=== PATIENT | female | born 1980 | race Caucasian/White ===

== ENCOUNTER 2024-02-23 11:43 | Outpatient (OUT) | payer OTHER, SELFPAY ==
--- NOTE | 2024-02-23 11:53 | US_ITS ---
[facility] [id number] Patient Name: JUSTYN NEWMAN MRN: [id number] date: 1980 Sex: F Assigned Patient Location: [facility] Current Patient Location: [facility] Accession/Order Number: [id number] Exam Date: 02/23/2024 11:58 Report Date: 02/23/2024 14:30 At the request of: AVI WEBER Procedure: US venous doppler LE LT EXAMINATION: US venous doppler LE LT HISTORY: Leg Pain M79.606 COMPARISON: No relevant comparison available. FINDINGS: REGION: Left lower extremity THROMBI: None. COMPRESSIBILITY: Normal compressibility. FLOW: Normal waveform and antegrade flow between 5 and 20 cm/s. OTHER: None. US/US venous doppler LE LT IMPRESSION: 1. No deep vein thrombus within the left lower extremity. Electronically authenticated by: REHANA WALLACE Date: 02/23/2024 14:30
== END 2024-02-23 11:44 | disposition home or self-care (01) ==
LOC: RAD 11:48
PROVIDERS: PCP Family Medicine; Visit Provider Family Medicine
DX: M79.606 Pain in leg, unspecified (principal)
CPT/HCPCS: 93971

== ENCOUNTER 2024-05-24 09:58 | Outpatient (OUT) | payer BC, SELFPAY ==
--- NOTE | 2024-05-24 10:03 | MM_ITS ---
Patient Name: JUSTYN NEWMAN MR#: [id number] : 1980 Exam Date: 05/24/2024 Ordering Doctor: DR Vinod Diaz . RADIOLOGY REPORT PROCEDURE: MM TOMOSYNTHESIS SCREENING BI COMPARISON: None. INDICATIONS: Screening Calculator Name NCI Breast Cancer Risk Assessment Tool 5 Year Breast Cancer Risk 0.50% Lifetime Breast Cancer Risk 7.90% Personal Breast Cancer No Personal Ovarian Cancer No Treatments None Family Cancers Aunt-maternal with ovarian cancer at age ~70. LOCATION: [facility] BREAST COMPOSITION: The breasts are almost entirely fatty. FINDINGS: DIAGNOSTIC CATEGORY 1--NEGATIVE. RIGHT BREAST: No significant suspicious finding. LEFT BREAST: No significant suspicious finding. RECOMMENDATIONS: ROUTINE MAMMOGRAM AND CLINICAL EVALUATION IN 12 MONTHS. PLEASE NOTE: A NORMAL MAMMOGRAM DOES NOT EXCLUDE THE POSSIBILITY OF BREAST CANCER. A CLINICALLY SUSPICIOUS PALPABLE LUMP SHOULD BE BIOPSIED. Dictated by: Kelvin Hernandez M.D. on 05/24/2024 at 16:02 Approved by: Kelvin Hernandez M.D. on 05/24/2024 at 16:04
== END 2024-05-24 09:59 | disposition home or self-care (01) ==
LOC: MAMMO 09:58
PROVIDERS: PCP Family Medicine; Visit Provider Family Medicine
DX: Z12.31 Encounter for screening mammogram for malignant neoplasm of breast (principal); Z80.41 Family history of malignant neoplasm of ovary
CPT/HCPCS: 77063; 77067

== ENCOUNTER 2025-05-26 11:59 | Outpatient (OUT) | payer SELFPAY ==
--- OUTSIDE RECORDS SUMMARY | 2025-05-26 12:15 | XMS_ITS | CCD ---
Author Organization [facility] Care Team Providers Care Steward/Stewardess Third Name Role Phone GUS, DR CÁRDENAS Admitting Unavailable HOY, DR CÁRDENAS Attending Unavailable HOY, DR CÁRDENAS Primary Care Unavailable HOY, DR CÁRDENAS Consulting Unavailable HOY, DR CÁRDENAS Admitting Unavailable HOY, DR CÁRDENAS Attending Unavailable HOY, DR CÁRDENAS Primary Care Unavailable HOY, DR CÁRDENAS Consulting Unavailable HOY, DR CÁRDENAS Admitting Unavailable HOY, DR CÁRDENAS Attending Unavailable HOY, DR CÁRDENAS Primary Care Unavailable HOY, DR CÁRDENAS Consulting Unavailable KARASIK, DR ENCARNACION Admitting Unavailable KARASIK, DR ENCARNACION Attending Unavailable HOY, DR CÁRDENAS Primary Care Unavailable KARASIK, DR ENCARNACION Consulting Unavailable ZIEBER, DR REHANA Gutierrez Consulting Unavailable KARASIK, DR ENCARNACION Admitting Unavailable KARASIK, DR ENCARNACION Attending Unavailable HOY, DR CÁRDENAS Primary Care Unavailable KARASIK, DR ENCARNACION Consulting Unavailable HOY, DR CÁRDENAS Admitting Unavailable HOY, DR CÁRDENAS Attending Unavailable HOY, DR CÁRDENAS Primary Care Unavailable HOY, DR CÁRDENAS Consulting Unavailable ZIEBER, DR REHANA Gutierrez Consulting Unavailable HOY, DR CÁRDENAS Admitting Unavailable HOY, DR CÁRDENAS Attending Unavailable HOY, DR CÁRDENAS Primary Care Unavailable HOY, DR CÁRDENAS Consulting Unavailable Sergio Samson Unavailable MD Avi Weber Primary Care Provider [phone] MD Julian Goodrich Attending Provider Avi Weber MD Primary Care Provider [place] DO Unavailable [phone] Julian Goodrich Attending Unavailable Julian Goodrich Admitting Unavailable Hoy, Avi M Primary Care Unavailable [place] Attending Unavailable JULIAN GOODRICH Referring Unavailable CHANEL FOSTER Attending Unavailable JULIAN GOODRICH Referring Unavailable Avi Weber MD Primary Care Provider Avi Weber MD Primary Care Provider [phone] Avi Weber MD Primary Care Provider [phone] Radha Bradshaw APRN Attending Provider Avi Weber MD Primary Care Provider [phone] Radha Bradshaw APRN Attending Provider MADI TRUONG Attending Unavailable HOY, AVI M Referring Unavailable HOY, AVI M Primary Care Unavailable MADI TRUONG Attending Unavailable HOY, AVI M Referring Unavailable HOY, AVI M Primary Care Unavailable MADI TRUONG Attending Unavailable HOY, AVI M Referring Unavailable HOY, AVI M Primary Care Unavailable MADI TRUONG Attending Unavailable HOY, AVI M Referring Unavailable HOY, VAI M Primary Care Unavailable ARDHA BRADSHAW Referring Unavailable HOY, AVI M Primary Care Unavailable HOY, AVI M Primary Care Unavailable MADI TRUONG Referring Unavailable HOY, AVI M Primary Care Unavailable HOY, AVI M Primary Care Unavailable SONAM CAMARILLO Attending Unavailable MADI TRUONG Referring Unavailable HOY, AVI M Primary Care Unavailable HOY, AVI M Referring Unavailable HOY, AVI M Primary Care Unavailable MADI TRUONG Referring Unavailable HOY, AVI M Primary Care Unavailable MADI TRUONG Referring Unavailable HOY, AVI M Primary Care Unavailable HOY, AVI M Referring Unavailable HOY, AVI M Primary Care Unavailable REMY MERCADO Attending Unavailable SONAM CAMARILLO Referring Unavailable HOY, AVI M Primary Care Unavailable Allergies Allergy ClassificationReported Allergen(s)Allergy TypeDate of OnsetReaction(s) Facility (1 source)[facility]enicillinDrug [facility]ergy[facility] (1 source)Pneumococcal vaccineDrug AllergyOhiohealth [facility] Rep[facility] (7 sources)Penicillin GDrug Zgkzxjp47-37-8460EqsjhatHolzer Health System (18 sources)Penicillins; Translations: [Penicillins]Allergy to substance 30-26-5968Wvuajjt Reaction, [facility] (1 source)PenicillinDrug Yialwvn24-49-3009YbrvqmszpProv[facility] Repository Medications Current Medications MedicationDrug Class(es)DatesSig (Normalized)Sig (Original)amitriptyline hydrochloride 75 mg oral tablet (14 sources)Tricyclic AntidepressantStart: 87-89-6575kqkxfeftnfzzv (ELAVIL) 75 mg tablet Indications: Fibromyalgia One capsule at 8 PM each night 90 tablet 1 10/22/2023 ActiveStart: 04-23-2023 End: 32-63-5465obopxvgjafvzb (ELAVIL) 50 mg tablet Indications: Fibromyalgia One capsule at 8 PM each night 90 tablet 1 04/23/2023 10/22/2023 Discontinued (Reorder)cholecalciferol 1.25 mg oral capsule (20 sources)Vitamin DStart: 05-04-2023 End: 72-72-6056pmva 1 capsule by mouth every monthcholecalciferol (VITAMIN D3) 50,000 units capsule Indications: Vitamin D deficiency TAKE 1 CAPSULE BY MOUTH ONCE MONTHLY 3 capsule 3 06/29/2023 ActiveStart: 03-22-2021 End: 22-14-5594Tsvkxczutvxbxlq (Vitamin D3) (Vitamin D3) 50 mcg (2,000 unit) Tablet Discontinued 50 MCG PO As Directed March 22, 2021 12:00am May 16, 2024 3:07pmdicyclomine hydrochloride 20 mg oral tablet (9 sources)AnticholinergicStart: 29-13-0993wotkeoxyytb (BENTYL) 20 mg tablet 05/01/2021 ActiveDULoxetine 60 mg delayed release oral capsule (14 sources)Serotonin and Norepinephrine Reuptake InhibitorStart: 29-84-1561nkku 1 capsule by mouth in the morning, then take 1 capsule by mouth at bedtime DULoxetine (CYMBALTA) 60 mg capsule Indications: Fibromyalgia Take 1 capsule (60 mg total) by mouthin the morning and 1 capsule (60 mg total) before bedtime. 180 capsule 1 10/22/2023 ActiveStart: 04-23-2023 End: 56-69-5219odtb 1 capsule by mouth once daily in the morning, then take 1 capsule by mouth once daily at bedtimeDULoxetine 40 mg capsule,delayed release(DR/EC) Indications: Fibromyalgia TAKE ONE CAPSULE BY MOUTHEVERY MORNING AND TAKE ONE CAPSULE BY MOUTH EVERY NIGHT AT BEDTIME 180 capsule 1 04/23/2023 10/22/2023 Discontinuedgabapentin 300 mg oral capsule (14 sources)Anti-epileptic AgentStart: 04-23-2023 End: 80-53-2399obpjxcavhx (NEURONTIN) 300 mg capsule Indications: Fibromyalgia One capsule at 8 PM 90 capsule 1 10/22/2023 ActiveSemaglutide/NAM/MeCbl 1.2 mg/0.33 mL (3 sources)Start: 97-56-9652Acdtoexzqee/NAM/MeCbl 1.2 mg/0.33 mL Active 0.33 ML SUBCUT every week 1.January 17, 2025 12:27pm01/17/2025 fax with 2 [facility] Pre-filled Syringes using Semaglutide Base 1.2 mg/Niacinamide 0.66 mg and Methylcobalamin 2.6 mcg Dispense 1.32 mL - (Four 0.33 mL pre-filled syringes) Complies with drug therapyStart: 11-11-2024 End: 53-08-1830Xtcdqepotom/NAM/MeCbl 1.2 mg/0.33 mL Discontinued 0.33 ML SUBCUT every week 1.November 11, 2024 12:00am January 17, 2025 12:36pm paper req faxed 07/14/2024 [facility] Pre-filled Syringes using Semaglutide Base 1.2 mg/Niacinamide 0.66 mg and Methylcobalamin 2.6 mcg Dispense 1.32 mL - (Four 0.33 mL pre-filled syringes)Start: 63-82-2499Refpwimxuob/NAM/MeCbl 1.2 mg/0.33 mL Active 0.33 ML SUBCUT every week 1.November 11, 2024 12:00am paper req faxed 07/14/2024 [facility] Pre-filled Syringes using Semaglutide Base 1.2 mg/Niacinamide 0.66 mg and Methylcobalamin 2.6 mcg Dispense 1.32 mL - (Four 0.33 mL pre-filled syringes)Complies with drug therapytiZANidine 4 mg oral tablet (19 sources)Central alpha-2 Adrenergic AgonistStart: 05-16-2024 End: 39-77-4987ione 6 mg by mouth once daily at bedtimeTizanidine 4 mg tablet Discontinued 6 MG PO Daily at bedtime May 16, 2024 1:00am June 30, 2024 2:45pmStart: 04-23-2023 End: 04-73-3294yfNFRnrkmm (ZANAFLEX) 4 mg tablet Indications: Fibromyalgia One and half tab at 8:00 p.m.each tablet 1 10/22/2023 Activevitamin b12 1 mg oral tablet (8 sources)Vitamin L20Fipgc: 46-26-9123lqrx 1 tablet by mouth in the morning cyanocobalamin 1000 MCG tablet Indications: Vitamin B 12 deficiency Take 1 tablet (1,000 mcg total)by mouth in the morning. 90 tablet 1 04/21/2022 Active Completed/Discontinued Medications MedicationDrug Class(es)DatesSig (Normalized)Sig (Original)celecoxib 200 mg oral capsule (2 sources)Nonsteroidal Anti-inflammatory DrugStart: 04-23-2023 End: 44-98-0442lnjldtdxw (CeleBREX) 200 mg capsule Indications: Fibromyalgia One caps daily with food as needed 90capsule 1 04/23/2023 10/22/2023 Discontinued ferrous sulfate 325 mg oral tablet (14 sources)Start: 03-22-2021 End: 31-48-7432ecxi 1 tablet by mouth three times dailyFerrous Sulfate (Iron) 325 mg (65 mg iron) Tablet Discontinued 325 MG PO Three times daily March 22, 2021 12:00am May 16, 2024 3:07pmtake 1 tablet by mouth once daily at breakfastferrous sulfate 325 (65 FE) mg tablet Take 1 tablet (325 mg total) by mouth daily with breakfast. Activefolic acid 1 mg / vitamin b12 0.5 mg oral tablet (6 sources)Vitamin Q82Pdmtz: 03-22-2021 End: 31-60-6620ogdu 1 tablet by mouth once dailyVitamin I59-Mbcnn Acid 0.5-1 mg Tablet Discontinued 1 TAB PO Daily March 22, 2021 12:00am May 16, 2024 3:07pmPrenatal No.144-Folic Acid () 400 mcg Tablet,Chewable (6 sources)Start: 03-22-2021 End: 18-96-1596Osfzrfug No.144-Folic Acid () 400 mcg Tablet,Chewable Discontinued 1 TAB PO As Directed March 22, 2021 12:00am May 16, 2024 3:07pmStart: 31-32-5938Sicotfks No.144-Folic Acid () 400 mcg Tablet,Chewable Active 1 TAB PO As Directed March 22, 2021 12:00amSemaglutide Base 0.6 mg/0.5 mL (4 sources)Start: 09-02-2024 End: 41-13-3332oxrqcw 1 mL by subcutaneous injection every weekSemaglutide Base 0.6 mg/0.5 mL Discontinued 0.5 ML SUBCUT every week 2 September 02, 2024 12:00am 2024 1:00pm 09/02/2024 fax [facility] Pre-filled Syringes using Semaglutide Base.Dispense 2 mL = (Four 0.5 mL pre-filled syringes)Start: 78-09-9581hlalgj 1 mL by subcutaneous injection every weekSemaglutide Base 0.6 mg/0.5 mL Active 0.5 ML SUBCUT every week 2 September 02, 2024 12:00am 09/02/2024 fax [facility] Pre-filled Syringes using Semaglutide Base. Dispense 2 mL = (Four 0.5 mL pre-filled syringes)Semaglutide/NAM/MeCbl 0.6 mg/0.5 mL (2 sources)Start: 11-11-2024 End: 00-07-9943Vvsbuiwmhlf/NAM/MeCbl 0.6 mg/0.5 mL Discontinued 0.5 ML SUBCUT every week 2 November 11, 2024 12:00am January 17, 2025 9:55am x 4 weeks then escalate to 1.2 mg weekly. 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]29-39-1652RxyxvngmEvpqz and electrolyte disorders (1 source)Other disorders of electrolyte and fluid balance, not elsewhere classified; Translations: [Other disorders of electrolyte and fluid balance, not elsewhere classified]Onset: 74-00-2024YyeahkyoKhpvxpfrgjxuc and screening for infectious disease (2 sources)Encounter for screening for human papillomavirus (HPV); Translations: [Raised antibody titer]Onset: 71-36-4538ToeqkfyfLezhmbjeqix deficiencies (20 sources)Vitamin D deficiency; Translations: [Vitamin D deficiency, unspecified]Onset: 795381-20-5056MyrrstrGvdlf connective tissue disease (9 sources)Hypermobility syndrome; Translations: [Hypermobility syndrome] 07-28-9879NbprsypoXxrek gastrointestinal disorders (1 source)Irritable bowel syndrome; Translations: [Mixed irritable bowel syndrome]ChronicOther gastrointestinal disorders (1 source)Mixed irritable bowel syndromeOnset: 05-01-2021 Resolved: 21-39-6395GikezusBtbqs hereditary and degenerative nervous system conditions (1 source)Myoclonus; Translations: [Myoclonus]Onset: 89-52-5131ZhjrzxqHzmmh nervous system disorders (5 sources)Carpal tunnel syndrome; Translations: [Carpal tunnel syndrome, unspecified upper limb]04-29-1028AxfmddxOdazina on above:per patient both hands Other nervous system disorders (1 source)Numbness and tingling sensation of skin; Translations: [Anesthesia of skin]53-31-9951IsyfwowtHxagb nervous system disorders (2 sources)Anesthesia of skin; Translations: [Anesthesia of skin]Onset: 11-33-1751CvxqcrprXsmxm nervous system disorders (1 source)Abnormal reflex; Translations: [Abnormal reflex]Onset: 04-26-2025 EpisodicOther non-traumatic joint disorders (1 source)Hip pain; Translations: [Pain in right hip]19-15-9109FftkmvpdCrxhy non-traumatic joint disorders (2 sources)Pain in right hip; Translations: [Pain in right hip]Onset: 03-09-2025 EpisodicOther non-traumatic joint disorders (2 sources)Pain in left hip; Translations: [Pain in left hip]Onset: 03-09-2025 EpisodicOther nutritional; endocrine; and metabolic disorders (9 sources)Body mass index 40+ - severely obese; Translations: [Body mass index (BMI) 40.0-44.9, adult]32-29-9032GwhttnjTuhmj nutritional; endocrine; and metabolic disorders (9 sources)Obesity; Translations: [Obesity, unspecified]82-02-5938JizyyttKkgbq nutritional; endocrine; and metabolic disorders (7 sources)Body mass index (BMI) 40.0-44.9, adult; Translations: [Body Mass Index 40.0-44.9, adult]Onset: 815929-18-9336GwruuftXuzon nutritional; endocrine; and metabolic disorders (6 sources)Obesity, unspecified; Translations: [Obesity, unspecified]06-30-2024 ChronicOther screening for suspected conditions (not mental disorders or infectious disease) (4 sources)Encounter for screening for malignant neoplasm of cervix; Translations: [ENC SCREENING MALIG NEOPLASM CERV]Onset: 94-44-6353LcdgzzkzUjwab upper respiratory infections (5 sources)Chronic sinusitis, unspecified; Translations: [CHRONIC SINUSITIS UNSPECIFIED]Onset: 37-11-0815ByfyfkiLdaopnmm enteritis and ulcerative colitis (1 source)Ulcerative colitis; Translations: [Ulcerative colitis, unspecified, without complications]ChronicSpondylosis; intervertebral disc disorders; other back problems (7 sources)Lumbar spondylosis; Translations: [Spondylosis without myelopathy or radiculopathy, lumbar region]Onset: 210075-55-1242SseqvtbQzksuykwktg; intervertebral disc disorders; other back problems (18 sources)Cervical radiculopathy; Translations: [Radiculopathy, cervical region]Onset: 323564-49-4648SmeoycovTqqckacmtowd (1 source)Facial NumbnessOnset: 66-15-0568Xlcrswctrewx (1 source)OPEN WOUND TOP OF RT FOOTOnset: 01-08-0607Vgohjnppzivv (1 source)New PatientOnset: 12-30-2495Bmwclihcmjlk (1 source)Low back pain, unspecified; Translations: [Low back pain, unspecified] Onset: 10-19-2024 Past or Other Problems Problem ClassificationProblemDateDocumented DateEpisodic/ChronicDeficiency and other anemia (4 sources)Iron deficiency anemia, unspecified; Translations: [IRON DEFICIENCY ANEMIA UNSPECIFIED]Onset: 69-63-4416YsuaocoyOwlbreq and fatigue (4 sources)Other fatigue; Translations: [OTHER FATIGUE]Onset: 10-75-6769Njlswymg Nutritional deficiencies (20 sources)Cobalamin deficiency; Translations: [Deficiency of other specified B group vitamins]Onset: 929464-75-0088RmdtydlqTsph wounds of extremities (1 source)Laceration without foreign body, right foot, initial encounter; Translations: [Laceration without foreign body, right foot, initial encounter] Onset: 92-11-3097TkuddenaBuahb connective tissue disease (18 sources)Fibromyalgia; Translations: [Fibromyalgia]Onset: 04-21-2022 20-63-6769PsulsslrHblnw connective tissue disease (7 sources)Fibromyalgia; Translations: [Myalgia and myositis, unspecified]Onset: 646978-88-1231CkkxhhieFgnuc connective tissue disease (7 sources)Hypermobility syndrome; Translations: [Hypermobility syndrome]Onset: 842199-17-8514KcismwgsCkrkx gastrointestinal disorders (1 source)Personal history of other diseases of the digestive systemOnset: 05-01-2021 Resolved: 19-48-0986HdjmixbbNfmtf injuries and conditions due to external causes (1 source)Laceration - injuryOnset: 88-03-0845VvtreytaFbtzagfx codes; unclassified (1 source)Other specified postprocedural states; Translations: [OTH SPECIFIED POSTPROCEDURAL STATES]Onset: 96-86-3879ZsxdgunyEgsahygm codes; unclassified (1 source)PainOnset: 04-13-2743Skmwwpgw Results Test NameValueInterpretationReference RangeFacilityAPTTon 41-78-0399xTRO Coag (Bld) [Time]34 tZkfccu65-06CrmAqnunjTexas Health Presbyterian Hospital PlanoComment on above:Performed By: #### PTT #### [facility] ([address] [address] VIRBEDSIDE GLUCOSEon 75-81-4884Bvjygev [Mass/Vol]64 mg/dLLow 65-99ProTexas Health Presbyterian Hospital PlanoComment on above:Performed By: #### BEDG #### [facility] ([address] [address] VIRCBC WITH AUTO DIFFERENTIALon 19-39-2650NHGQDCHLZ ABSOLUTE COUNT BY AUTOMATED COUNT0.1 X10^9/LNormal0.0-0.2POhioHealth Arthur [facility] Comment on above:Performed By: #### CBCA #### [facility] ([address] [address] VIRBASOPHILS RELATIVE PERCENT BY AUTOMATED COUNT1.1 %Normal [facility] HospitalComment on above:Performed By: #### CBCA #### [facility] ([address] [address] VIRCELLAVISION DIFFERENTIAL TYPEAUTOMATED DIFFERENTIALNormal [facility] HospitalComment on above:Performed By: #### CBCA #### [facility] ([address] [address] VIREosinophils (Bld) [#/Vol]0.1 10*3/uLNormal0.0-0.4ProTexas Health Presbyterian Hospital PlanoComment on above:Performed By: #### CBCA #### [facility] ([address] [address] VIREOSINOPHILS RELATIVE PERCENT BY AUTOMATED COUNT1.4 %Normal [facility] HospitalComment on above:Performed By: #### CBCA #### [facility] ([facility]) [address] [place] [address] [place] [address] VIRErythrocyte distribution width (RBC) [Ratio]13.4 %Normal 11.5-15[facility] HospitalComment on above:Performed By: #### CBCA #### [facility] ([address] [place] [address] VIRHematocrit (Bld) [Volume fraction]38.0 %Aczrrj87-96 [facility] HospitalComment on above:Performed By: #### CBCA #### [facility] ([address] [place] [address] VIRHemoglobin (Bld) [Mass/Vol]12.9 g/vFIepsyx16.7-15.5 [facility] HospitalComment on above:Performed By: #### CBCA #### [facility] ([address] [place] [address] VIRLymphocytes (Bld) [#/Vol]1.3 10*3/uLNormal1.0-3.5POhioHealth Arthur G.H. Bing, MD, Cancer CenterComment on above:Performed By: #### CBCA #### [facility] ([facility]) [address] [place] [address] [place] [address] VIRLYMPHOCYTES RELATIVE PERCENT BY AUTOMATED COUNT26.9 %Normal [facility] HospitalComment on above:Performed By: #### CBCA #### [facility] ([facility]) [address] [place] [address] [place] [address] VIRMCH (RBC) [Entitic mass]30.5 saPhrbdc06-28UxyIbxvryHarrison Community HospitalComment on above:Performed By: #### CBCA #### [facility] ([facility]) [address] [place] [address] [place] [address] VIRMCHC (RBC) [Mass/Vol]33.9 g/fKGpwkpu40-24NxwPzamjkTexas Health Presbyterian Hospital PlanoComment on above:Performed By: #### CBCA #### [facility] ([address] [place] [address] VIRMCV (RBC) [Entitic vol]90 yXWxqvzm46-859HnjGyzbwu [facility] HospitalComment on above:Performed By: #### CBCA #### [facility] ([address] [place] [address] VIRMonocytes (Bld) [#/Vol]0.4 10*3/uLNormal0.0-0.9ProTexas Health Presbyterian Hospital PlanoComment on above:Performed By: #### CBCA #### [facility] ([address] [place] [address] VIRMONOCYTES RELATIVE PERCENT BY AUTOMATED COUNT8.6 %Normal [facility] HospitalComhar[facility]aks hospital on above:Performed By: #### CBCA #### [facility] ([address] [place] [address] VIRNEUTROPHILS ABSOLUTE COUNT BY AUTOMATED COUNT3.0 X10^9/L Normal1.5-6.6[facility] HospitalComharbor oaks hospital on above:Performed By: #### CBCA #### [facility] ([address] [place] [address] VIRNEUTROPHILS RELATIVE PERCENT BY AUTOMATED COUNT62.0 %Normal [facility] HospitalComhar[facility] oaks hospital on above:Performed By: #### CBCA #### [facility] ([address] [place] [address] VIRPlatelet mean volume (Bld) [Entitic vol]8.2 fLNormal7-12 [facility] HospitalComhar[facility] oaks hospital on above:Performed By: #### CBCA #### [facility] ([address] [place] [address] VIRPlatelets (Bld) [#/Vol]320 10*3/hTSdvdiw307-784QhfQudqsy [facility] HospitalComment on above:Performed By: #### CBCA #### [facility] ([facility]) [address] [place] [address]. [place] [address] VIRRBC COUNT4.22 X10^12/LNormal3.8-5.2POhioHealth Arthur G.H. Bing, MD, Cancer CenterComment on above:Performed By: #### CBCA #### [facility] ([facility]) [address] [place] [address]. [place] [address] VIRWBC (Bld) [#/Vol]4.8 10*3/uLNormal4-11ProTexas Health Presbyterian Hospital PlanoComment on above:Performed By: #### CBCA #### [facility] ([facility]) [address] [place] [address]. [place] [address] VIRCOMPREHENSIVE METABOLIC PANELon 16-26-5601Smxejau [Mass/Vol]4.0 g/dLNormal3.2-5.3POhioHealth Arthur G.H. Bing, MD, Cancer CenterComment on above: Performed By: #### 04423-6, 9, 29304-7 #### [facility] ([id number]) [address], [address] [place], [place] [address]SAY [Catalytic activity/Vol]77 U/ETmyqas67-865SibSpyixvTexas Health Presbyterian Hospital PlanoComment on above:Performed By: #### 10385-9, 2132-02, 49408-6 #### [facility] ([id number]) [address], [address] [place], [place] [address]WMT [Catalytic activity/Vol]20 U/LNormal<=31POhioHealth Arthur G.H. Bing, MD, Cancer CenterComment on above:Performed By: #### 57350-9, 2132-02, 11126-7 #### [facility] ([id number]) [address], [address] [place], [place] [address]Mwfzp gap [Moles/Vol]9 mmol/LNormal5-15ProTexas Health Presbyterian Hospital PlanoComment on above:Performed By: #### 81410-8, 2132-02, 30611-3 #### [facility] ([id number]) [address], [address] [place], [place] [address]FDL [Catalytic activity/Vol]22 U/LNormal<=41ProTexas Health Presbyterian Hospital PlanoComment on above:Performed By: #### 89657-6, 2132-02, 15682-8 #### [facility] ([id number]) [address], [address] [place], [place] [address]Tagfuxwoa [Mass/Vol]0.4 mg/dLNormal0.3-1.2POhioHealth Arthur G.H. Bing, MD, Cancer CenterComment on above:Performed By: #### 00770-8, 2132-02, 48069-9 #### [facility] ([id number]) [address], [address] [place], [place] [address]Mtbgcrb [Mass/Vol]9.0 mg/dLNormal8.5-10.5POhioHealth Arthur G.H. Bing, MD, Cancer CenterComment on above:Performed By: #### 96584-4, 2132-02, 21809-3 #### [facility] ([id number]) [address], [address] [place], [place] [address]Roylepnc [Moles/Vol]104 mmol/TRbegnu60-570DnbUppsouTexas Health Presbyterian Hospital PlanoComment on above:Performed By: #### 65308-3, 2132-02, 93498-7 #### [facility] ([id number]) [address], [address] [place], [place] [address]EI6 [Moles/Vol]27 mmol/IOrmpqf92-13TpyYoftfvAdena Fayette Medical Center on above:Performed By: #### 34442-9, 2132-02, 61981-6 #### [facility] ([id number]) [address], [address] [place], [place] [address]Fisbvvnzgy [Mass/Vol]1.05 mg/dLHigh0.40-1.00H[facility] HospitalComment on above:Result Comment: METHOD TRACEABLE TO IDMS STANDARD Performed By: #### 50643-6, 2132-02, 25848-7 #### [facility] ([id number]) [address], [address] [place], [place] [address]FOM/1.73 sq M.predicted among non-blacks MDRD (S/P/Bld) [Vol rate/Area]68 mL/min/{1.73_m2}Normal>=60ProTexas Health Presbyterian Hospital PlanoComment on above:Result Comment: eGFR not reported due to non-numeric value for Creatinine. Reported eGFR is based on the CKD-EPI 2020 equation that does not use a race coefficient.Performed By: #### 17760-9, 2132-02, 82173-3 #### [facility] ([id number]) [address], [address] [place], [place] [address]Ranlxsb [Mass/Vol]82 mg/nLJjtgsv58-12DfmXhjkxwHarrison Community Hospital Comment on above:Performed By: #### 53010-2, 2132-02, 11576-9 #### [facility] ([id number]) [address], [address] [place] [address]Ppgahjwqa [Moles/Vol]4.2 mmol/LNormal3.5-5.0Harrison Community HospitalComment on above:Performed By: #### 30512-0, 2132-02, 91248-2 #### [facility] ([id number]) [address], [address] [place] [address]Wlcszmo [Mass/Vol]7.3 g/dLNormal6.0-8.0ProTexas Health Presbyterian Hospital PlanoComment on above:Performed By: #### 18623-1, 2132-02, 44003-9 #### [facility] ([id number]) [address], [address] [place] [address]Tcoppi [Moles/Vol]140 mmol/FVxmqwq942-657FhbZgvftq [facility]remont HospitalComment on above:Performed By: #### 58958-4, 9, 07153-5 #### [facility] ([id number]) [address], [address] [place], [place] [address]Mfjz nitrogen [Mass/Vol]12 mg/dLNormal5-23Harrison Community HospitalComment on above:Performed By: #### 89924-7, 9, 06307-4 #### [facility] ([id number]) [address], [address] [place], [place] [address]MO BRAIN WO CONTon 61-03-6746LT BRAIN WO CONTCT BRAIN WO CONT STUDY: CT HEAD WITHOUT CONTRAST CLINICAL HISTORY: Facial numbness acute neurologic symptoms COMPARISON: None. TECHNIQUE: CT head was performed without contrast utilizing 2.5 mm axial reconstruction with imagesreviewed in bone and brain windows. Automated exposure control was utilized. FINDINGS: There is no intracranial mass, mass effect or shift of midline structures. No extra-axial fluid collection. Schneider-white differentiation is preserved. Brain volume and ventricular configuration are appropriate for the patient's stated age. Please note, MRI is more sensitive for the evaluation of acute or occult process if indicated. IMPRESSION: 1. No evidence of an acute intracranial process. All CT scans at this facility use dose modulation, iterative reconstruction, and/or weight based dosing when appropriate to reduce radiation dose to as low as reasonably achievable. Finalized by Jay Jay Castrejon MD on 04/20/2025 3:05 PMNormalHarrison Community HospitalCT CTA CAROTIDon 35-70-3706UG CTA CAROTIDCT CTA CAROTID History: Facial numbness. Evaluate for stroke alert. Exam/Technique: Contiguous axial images are obtained of the CT carotid angiogram 100ml Omnipaque 350 intravenous contrast. Coronal and sagittal reconstructions were performed and reviewed. CT angiogram protocol with 3-D and volumetric scans acquired. Automatic dose exposure reduction technique utilized. Comparison: Findings: Limited exam due to patient body habitus. Breathing artifact also compromising detail. NON VASCULAR FINDINGS: No neck masses. No fluid collections. Lung apices are unremarkable. Azygos lobe fissure normal variation noted in the right upper lobe region. Beam hardening artifact from hardware in the oral cavity. Vascular sclerosis of the cervical spine keeping muscle spasm with degenerative disease in the mid cervical spine. VASCULAR FINDINGS: Both vertebral arteries arise from the subclavian arteries. The arteries demonstrate no stenosis inthe neck with the right artery appearing dominant and the left diminutive The visualized aortic arch is a three-vessel configuration. The common carotid arteries are patent. The carotid bulbs are patent and the bifurcation and internal carotid arteries are patent skull base bilaterally. IMPRESSION: No significant vascular stenosis in the neck identified. Study interpreted with NASCET criteria. Distal ICA -Area of Stenosis/Max ICA diameter. All CT scans at this facility use dose modulation, iterative reconstruction, and/or weight based dosing when appropriate to reduce radiation dose to as low as reasonably achievable. Finalized by El Massey MD on 04/20/2025 3:05 [facility] CenterCT CT[facility] HEADon 82-36-0125ZA CTA HEADCT CTA HEAD CT CTA HEAD CLINICAL HISTORY: Facial numbness. COMPARISON: 04/20/2020. TECHNIQUE: Axial CT images were obtained through the head following the uneventful administration of intravenous contrast. Sagittal and coronal reformatted images were performed. MIP and volume rendered images were also post processed at a separate workstation to further define anatomy and potential pathology. 100 mL of Ibobbquye506 intravenous contrast without complication. Arterial blood flow was measuredto assist the stroke clinical team in the diagnosis of large vessel occlusion in patients undergoing screening for acute ischemic stroke using Rapid AI software when clinically indicated. FINDINGS: The distal internal carotid arteries are unremarkable. Normal distal vertebral and basilar arteries. There is no significant stenosis in the anterior, middle or posterior cerebral arteries. No evidence of sizable aneurysm or malformation. No large vessel occlusion. There are small patent posterior communicating arteries. IMPRESSION: 1. No large vessel arterial occlusion, significant stenosis, sizable aneursym, or malformation. 2. CTA carotid findings dictated separately. All CT scans at this facility use dose modulation, iterative reconstruction, and/or weight based dosing when appropriate to reduce radiation dose to as low as reasonably achievable. Finalized by Heriberto Espino MD on 04/20/2025 3:03 [facility] MAGNESIUMon 56-45-5538Hsmqpumis [Mass/Vol]2.0 mg/dLNormal1.8-2.6ProTexas Health Presbyterian Hospital PlanoComment on above:Performed By: #### MG #### [facility] ([facility]) [address] [place] [address] [place] [address] VIRPHOSPHORUSon 21-21-9786Bwepuoacj [Mass/Vol]3.5 mg/dLNormal 2.4-4.9ProTexas Health Presbyterian Hospital PlanoComment on above:Performed By: #### PHOS #### [facility] ([facility]) [address] [place] [address]. [place] [address] VIRPROTIME AND INRon 19-48-7208YEX9.5Hezzuw4.9-1.2POhioHealth Arthur G.H. Bing, MD, Cancer CenterComment on above:Performed By: #### PINR #### [facility] ([address] [place] [address] VIRPT Coag (PPP) [Time]12.4 sNormal9.8-13.2POhioHealth Arthur G.H. Bing, MD, Cancer CenterComment on above:Performed By: #### PINR #### [facility] ([address] [place] [address] VIRTHYROID PROFILE INCLUDES TSH FT4on 64-81-1547Jvmi T4 [Mass/Vol]0.73 ng/dLNormal0.61-1.60ProTexas Health Presbyterian Hospital PlanoComment on above: Performed By: #### 20125-1, 2132-02, 12354-2 #### [facility] ([id number]) [address], [address] [place], [place] [address]VEX5.60 uIU/mLNormal0.49-4.67ProTexas Health Presbyterian Hospital PlanoComment on above:Performed By: #### 33265-5, 2132-02, 02163-8 #### [facility] ([id number]) [address] [place], [place] [address]ZYOR I, HIGH SENSITIVITY 1 HOURon 57-25-9478GPGCAKVH I, HIGH SENSITIVITY<^2Normal<16ProTexas Health Presbyterian Hospital PlanoComment on above:Performed By: #### 92241-7, 2132-02, 36484-3 #### [facility] ([id number]) [address], [address] [place] [address]WLSCZIFRCUzb 25-10-8405Ypuhetgrh Ql (U)NegativeNormalNegative [facility] HospitalComment on above:Performed By: #### 97289-3, 2132-02, 04633-2 #### [facility] ([id number]) [address], [address] [place] [address]XQPNM/HGBNegativeNormalNegVan Wert County HospitalComment on above:Performed By: #### 04829-0, 2132-02, 59850-3 #### [facility] ([id number]) [address], [address] [place], [place] [address]Shaxm (U)YellowNormalYellowHarrison Community HospitalComment on above:Performed By: #### 48159-2, 2132-02, 42886-1 #### [facility] ([id number]) [address], [address] [place], [place] [address]Nezneco Ql (U)NegativeNormalNegative, 250 mg/dLHarrison Community HospitalComment on above:Performed By: #### 54504-7, 2132-02, 52833-2 #### [facility] ([id number]) [address], [address] [place], [place] [address]Tyffofq Ql (U)NegativeNormalNegativeHarrison Community Hospital Comment on above:Performed By: #### 35180-4, 2132-02, 57547-4 #### [facility] ([id number]) [address], [address] [place], [place] [address]Qsmlpqsmc esterase Test strip Ql (U)NegativeNormalNegative Harrison Community HospitalComment on above:Performed By: #### 80501-2, 2132-02, 24699-8 #### [facility] ([id number]) [address], [address] [place] [address]Frfkymc Ql (U)NegativeNormalNegativeHarrison Community Hospital Comment on above:Performed By: #### 94412-3, 2132-02, 93817-3 #### [facility] ([id number]) [address], [address] [place] [address]XR,URINE6.4Iudeik7.0-8.5ProMedica [facility]ripp[facility] Memorial HospitalComment on above:Performed By: #### 35255-0, 2132-02, 81000-0 #### [facility] ([id number]) [address], [address] [place], [place] [address]Cddmvdk Ql (U)NegativeNormalNegVan Wert County Hospital Comment on above:Performed By: #### 59485-6, 2132-02, 38760-4 #### [facility] ([id number]) [address], [address] [place] [address]Zgcorvak gravity (U) [Rel density]1.118Jvjwva4.003-1.035 [facility] HospitalComment on above:Performed By: #### 90700-5, 2132-02, 74173-3 #### [facility] ([id number]) [address], [address] [place] [address]TPFARALITHrgrvHyynthBybakNcxHhlscd [facility]ont HospitalComment on above:Performed By: #### 38269-5, 2132-02, 94550-9 #### [facility] ([id number]) [address], [address] [place] [address]WVAPGQXEJJWO7.2 eu/dLNormal0.2 eu/dL, 1.0 eu/dLHarrison Community HospitalComment on above:Performed By: #### 49502-3, 9, 75559-3 #### [facility] ([id number]) [address], [address] [place], [place] [address]AUTRBXP B12on 88-34-8281Wmebkczqa (Vitamin B12) [Mass/Vol]500 pg/iNLsanlf043-919JkqBbtfsd [facility] HospitalComment on above:Performed By: #### 62730-8, 2132-02, 83072-6 #### [facility] ([id number]) [address], [address] [place], [place] [address]HB AMB LUMBAR MEDIAL BRANCH BLOCKon 67-48-4785ZE AMB LUMBAR MEDIAL BRANCH BLOCKFL AMB LUMBAR MEDIAL BRANCH BLOCK Lumbar spine 2 view intraoperative fluoroscopy for epidural steroid injection HISTORY: Lumbar spondylosis, intraoperative fluoroscopy for bilateral lumbar epidural steroid injection. IMPRESSION: AP and oblique fluoroscopic images of the lumbar spine submitted, 4 total images demonstrating overlying posterior needles. Reference Air Kerma 9.82 mGy. Please refer to operative report. Finalized by Brant Acuña MD on 04/17/2025 10:28 [facility] PPGXR HIPS BILAT W OR WO PELVIS 5+ VWSon 30-71-3952GV HIPS BILAT W OR WO PELVIS 5+ VWSXR HIPS BILAT W OR WO PELVIS 5+ VWS XR HIPS BILAT W OR WO PELVIS 5+ VWS CLINICAL HISTORY: Bilateral hip joint pain COMPARISON: None. FINDINGS: Frontal view of the pelvis and 2 views of each hip are obtained. Soft tissues: Unremarkable. Osseous structures: No acute fracture. No destructive osseous lesion. Joints: No dislocation or malalignment. Subchondral sclerosis in bilateral hips suggesting mild hip degenerative arthritis without significant joint space narrowing. IMPRESSION: * No acute fracture or malalignment. Mild bilateral hip degenerative arthritis. Finalized by Vane Malone MD on 03/13/2025 5:18 [facility] PPGXR SPINE CERVICAL 3 VWS OR LESSon 81-89-5271JE SPINE CERVICAL 3 VWS OR LESSXR SPINE CERVICAL 3 VWS OR LESS 3 views of the cervical spine dated 03/09/2025 at 11:23 AM INDICATION: Neck pain. FINDINGS: No comparisons available. Reversed cervical lordosis. Degenerative disc disease and smallosteophytes in the mid cervical spine. Mild narrowing of the C5-6 disc space. No acute fracture or subluxation seen. IMPRESSION: 1. Reversed cervical lordosis and degenerative disc disease in the mid cervical spine. 2. No acute fractures or subluxations seen. Finalized by Joel Gautam MD on 03/12/2025 4:46 [facility] PPGFL AMB SACROILIAC JOINT INJon 75-62-2231DP AMB SACROILIAC JOINT INJFL AMB SACROILIAC JOINT INJ HISTORY: Sacroiliac pain Fluoroscopy time: 15.2 seconds Reference air kerma: 10.0 mGy FINDINGS: Multiple fluoroscopic views of the pelvis were obtained. Images demonstrate needle localization of the inferior left sacroiliac joint. Confirmatory contrast injection was performed prior tosteroid administration. IMPRESSION: * Intraoperative fluoroscopy provided during left sacroiliac joint injection. No radiologist present during examination. Please refer to operative report for additional detail. Finalized by Bairon Morales MD on 12/19/2024 8:41 [facility] PPGMR LUMBAR SPINE WO CONTon 48-56-4667CJ LUMBAR SPINE WO CONTMR LUMBAR SPINE WO CONT EXAM: MRI LUMBAR SPINE WITHOUT CONTRAST CLINICAL HISTORY: Chronic low back pain, lumbar radiculopathy, foot drop. TECHNIQUE: Routine unenhanced MRI of the lumbar spine was obtained. COMPARISONS: None. FINDINGS: The lumbar spine maintains a normal lordotic curvature. There is no malalignment within the lumbar spine. There is no significant loss of the vertebral body or disc space heights. There are no bone marrow signal abnormalities. There are no signal abnormalities of the visualized distal spinal cord. The conus is normal in appearance and location, terminating at the L1-L2 level. Individual disc space levels: T12-L1: The disc is unremarkable. L1-L2: The disc is unremarkable. L2-L3: The disc is unremarkable. L3-L4: The disc is unremarkable. L4-L5: The disc is unremarkable. L5-S1: The disc is unremarkable. IMPRESSION: 1. Normal MRI of the lumbar spine without contrast. Finalized by Reza Rodriguez MD on 11/29/2024 6:08 [facility] XR SPINE LUMBAR 2 OR 3 VWSon 36-31-2918MJ SPINE LUMBAR 2 OR 3 VWSXR SPINE LUMBAR 2 OR 3 VWS XR SPINE LUMBAR 2 OR 3 VWS HISTORY: Low back pain, unspecified back pain laterality, unspecified chronicity, unspecified whether sciatica present. COMPARISON: none IMPRESSION: Preserved lumbar vertebral body heights. No substantial listhesis. Moderate disc height loss at L5-S1. Notable posterior facet arthropathy at L4-5., Suspect posterior facet tropism degenerative changes sacroiliac joints. Finalized by Mauricio Dickinson MD on 10/20/2024 10:24 [facility] PPGLipid 1996 panelon 43-39-9062Nfczvruskgl [Mass/Vol]208 mg/dLHigh 150-200H[facility] Community HospitalComment on above:Performed By: #### 01293-9, 2139, 21032-1 #### [facility] ([id number]) [address] [place] [address], [address] [place], [place] [address]Yhtrffgvhfx in HDL [Mass/Vol]59 mg/dLNormal>39H[facility] Community HospitalComment on above:Result Comment: HDL <40 mg/dL - High Risk HDL > or = 40mg/dL- Desirable HDL >60 mg/dL - Negative Risk Performed By: #### 55745-7, 21329, 83272-9 #### [facility] ([id number]) [address] [place] [address], [address] [place], [place] [address]Ogelhwncvjv in LDL [Mass/Vol]130 mg/dLHigh<130ProTexas Health Presbyterian Hospital PlanoComment on above:Result Comment: LDL <100 mg/dL - Desirable LDL >160 mg/dL - High Risk Performed By: #### 59184-1, 2132-02, 71502-3 #### [facility] ([id number]) [address], [address] [place], [place] [address]Acvczrwsepe in VLDL [Mass/Vol]19 mg/dLNormal0-30ProTexas Health Presbyterian Hospital PlanoComment on above:Performed By: #### 62588-0, 2132-02, 89493-1 #### [facility] ([id number]) [address], [address] [place], [place] [address]BOUUSTBBBWS:HDL3.7Nfftjb1.0-5.0H[facility] Community HospitalComment on above:Performed By: #### 83741-4, 2132-02, 21185-5 #### [facility] ([id number]) [address], [address] [place], [place] [address]Nhenxekxalpu [Mass/Vol]95 mg/eAOicncl56-064EjbOmdelk [facility] HospitalComment on above:Performed By: #### 61210-4, 2132-02, 16219-5 #### [facility] ([id number]) [address], [address] [place], [place] [address]TXQCTYZ B12on 37-79-6380Ytqfdvjli (Vitamin B12) [Mass/Vol]178 pg/cYKon716-520NknMzixfeOhioHealth Arthur G.H. Bing, MD, Cancer CenterComment on above:Performed By: #### 56044-2, 2132-02, 88900-7 #### [facility] ([id number]) [address], [address] [place], [place] [address]Afznjru D+Metabolites [Mass/Vol]on 35-66-5462PMUWIGM D 25 HYD TOT43.9 ng/aWIukkoy45-709EjlSdqzel [facility] HospitalComment on above:Result Comment: Vitamin D status 25 [place] Vitamin D Deficiency <20 ng/mL Insufficiency 20-29 ng/mL Sufficiency 30-100 ng/mL Toxicity >100 ng/mL NOTE: A pediatric reference range has not been established by the automotive shop foreman of this kit. The [place] [employer] recommends a Vitamin D level of = or >20ng/mL in infants and children.Performed By: #### 99570-5, 2132-9, 33161-5 #### [facility] ([id number]) [address] [place], [place] [address]ZLA 2 Extremitieson 17-29-0711RSR/NCS BLE Left S1/2 radic vs tibial neuropathyNODivine Savior HealthcareN - Nerveson 01-32-7015HQG/NCS BLE Left S1/2 radic vs tibial neuropathyAtrium Health Kings MountainEMG 2 Extremitieson 65-57-9937Uxbufxad radiculopathy at C8, bilaterally, mild Carpal tunnel syndrome bilaterally, very minimal bilaterallyNOAscension [facility] - Nerveson 46-01-6328Ydzrfkce radiculopathy at C8, bilaterally, mild Carpal tunnel syndrome bilaterally, very minimal bilaterallyAurora [facility]boy[facility] Antinuclear Antibodieson 88-62-6355Hegxvsgudlp Abs, IFAPositive Critically abnormal.[facility] Physician GroupComment on above:Result Comment: Negative <1:80 Borderline 1:80 Positive >1:80Performed By: #### CH50, TPO, ROULA, ANTIR, VOI78IC, C3, C4, THYGLOB AB, CHROMATIN #### [facility] ,Note 1CommentNormal.The [facility] Physician GroupComment on above:Result Comment: Pattern Potential Disease Association Homogeneous Systemic Lupus Erythematosus, Drug Induced Systemic Lupus Erythematosus, Chronic Autoimmune hepatitis, Juvenile Idiopathic Arthritis Speckled Sjogren Syndrome, Systemic Lupus Erythematosus, Subacute Cutaneous Lupus, Lupus, Congenital Heart Block, Mixed Connective Tissue Disease, Scleroderma-diffuse, Scleroderma-Autoimmune Myositis Overlap Syndrome, Systemic Lupus Qlchiybfzzgzt-Snohjiqthii-Prtqkmyghz Myositis Overlap Syndrome, Systemic Autoimmune Rheumatic Disease, Undifferentiated Connective Tissue Disease Nucleolar Systemic Sclerosis, Scleroderma-Autoimmune Myositis Overlap Syndrome, Sjogren Syndrome, Raynaud phenomenon, Pulmonary Arterial Hypertension, Systemic Autoimmune Rheumatic Disease, Cancer Centromere Scleroderma-CREST, Limited Cutaneous SSc, Raynaud's Phenomenon, Primary Biliary Cholangitis Nuclear Dot Primary Biliary Cholangitis Nuclear Primary Biliary Cholangitis, Autoimmune Membrane Hepatitis/Liver disease, Systemic Autoimmune Rheumatic Disease, Autoimmune Cytopenias, Linear Scleroderma, Antiphospholipid Syndrome Performed at: [address] [id number] Escalator Service Mechanic: Cachorro Humphrey PhD, Phone: [phone] By: #### CH50, TPO, ROULA, ANTIR, [id number], C3, C4, THYGLOB AB, CHROMATIN #### [facility] ,Speckled Pattern1:160High.The [facility] Physician GroupComment on above:Result Comment: ICAP nomenclature: AC-2,4,5,29Performed By: #### CH50, TPO, ROULA, ANTIR, [id number], C3, C4, THYGLOB AB, CHROMATIN #### [facility] ,Activated partial thromboplastin time (aPTT) in platelet poor plasma by coagulation aOrdered By: Julian Goodrich on 99-70-3092rDOP Coag (PPP) [Time]32.2 s25.1-36.5FSumma Health Barberton CampusComment on above:A hematocrit value greater than 55% may lead to inaccurate results in coagulation testing. Patients having hematocrit values >55% require a special collection tube for coagulation studies. Please contact the laboratory at [phone] for redraw instructions. Alanine aminotransferase [Enzymatic activity/volume] in Serum or PlasmaOrdered By: Julian Goodrich on 80-02-4539EWK [Catalytic activity/Vol]12 U/LNormal7-52 Providence HospitalComment on above:Performed By: #### CH50, TPO, ROULA, ANTIR, [id number], C3, C4, THYGLOB AB, CHROMATIN #### [facility] ,Albumin [Mass/volume] in Serum or Plasma by Bromocresol green (BCG) dye binding methoOrdered By: Julian Goodrich on 61-86-1543Ypnrtvu BCG dye [Mass/Vol]4.1 g/dL 3.5-5.7FSumma Health Barberton CampusAldolaseon 43-19-4652Yindgfqf3.9 U/LLow 3.3-10.3The [facility] Physician GroupComment on above:Result Comment: Performed at: [facility] [address] [id number] Escalator Service Mechanic: Cachorro Humphrey PhD, Phone: [phone] PERFORMED BY: [place] [address] PATHOLOGIST ELECTROLYSIST DIANA BOGGS M.D.Performed By: #### CH50, TPO, ROULA, ANTIR, [id number], C3, C4, THYGLOB AB, CHROMATIN #### [facility] ,Alkaline phosphatase [Enzymatic activity/volume] in Serum or PlasmaOrdered By: Julian Goodrich on 53-65-8530CCI [Catalytic activity/Vol]86 U/VYebdev60-354 [facility] HospitalComment on above:Performed By: #### CH50, TPO, ROULA, ANTIR, [id number], C3, C4, THYGLOB AB, CHROMATIN #### [facility] ,Anti-RNPon 31-04-5592Hiuy-WINDSHIELD TECHNICIAN<0.3Lvelqi9.0-0.9[facility] Comment on above:Performed By: #### CH50, TPO, ROULA, ANTIR, [id number], C3, C4, THYGLOB AB, CHROMATIN #### [facility] ,Antithyroglobulin Abon 96-93-8311Drkiyruosisqqjjxh Ab<1.0Jcmasj7.0-0.9The [facility] Physician GroupComment on above:Result Comment: Thyroglobulin Antibody measured by [employer] It should be noted that the presence of thyroglobulin antibodies may not be pathogenic nor diagnostic, especially at very low levels. The assay automotive shop foreman has found that four percent of individuals without evidence of thyroid disease or autoimmunity will have positive TgAb levels up to 4 IU/mL. Performed at: [address] [id number] Escalator Service Mechanic: Cachorro Humphrey PhD, Phone: [phone] By: #### CH50, TPO, ROULA, ANTIR, [id number], C3, C4, THYGLOB AB, CHROMATIN #### [facility] ,Aspartate aminotransferase [Enzymatic activity/volume] in Serum or Plasma Ordered By: Julian Goodrich on 79-26-5565FMH [Catalytic activity/Vol]16 U/LNormal 13-39Providence HospitalComment on above:Performed By: #### CH50, TPO, ROULA, ANTIR, [id number], C3, C4, THYGLOB AB, CHROMATIN #### [facility] ,Automated basophil %Ordered By: Julian Smithrow on 00-69-3503Jjonyflxq/100 WBC (Bld)0.6 %Normal.Providence HospitalComment on above:Performed By: #### CH50, TPO, ROULA, ANTIR, [id number], C3, C4, THYGLOB AB, CHROMATIN #### [facility] ,Automated basophil countOrdered By: Julian Smithrow on 53-70-1348Izfyqfmdf (Bld) [#/Vol]0.0 10*3/uLNormal0.0-0.2FSumma Health Barberton CampusComment on above:Performed By: #### CH50, TPO, ROULA, ANTIR, [id number], C3, C4, THYGLOB AB, CHROMATIN #### [facility] ,Automated blood monocyte countOrdered By: Julian Smithrow on 53-42-3393Ksdynrpcp (Bld) [#/Vol]0.4 10*3/uLNormal0.0-0.8Providence HospitalComment on above:Performed By: #### CH50, TPO, ROULA, ANTIR, [id number], C3, C4, THYGLOB AB, CHROMATIN #### [facility] ,Automated eosinophil %Ordered By: Julian Smithrow on 15-11-6971Yeufbyuxzkn/100 WBC (Bld)1.5 %Normal.[facility] HospitalComment on above:Performed By: #### CH50, TPO, ROULA, ANTIR, [id number], C3, C4, THYGLOB AB, CHROMATIN #### [facility] ,Automated eosinophil countOrdered By: Julian Jacky on 68-29-1148Ivqwnromtcf (Bld) [#/Vol]0.1 10*3/uLNormal0.0-0.45[facility] HospitalComment on above:Performed By: #### CH50, TPO, ROULA, ANTIR, [id number], C3, C4, THYGLOB AB, CHROMATIN #### [facility] ,Automated monocyte %Ordered By: Julian Goodrich on 87-91-2208Zxqehgnue/100 WBC (Bld)6.9 %Normal.[facility] HospitalComment on above:Performed By: #### CH50, TPO, ROULA, ANTIR, [id number], C3, C4, THYGLOB AB, CHROMATIN #### [facility] ,Automated neutrophil %Ordered By: Julian Goodrich on 58-20-0502Gmivmwjtxsw/100 WBC (Bld)67.3 %Normal.[facility]idence HospitalComment on above: Performed By: #### CH50, TPO, ROULA, ANTIR, [id number], C3, C4, THYGLOB AB, CHROMATIN #### [facility] ,Bacteria [Presence] in Urine by AutomatedOrdered By: Julian Goodrich on 04-68-5182Zegzvekz Auto Ql (U)None seen [HPF]None SeenProvidence HospitalBilirubin Test strip Ql (U)Ordered By: Julian Goodrich on 04-11-2024 Bilirubin Ql (U)NegativeNegativeProvidence HospitalBilirubin.total [Mass/volume] in Serum or PlasmaOrdered By: Julian Goodrich on 04-11-2024 Bilirubin [Mass/Vol]0.5 mg/dLNormal0.3-1.0[facility] Comment on above:Performed By: #### CH50, TPO, ROULA, ANTIR, [id number], C3, C4, THYGLOB AB, CHROMATIN #### [facility] ,C reactive protein [Mass/volume] in Serum or PlasmaOrdered By: Julian Goodrich on 16-40-5539YRG [Mass/Vol]1.1 mg/dLHigh0.0-0.5FSumma Health [facility] Campus C-Reactive Proteinon 32-46-5600U-Reactive Protein1.1 mg/dLHigh0.0-0.5The [facility] Physician GroupComment on above:Performed By: #### CH50, TPO, ROULA, ANTIR, [id number], C3, C4, THYGLOB AB, CHROMATIN #### [facility] ,Calcium [Mass/volume] in Serum or PlasmaOrdered By: Julian Goodrich on 50-76-0869Dvtbmcv [Mass/Vol]9.4 mg/dLNormal8.6-10.3FSumma Health Barberton CampusComment on above:Performed By: #### CH50, TPO, ROULA, ANTIR, [id number], C3, C4, THYGLOB AB, CHROMATIN #### [facility] ,Carbon dioxide, total [Moles/volume] in Serum or PlasmaOrdered By: Julian Goodrich on 58-08-3494RH2 [Moles/Vol]30.1 mmol/QKgnopo55.0-31.0Providence HospitalComment on above:Performed By: #### CH50, TPO, ROULA, ANTIR, [id number], C3, C4, THYGLOB AB, CHROMATIN #### [facility] ,Chloride [Moles/volume] in Serum or PlasmaOrdered By: Julian Goodrich on 77-08-1869Xnbqzaqv [Moles/Vol]103 mmol/DMxifas43-490HhdgplgtnProvidence HospitalComment on above:Performed By: #### CH50, TPO, ROULA, ANTIR, [id number], C3, C4, THYGLOB AB, CHROMATIN #### [facility] ,Chromatin Antibodyon 89-38-3763Gcmcusiql Antibody<0.6Jvezqi6.0-0.9The [facility] Physician [facility] HospitalComment on above:Result Comment: PERFORMED BY: [address] [place] [address] PATHOLOGIST ELECTROLYSIST DIANA BOGGS M.D.Performed By: #### CH50, TPO, ROULA, ANTIR, [id number], C3, C4, THYGLOB AB, CHROMATIN #### [facility] ,Coagulation Profileon 10-83-7063kHHR Coag (Bld) [Time]32.2 pKmyfwv17.1-36.5The [facility] Physician [facility] Memorial HospitalComment on above:Result Comment: A hematocrit value greater than 55% may lead to inaccurate results in coagulation testing. Patients having hematocrit values >55% require a special collection tube for coagulation studies. Please contact the laboratory at [phone] for redraw instructions. PERFORMED BY: [address] [place] [address] PATHOLOGIST ELECTROLYSIST DIANA BOGGS M.D.Performed By: #### CH50, TPO, ROULA, ANTIR, [id number], C3, C4, THYGLOB AB, CHROMATIN #### [facility] ,Color of Urine by AutoOrdered By: Julian Goodrich on 95-16-1954Icyeo (U)Yellow NormalYelKettering Health SpringfieldComment on above:Order Comment: Name Collection Type:: Clean-Voided MidstreamPerformed By: #### CH50, TPO, ROULA, ANTIR, [id number], C3, C4, THYGLOB AB, CHROMATIN #### [facility] ,Complement C3on 17-98-1415Tswduzvrha C3136 mg/gSIkiyij79-767Wul [facility] Physician [facility] HospitalComment on above:Result Comment: Performed at: [facility] [id number] Escalator Service Mechanic: Cachorro Humphrey PhD, Phone: [phone] By: #### CH50, TPO, ROULA, ANTIR, [id number], C3, C4, THYGLOB AB, CHROMATIN #### [facility] ,Complement C4on 42-66-8771Gxwqakmojw C429 mg/qNYoyuws63-25Fbt [facility] Physician [facility] HospitalComment on above:Performed By: #### CH50, TPO, ROULA, ANTIR, [id number], C3, C4, THYGLOB AB, CHROMATIN #### [facility] ,Complement Total (CH50)on 87-92-4575Itgedeoikm Total (CH50)>60Normal>41The [facility] Physician GroupComment on above:Result Comment: Age Male Female 1 - 30 days Not Estab. Not Estab. 31 days - 6 months >32 >20 7 months - 17 years >39 >39 >17 years >41 >41 NOTE: The adult ( >17 years ) reference interval range is used to flag abnormals on this report. If the patient is 17 years old or younger, use the table above to determine out of range values. Performed at: - [facility] [id number] Escalator Service Mechanic: Cachorro Humphrey PhD, Phone: [phone] PERFORMED BY: [address] [place] [address] PATHOLOGIST ELECTROLYSIST DIANA BOGGS M.D.Performed By: #### CH50, TPO, ROULA, ANTIR, [id number], C3, C4, THYGLOB AB, CHROMATIN #### [facility] ,Complete Blood Count Auto Diffon 53-40-8939Srwi Corpuscular HGB Conc34.0 g/dL Asgtpw58.0-35.0The [facility] Physician GroupComment on above:Performed By: #### CH50, TPO, ROULA, ANTIR, [id number], C3, C4, THYGLOB AB, CHROMATIN #### [facility] ,NRBC%0.1 /100{WBC}Normal0-0.5The [facility] Physician GroupComment on above: Performed By: #### CH50, TPO, ROULA, ANTIR, [id number], C3, C4, THYGLOB AB, CHROMATIN #### [facility] ,Comprehensive Metabolic Panelon 77-51-2549Asqmayq [Mass/Vol]4.1 g/dLNormal 3.5-5.7The [facility] Physician [facility] HospitalComment on above:Performed By: #### CH50, TPO, ROULA, ANTIR, [id number], C3, C4, THYGLOB AB, CHROMATIN #### [facility] ,GFR/1.73 sq M.predicted MDRD (S/P/Bld) [Vol rate/Area]mL/min/{1.73_m2}NormalThe [facility] Physician GroupComment on above:Performed By: #### CH50, TPO, ROULA, ANTIR, [id number], C3, C4, THYGLOB AB, CHROMATIN #### [facility] ,Creatine kinase [Enzymatic activity/volume] in Serum or PlasmaOrdered By: Julian Smithrow on 69-05-0377ZG [Catalytic activity/Vol]39 U/CJapxfa21-818 [facility] HospitalComment on above:Result Comment: PERFORMED BY: [address] [address] PATHOLOGIST ELECTROLYSIST DIANA BOGGS M.D.Performed By: #### CH50, TPO, ROULA, ANTIR, [id number], C3, C4, THYGLOB AB, CHROMATIN #### [facility] ,Creatinine [Mass/volume] in Serum or PlasmaOrdered By: Julian Goodrich on 12-24-9855Ylgiytohgt [Mass/Vol]0.77 mg/dLNormal0.60-1.20Providence HospitalComment on above:Performed By: #### CH50, TPO, ROULA, ANTIR, [id number], C3, C4, THYGLOB AB, CHROMATIN #### [facility] ,Dipstick and Microscopicon 32-39-5211Byargaoq,UrineNone SeenNormalNone SeenNortheast Florida State Hospital Physician GroupComment on above:Order Comment: Name Collection Type:: Clean-Voided MidstreamPerformed By: #### CH50, TPO, ROULA, ANTIR, [id number], C3, C4, THYGLOB AB, CHROMATIN #### [facility] ,Bilirubin,UrineNegativeNormalNegativeJefferson Comprehensive Health CenterComment on above:Order Comment: Name Collection Type:: Clean-Voided MidstreamPerformed By: #### CH50, TPO, ROULA, ANTIR, [id number], C3, C4, THYGLOB AB, CHROMATIN #### [facility] ,Glucose Ql (U)NormalNormalNormalThe [facility] Physician GroupComment on above: Order Comment: Name Collection Type:: Clean-Voided MidstreamPerformed By: #### CH50, TPO, ROULA, ANTIR, [id number], C3, C4, THYGLOB AB, CHROMATIN #### [facility] ,Hyaline Casts,UrineNoneNormal0-8The [facility] Physician GroupComment on above: Order Comment: Name Collection Type:: Clean-Voided MidstreamPerformed By: #### CH50, TPO, ROULA, ANTIR, [id number], C3, C4, THYGLOB AB, CHROMATIN #### [facility] ,Mucus,UrineRareNormalThe [facility] Physician GroupComment on above:Order Comment: Name Collection Type:: Clean-Voided MidstreamResult Comment: PERFORMED BY: [place] [address] PATHOLOGIST ELECTROLYSIST DIANA BOGGS M.D.Performed By: #### CH50, TPO, ROULA, ANTIR, [id number], C3, C4, THYGLOB AB, CHROMATIN #### [facility] ,Nitrite,UrineNegativeNormalNegativeNortheast Florida State Hospital Physician GroupComment on above:Order Comment: Name Collection Type:: Clean-Voided MidstreamPerformed By: #### CH50, TPO, ROULA, ANTIR, [id number], C3, C4, THYGLOB AB, CHROMATIN #### [facility] ,Occult Blood,UrineNegativeNormalNegativeNortheast Florida State Hospital Physician GroupComment on above:Order Comment: Name Collection Type:: Clean-Voided MidstreamPerformed By: #### CH50, TPO, ROULA, ANTIR, [id number], C3, C4, THYGLOB AB, CHROMATIN #### [facility] ,Protein,UrineNegativeNormalNegativeNortheast Florida State Hospital Physician GroupComment on above:Order Comment: Name Collection Type:: Clean-Voided MidstreamPerformed By: #### CH50, TPO, ROULA, ANTIR, [id number], C3, C4, THYGLOB AB, CHROMATIN #### [facility] ,RBC,UrineNone SeenNormal0-4The [facility] Physician GroupComment on above:Order Comment: Name Collection Type:: Clean-Voided MidstreamPerformed By: #### CH50, TPO, ROULA, ANTIR, [id number], C3, C4, THYGLOB AB, CHROMATIN #### [facility] ,Specificy [place],Urine1.777Vlrjjo2.001-1.030The [facility]ician Group Comment on above:Order Comment: Name Collection Type:: Clean-Voided Midstream Performed By: #### CH50, TPO, ROULA, ANTIR, [id number], C3, C4, THYGLOB AB, CHROMATIN #### [facility] ,Squamous Epithelial Cell,Tjbfk2-8Dreqca8-9Kjf [facility] Physician GroupComment on above:Order Comment: Name Collection Type:: Clean-Voided MidstreamPerformed By: #### CH50, TPO, ROULA, ANTIR, [id number], C3, C4, THYGLOB AB, CHROMATIN #### [facility] ,Urobilinogen,UrineNormalNormalNormalThe [facility] Physician GroupComment on above:Order Comment: Name Collection Type:: Clean-Voided MidstreamPerformed By: #### CH50, TPO, ROULA, ANTIR, [id number], C3, C4, THYGLOB AB, CHROMATIN #### [facility] ,WBC,Atzze5-2Orwvju5-9Jil [facility] Physician GroupComment on above:Order Comment: Name Collection Type:: Clean-Voided MidstreamPerformed By: #### CH50, TPO, ROULA, ANTIR, [id number], C3, C4, THYGLOB AB, CHROMATIN #### [facility] ,Epithelial cells.squamous [#/area] in Urine sediment by Automated countOrdered By: Julian Goodrich on 09-82-8009Qdmzpirimj cells.squamous Auto (Urine sed) [#/Area]1-2 [HPF]0-2FSumma Health Barberton CampusErythrocyte Sedimentation Rateon 97-84-1673EQA (Bld) [Velocity]36 mm/hHigh0-19The [facility] Physician GroupComment on above:Result Comment: PERFORMED BY: [place] [address] PATHOLOGIST ELECTROLYSIST DIANA BOGGS M.D.Performed By: #### CH50, TPO, ROULA, ANTIR, [id number], C3, C4, THYGLOB AB, CHROMATIN #### [facility] ,Erythrocyte distribution width [Ratio] by Automated countOrdered By: Julian Goodrich on 63-83-5239Gtjwcgmxvwf distribution width (RBC) [Ratio]13.6 %Normal 11.9-15.3FSumma Health Barberton CampusComment on above:Performed By: #### CH50, TPO, ROULA, ANTIR, [id number], C3, C4, THYGLOB AB, CHROMATIN #### [facility] ,Erythrocyte sedimentation rate by Photometric methodOrdered By: Julian Goodrich on 12-59-1200QLG Photometric method (Bld) [Velocity]36 mm/hrHigh0-19Providence HospitalErythrocytes [#/area] in Urine sediment by Automated countOrdered By: Julian Goodrich on 26-87-7200NPS Auto (Urine sed) [#/Area]None seen [HPF]0-4FSumma Health Barberton CampusErythrocytes [#/volume] in Blood by Automated countOrdered By: Julian Goodrich on 25-30-6007UQZ (Bld) [#/Vol]4.26 10*6/uLNormal3.60-5.00Prov[facility] HospitalComment on above: Performed By: #### CH50, TPO, ROULA, ANTIR, [id number], C3, C4, THYGLOB AB, CHROMATIN #### [facility] ,Glucose [Mass/volume] in Serum or PlasmaOrdered By: Julian Goodrich on 39-84-5044Ofvnkbs [Mass/Vol]84 mg/vXFfhovp52-335WqmptaqzzProvidence HospitalComment on above:ADA recommended reference rangeRandom Glucose Reference Range is dependent on time and content of last meal. Glucose of more than 200 mg/dL in a nonstressed, ambulatory subject supports the diagnosisof Diabetes Mellitus.Result Comment: Random Glucose Reference Range is dependent on time and content of last meal. Glucose of more than 200 mg/dL in a nonstressed, ambulatory subject supports the diagnosis of Diabetes Mellitus. ADA recommended reference rangePerformed By: #### CH50, TPO, ROULA, ANTIR, [id number], C3, C4, THYGLOB AB, CHROMATIN #### [facility] ,Glucose [Mass/volume] in Urine by Test stripOrdered By: Julian Goodrich on 18-40-6879Kmyslhj Test strip (U) [Mass/Vol]Normal mg/dLNormalProvidence HospitalHematocrit [Volume Fraction] of Blood by Automated countOrdered By: Julian Goodrich on 32-27-7131Entiastpom (Bld) [Volume fraction]39.4 %Normal 34.0-46.4FSumma Health Barberton CampusComment on above:Performed By: #### CH50, TPO, ROULA, ANTIR, [id number], C3, C4, THYGLOB AB, CHROMATIN #### [facility] ,Hemoglobin Test strip Ql (U)Ordered By: Julian Goodrich on 51-58-2955Vexowkytkv Ql (U)NegativeNegativeProvidence HospitalHemoglobin [Mass/volume] in BloodOrdered By: Julian Goodrich on 92-96-9814Wagsloqpzv (Bld) [Mass/Vol]13.4 g/qBVcziol69.8-15.4FSumma Health Barberton CampusComment on above:Performed By: #### CH50, TPO, ROULA, ANTIR, [id number], C3, C4, THYGLOB AB, CHROMATIN #### [facility] ,Hyaline casts [#/area] in Urine sediment by Automated countOrdered By: Julian Goodrich on 96-70-1517Faljtcv casts Auto (Urine sed) [#/Area]None [LPF]0-8 Providence HospitalINR in Platelet poor plasma by Coagulation assayOrdered By: Julian Goodrich on 30-76-0233JXS Coag (PPP) [Relative time]1.0 {INR}NormalProvidence HospitalComment on above:INR Therapeutic Range A) Pre- and Peroperative OAT started two weeks before surgery. NOT HIP SURGERY: 1.5 - 2.5 HIP SURGERY: 2 - 3B) Primary and secondary prevention of venous THROMBOSIS: 2 - 3C) Active venous thrombosis, pulmonary embolismand prevention of recurrent venous thrombosis: 2 - 3D) Prevention of arterial thromboembolismincluding patients with mechanical heart valves: 3 - 4.5Result Comment: INR Therapeutic Range A) Pre- and Peroperative OAT started two weeks before surgery. NOT HIP SURGERY: 1.5 - 2.5 HIP SURGERY: 2 - 3 B) Primary and secondary prevention of venous THROMBOSIS: 2 - 3 C) Active venous thrombosis, pulmonary embolism and prevention of recurrent venous thrombosis: 2 - 3 D) Prevention of arterial thromboembolism including patients with mechanical heart valves: 3 - 4.5Performed By: #### CH50, TPO, ROULA, ANTIR, [id number], C3, C4, THYGLOB AB, CHROMATIN #### [facility] ,Ketones [Presence] in Urine by Test stripOrdered By: Julian Goodrich on 38-62-2449Ehiddig Ql (U)NegativeGrand Lake Joint Township District Memorial Hospital Comment on above:Order Comment: Name Collection Type:: Clean-Voided Midstream Performed By: #### CH50, TPO, ROULA, ANTIR, [id number], C3, C4, THYGLOB AB, CHROMATIN #### [facility] ,Leukocyte esterase [Presence] in Urine by Test stripOrdered By: Julian Goodrich on 95-39-9599Wypsggpsg esterase Test strip Ql (U)[facility] Luther[facility] HospitalComment on above:Order Comment: Name Collection Type:: Clean-Voided MidstreamPerformed By: #### CH50, TPO, ROULA, ANTIR, [id number], C3, C4, THYGLOB AB, CHROMATIN #### [facility] ,Leukocytes [#/area] in Urine sediment by Automated countOrdered By: Julian Goodrich on 17-48-1674ZMG Auto (Urine sed) [#/Area]1-2 [HPF]0-4FSumma Health Barberton CampusLeukocytes [#/volume] corrected for nucleated erythrocytes in Blood by Automated counOrdered By: Julian Goodrich on 47-09-2443VQD corrected for nucl RBC Auto (Bld) [#/Vol]5.5 10*3/uL3.8-11.6FSumma Health Barberton Campus Leukocytes [#/volume] in Blood by Automated countOrdered By: Julian Goodrich on 31-03-4405WLO (Bld) [#/Vol]5.5 10*3/uLNormal3.8-11.6FSumma Health Barberton CampusComment on above:Performed By: #### CH50, TPO, ROULA, ANTIR, [id number], C3, C4, THYGLOB AB, CHROMATIN #### [facility] ,Lupus Anticoagulant Compon 57-63-2604Zdkxtf Prothrombin Time (dPt)34.3Normal 0.0-47.6The [facility] Physician GroupComment on above:Performed By: #### LUPANTCOAG #### [facility] ,dPT Confirm Ratio1.20Lwbiqr3.00-1.34The [facility] Physician GroupComment on above:Performed By: #### LUPANTCOAG #### [facility] ,DRVVT Lupus31.8Qnkudw0.0-47.0The [facility] Physician GroupComment on above: Performed By: #### LUPANTCOAG #### [facility] ,InterpretationComment:Normal.The [facility] Physician GroupComment on above: Result Comment: No lupus anticoagulant was detected. Performed at: - [facility] [id number] Escalator Service Mechanic: Connie Pierre MD, Phone: [phone] PERFORMED BY: [address] [place] [address] PATHOLOGIST ELECTROLYSIST IDANA BOGGS M.D.Performed By: #### LUPANTCOAG #### [facility] ,PTT-LA33.4Ucsnod5.0-43.5The [facility] Physician GroupComment on above:Performed By: #### LUPANTCOAG #### [facility] ,Thrombin Time17.4Vuqdxy5.0-23.0The [facility] Physician GroupComment on above: Performed By: #### LUPANTCOAG #### [facility] ,Lymphocytes [#/volume] in Blood by Automated countOrdered By: Julian Smithrow on 84-02-5932Ozqafdhauyk (Bld) [#/Vol]1.3 10*3/uLNormal1.00-4.8[facility] HospitalComment on above:Performed By: #### CH50, TPO, ROULA, ANTIR, IWL22MG, C3, C4, THYGLOB AB, CHROMATIN #### [facility] ,Lymphocytes/100 leukocytes in Blood by Automated countOrdered By: Julian Jacky on 22-73-5174Dgkmfexcwsr/100 WBC (Bld)23.7 %Normal.[facility] HospitalComment on above:Performed By: #### CH50, TPO, ROULA, ANTIR, XCE62CS, C3, C4, THYGLOB AB, CHROMATIN #### [facility] ,MCH [Entitic mass] by Automated countOrdered By: Julian Smithrow on 04-11-2024 MCH (RBC) [Entitic mass]31.4 vnNadjgg31.7-34.3FSumma Health Barberton Campus Comment on above:Performed By: #### CH50, TPO, ROULA, ANTIR, KCL88GE, C3, C4, THYGLOB AB, CHROMATIN #### [facility] ,MCHC Auto (RBC) [Mass/Vol]Ordered By: Juliannathan Goodrich on 81-99-1560MDUV (RBC) [Mass/Vol]34.0 g/dL32.0-35.0Prov[facility] HospitalMCV [Entitic volume] by Automated countOrdered By: Julian Jacky on 78-46-0048RXH (RBC) [Entitic vol]92.6 pEYxudcf42-819HdjnicahhProvidence HospitalComment on above:Performed By: #### CH50, TPO, ROULA, ANTIR, [id number], C3, C4, THYGLOB AB, CHROMATIN #### [facility] ,Mucus [Presence] in Urine by AutomatedOrdered By: Julian Goodrich on 04-11-2024 Mucus Auto Ql (U)Rare [LPF]Providence HospitalNeutrophils [#/volume] in Blood by Automated countOrdered By: Julian Goodrich on 04-11-2024 Neutrophils (Bld) [#/Vol]3.7 10*3/uLNormal1.8-7.7FSumma Health Barberton CampusComment on above:Performed By: #### CH50, TPO, ROULA, ANTIR, EKP44VU, C3, C4, THYGLOB AB, CHROMATIN #### [facility] ,Nitrite Test strip Ql (U)Ordered By: Julian Goodrich on 81-23-1119Alvlxca Ql (U) NegativeNegativeProvidence HospitalNo Panel InformationOrdered By: Julian Goodrich on 71-47-5616Dagccvtnd GFR (CKD-EPI)> 60.0 mL/MinProvidence HospitalPharmacy Creatinine Clearance (ChemN/AFSumma Health Barberton CampusNucleated erythrocytes [Presence] in Blood by Automated count Ordered By: Julian Goodrich on 10-14-0622Frcoilaxw RBC Auto Ql (Bld)0.1 /100{WBC} 0-0.5FSumma Health Barberton CampusPlatelet mean volume [Entitic volume] in Blood by Automated countOrdered By: Julian Goodrich on 04-69-9374Sncvtkhm mean volume (Bld) [Entitic vol]8.1 fLNormal6.3-10.7FSumma Health Barberton Campus Comment on above:Performed By: #### CH50, TPO, ROULA, ANTIR, DSA38HT, C3, C4, THYGLOB AB, CHROMATIN #### [facility] ,Platelets [#/volume] in Blood by Automated countOrdered By: Julian Goodrich on 56-03-6229Ptassrevd (Bld) [#/Vol]287 10*3/bEVujkqx985-280NpikszdaiProvidence HospitalComment on above:Performed By: #### CH50, TPO, ROULA, ANTIR, [id number], C3, C4, THYGLOB AB, CHROMATIN #### [facility] ,Potassium [Moles/volume] in Serum or PlasmaOrdered By: Julian Goodrich on 15-92-1435Pljnjjvyq [Moles/Vol]4.4 mmol/LNormal3.5-5.1FSumma Health Barberton CampusComment on above:Performed By: #### CH50, TPO, ROULA, ANTIR, [id number], C3, C4, THYGLOB AB, CHROMATIN #### [facility] ,Protein Test strip (U) [Mass/Vol]Ordered By: Julian Goodrich on 04-11-2024 Protein (U) [Mass/Vol]NegativeNegativeProvidence HospitalProtein [Mass/volume] in Serum or PlasmaOrdered By: Julian Goodrich on 97-34-4100Kbvoblv [Mass/Vol]7.1 g/dLNormal6.4-8.9Prov[facility] HospitalComment on above:Performed By: #### CH50, TPO, ROULA, ANTIR, SHT30CH, C3, C4, THYGLOB AB, CHROMATIN #### [facility] ,Prothrombin time (PT)Ordered By: Julian Goodrich on 21-33-9769KW Coag (PPP) [Time]11.6 sNormal9.0-12.9Prov[facility] HospitalComment on above:A hematocrit value greater than 55% may lead to inaccurate results in coagulation testing. Patientshaving hematocrit values >55% require a special collection tube for coagulation studies. Please contact the laboratory at [phone] for redraw instructions.Result Comment: A hematocrit value greater than 55% may lead to inaccurate results in coagulation testing. Patients having hematocrit values >55% require a special collection tube for coagulation studies. Please contact the laboratory at [phone] for redraw instructions.Performed By: #### CH50, TPO, ROULA, ANTIR, TAC37CT, C3, C4, THYGLOB AB, CHROMATIN #### [facility] ,RPR w/rfx to Quant TP Abson 39-61-9934XIR, Rfx Quant RPRNon-ReactiveNormalNon ReactiveThe [facility] Physician [facility] HospitalComment on above:Result Comment: Performed at: [address] [id number] Escalator Service Mechanic: Cachorro Humphrey PhD, Phone: [phone] PERFORMED BY: [place] [address] PATHOLOGIST ELECTROLYSIST DIANA BOGGS M.D.Performed By: #### CH50, TPO, ROULA, ANTIR, [id number], C3, C4, THYGLOB AB, CHROMATIN #### [facility] ,Scleroderma 70 Antibodieson 27-77-7452Dpkeukevikp 70 Antibodies<0.2Normal 0.0-0.9The [facility] Physician [facility] HospitalComment on above:Result Comment: Performed at: [address] [id number] Escalator Service Mechanic: Cachorro Humphrey PhD, Phone: [phone] By: #### CH50, TPO, ROULA, ANTIR, [id number], C3, C4, THYGLOB AB, CHROMATIN #### [facility] ,Serum globulin measurement by calculation (mass/volume)Ordered By: Julian Goodrich on 23-51-7614Yhlstwoz (S) [Mass/Vol]3.0 g/dLNoCleveland Clinic Marymount HospitalComment on above:Performed By: #### CH50, TPO, ROULA, ANTIR, FUR34HO, C3, C4, THYGLOB AB, CHROMATIN #### [facility] ,Serum or plasma albumin/globulin mass ratioOrdered By: Julian Goodrich on 56-93-7624Ctkicop/Globulin [Mass ratio]1.4 {ratio}[facility]itan HospitalComment on above:Performed By: #### CH50, TPO, ROULA, ANTIR, ZNV49PN, C3, C4, THYGLOB AB, CHROMATIN #### [facility] ,Serum or plasma anion gap determinationOrdered By: Julian Goodrich on 04-11-2024 Anion gap [Moles/Vol]9.3 mmol/LNormal6.0-15.0[facility] Comment on above:Performed By: #### CH50, TPO, ROULA, ANTIR, QEW69SL, C3, C4, THYGLOB AB, CHROMATIN #### [facility] ,Sodium [Moles/volume] in Serum or PlasmaOrdered By: Julian Smithrow on [id number] [Moles/Vol]138 mmol/JSpsvam408-806BsndaeivvProvidence HospitalComment on above:Performed By: #### CH50, TPO, ROULA, ANTIR, [id number], C3, C4, THYGLOB AB, CHROMATIN #### [facility] ,Specific gravity Test strip (U) [Rel density]Ordered By: Julian Smithrow on 97-29-8114Ozwjiljx gravity (U) [Rel density]1.0221.001-1.030[facility] HospitalThyroid Peroxidase Antibodieson 53-29-1509Faduhmp Peroxidase Upupgbaehe20Oyqklh0-18Wfl [facility] Physician GroupComment on above:Result Comment: Performed at: [address] [id number] [employer]ic: Cachorro Humphrey PhD, Phone: [phone] By: #### CH50, TPO, ROULA, ANTIR, [id number], C3, C4, THYGLOB AB, CHROMATIN #### [facility] ,Thyrotropin [Units/volume] in Serum or PlasmaOrdered By: Julian Jacky on 45-85-5797HKJ Qn3.08 m[IU]/LNormal0.45-5.33[facility] Comment on above:Result Comment: PERFORMED BY: [address] [address] [place] [address] PATHOLOGIST ELECTROLYSIST DIANA BOGGS M.D.Performed By: #### CH50, TPO, ROULA, ANTIR, [id number], C3, C4, THYGLOB AB, CHROMATIN #### [facility] ,Thyroxine (T4) free [Mass/volume] in Serum or PlasmaOrdered By: Julian Goodrich on 46-78-6920Wvom T4 [Mass/Vol]0.74 ng/dLNormal0.61-1.12[facility] HospitalComment on above:Performed By: #### CH50, TPO, ROULA, ANTIR, [id number], C3, C4, THYGLOB AB, CHROMATIN #### [facility] ,Urea nitrogen [Mass/volume] in Serum or PlasmaOrdered By: Julian Goodrich on 07-01-6624Ehcj nitrogen [Mass/Vol]13 mg/dLNormal7-25[facility] HospitalComment on above:Performed By: #### CH50, TPO, ROULA, ANTIR, [id number], C3, C4, THYGLOB AB, CHROMATIN #### [facility] ,Urine appearanceOrdered By: Julian Goodrich on 48-98-4169Yprhwlgnab (U)Clear NormalCleWVUMedicine Harrison Community HospitalComment on above:Order Comment: Name Collection Type:: Clean-Voided MidstreamPerformed By: #### CH50, TPO, ROULA, ANTIR, [id number], C3, C4, THYGLOB AB, CHROMATIN #### [facility] ,Urobilinogen Test strip (U) [Mass/Vol]Ordered By: Julian Goodrich on 04-11-2024 Urobilinogen (U) [Mass/Vol]Normal mg/dLNormFisher-Titus Medical CenterpH of Urine by Test stripOrdered By: Julian Goodrich on 70-79-3400vJ (U)7.0 [pH] Normal5.0-9.0[facility] HospitalComment on above:Order Comment: Name Collection Type:: Clean-Voided MidstreamPerformed By: #### CH50, TPO, ROULA, ANTIR, [id number], C3, C4, THYGLOB AB, CHROMATIN #### [facility] ,US PELVIS AND TRANSVAGon 75-07-7701OR PELVIS AND TRANSVAGEXAMINATION: US PELVIS AND TRANSVAG HISTORY: Pelvic and perineal pain for 2 months; vaginal bleeding for 2 weeks COMPARISON: Ultrasound pelvis 08/05/2019 TECHNIQUE: Transabdominal and transvaginal sonographic examination. FINDINGS: UTERUS: Hysterectomy. RIGHT OVARY: Normal size and appearance. Duplex Doppler demonstrates normal waveform and flow; resistive index 0.5. Ovary size: 2.8 x 1.6 x 1.5 cm LEFT OVARY: Contains a 3.5 x 2.9 x 2.5 cm round anechoic simple appearing cyst. Blood flow present within ovary on color Doppler. Ovary size: 4.0 x 2.9 x 3.4 cm CUL-DE-SAC: Unremarkable. No significant free fluid. BLADDER: Unremarkable. OTHER: None. IMPRESSION: 1. Prior hysterectomy. No appreciable findings to account for patient's vaginal bleeding. 2. Left ovary contains a 3.5 cm simple appearing cyst. Spirits be different than the cyst seen on the 08/05/2019 study which has likely resolved. Electronically authenticated by: REHANA WALLACE Date: 2021-05-16 16:11[facility] ACOG PANEL 2: 30 to 67on 05-15-2021..NormalOhiohealth Dublin Methodist HospitalComment on above:Result Comment: Performed at: WBPerformed By: #### MG, FT3, T4, CMP, TSH #### [facility] [address] [address] Morgan Chaparro Gdln ACOG Icgdntb67-63FwdocdWxoAdena Regional Medical CenterComment on above:Performed By: #### MG, FT3, T4, CMP, TSH #### [facility] [address] [address] Morgan KarenDIAGNOSIS:CommentOhio State Health SystemComment on above:Result Comment: NEGATIVE FOR INTRAEPITHELIAL LESION OR MALIGNANCY. Performed at: WBPerformed By: #### MG, FT3, T4, CMP, TSH #### [facility] [address] [address] Morgan KarenHPV AptimaQNSPAPNormalOhiohealth Dublin Methodist HospitalComment on above:Result Comment: Test not performed. Liquid based PAP vial contained insufficient specimen for molecular testing; likely a consequence of insufficient cellularity in original collection. This nucleic acid amplification test detects fourteen high-risk HPV types (16,18,31,33,35,39,45,51,52,56,58,59,66,68) without differentiation. Performed at: =GPerformed By: #### MG, FT3, T4, CMP, TSH #### [facility] [address] [place] [address] Morgan KarenMethodology:CommentDayton Osteopathic Hospital on above: Result Comment: This liquid based ThinPrep(R) pap test was screened with the use of an image guided system. Performed at: WBPerformed By: #### MG, FT3, T4, CMP, TSH #### [facility] [address] [place] [address] KarenNote:CommentDayton Osteopathic Hospital on above:Result Comment: The Pap smear is a screening test designed to aid in the detection of premalignant and malignant conditions of the uterine cervix. It is not a diagnostic procedure and should not be used as the sole means of detecting cervical cancer. Both false-positive and false-negative reports do occur. . Performed at: WBPerformed By: #### MG, FT3, T4, CMP, TSH #### [facility] [address] [place] [address] KarenPerformed by:CommentDayton Osteopathic Hospital on above: Result Comment: Trang Schmidt, Director Of Enterprise Applications Performed at: WBPerformed By: #### MG, FT3, T4, CMP, TSH #### [facility] [address] [place] [address] KarenSpecimen adequacy:CommentDayton Osteopathic Hospital on above:Result Comment: Satisfactory for evaluation. No endocervical component is identified. Performed at: WBPerformed By: #### MG, FT3, T4, CMP, TSH #### [facility] [address] [place] [address] Morgan KarenCoding Summary.on 28-88-1179Wusfjo Summary. CD:[id number] [file] [facility] (more content not included)...[facility] HospitalOperative Reporton 69-17-1114Kypumuvtw ReportDate of Surgery: 11/01/2020 SURGEON: Zamzam Francisco Jr., M.D. PRIMARY CARE PHYSICIAN: Avi Weber M.D. PREOPERATIVE DIAGNOSIS: Chronic right maxillary anterior ethmoid and frontal sinusitis POSTOPERATIVE DIAGNOSIS: Chronic right maxillary anterior ethmoid and frontal sinusitis OPERATION: Image guided microdebrider assisted right anterior ethmoidectomy, frontal sinus exploration and maxillary antrostomy ANESTHESIA: General endotracheal COMPLICATIONS: None FINDINGS: Copious right maxillary sinus purulent fluid which was cultured for both aerobic bacteria and fungus as well as severe maxillary ethmoid brandon bullosa and frontal sinus inflammation INDICATIONS: This 40 year old woman presented with complete opacification of the right frontal anterior ethmoid and maxillary sinuses unresponsive to aggressive medical management. PROCEDURE: The patient identified in the Holding Area and taken back to the Operating Room where she was placed in the supine position. After induction of general endotracheal anesthesia the table was turned, the head elevated 20 degrees and the face draped in a sterile fashion. An Afrin soaked pledget was placed in the right nose and after waiting adequate time for decongestion the nose was approached with the nasal endoscope and lidocaine 1% with 1:100,000 Epinephrine infiltrated into the brandon bullosa and lateral nasal wall. An Afrin soaked pledget was replaced and while awaiting hemostasis the image guidance system was registered and proper functioning of the straight suction, curved suction and microdebrider were verified. Then after waiting adequate time for hemostasis the right nose was reapproached with the nasal endoscope. The nose was copiously irrigated with Normal Saline and the brandon bullosa was incised with a curved scissor to the right and removed with an ethmoid forceps. Then the uncinate process was incised with a sickle knife and also removed with an ethmoid forceps. At this point there was brisk release of copious purulent fluid from the right maxillary sinus. This was cultured for both aerobic bacteria and fungus with separate Culturette tips. The sinus was then copiously irrigated with Normal Saline until there was no more purulent fluid or debris. A microdebrider under direct image guidance was used to exonerate the anterior ethmoid air cells into the frontoethmoidal recess and then using a 30 degree nasal endoscope and a curved suction the natural ostium of the maxillary sinus was identified, explored and opened using the suction. The posterior root of the middle turbinate was then prophylactically cauterized to minimize the risk of postoperative bleeding. The nose was again copiously irrigated and the patient was awakened and taken to the Recovery Room in good condition. Zamzam Francisco Jr., M.D. lkr Dictated: 11/08/2020 #[id number] Typed: 11/08/2020 #[id number] cc: Zamzam Francisco Jr., M.D.[facility] HospitalComment on above:Result Comment: Electronically Signed By: Zamzam Francisco MD\.br\Date and Time Signed: 11/08/20 13:06 EDTIntraOperative Documentson 11-07-2020 IntraOperative [id number]#1.00CD:127 [facility] HospitalPostoperative Documentson 11-07-2020 Postoperative [id number]#1.00CD:127 [facility] HospitalMain OR Intraoperative Recordon 77-74-5923Psdu OR Intraoperative RecordIntraOp Document Type FT Summary Primary Physician: Zamzam Francisco MD Finalized Date/Time: 11/05/20 13:25:24 Pt. Name: JUSTYN NEWMAN/Sex: 1980 Female Med Rec #: [id number] Physician: Zamzam Francisco MD Financial #: [id number] Pt. Type: A Room/Bed: [facility]06[facility]15 Admit/Disch: 11/01/20 09:32:55 - 11/01/20 14:30:00 Institution: Case Times FT Entry 1 Patient Times In Room 11/01/20 11:38:00 Out Room 11/01/20 12:48:00 Procedure Times Start 11/01/20 12:00:00 Stop 11/01/20 12:38:00 Anesthesia Times Start 11/01/20 11:38:00 Stop 11/01/20 12:48:00 Last Modified By: Facundo CISNEROS, Danielle Jensen 11/01/20 13:01:24 General Comments: 11/05/20 Chart open to review and send charges. Sue Dowell RN Case Attendance FT Entry 1 Entry 2 Entry 3 Case Attendee Yadiel PRICE, Chanel Francisco MD, Zamzam Duarte DATA BASE ADMINISTRATOR/Kassidy MONIQUE Role Performed Anesthesiologist Surgeon - Primary Scrub - Primary Evaluation Engineer Time In 11/01/20 11:38:00 11/01/20 11:38:00 11/01/20 11:38:00 Time Out 11/01/20 12:48:00 11/01/20 12:48:00 11/01/20 12:48:00 Procedure ANTROSTOMY TURBINECTOMY ANTROSTOMY TURBINECTOMY ANTROSTOMY TURBINECTOMY ETHMOIDECTOMY IM(Right) ETHMOIDECTOMY IM(Right) ETHMOIDECTOMY IM(Right) Comments DR. SCHWARTZ SUPERVISING out for break [id number] Last Modified By: Facundo CISNEROS, Danielle Loredo RN, Danielle Loredo RN, Danielle Jensen 11/01/20 13:01:26 11/01/20 13:01:26 11/01/20 13:01:26 Entry 4 Entry 5 Entry 6 Case Attendee Guy EPPERSON, Liliane Loredo RN, Hailee Mi Role Performed Scrub - Primary Sound Recording Technician - Primary Sound Recording Technician - Primary Time In 11/01/20 11:38:00 11/01/20 11:38:00 11/01/20 11:38:00 Time Out 11/01/20 12:48:00 11/01/20 12:48:00 11/01/20 12:48:00 Procedure ANTROSTOMY TURBINECTOMY ANTROSTOMY TURBINECTOMY ANTROSTOMY TURBINECTOMY ETHMOIDECTOMY IM(Right) ETHMOIDECTOMY IM(Right) ETHMOIDECTOMY IM(Right) Comments IN ORIENTATION IN ORIENTATION/ LUNCH OUT FOR LUNCH 8437-1454 AT [id number] Last Modified By: Facundo CISNEROS, Mikailey H LoredoDanielle coronel RN, RN, Mikailey H 11/01/20 13:01:26 11/01/20 13:01:26 11/01/20 13:01:26 Entry 7 Case Attendee Dank Mahmood CST Role Performed Scrub - Relief Time In 11/01/20 11:38:00 Time Out 11/01/20 12:48:00 Procedure ANTROSTOMY TURBINECTOMY ETHMOIDECTOMY IM(Right) Comments Last Modified By: Danielle Loredo RN 11/01/20 13:01:26 Perioperative Protocols FT Pre-Care Text: Implements protective measures prior to operative or invasive procedure, confirms identity before the operative or invasive procedure, verifies operative procedure, surgical site, and laterality Entry 1 Procedure(s) ANTROSTOMY TURBINECTOMY Patient Identity Birthday, ID Band ETHMOIDECTOMY IM(Right) Verified (select at Check, Patient least 2): Participation Consents / H and P Anesthesia Consent, Operative Site N/A Verified HandP, Surgery/Procedure Marking Verified Consent Surgical Site Yes Laterality Verified n/a Verified Procedure Verified Yes Correct Patient Yes Position Verified Availability Equipment, Medication Prep Dry n/a Verified (If Applicable) PreOp Antibiotic No Time Out Yadiel PRIEC, Chanel M, Given Participants Nolan MATHEW, Zamzam Jensen, Gerald EPPERSON/, Guy Yi CST, Facundo Zuniga RN, Mary Hudson Tamara A Time Out Complete 11/01/20 11:56:00 Outcomes Met? Yes Last Modified By: Danielle Loredo RN 11/01/20 12:02:18 Post-Care Text: The patient is free from signs and symptoms of injury caused by extraneous objects Allergy Information FT Pre-Care Text: Verifies allergies Entry 1 Allergies Reviewed? Yes Allergies Reviewed Self/Patient With Outcomes Met? Yes Last Modified By: Danielle Loredo RN 11/01/20 12:02:26 Post-Care Text: The patient received appropriate medication(s) safely administered during the perioperative period Surgical Procedures FT Entry 1 Procedure Description Procedure ANTROSTOMY TURBINECTOMY Modifiers Right ETHMOIDECTOMY IMAGE GUIDED Surgeon Description RIGHT IMAGE-GUIDED MIDDLE MEATUS ANTROSTOMY , ANTERIOR ETHMOIDECTOMY , FRONTAL SINUS EXPLORATION Primary Procedure Yes Primary Surgeon Zamzam Francisco MD Start 11/01/20 12:00:00 Stop 11/01/20 12:38:00 Anesthesia Type General Surgical Service ENT Wound Class 2 - Clean-Contaminated Last Modified By: Danielle Loredo RN 11/01/20 13:01:31 General Case Data FT Pre-Care Text: Classifies surgical wound, implements aseptic technique, initiates traffic control Entry 1 Case Information OR OR 2 FT Case Level Level 3 Wound Class 2 - Clean-Contaminated Specialty ENT ASA Class 2 Preop Diagnosis RIGHT PANSINUSITIS Postop Same As Preop Yes Postop Diagnosis RIGHT PANSINUSITIS Outcomes Met? Yes Last Modified By: Danielle Loredo RN 11/01/20 13:01:32 Post-Care Text: The patient is free from signs and symptoms of infection Skin Assessment (Pre Procedure) FT Pre-Care Text: Implement (more content not included)...[facility] Progress Note-Physicianon [id number] Note-PhysicianPatient: JUSTYN NEWMAN Age: 40 years Sex: Female : 1980 Associated Diagnoses: None Author: Evelio Schwartz Jr, DO Postoperative Information Post Operative Note: Post Anesthesia Care Unit. Anesthetic utilized: General. Health Status Allergies: Allergic Reactions (Selected) Severity Not Documented Penicillins- Rash. Problem list: All Problems Pansinusitis / SNOMED CT 331349450 / Confirmed Rheumatoid arteritis / SNOMED CT 7821180231 / Confirmed Low iron / SNOMED CT 116495725 / Confirmed Resolved: Colitis, ulcerative / SNOMED CT 774974470 Physical Examination Vital Signs 11/01/2020 14:07 EDT Heart Rate Monitored 64 bpm Respiratory Rate 18 br/min Systolic Blood Pressure 123 mmHg Diastolic Blood Pressure 87 mmHg Mean Arterial Pressure, Monitered 99 mmHg SpO2 95 % 11/01/2020 14:07 EDT Temperature Oral 36.6 DegC Blood Pressure Location Left arm BP/Pulse Patient Position Sitting 11/01/2020 13:33 EDT Heart Rate Monitored 68 bpm Respiratory Rate 18 br/min Systolic Blood Pressure 121 mmHg Diastolic Blood Pressure 84 mmHg Blood Pressure Location Left arm Mean Arterial Pressure, Monitered 96 mmHg SpO2 97 % BP/Pulse Patient Position Supine 11/01/2020 13:22 EDT Heart Rate Monitored 68 bpm Respiratory Rate 16 br/min Systolic Blood Pressure 121 mmHg Diastolic Blood Pressure 84 mmHg Blood Pressure Location Left arm SpO2 97 % 11/01/2020 13:15 EDT Temperature Temporal Artery 36.6 DegC Heart Rate Monitored 71 bpm Respiratory Rate Monitored 27 br/min Systolic Blood Pressure 120 mmHg Diastolic Blood Pressure 80 mmHg SpO2 97 % 11/01/2020 13:10 EDT Heart Rate Monitored 75 bpm Respiratory Rate Monitored 11 br/min Systolic Blood Pressure 122 mmHg Diastolic Blood Pressure 85 mmHg SpO2 98 % 11/01/2020 13:05 EDT Heart Rate Monitored 71 bpm Respiratory Rate Monitored 15 br/min Systolic Blood Pressure 124 mmHg Diastolic Blood Pressure 81 mmHg SpO2 97 % 11/01/2020 13:00 EDT Heart Rate Monitored 81 bpm Respiratory Rate Monitored 12 br/min Systolic Blood Pressure 118 mmHg Diastolic Blood Pressure 79 mmHg SpO2 100 % 11/01/2020 12:55 EDT Heart Rate Monitored 76 bpm Respiratory Rate Monitored 12 br/min Systolic Blood Pressure 120 mmHg Diastolic Blood Pressure 75 mmHg SpO2 100 % 11/01/2020 12:50 EDT Temperature Temporal Artery 36.5 DegC Heart Rate Monitored 86 bpm Respiratory Rate Monitored 12 br/min Systolic Blood Pressure 127 mmHg Diastolic Blood Pressure 81 mmHg SpO2 100 % 11/01/2020 12:45 EDT Heart Rate Monitored 100 bpm bpm Respiratory Rate 17 br/min br/min SpO2 100 % % 11/01/2020 12:41 EDT Systolic Blood Pressure 120 mmHg mmHg Diastolic Blood Pressure 83 mmHg mmHg 11/01/2020 12:40 EDT Heart Rate Monitored 77 bpm bpm Respiratory Rate 8 br/min br/min SpO2 99 % % 11/01/2020 12:37 EDT Systolic Blood Pressure 100 mmHg mmHg Diastolic Blood Pressure 65 mmHg mmHg 11/01/2020 12:35 EDT Heart Rate Monitored 68 bpm bpm Respiratory Rate 10 br/min br/min SpO2 99 % % 11/01/2020 12:33 EDT Systolic Blood Pressure 103 mmHg mmHg Diastolic Blood Pressure 65 mmHg mmHg 11/01/2020 12:30 EDT Heart Rate Monitored 67 bpm bpm Respiratory Rate 10 br/min br/min SpO2 99 % % 11/01/2020 12:29 EDT Systolic Blood Pressure 100 mmHg mmHg Diastolic Blood Pressure 68 mmHg mmHg 11/01/2020 12:25 EDT Heart Rate Monitored 67 bpm bpm Respiratory Rate 10 br/min br/min Systolic Blood Pressure 104 mmHg mmHg Diastolic Blood Pressure 65 mmHg mmHg SpO2 99 % % 11/01/2020 12:21 EDT Systolic Blood Pressure 102 mmHg mmHg Diastolic Blood Pressure 63 mmHg mmHg 11/01/2020 12:20 EDT Heart Rate Monitored 66 bpm bpm Respiratory Rate 10 br/min br/min SpO2 99 % % 11/01/2020 12:17 EDT Systolic Blood Pressure 99 mmHg mmHg Diastolic Blood Pressure 63 mmHg mmHg 11/01/2020 12:15 EDT Heart Rate Monitored 67 bpm bpm Respiratory Rate 10 br/min br/min SpO2 99 % % 11/01/2020 12:13 EDT Systolic Blood Pressure 102 mmHg mmHg Diastolic Blood Pressure 63 mmHg mmHg 11/01/2020 12:10 EDT Heart Rate Monitored 70 bpm bpm Respiratory Rate 10 br/min br/min SpO2 99 % % 11/01/2020 12:09 EDT Systolic Blood Pressure 94 mmHg mmHg Diastolic Blood Pressure 59 mmHg mmHg 11/01/2020 12:05 EDT Heart Rate Monitored 73 bpm bpm Respiratory Rate 10 br/min br/min Systolic Blood Pressure 101 mmHg mmHg Diastolic Blood Pressure 60 mmHg mmHg SpO2 99 % % 11/01/2020 12:01 EDT Systolic Blood Pressure 102 mmHg mmHg Diastolic Blood Pressure 57 mmHg mmHg 11/01/2020 12:00 EDT Heart Rate Monitored 70 bpm bpm Respiratory Rate 10 br/min br/min SpO2 99 % % 11/01/2020 11:57 EDT Systolic Blood Pressure 98 mmHg mmHg Diastolic Blood Pressure 63 mmHg mmHg 11/01/2020 11:55 EDT Heart Rate Monitored 71 bpm bpm Respiratory Rate 10 br/min br/min SpO2 99 % % 11/01/2020 11:53 EDT Systolic Blood Pressure 101 mmHg mmHg Diastolic Blood Pressure 60 mmHg mmHg 11/01/2020 11:50 EDT Heart Rate Monit (more content not included)...[facility] HospitalComment on above:Result Comment: Electronically Signed By: Evelio Schwartz Jr, DO\.br\Date and Time Signed: 11/05/20 14:44 EDTProgress Note-PhysicianPatient: JUSTYN NEWMAN Age: 40 years Sex: Female : 1980 Associated Diagnoses: None Author: Evelio Schwartz Jr, DO Preoperative Information Time patient last ate or drank:=== (npo 8 hours) Anesthesia history: Patient history: No prior anesthesia problems. Re-evaluation prior to induction: Completed, Initial evaluation reviewed. Review of Systems Respiratory: No shortness of breath. Cardiovascular: No chest pain. Hematology/Lymphatics: No bruising tendency, No bleeding tendency. Health Status Allergies: Allergic Reactions (All) Severity Not Documented Penicillins- Rash. Current medications: (Selected) Documented Medications Documented Elite oral capsule: 1 cap(s), Oral, Daily, Prophylaxis Tylenol 325 mg oral capsule: 325 mg = 1 cap(s), Oral, q4hr, PRN as needed for pain Vitamin D3 10,000 intl units oral capsule: 10,000 International_Unit = 1 cap(s), Oral, Daily, Prophylaxis ferrous sulfate 325 mg oral enteric coated tablet: 325 mg = 1 tab(s), Oral, TID, Other (see comment) Problem list: All Problems Pansinusitis / SNOMED CT 718110991 / Confirmed Rheumatoid arteritis / SNOMED CT 5949211257 / Confirmed Low iron / SNOMED CT 698475270 / Confirmed Resolved: Colitis, ulcerative / SNOMED CT 235957788 Histories Past Medical History: No active or resolved past medical history items have been selected or recorded. Family History: No family history items have been selected or recorded. Procedure history: H/O: hysterectomy (101888459) on 11/14/2019 at 39 Years. Gastric bypass operation (69028215) on 06/15/2008 at 28 Years. section x2 (19420205). History of tubal ligation (7192119833). Social History Social & Psychosocial Habits Alcohol 10/25/2020 Use: Current Type: Beer, Wine Frequency: 1-2 times per week Substance Abuse 10/25/2020 Risk Assessment: Denies Substance Abuse Tobacco 10/25/2020 Risk Assessment: Denies Tobacco Use 10/25/2020 Tobacco Use: Former smoker, quit more Comment: greater then 10 years ago - 10/25/2020 10:20 - Lisa Jo RN . Physical Examination VS/Measurements Respiratory: Lungs are clear to auscultation. Cardiovascular: Normal rate, Regular rhythm. Review / Management Results review Interpretation of Outside Results Chest x-ray results Radiology results ECG interpretation Condition Plan [place] [employer] Anesthesiologists (ASA) physical status classification: Class II. Anesthetic Preoperative Plan Anesthesia: General. . Anesthetic plan, risks, benefits, and alternatives discussed with the patient and/or family. Risks discussed: nausea, vomiting, headache, sore throat, dental injury, serious complications. Patient verbalized understanding. Communication: face to face with (patient 5 minutes, Pt educated on the importance of smoking cessation.).[facility] HospitalComment on above:Result Comment: Electronically Signed By: Efren Nichols DO, Evelio Nova.br\Date and Time Signed: 11/05/20 07:55 EDTConsent for Anesthesiaon 69-41-7106Ulokxrg for Anesthesia [id number]#1.00CD:[address] [place], [place] [address]Discharge Instructionson 20-68-9017Plikykend Instructions [id number]#1.00CD:[address] [place], [place] [address]IntraOperative Documentson 08-13-3084LypwwUdghndxhu Documents [id number]#1.00CD:[address] [place], [place] [address]IntraOperative Documents [id number]#1.00CD:[address] [place], [place] [address]Preoperative Documentson 87-90-9437Slhqvbkxnyjb Documents [id number]#1.00CD:[address] [place], [place] [address]Prescriptions/Work Noteson 85-12-1043Fdmalfobgjpiv/Work Notes [id number]#1.00CD:[address] [place], [place] [address]Consent for Treatmenton 68-51-9213Wwjxhzz for Treatment [id number]#1.00CD:[address] [place], [place] [address]H&P Updateon 11-01-2020H&P Update [id number]#1.00CD:[address] [place], [place] [address]Inpatient Patient Summaryon 90-87-0820Kwuxoatkk Patient Summary [facility] [address], [place] [address] [facility] Clinical Discharge Instructions PERSON INFORMATION Name: JUSTYN NEWMAN PHYSICIANS Admitting Physician: Zamzam Francisco MD Attending Physician: Zamzam Francisco MD PCP: Avi Weber MD Discharge Diagnosis: Chronic pansinusitis Comment: PATIENT EDUCATION INFORMATION Instructions: Post Op Patient Instructions - FT (Custom) (CUSTOM) Medication Leaflets: Follow up: With: Address: When: Zamzam Francisco [address] [place] [address] Business (1) In 8 days 11/09/2020 Comments: Call for any problems. Call for followup appointment MEDICATION LIST Medications to Continue with No Changes Other Medications acetaminophen (Tylenol 325 mg oral capsule) 1 Capsules By Mouth every 4 hours as needed as needed for pain. cholecalciferol (Vitamin D3 10,000 intl units oral capsule) 1 Capsules By Mouth every day. ferrous sulfate (ferrous sulfate 325 mg oral enteric coated tablet) 1 Tablets By Mouth 3 times a day., low iron multivitamin, ( Elite oral capsule) 1 Capsules By Mouth every day. Comment:[facility] HospitalMain OR PACU I Recordon 26-30-3547Ivrv OR PACU I RecordPACU Phase I Document Type FT Summary Primary Physician: Zamzam Francisco MD Finalized Date/Time: 11/01/20 14:27:54 Pt. Name: JUSTYN NEWMAN Radha MercedesB./Sex: 1980 Female Med Rec #: [id number] Physician: Zamzam Francisco MD Financial #: [id number] Pt. Type: A Room/Bed: Admit/Disch: 11/01/20 09:32:55 - Institution: Case Times PACU I FT Pre-Care Text: Identifies barriers to communication and implements measures to provide psychological support Develops individualized plan of care, and ensures continuity of care Maintains patient's dignity and privacy, and maintains patient confidentiality Identifies and reports philosophical, cultural, and spiritual beliefs and values Identifies individual values and wishes concerning care Implements aseptic technique, and administers prescribed antibiotic therapy and immunizing agents as ordered Evaluates postoperative tissue perfusion Implements thermoregulation measures, and monitors body temperature Evaluates postoperative respiratory status Evaluates postoperative cardiac status Evaluates postoperative neurological status Assesses pain control, collaborated in initiating patient-controlled analgesia and implements alternative methods of pain control Verifies allergies, administers prescribed medications and solutions, evaluates response to medications Entry 1 In PACU I 11/01/20 12:50:00 Discharge from PACU 11/01/20 13:20:00 I Outcomes Met? Yes Last Modified By: Lucina Saunders RN 11/01/20 14:27:39 Post-Care Text: The patient demonstrates knowledge of the expected response to the operative or invasive procedure The patient's care is consistent with the individualized perioperative plan of care The patient's rightto privacy is maintained The patient's value system, lifestyle, ethnicity, and culture are considered, respected, and incorporated into the perioperative plan of care The patient participates in decisions affecting his or her perioperative plan of care The patient is free from signs and symptoms of infection The patient has wound/tissue perfusion consistent with or improved from baseline levels established preoperatively The patient is at or returning to normothermia at the conclusion of the immediate postoperative period The patient's respiratory function is consistent with or improved from baseline levels established preoperativelyThe patient's cardiovascular status is consistent with or improved from baseline levels established preoperatively The patient's cardiovascular status is consistent with or improved from baseline levels established preoperatively The patient demonstrates and/or reports adequate pain control throughout the perioperative period The patient received appropriate medication(s), safely administered during the perioperativeperiod Acuity Level PACU I FT Entry 1 Start Time 11/01/20 12:50:00 Stop Time 11/01/20 13:20:00 Acuity Level Acuity Level I Last Modified By: Lucina Saunders RN 11/01/20 14:27:53 Finalized By: Lucina Saunders RN Document Signatures Signed By: Lucina Saunders RN 11/01/20 14:27[facility] PACU II Recordon [id number] OR PACU II RecordPACU Phase II Document Type FT Summary Primary Physician: Zamzam Francisco MD Finalized Date/Time: 11/01/20 14:31:14 Pt. Name: JUSTYN NEWMAN Radha Fonseca./Sex: 1980 Female Med Rec #: [id number] Physician: Zamzam Francisco MD Financial #: [id number] Pt. Type: A Room/Bed: [place] [address] Admit/Disch: 11/01/20 09:32:55 - Institution: Case Times PACU II FT Pre-Care Text: Identifies barriers to communication and implements measures to provide psychological support and determines knowledge level Develops individualized plan of care, and ensures continuity of care Maintains patient's dignity and privacy, and maintains patient confidentiality Identifies and reports philosophical, cultural, and spiritual beliefs and values Identifies individual values and wishes concerning care administers prescribed antibiotic therapy and immunizing agents as ordered, Evaluates postoperative tissue perfusion Implements thermoregulation measures, and monitors body temperature Evaluates postoperative respiratory statusEvaluates postoperative cardiac status Evaluates postoperative neurological status Assesses pain control, collaborated in initiating patient-controlled analgesia and implements alternative methods of pain control Verifies allergies, administers prescribed medications and solutions, evaluates response to medications Entry 1 In PACU II 11/01/20 13:20:00 Discharge from PACU 11/01/20 14:30:00 II Outcomes Met? Yes Last Modified By: Lynsey Schneider RN 11/01/20 14:31:12 Post-Care Text: The patient demonstrates knowledge of the expected response to the operative or invasive procedure The patient's care is consistent with the individualized perioperative plan of care The patient's rightto privacy is maintained The patient's value system, lifestyle, ethnicity, and culture are considered, respected, and incorporated into the perioperative plan of care The patient participates in decisions affecting his or her perioperative plan of care. The patient is free from signs and symptoms of infection The patient has wound/tissue perfusion consistent with or improved from baseline levels established preoperatively The patient is at or returning to normothermia at the conclusion of the immediate postoperative period The patient's respiratory function is consistent with or improved from baseline levels established preoperativelyThe patient's cardiovascular status is consistent with or improved from baseline levels established preoperatively The patient's neurological status is consistent with or improved from baseline levels established preoperatively The patient demonstrates and/or reports adequate pain control throughout the perioperative period The patient received appropriate medication(s), safely administered during the perioperativeperiod Finalized By: Lynsey Schneider RN Document Signatures Signed By: Lynsey Schneider RN 11/01/20 14:31NoR[facility]ide [facility] HospitalMain OR Preoperative Recordon [id number] OR Preoperative RecordPreOp Document Type FT Summary Primary Physician: Zamzam Francisco MD Finalized Date/Time: 11/01/20 12:34:57 Pt. Name: JUSTYN NEWMAN /Sex: 1980 Female Med Rec #: [id number] Physician: Zamzam Francisco MD Financial #: [id number] Pt. Type: A Room/Bed: [facility]06/15 Admit/Disch: 11/01/20 09:32:55 - Institution: Case Times PreOp FT Pre-Care Text: Verifies consent for planned procedure, identifies individual values and wishes concerning care, includes family members in perioperative teaching Entry 1 Patient Times. In Pre Surgery 11/01/20 09:40:00 Out Pre Surgery 11/01/20 11:36:00 Outcomes Met? Yes Last Modified By: Danielle Loredo RN 11/01/20 12:34:57 Post-Care Text: The patient participates in decisions affecting his or her perioperative plan of care Finalized By: Danielle Loredo RN Document Signatures Signed By: Danielle Loredo RN 11/01/20 12:34NoRiverside Methodist HospitalMonitor Recordon 47-11-4211Vqgmlrm Record [id number]#1.00CD:127[facility] HospitalOperative Reporton 41-41-8580Yasootuxl ReportPatient: JUSTYN NEWMAN Age: 40 years Sex: Female : 1980 Associated Diagnoses: None Author: Zamzam Francisco MD Postoperative Information Procedure: RT Image-guided MMA, ant ethmoidectomy and frontal sinus exploration Preoperative Diagnosis: Chronic pansinusitis (LUU07-VY J32.4, Working, Medical). Postoperative Diagnosis: Chronic pansinusitis (LOA32-PP J32.4, Discharge, Medical). Performed by: Zamzam Francisco MD. Findings: Copious RT maxillary sinus purulent fluid. Severe max/ethmoid, brandon and frontal inflammation. Specimens Removed: RT max sinus fungal and aerobic cx, RT sinus sock, rt sinus contents. Estimated Blood Loss: 20 ml. Medications Complications: None.[facility] HospitalComment on above:Result Comment: Electronically Signed By: Zamzam Francisco MD\.br\Date and Time Signed: 11/01/20 12:59 EDTOutpatient Surgery Discharge Instructionon 11-01-2020 Outpatient Surgery Discharge Instruction [place] [id number] Patient Discharge Instructions PERSON INFORMATION Name: JUSTYN NEWMAN Date of : 1980 Current Date: 11/01/2020 13:14:04 PHYSICIANS Admitting Physician: Zamzam Francisco MD Discharge Diagnosis: Chronic pansinusitis JUSTYN NEWMAN has been given the following list of follow-up instructions, prescriptions, and patient education materials: PATIENT FOLLOW-UP INFORMATION Diet: Regular Discharge Activity: Expect mild pain, Expect minimal amount of drainage and/or bleeding, Activity as tolerated Call Your Doctor For: Persistent or heavy bleeding Additional Instructions: Salt water sinus rinse to the right nose 3 times daily IF UNABLE TO CONTACT YOUR PHYSICIAN AND YOU FEEL IT IS AN EMERGENCY, GO TO THE NEAREST EMERGENCY ROOM OR CALL 911 PATY Nichols CANDIDA M, have received the attached patient education materials/instructions and have verbalized understanding: May we do a follow up call? Yes No I was present when discharge instructions were given Patient Signature Date Clinican/Nurse Signature Date Follow up: With: Address: When: Zamzam Francisco [address] [place] [address], [address] [place] [address] Business (1) In 8 days 11/09/2020 Comments: Call for any problems. Call for followup appointment Pharmacy Information: You may receive a survey from Deb Webb asking you to rate your care experience. Your feedback is important and will help us understand what we do well and how we can improve the quality of care we provide to you, your loved ones and our community. It?s an honor to serve you. Thank you for choosing [facility] HERE ARE THE MEDICATION CHANGES THAT OCCURRED DURING YOUR HOSPITAL STAY Medications to Continue with No Changes Other Medications acetaminophen (Tylenol 325 mg oral capsule) 1 Capsules By Mouth every 4 hours as needed as needed for pain. cholecalciferol (Vitamin D3 10,000 intl units oral capsule) 1 Capsules By Mouth every day. ferrous sulfate (ferrous sulfate 325 mg oral enteric coated tablet) 1 Tablets By Mouth 3 times a day., low iron multivitamin, ( Elite oral capsule) 1 Capsules By Mouth every day. PATIENT EDUCATION INFORMATION Instructions: [facility] HospitalPatient Education - Texton 46-17-3894Euhsidx Education - Text [facility] HospitalCoding Summary.on 28-62-9359Cetvhi Summary. CD:[id number] [file] YXBz (more content not included)...[facility] HospitalCT Maxillofacial w/o Contraston 80-43-5187CK Maxillofacial w/o ContrastExam Date/Time: 10/25/2020 10:26 EDT Reason for Exam: RIGHT PANSINUSITIS Report IMPRESSION: CHRONIC SINUS INFLAMMATION INVOLVING THE RIGHT MAXILLARY, RIGHT ANTERIOR ETHMOID, AND RIGHT FRONTAL SINUSES EXAM: CT Maxillofacial w/o Contrast CLINICAL HISTORY: Headache RIGHT PANSINUSITIS COMPARISON: NONE. TECHNIQUE: Unenhanced images were obtained through the paranasal sinuses in the axial plane with coronal and sagittal reformats. FINDINGS: Maxillary sinuses:Complete opacification of the right maxillary sinus with soft tissue density of blunting of the middle nasal turbinate. No no bone destruction. No expansion of the soft tissue density is more superiorly or medially. Soft tissue density changes are heterogeneous suggestive of secretions and debris from chronic inflammation. No calcifications. No abnormal bony spicules or hyperostotic bone involving the right maxillary antrum. Abnormal soft tissue density involving the adjacent right anterior ethmoid air cells and right frontal sinus. Ethmoid sinuses: Mucosal thickening in the anterior right ethmoid air cells. Sphenoid sinuses: The sphenoid sinuses are normally aerated. Sphenoethmoid recesses are patent. Frontal sinuses: Complete opacification of the right frontal sinus with obstruction of the right frontal recess. Left frontal sinus clear Nasal fossa: There is no septal deviation. The nasal turbinates are normal in appearance All CT scans at this facility use dose modulation, iterative reconstruction, and/or weight based dosing when appropriate to reduce radiation dose to as low as reasonably achievable. FINAL REPORT Dictated: 10/26/2020 4:29 pm Deandre Ferris MD Signed (Electronic Signature): 10/26/2020 4:29 pm Signed by: Deandre Ferris MD Transcribed by: LISA Technologist: RomaCleveland Clinic Union HospitalAuto Diffon 35-53-1158Awtncfdst/100 WBC (Bld)0.9 %Normal0.0-2.0[facility] Comment on above:Order Comment: Order Added by Discern Expert.Performed By: #### [id number], 79567953, 31493204, 8409301, 13454839 ####[place] [address] [place], [place] [address]Nzdouioke/Leukocytes Auto (Bld) [Pure # fraction]0.0 E9/LNormal0.0-0.2FMadison HealthComment on above: Order Comment: Order Added by Discern Expert.Performed By: #### 3031192, 74057575, 36567077, 7959677, 56585842 ####[facility] [address] [place], [place] [address]Wtakuewarzn/100 WBC (Bld)1.6 %Normal 0.0-8.0[facility] HospitalComment on above:Order Comment: Order Added by Discern Expert.Performed By: #### 3048884, 25916930, 26418754, 5428487, 57183790 ####[address] [address] Eosinophils/Leukocytes Auto (Bld) [Pure # fraction]0.1 E9/LNormal0.0-0.5FMadison HealthComment on above:Order Comment: Order Added by Discern Expert.Performed By: #### 0996611, 70902047, 58757046, 4690100, 55929279 ####[address] [address] Lymphocytes/100 WBC (Bld)29.2 %Cohbka93.0-50.0[facility] HospitalComment on above:Order Comment: Order Added by Discern Expert.Performed By: #### 6762945, 45022982, 07688891, 7972377, 73520256 ####[place] [address] [place], [place] [address]Gmugbbqzqzy/Leukocytes Auto (Bld) [Pure # fraction]1.3 E9/LNormal1.0-4.0[facility] HospitalComment on above:Order Comment: Order Added by Discern Expert.Performed By: #### 5848942, 83883100, 16689061, 9401189, 75061510 ####[address] [address]Zefrulkkp/100 WBC (Bld)12.3 %Normal 4.0-14.0[facility] HospitalComment on above:Order Comment: Order Added by Discern Expert.Performed By: #### 9807808, 84933068, 12934244, 0605456, 25000000 ####[address] [address]Asqzqfnym/Leukocytes Auto (Bld) [Pure # fraction]0.5 E9/LNormal0.2-1.0 [facility] HospitalComment on above:Order Comment: Order Added by Discern Expert.Performed By: #### 5032649, 88787255, 57725637, 4720993, 47839092 ####[address] [address] Neutrophils/100 WBC (Bld)56.0 %Dfngaz45.0-75.0[facility] HospitalComment on above:Order Comment: Order Added by Discern Expert.Performed By: #### 9607157, 11577313, 49462085, 6571837, 87684902 ####[address] [address]Irubqduvnom/Leukocytes Auto (Bld) [Pure # fraction]2.5 E9/LNormal2.0-7.5FMadison HealthComment on above:Order Comment: Order Added by Discern Expert.Performed By: #### 8865085, 12255519, 85339329, 4438584, 40286690 ####[address] [address]JWBus 53-31-1625Arnq nitrogen [Mass/Vol]13 mg/dLNormal5-21[facility] HospitalComment on above: Performed By: #### 36809153, 7086247, 8806257, 4661036 ####[address], [place] [address]RSX w/ Auto Diffon 10-25-2020 Erythrocyte distribution width (RBC) [Ratio]22.6 %High10.9-14.2FMadison HealthComment on above:Performed By: #### 1514197, 66856481, 16609003, 6075602, 88525297 ####[address] [address]Iqoqawimob (Bld) [Volume fraction]33.4 %Low34.0-46.0[facility] HospitalComment on above:Performed By: #### 9109235, 65794346, 58784981, 9783966, 86018578 ####[address] [address]Rubcuyalay (Bld) [Mass/Vol]10.6 g/dLLow12.0-16.0 [facility] HospitalComment on above:Performed By: #### 2132869, 84061010, 62974464, 8485274, 76296917 ####[address] [address]BLH (RBC) [Entitic mass]23.7 pgLow 27.0-34.0[facility] HospitalComment on above:Performed By: #### 2375840, 82696391, 93524031, 5992812, 57421744 ####[address] [address]PUGB (RBC) [Mass/Vol]31.8 g/dLNormal 31.4-36.0[facility] HospitalComment on above:Performed By: #### 2273134, 24316538, 42520184, 9188025, 89073441 ####[address] [address]VBS (RBC) [Entitic vol]74.7 fLLow 80.0-100.0[facility] HospitalComment on above:Performed By: #### 5417979, 88620611, 04576848, 3984283, 99716718 ####[place] [place], [place] [address]Qeuvlacd mean volume (Bld) [Entitic vol]8.2 fLNormal6.4-10.8[facility] HospitalComment on above:Performed By: #### 1762586, 85343686, 30460869, 6001355, 47315847 ####[address] [address]Jvdmffnui (Bld) [#/Vol]303.0 E9/VLgcfvo373.0-500.0[facility] HospitalComment on above:Performed By: #### 0707430, 23941587, 30780141, 2489486, 90144210 ####[address] [address]ZYJ (Bld) [#/Vol]4.5 E12/L Normal4.3-5.9[facility] HospitalComment on above:Performed By: #### 5300174, 65372219, 25811134, 5016904, 32878582 ####[address] [address]CPF corrected for nucl RBC Auto (Bld) [#/Vol]4.4 E9/LNormal4.0-11.0[facility] HospitalComment on above: Performed By: #### 7643614, 01775425, 03996834, 6389691, 17702978 ####[address] [address]PMSNC-53 ([facility]) on 17-51-9173QVMH-CoV-2 (COVID-19) RNA ONEIDA+probe Ql (Unsp spec)Not detected NormalNot DetectedCleveland Clinic Union HospitalComment on above:Result Comment: This test result should be correlated with clinical presentations and medical history by a healthcare provider to determine its clinical significance. This assay was performed by a reverse transcriptase real-time polymerase chain reaction (rt PCR) method on the [facility]. This test has been authorized only for the detection of nucleic acid from SARS-CoV-2, not for any other viruses or pathogens. This test has not been FDA cleared or approved. This test has been authorized by FDA under an Emergency Use Authorization (EUA). This test is only authorized for the duration of time the declaration on that circumstances exist justifying the authorization emergency use of in vitro diagnostic tests for detection and/or diagnosis of COVID-19 infection under section 564 (b) (1) of the Act, 21 U.S.C. 360 bbb-3 (b) (1), unless authorization is terminated or revoked sooner.Performed By: #### [id number] ####[address] [id number]-VdP-9 (COVID-19) RNA ONEIDA+probe Ql (Unsp spec)PassNormalPassCleveland Clinic Union HospitalComment on above:Performed By: #### [id number] ####[address]Specimen source Nom (Unsp spec)NasalNormOhio Valley HospitalComment on above:Performed By: #### [id number] ####[address] TS[address]Ustyplw for Treatmenton 08-86-0617Uwmnqnz for Treatment [id number]#1.00CD:127NormOhio Valley HospitalCreatinineon 95-72-1740Umnbrmtcbp [Mass/Vol]0.7 mg/dLNormal0.5-1.3FMadison HealthComment on above:Performed By: #### 30372122, 0818572, 5079326, 9710653 ####[address] [address]Hracpsv 75-98-2028Ygxmt gap [Moles/Vol]12 mmol/LNormal6-16 [facility] HospitalComment on above:Performed By: #### 74287894, 8899464, 2363531, 6311160 ####[address] [address]Zqmwetmo [Moles/Vol]104 mmol/RYlupra816-518SfnbhpCleveland Clinic Union HospitalComment on above:Performed By: #### 75607071, 6892166, 3381911, 1333007 ####[address] [address]JF4 [Moles/Vol]25 mmol/KLfohtk35-81EspclgCleveland Clinic Union HospitalComment on above:Performed By: #### 47836062, 1821566, 3905527, 2129710 ####[address] [address]Pqbunelui [Moles/Vol] 4.5 mmol/LNormal3.5-5.3FMadison HealthComment on above:Performed By: #### 27274439, 3714518, 4376972, 9095486 ####[address] [address]Robpzf [Moles/Vol]136 mmol/LNormal 135-145[facility] HospitalComment on above:Performed By: #### 32041174, 3671931, 8723634, 8498378 ####[address] [address]Nygrgsq 56-86-0978Mdziotkdrxhq Ql (Bld)PresentNoRiverside Methodist HospitalComment on above:Performed By: #### 9248012, 78234483, 85991882, 1991368, 53903959 ####[address] [address]Swrnjsmmqfx Auto Ql (Bld)[facility] CenterNoRiverside Methodist HospitalComment on above:Performed By: #### 3639015, 26206784, 72434675, 2720944, 11050260 ####[address] [address]Iqnhlpemzu Ql (Bld)PresentWayne Hospital Comment on above:Performed By: #### 8897759, 44734434, 92990356, 8369722, 21503795 ####[facility] [address] [place], [place] [address]Xfgrwdppit Babak (Bld) [Interp]See MorphologyWayne HospitalComment on above:Performed By: #### 1433754, 13871760, 49962139, 0744904, 94347873 ####[facility] [address] [place], [place] [address]OR & PTTon 27-24-4718vBEC Coag (PPP) [Time]33.9 second(s)Snksrp78.1-36.5 [facility] HospitalComment on above:Result Comment: Heparin therapeutic range (represented by Anti-Factor Xa activity of 0.2 - 0.4 U/mL) corresponds to PTT of 56.6 - 109.0 sec.Performed By: #### 8871345, 80954492, 28991732, 5158443, 83990073 ####[facility] [address] [place], [place] [address]IIX Coag (PPP) [Relative time]1.1 {INR} Invalid Interpretation [facility] Hospital - YoungstownComment on above:Result Comment: INR results are specifically intended to assess patients stabilized on long-term Anticoagulation therapy suggested INR?s ?Less Intensive Anticoagulation? 2.0 ? 3.0 Conventional Range 3.0 ? 4.5Performed By: #### 8622625, 91552185, 46157557, 8937996, 99458735 ####[facility] [address] [place], [place] [address]NI Coag (PPP) [Time]12.6 second(s)Ndnbth83.2-12.9[facility] HospitalComment on above:Performed By: #### 6096452, 26571318, 40590697, 4483784, 28230106 ####[facility] [address] [place], [place] [address]QZV Morphologyon 90-49-4431Nfprdfeguc Babak (Bld) [Interp]See MorphologyNormOhio Valley HospitalComment on above: Performed By: #### 0704758, 89374964, 77368736, 5435844, 67280569 ####[facility] [address] [place], [place] [address]oEJCwz 19-50-1228BLD/1.73 sq M.predicted among blacks MDRD (S/P/Bld) [Vol rate/Area] mL/min/{1.73_m2}Normal>=59[facility] HospitalComment on above:Order Comment: Order added by Discern Expert.Result Comment: eGFR is race adjusted. AA=.Performed By: #### 57907625, 5395893, 5453352, 4169404 ####[address] [place] [address] GFR/1.73 sq M.predicted among non-blacks MDRD (S/P/Bld) [Vol rate/Area] mL/min/{1.73_m2}Normal>=59[facility] HospitalComment on above:Order Comment: Order added by Discern Expert.Result Comment: Chronic kidney disease could be indicated at eGFR's of less than 60 mL/min/1.73m2. Kidney failure is indicated at less than 15 mL/min/1.73m2.Performed By: #### 25932766, 0780245, 2909386, 3854570 ####[address] [place], [place] [address]AOXDG-61 ([facility])on 20-84-4552Sachhkyf in HealthcareUnknown Wayne HospitalComment on above:Performed By: #### [id number] ####[address]First TestUnknowAvita Health System Galion HospitalComment on above:Performed By: #### [id number] ####[address] [address]Ryajxuinkgra?UnknownWayne HospitalComment on above: Performed By: #### [id number] ####[facility] [address] [facility], [place]PLZZfhvtvrZfvwqwHznyxyHarrison Community HospitalComment on above:Performed By: #### [id number] ####[facility] [address] [place], [place] [address]steve, [place]Cmjsducs?UnknownWayne HospitalComment on above:Performed By: #### [id number] ####[facility] Nrsdsvrfie[address] Benedict AveNst. vincent's medical centersteve, [place]Nqaquqh in a [facility] Care SettingHocking Valley Community HospitalComment on above:Performed By: #### [id number] ####Dino [address]steve, [place]Orieductilv as defined by [facility] Samaritan Medical CenterComment on above:Performed By: #### [id number] ####Dino [address], [place]Dryowoj for Procedure/Surgeryon 21-67-5616Cbcafqk for Procedure/Surgery [id number]#1.00CD:[address] [place], [place] [address]Physician Orderon 45-40-6772Uyxjmimld Order [id number]#1.00CD:[address] [place], [place] [address]Physician Orderon 10-09-3113Gvbykmiee Order [id number]#1.00CD:[address] [place], [place] [address]INSULINon 33-64-1087Kveymdv48.1 uIU/mLCritically high2.6-24.9[facility] HospitalComment on above:Performed By: #### CBC #### [facility] [address] [place], [place] [id number] Morgan KarenCBC AUTO DIFFon [id number] #0.0 103/ulNormal0.0-0.1The [facility] CampusComment on above:Performed By: #### CBC #### [facility] [address] [place] [address] Morgan KarenBasophils/100 WBC (Bld)1.0 %Normal0.2-2.0The [facility] Comment on above:Performed By: #### CBC #### [facility] [address] [place] [address] Morgan KarenEO #0.1 103/ulNormal0.0-0.7The [facility] CampusComment on above: Performed By: #### CBC #### [facility] [address] [place] [address] Morgan KarenEosinophils/100 WBC (Bld)2.1 %Normal0.9-7.0The [facility] Comment on above:Performed By: #### CBC #### [facility] [address] [place] [address] Morgan KarenErythrocyte distribution width (RBC) [Ratio]19.7 %Critically high 11.0-15.0[facility] HospitalComment on above:Performed By: #### CBC #### [facility] [address] [place] [address] Morgan KarenHematocrit (Bld) [Volume fraction]34.2 %Critically low36.0-48.0The [facility] CampusComment on above:Performed By: #### CBC #### [facility] [address] [place] [address] Morgan KarenHemoglobin (Bld) [Mass/Vol]10.1 g/dLCritically low12.0-16.0The [facility] CampusComment on above:Performed By: #### CBC #### [facility] [address] [place] [address] Morgan KarenIG #0.00 10e3/ulNormal0.00-0.03The [facility] CampusComment on above:Performed By: #### CBC #### [facility] [address] [address] Morgan MaenIG %0.0 %Normal0.0-0.5The [facility] CampusComment on above: Performed By: #### CBC #### [facility] [address] [place] [address] Morgan LuongLYMPH #1.4 103/ulNormal1.2-3.8The [facility] CampusComment on above: Performed By: #### CBC #### [facility] [address] [place] [address] Morgan MaenLymphocytes/100 WBC (Bld)33.6 %Rspeue65.5-60.0The [facility] Comment on above:Performed By: #### CBC #### [facility] [address] [place] [address] Morgan KarenMANUAL DIFF REQNONormalThe [facility] CampusComment on above: Performed By: #### CBC #### [facility] [address] [place] [address] Morgan KarenMCH (RBC) [Entitic mass]23.0 pgCritically low26.7-34.0The [facility] Hospitalment on above:Performed By: #### CBC #### [facility] [address] [place] [address] Morgan KarenMCHC (RBC) [Mass/Vol]29.5 g/dLCritically low29.9-35.2The [facility] Hospitalment on above:Performed By: #### CBC #### [facility] [address] [place] [address] Morgan KarenMCV (RBC) [Entitic vol]77.7 fLCritically low81.0-99.0The [facility] CampusComment on above:Performed By: #### CBC #### [facility] [address] [place] [address] Morgan MaenMONO #0.4 103/ulNormal0.3-0.8The [facility] CampusComment on above: Performed By: #### CBC #### [facility] [address] [place] [address] Morgan KarenMonocytes/100 WBC (Bld)9.8 %Normal1.7-12.0The [facility] Comment on above:Performed By: #### CBC #### [facility] [address] [place] [address] Morgan MaenNEUT #2.3 103/ulNormal1.4-6.5The [facility] CampusComment on above: Performed By: #### CBC #### [facility] [address] [place] [address] Morgan KarenNeutrophils/100 WBC (Bld)53.5 %Omlxyg17.0-75.0The [facility] Comment on above:Performed By: #### CBC #### [facility] [address] [place] [address] Morgan KarenPlatelet mean volume (Bld) [Entitic vol]10.3 fLNormal9.5-13.5The [facility] CampusComment on above:Performed By: #### CBC #### [facility] [address] [place] [address] Morgan RmagwMSF791 103/rjPkkokv011-568Hlk [facility] CampusComment on above: Performed By: #### CBC #### [facility] [address] [place] [address] Morgan KarenRBC4.40 106/ulNormal4.20-5.40The [facility] CampusComment on above: Performed By: #### CBC #### [facility] [address] [place] [address] Morgan KarenWBC4.2 103/ulNormal4.0-11.0The [facility] CampusComment on above: Performed By: #### CBC #### [facility] [address] [place] [address] Morgan MaenFERRITINon 27-03-6642Liogjsqk [Mass/Vol]9.0 ng/mLNormal6.2-137.0The [facility] CampusComment on above:Performed By: #### MG, FT3, T4, CMP, TSH #### [facility] [address] [place] [address] Morgan KarenFREE T3on 51-53-8600ORRI T32.86 pg/mlLNormal2.77-5.27The [facility] CampusComment on above:Performed By: #### MG, FT3, T4, CMP, TSH #### [facility] [address] [place] [address] Morgan KarenGLYCOHEMOGLOBIN A1Con [id number] RECOMMENDATIONADA THERAPEUTIC TARGET 6.0 - 7.0 ACTION SUGGESTED > 7.0NormalThSelect Medical Specialty Hospital - AkronComment on above:Performed By: #### CBC #### [facility] [address] [place] [address] Morgan KarenGlucose [Mass/Vol]88 mg/dLNormalThSelect Medical Specialty Hospital - AkronComment on above:Performed By: #### CBC #### [facility] [address] [place] [address] Morgan VwqzzXxB6q (Bld) [Mass fraction]4.7 %Normal<=6.0The [facility] Comment on above:Performed By: #### CBC #### [facility] [address] [place] [address] Morgan KarenIRONon 59-25-2494Yawy [Mass/Vol]34.0 ug/dLCritically low37.0-170.0 The [facility] CampusComment on above:Performed By: #### MG, FT3, T4, CMP, TSH #### [facility] [address] [place] [address] Morgan KarenMAGNESIUMon 28-26-7867Siguhfjrw [Mass/Vol]2.0 mg/dLNormal1.6-2.3The [facility] CampusComment on above:Performed By: #### MG, FT3, T4, CMP, TSH #### [facility] [address] [place] [address] Morgan KarenPROF 14(COMP METB)on 96-13-3711Zlvygnc [Mass/Vol]3.3 g/dLCritically low3.5-5.0The [facility] HospitalComment on above:Performed By: #### MG, FT3, T4, CMP, TSH #### [facility] [address] [place] [address] Morgan KarenAlbumin/Globulin [Mass ratio]0.8 {ratio}NormalOhiohealth Dublin Methodist Hospital Comment on above:Performed By: #### MG, FT3, T4, CMP, TSH #### [facility] [address] [place] [address] Morgan KarenALP [Catalytic activity/Vol]78 U/YBlzuyq02-702ElrOhiohealth Dublin Methodist Hospital Comment on above:Performed By: #### MG, FT3, T4, CMP, TSH #### [facility] [address] [place] [address] Morgan KarenALT [Catalytic activity/Vol]18 U/LNormal9-52[facility] Comment on above:Performed By: #### MG, FT3, T4, CMP, TSH #### [facility] [address] [place] [address] Morgan KarenAnion gap [Moles/Vol]12.3 mmol/LNormalOhiohealth Dublin Methodist HospitalComment on above:Performed By: #### MG, FT3, T4, CMP, TSH #### [facility] [address] [place] [address] Morgan KarenAST [Catalytic activity/Vol]16 U/VQlsfag62-12TqaOhiohealth Dublin Methodist Hospital Comment on above:Performed By: #### MG, FT3, T4, CMP, TSH #### [facility] [address] [place] [address] Morgan KarenBilirubin [Mass/Vol]0.4 mg/dLNormal0.2-1.3TTogus [facility] Medical Center Comment on above:Performed By: #### MG, FT3, T4, CMP, TSH #### [facility] [address] [place] [address] Morgan KarenCalcium [Mass/Vol]8.7 mg/dLNormal8.4-10.2[facility] Comment on above:Performed By: #### MG, FT3, T4, CMP, TSH #### [facility] [address] [place] [address] Morgan KarenChloride [Moles/Vol]104 mmol/SNubyrk97-867Dfa [facility] Comment on above:Performed By: #### MG, FT3, T4, CMP, TSH #### [facility] [address] [place] [address] Morgan KarenCO2 [Moles/Vol]28.8 mmol/SNyjlln22.0-30.0The [facility] Comment on above:Performed By: #### MG, FT3, T4, CMP, TSH #### [facility] [address] [place] [address] Morgan KarenCreatinine [Mass/Vol]0.95 mg/dLNormal0.52-1.04[facility] Comment on above:Performed By: #### MG, FT3, T4, CMP, TSH #### [facility] [address] [place] [address] Morgan KarenEGFR-AF IRAQI>60Normal>=60The [facility] CampusComment on above: Performed By: #### MG, FT3, T4, CMP, TSH #### [facility] [address] [place] [address] Morgan KarenEGFR-NON AF IRAQI>60Normal>=60The [facility] CampusComment on above:Performed By: #### MG, FT3, T4, CMP, TSH #### [facility] [address] [place] [address] Morgan KarenGlobulin (S) [Mass/Vol]4.1 g/dLNormalThe [facility] CampusComment on above:Performed By: #### MG, FT3, T4, CMP, TSH #### [facility] [address] [place] [address] Morgan KarenGlucose [Mass/Vol]94 mg/kCUcqege98-192UonOhiohealth Dublin Methodist HospitalComment on above:Performed By: #### MG, FT3, T4, CMP, TSH #### [facility] [address] [place] [address] Morgan KarenPotassium [Moles/Vol]4.1 mmol/LNormal3.4-5.0The [facility] Comment on above:Performed By: #### MG, FT3, T4, CMP, TSH #### [facility] [address] [place] [address] Morgan KarenProtein [Mass/Vol]7.4 g/dLNormal6.1-8.2The [facility] CampusComment on above:Performed By: #### MG, FT3, T4, CMP, TSH #### [facility] [address] [place] [address] Morgan KarenSodium [Moles/Vol]141 mmol/TJbvahj538-402Fus [facility] Comment on above:Performed By: #### MG, FT3, T4, CMP, TSH #### [facility] [address] [place] [address] Morgan KarenUrea nitrogen [Mass/Vol]15.0 mg/dLNormal7.0-17.0The [facility] CampusComment on above:Performed By: #### MG, FT3, T4, CMP, TSH #### [facility] [address] [place] [address] Morgan KarenUrea nitrogen/Creatinine [Mass ratio]15.8 mg/mgNormalThe [facility] CampusComment on above:Performed By: #### MG, FT3, T4, CMP, TSH #### [facility] [address] [place] [address] Morgan YexfeS9ie 14-00-7121O8 [Mass/Vol]7.30 ug/dLNormal5.53-11.00The [facility] CampusComment on above:Performed By: #### MG, FT3, T4, CMP, TSH #### [facility] [address] [place] [address] Morgan KarenTSHon 20-66-1661RMM3.503 uIU/mLNormal0.470-4.680The [facility] CampusComment on above:Performed By: #### MG, FT3, T4, CMP, TSH #### [facility] [address] [place] [address] Morgan Del Rosario RANGESEE Kettering Health HamiltonComment on above:Result Comment: <0.34 UIU/ml HYPERTHYROID 0.34-5.60 UIU/ml EUTHYROID >5.60 UIU/ml HYPOTHYROIDPerformed By: #### MG, FT3, T4, CMP, TSH #### [facility] [address] [place] [address] Morgan KarenVIT B12 AND FOLATEon 57-30-0617Neumesqaj (Vitamin B12) [Mass/Vol] 263.0 pg/kXRuirhz330.0-931.0The [facility] CampusComment on above:Performed By: #### MG, FT3, T4, CMP, TSH #### [facility] [address] [place] [address] Morgan MaRxmwoJSLHNR04.40 ng/mLNormal>=2.76The [facility] CampusComharbor oaks hospital on above: Performed By: #### MG, FT3, T4, CMP, TSH #### [facility] [address] [place] [address] Morgan MaenVITAMIN D 25 OHon 75-69-5055DOM D 25-OH11.9 ng/mLNormalThe [facility] on above:Performed By: #### MG, FT3, T4, CMP, TSH #### [facility] [address] [place] [address] Morgan MaenVIT D RANGESSEE BELOWOhio State Health SystemComment on above: Result Comment: <20 ng/mL Vit D deficient 20 - <30 ng/mL Vit D insufficient 30 - 100 ng/mL Vit D sufficient >100 ng/mL Potential ToxicityPerformed By: #### MG, FT3, T4, CMP, TSH #### [facility] [address] [place] [address] Morgan KarenCT SINUSES WO CONon [id number] SINUSES WO CONEXAMINATION: CT SINUSES WO CON HISTORY: Sinusitis , frontal and maxillary pressure, headache, drainage COMPARISON: No relevant comparison available. TECHNIQUE: Axial and Coronal CT images were created without IV contrast. Dose reduction techniques were achieved by using automated exposure control and/or adjustment of mA and/or kV according to patient size and/or use of iterative reconstruction technique. FINDINGS: MAXILLARY SINUSES: Complete opacification of the right maxillary sinus without evidence of bone erosion or expansion. Complete obstruction of the ostiomeatal complex. Complete obstruction of the ostiomeatal complex. ETHMOID SINUSES: Complete opacification of the majority the right mastoid air cells. SPHENOID SINUSES: No significant mucosal thickening or fluid. Sphenoethmoidal recesses are patent. No bony dehiscence. FRONTAL SINUSES: Complete opacification of the right frontal sinus. NASAL FOSSA: No deviation nasal septum. Brandon bullosa the middle turbinates bilaterally. OTHER: Negative. Limited views of the skull base and orbits are unremarkable. IMPRESSION: 1. Complete consolidation of the right frontal, maxillary, and ethmoid sinuses consistent with chronic sinusitis. The left paranasal sinuses and passageways are clear. Electronically authenticated by: REHANA WALLACE Date: 2020-09-14 09:[address] [place], [place] [address]IMMUNOGLOBULINS IGA/IGM/IGG/IGE QUANTITAon 09-08-2020 Immunoglobulin A, Qn, Wddpc699 mg/dLCritically pdxu63-111JuaOhiohealth Dublin Methodist Hospital Comment on above:Result Comment: Performed at: CBPerformed By: #### CBC #### [facility] [address] [address] Morgan KarenImmunoglobulin E, Total9 IU/mLNormal6-495[facility] Comment on above:Result Comment: Performed at: BNPerformed By: #### CBC #### [facility] [address] [address] Morgan KarenImmunoglobulin G, Qn, Vskoz8893 mg/cDSxxrxj200-2245FynOhiohealth Dublin Methodist HospitalComment on above:Result Comment: Performed at: CBPerformed By: #### CBC #### [facility] [address] [address] Morgan KarenImmunoglobulin M, Qn, Spksm425 mg/aVGfhapy76-888HjfOhiohealth Dublin Methodist HospitalComment on above:Result Comment: Performed at: CBPerformed By: #### CBC #### [facility] [address] [place] [address] Morgan KarenINSULINon 86-95-1510Wqunwhn7.8 uIU/mLNormal2.6-24.9The [facility] CampusComment on above:Performed By: #### CBC #### [facility] [address] [place] [address] Morgan MaenCBC AUTO DIFFon [id number] #0.0 103/ulNormal0.0-0.1The [facility] CampusComment on above:Performed By: #### MG, FT3, T4, CMP, TSH #### [facility] [address] [place] [address] Morgan KarenBasophils/100 WBC (Bld)0.5 %Normal0.2-2.0The [facility] Comment on above:Performed By: #### MG, FT3, T4, CMP, TSH #### [facility] [address] [place] [address] Morgan KarenEO #0.2 103/ulNormal0.0-0.7The [facility] CampusComment on above: Performed By: #### MG, FT3, T4, CMP, TSH #### [facility] [address] [place] [address] Morgan KarenEosinophils/100 WBC (Bld)3.4 %Normal0.9-7.0The [facility] Comment on above:Performed By: #### MG, FT3, T4, CMP, TSH #### [facility] [address] [place] [address] Morgan KarenErythrocyte distribution width (RBC) [Ratio]17.1 %Critically high 11.0-15.0The [facility] CampusComment on above:Performed By: #### MG, FT3, T4, CMP, TSH #### [facility] [address] [place] [address] Morgan KarenHematocrit (Bld) [Volume fraction]32.7 %Critically low36.0-48.0The [facility] CampusComment on above:Performed By: #### MG, FT3, T4, CMP, TSH #### [facility] [address] [place] [address] Morgan KarenHemoglobin (Bld) [Mass/Vol]9.6 g/dLCritically low12.0-16.0The [facility] CampusComment on above:Performed By: #### MG, FT3, T4, CMP, TSH #### [facility] [address] [place] [address] Morgan KarenIG #0.01 10e3/ulNormal0.00-0.03The [facility] CampusComment on above:Performed By: #### MG, FT3, T4, CMP, TSH #### [facility] [address] [place] [address] Morgan KarenIG %0.2 %Normal0.0-0.5The [facility] CampusComment on above: Performed By: #### MG, FT3, T4, CMP, TSH #### [facility] [address] [place] [address] Morgan KarenLYMPH #1.6 103/ulNormal1.2-3.8The [facility] CampusComment on above: Performed By: #### MG, FT3, T4, CMP, TSH #### [facility] [address] [place] [address] Mogran MaenLymphocytes/100 WBC (Bld)26.6 %Taqwdt65.5-60.0The [facility] Comment on above:Performed By: #### MG, FT3, T4, CMP, TSH #### [facility] [address] [place] [address] Morgan KarenMANUAL DIFF REQNONormalThe [facility] CampusComment on above: Performed By: #### MG, FT3, T4, CMP, TSH #### [facility] [address] [place] [address] Morgan KarenMCH (RBC) [Entitic mass]21.8 pgCritically low26.7-34.0The [facility] CampusComment on above:Performed By: #### MG, FT3, T4, CMP, TSH #### [facility] [address] [place] [address] Morgan LuongHC (RBC) [Mass/Vol]29.4 g/dLCritically low29.9-35.2The [facility] CampusComment on above:Performed By: #### MG, FT3, T4, CMP, TSH #### [facility] [address] [place] [address] Morgan LuongMCV (RBC) [Entitic vol]74.3 fLCritically low81.0-99.0The [facility] CampusComment on above:Performed By: #### MG, FT3, T4, CMP, TSH #### [facility] [address] [place] [address] Morgan LuongMONO #0.6 103/ulNormal0.3-0.8The [facility] CampusComment on above: Performed By: #### MG, FT3, T4, CMP, TSH #### [facility] [address] [place] [address] Morgan KarenMonocytes/100 WBC (Bld)10.3 %Normal1.7-12.0The [facility] Comment on above:Performed By: #### MG, FT3, T4, CMP, TSH #### [facility] [address] [place] [address] Morgan MaenNEUT #3.6 103/ulNormal1.4-6.5The [facility] CampusComment on above: Performed By: #### MG, FT3, T4, CMP, TSH #### [facility] [address] [place] [address] Morgan KarenNeutrophils/100 WBC (Bld)59.0 %Uhnkxe44.0-75.0The [facility] Comment on above:Performed By: #### MG, FT3, T4, CMP, TSH #### [facility] [address] [place] [address] Morgan KarenPlatelet mean volume (Bld) [Entitic vol]9.1 fLCritically low9.5-13.5 The [facility] CampusComment on above:Performed By: #### MG, FT3, T4, CMP, TSH #### [facility] [address] [place] [address] Morgan IdsmlXGH604 103/mzZhewhd060-623Kdv [facility] on above: Performed By: #### MG, FT3, T4, CMP, TSH #### [facility] [address] [place] [address] Morgan KarenRBC4.40 106/ulNormal4.20-5.40The [facility] CampusComharbor oaks hospital on above: Performed By: #### MG, FT3, T4, CMP, TSH #### [facility] [address] [place] [address] Morgan KarenWBC6.1 103/ulNormal4.0-11.0The [facility] CampusComharbor oaks hospital on above: Performed By: #### MG, FT3, T4, CMP, TSH #### [facility] [address] [place] [address] Morgan KarenFERRITINon 17-25-2249Bysavnup [Mass/Vol]6.0 ng/mLCritically low 6.2-137.0The [facility] on above:Performed By: #### FERR, IRON, VITAD, VITB12 #### [facility] [address] [place] [address] Morgan KarenFREE T3on 85-96-0379IPDA T33.19 pg/mlLNormal2.77-5.27The [facility] on above:Performed By: #### MG, FT3, T4, CMP, TSH #### [facility] [address] [place] [address] Morgan KarenGLYCOHEMOGLOBIN A1Con [id number] RECOMMENDATIONADA THERAPEUTIC TARGET 6.0 - 7.0 ACTION SUGGESTED > 7.0NormSelect Medical Specialty Hospital - CincinnatiComment on above:Performed By: #### CBC #### [facility] [address] [place] [address] Morgan KarenGlucose [Mass/Vol]111 mg/dLNormSelect Medical Specialty Hospital - CincinnatiComment on above:Performed By: #### CBC #### [facility] [address] [place] [address] Morgan EgqliGhQ1z (Bld) [Mass fraction]5.5 %Normal<=6.0The [facility] Comment on above:Performed By: #### CBC #### [facility] [address] [place] [address] Morgan KarenIRONon 22-66-4651Xkmk [Mass/Vol]23.0 ug/dLCritically low37.0-170.0 The [facility] CampusComment on above:Performed By: #### CBC #### [facility] [address] [place] [address] Morgan KarenMAGNESIUMon 52-48-5167Mnyhhxrer [Mass/Vol]2.1 mg/dLNormal1.6-2.3The [facility] CampusComment on above:Performed By: #### MG, FT3, T4, CMP, TSH #### [facility] [address] [place] [address] Morgan KarenPROF 14(COMP METB)on 10-28-7920Rymtocm [Mass/Vol]3.4 g/dLCritically low3.5-5.0[facility] HospitalComment on above:Performed By: #### CBC #### [facility] [address] [place] [address] Morgan KarenAlbumin/Globulin [Mass ratio]0.8 {ratio}NormalOhiohealth Dublin Methodist Hospital Comment on above:Performed By: #### CBC #### [facility] [address] [place] [address] Morgan KarenALP [Catalytic activity/Vol]73 U/HXuhqhe42-790EpiOhiohealth Dublin Methodist Hospital Comment on above:Performed By: #### CBC #### [facility] [address] [place] [address] Morgan KarenALT [Catalytic activity/Vol]22 U/LNormal9-52[facility] Comment on above:Performed By: #### CBC #### [facility] [address] [place] [address] Morgan KarenAnion gap [Moles/Vol]11.3 mmol/LNormalThe [facility] CampusComment on above:Performed By: #### CBC #### [facility] [address] [address] Morgan KarenAST [Catalytic activity/Vol]13 U/LCritically ocd04-11Hhs [facility] CampusComment on above:Performed By: #### CBC #### [facility] [address] [address] Morgan KarenBilirubin [Mass/Vol]0.4 mg/dLNormal0.2-1.3TTogus VA Medical Center Comment on above:Performed By: #### CBC #### [facility] [address] [address] Morgan KarenCalcium [Mass/Vol]8.9 mg/dLNormal8.4-10.2[facility] Comment on above:Performed By: #### CBC #### [facility] [address] [address] Morgan KarenChloride [Moles/Vol]105 mmol/RBsxpun92-557Tis [facility] Comment on above:Performed By: #### CBC #### [facility] [address] [address] Morgan KarenCO2 [Moles/Vol]29.5 mmol/MZviwwb36.0-30.0[facility] Comment on above:Performed By: #### CBC #### [facility] [address] [address] Morgan KarenCreatinine [Mass/Vol]0.78 mg/dLNormal0.52-1.04[facility] Comment on above:Performed By: #### CBC #### [facility] [address] [address] Morgan KarenEGFR-AF IRAQI>60Normal>=60The [facility] CampusComment on above: Performed By: #### CBC #### [facility] [address] [address] Morgan KarenEGFR-NON AF IRAQI>60Normal>=60The [facility] CampusComment on above:Performed By: #### CBC #### [facility] [address] [address] Morgan KarenGlobulin (S) [Mass/Vol]4.1 g/dLNormSelect Medical Specialty Hospital - CincinnatiComment on above:Performed By: #### CBC #### [facility] [address] [address] Morgan KarenGlucose [Mass/Vol]91 mg/dZLssfsx04-256Xyy [facility] CampusComment on above:Performed By: #### CBC #### [facility] [address] [address] Morgan KarenPotassium [Moles/Vol]4.8 mmol/LNormal3.4-5.0The [facility] Comment on above:Performed By: #### CBC #### [facility] [address] [place] [address] Morgan KarenProtein [Mass/Vol]7.5 g/dLNormal6.1-8.2The [facility] CampusComment on above:Performed By: #### CBC #### [facility] [address] [place] [address] Morgan KarenSodium [Moles/Vol]141 mmol/EApgzxr474-983Xrn [facility] Comment on above:Performed By: #### CBC #### [facility] [address] [place] [address] Morgan KarenUrea nitrogen [Mass/Vol]11.0 mg/dLNormal7.0-17.0The [facility] CampusComment on above:Performed By: #### CBC #### [facility] [address] [place] [address] Morgan KarenUrea nitrogen/Creatinine [Mass ratio]14.1 mg/mgNormSelect Medical Specialty Hospital - CincinnatiComharbor oaks hospital on above:Performed By: #### CBC #### [facility] [address] [place] [address] Morgan OnijnQ8sg 98-53-1104R7 [Mass/Vol]8.40 ug/dLNormal5.53-11.00The [facility] CampusComment on above:Performed By: #### CBC #### [facility] [address] [place] [address] Morgan RobbHon 01-53-0466GTW7.005 uIU/mLNormal0.470-4.680The [facility] on above:Performed By: #### MG, FT3, T4, CMP, TSH #### [facility] [address] [place] [address] Morgan MaenTSH RANGESEE [facility]Comhar[facility] on above:Result Comment: <0.34 UIU/ml HYPERTHYROID 0.34-5.60 UIU/ml EUTHYROID >5.60 UIU/ml HYPOTHYROIDPerformed By: #### MG, FT3, T4, CMP, TSH #### [facility] [address] [place] [address] Morgan LuongVITAMIN B12on 58-54-8397Ggluuqvxs (Vitamin B12) [Mass/Vol]234.0 pg/mLCritically phy751.0-931.0The [facility] on above:Performed By: #### FERR, IRON, VITAD, VITB12 #### [facility] [address] [place] [address] Morgan MaenVITAMIN D 25 OHon 33-59-5362WML D 25-OH5.2 ng/mLNormalPremier Health [facility]rium [facility] on above:Performed By: #### CBC #### [facility] [address] [place] [address] Morgan MaenVIT D RANGESSEE [facility] on above: Result Comment: <20 ng/mL Vit D deficient 20 - <30 ng/mL Vit D insufficient 30 - 100 ng/mL Vit D sufficient >100 ng/mL Potential ToxicityPerformed By: #### CBC #### [facility] [address] [place] [address] Morgan MaenEBV EARLY ANTIGEN (IgG)on 93-39-2740QJG Early Antigen Ab, IgG56.8 U/mLCritically high0.0-8.9[facility] on above:Result Comment: Hepatitis A, Hepatitis C and HIV antibodies may cross-react with this assay. Negative < 9.0 Equivocal 9.0 - 10.9 Positive >10.9Performed By: #### EBVEARL #### [facility] [address] [place] [address] Morgan MaenEPSTEIN-TRINIDAD VIRUS (EBV) AB PROFILEon 91-36-5395KDP Ab VCA, OuB660.0 U/mLCritically high0.0-17.9The [facility] on above:Result Comment: Negative <18.0 Equivocal 18.0 - 21.9 Positive >21.9Performed By: #### CBC #### [facility] [address] [place] [address] Morgan KarenEBV Ab VCA, IgM<36.1Bafigx3.0-35.9The [facility] on above:Result Comment: Negative <36.0 Equivocal 36.0 - 43.9 Positive >43.9Performed By: #### CBC #### [facility] [address] [place] [address] Morgan MaenEBV Nuclear Antigen Ab, IgG97.1 U/mLCritically high0.0-17.9The [facility] on above:Result Comment: Negative <18.0 Equivocal 18.0 - 21.9 Positive >21.9Performed By: #### CBC #### [facility] [address] [place] [address] Morgan KarenInterpretation:CommentNormalThe [facility] on above: Result Comment: EBV Interpretation Chart Cordero: Antibody Present + Antibody Absent - Interpretation VCA-IgM VCA-IgG EBNA-IgG . No previous infection/ - - - Susceptible Primary infection (new + + - or recent) Past Infection +or- + + See comment below* + - - *Results indicate infection with EBV at some time however cannot predict the timing of the infection since antibodies to EBNA usually develop after primary infection or, alternatively, approximately 5-10% of patients with EBV never develop antibodies to EBNA.Performed By: #### CBC #### [facility] [address] [place] [address] Morgan KarenCBC AUTO DIFFon 03-05-3477DSLP #0.0 103/ulNormal0.0-0.1The [facility] CampusComment on above:Performed By: #### CBC #### [facility] [address] [place] [address] Morgan KarenBasophils/100 WBC (Bld)0.4 %Normal0.2-2.0The [facility] Comment on above:Performed By: #### CBC #### [facility] [address] [place] [address] Morgan KarenEO #0.1 103/ulNormal0.0-0.7The [facility] CampusComment on above: Performed By: #### CBC #### [facility] [address] [place] [address] Morgan KarenEosinophils/100 WBC (Bld)0.9 %Normal0.9-7.0The [facility] Comment on above:Performed By: #### CBC #### [facility] [address] [place] [address] Morgan KarenErythrocyte distribution width (RBC) [Ratio]17.3 %Critically high 11.0-15.0[facility] Methodist HospitalComment on above:Performed By: #### CBC #### [facility] [address] [place] [address] Morgan KarenHematocrit (Bld) [Volume fraction]31.2 %Critically low36.0-48.0The [facility] CampusComment on above:Performed By: #### CBC #### [facility] [address] [place] [address] Morgan KarenHemoglobin (Bld) [Mass/Vol]8.9 g/dLCritically low12.0-16.0[facility] Methodist HospitalComment on above:Performed By: #### CBC #### [facility] [address] [place] [address] Morgan KarenIG #0.02 10e3/ulNormal0.00-0.03The [facility] CampusComment on above:Performed By: #### CBC #### [facility] [address] [place] [address] Morgan KarenIG %0.2 %Normal0.0-0.5The [facility] CampusComment on above: Performed By: #### CBC #### [facility] [address] [place] [address] Morgan LuongLYMPH #3.9 103/ulCritically high1.2-3.8The [facility] CampusComment on above:Performed By: #### CBC #### [facility] [address] [place] [address] Morgan LuongLymphocytes/100 WBC (Bld)42.5 %Eknouk12.5-60.0The [facility] Comment on above:Performed By: #### CBC #### [facility] [address] [place] [address] Morgan LuongMANUAL DIFF REQNONormalThe [facility] CampusComment on above: Performed By: #### CBC #### [facility] [address] [place] [address] Morgan MaenMCH (RBC) [Entitic mass]21.3 pgCritically low26.7-34.0The [facility] CampusComment on above:Performed By: #### CBC #### [facility] [address] [place] [address] Morgan MaenMCHC (RBC) [Mass/Vol]28.5 g/dLCritically low29.9-35.2The [facility] CampusComment on above:Performed By: #### CBC #### [facility] [address] [place] [address] Morgan LuongMCV (RBC) [Entitic vol]74.8 fLCritically low81.0-99.0The [facility] CampusComment on above:Performed By: #### CBC #### [facility] [address] [place] [address] Morgan LuongMONO #0.8 103/ulNormal0.3-0.8The [facility] CampusComment on above: Performed By: #### CBC #### [facility] [address] [place] [address] Morgan KarenMonocytes/100 WBC (Bld)8.4 %Normal1.7-12.0The [facility] Comment on above:Performed By: #### CBC #### [facility] [address] [place] [address] Morgan TrippUT #4.4 103/ulNormal1.4-6.5The [facility] CampusComment on above: Performed By: #### CBC #### [facility] [address] [place] [address] Morgan Tripputrophils/100 WBC (Bld)47.6 %Wqveha87.0-75.0The [facility] Comment on above:Performed By: #### CBC #### [facility] [address] [place] [address] Morgan LuongPlatelet mean volume (Bld) [Entitic vol]10.2 fLNormal9.5-13.5The [facility] CampusComment on above:Performed By: #### CBC #### [facility] [address] [place] [address] Morgan MaKvsvpVLO940 103/ulCritically uuio112-188Vwr [facility] CampusComment on above:Performed By: #### CBC #### [facility] [address] [place] [address] Morgan MaenRBC4.17 106/ulCritically low4.20-5.40The [facility] CampusComment on above:Performed By: #### CBC #### [facility] [address] [place] [address] Morgan MaenWBC9.2 103/ulNormal4.0-11.0The [facility] CampusComment on above: Performed By: #### CBC #### [facility] [address] [place] [address] Morgan Luong Vital Signs Date TimeVital SignValuePerforming HirrjewhcYfxovqmb53-17-7446 09:39-0500 Diastolic blood kjgajkvq16 mm[Hg]Madi Truong DO Work Phone: [facility] Suhtiy50-08-1511 09:39-0500Heart rate 83 /minKevin Dankert DO Work Phone: [facility]11-03-2025 09:39-0500 Respiratory rate18 /minMadi Charleskert DO Work Phone: [facility]11-03-2025 09:39-0500Systolic blood dpujuiin243 mm[Hg]Madi Truong DO Work Phone: [facility]10-06-2025 10:22-0400Body ujfvmp911.61 cmAvi Weber MD Work Phone: [phone])[address]10-06-2025 10:22-0400 Body mass index (BMI) [Ratio]38.2 kg/k3DipxnadAvi Weber MD Work Phone: 1(399)[address] [place], [place] 7123310-06-2025 10:22-0400 Body pdvytm718.4 kgAvi Weber MD Work Phone: 1(800)[address] [place], [place] 7123310-06-2025 10:22-0400 Diastolic blood ewtirhsw64 mm[Hg]Avi Weber MD Work Phone: 1(108)[address] [place], [place] 7123310-06-2025 10:22-0400 Heart rate80 /Niurka Weber MD Work Phone: 1(432)[address] [place], [place] 7123310-06-2025 10:22-0400 Respiratory rate18 /Niurka Weber MD Work Phone: 1(225)[address] [place], [place] 7123310-06-2025 10:22-0400 SaO2% (BldA) [Mass fraction]98 %Avi Weber MD Work Phone: 1(104)[address] [place], [place] 7123310-06-2025 10:22-0400 Systolic blood xfqwtqze775 mm[Hg]Avi Weber MD Work Phone: 1(769)[address] [place], [place] 7123309-25-2025 10:44-0400 Body rdberh300.2 cmJonivin Dankert DO Work Phone: [facility]09-25-2025 10:44-0400Body mass index (BMI) [Ratio]40.09 kg/s6Ueiix Dankert DO Work Phone: [facility]09-25-2025 10:44-0400Body lkpvey591.12 kgKevin Dankert DO Work Phone: [facility]08-05-2025 09:47-0400Body aqmwci282.9 cmAvi Weber MD Work Phone: 1(915)126-[address] [place], [place] 1520708-05-2025 09:47-0400 Body mass index (BMI) [Ratio]38.9 kg/y9WqrebwbAvi Weber MD Work Phone: [phone])[address]08-05-2025 09:47-0400 Body okrfgq549.35 kgAvi Weber MD Work Phone: 1(488)[address] [place], [place] 7123308-05-2025 09:47-0400 Diastolic blood pxbcgkyp14 mm[Hg]Avi Weber MD Work Phone: 1(787)516-[address] [place], [place] 1520708-05-2025 09:47-0400 Heart rate75 /Niurka Weber MD Work Phone: 1(552)[address]08-05-2025 09:47-0400 Respiratory rate18 /Niurka Weber MD Work Phone: 1(593)[address] [place], [place] 7123308-05-2025 09:47-0400 SaO2% (BldA) [Mass fraction]99 %Avi Weber MD Work Phone: 1(462)327-[address] [place], [place] 1520708-05-2025 09:47-0400 Systolic blood sjequtmd622 mm[Hg]Avi Weber MD Work Phone: 1(915)[address]06-30-2025 10:37-0400 Diastolic blood mqtfadsq00 mm[Hg]Madi Charleskert DO Work Phone: [facility]06-30-2025 10:37-0400Heart rate 82 /minMadi Dankert DO Work Phone: [facility]06-30-2025 10:37-0400 Respiratory rate16 /Leonid Thomast DO Work Phone: [facility]06-30-2025 10:37-0400Systolic blood nsfpvtdi003 mm[Hg]Madi Truong DO Work Phone: [facility]05-30-2025 10:43-0400Body .9 [facility]20[facility] 10:43-0400Body mass index (BMI) [Ratio]39.6 kg/w9NlkedjfqzProvidence Hospital05-30-2025 10:43-0400Body .4 kgProv[facility]05-30-2025 10:43-0400Diastolic blood ijpxaxhx03 mm[Hg][facility] 11-11-2024 10:43-0400Heart rate88 /[facility] 11-11-2024 10:43-0400Respiratory rate18 /[facility] 11-11-2024 10:43-0480NtC7% (BldA) [Mass fraction]97 %[facility]05-30-2025 10:43-0400Systolic blood rlmzfzig903 mm[Hg][facility]05-07-2025 07:59-0400Body ohajsg814.2 cmMadi Charleskert DO Work Phone: [facility]05-07-2025 07:59-0400Body mass index (BMI) [Ratio]40.09 kg/l7Dsfcv Dankert DO Work Phone: [facility]05-07-2025 07:59-0400Body aaatob972.12 kgMadi Dankert DO Work Phone: [facility]04-15-2025 14:11-0400Body vqcvag353.91 cmProv[facility]04-15-2025 14:11-0400Body mass index (BMI) [Ratio]40.4 kg/i0FrlyxrkjoProvidence Hospital04-15-2025 14:11-0400Body hvimjz619.52 [facility]03-21-2025 10:03-0400Body .91 cmProv[facility]03-21-2025 10:03-0400Body mass index (BMI) [Ratio]40.8 kg/p8ZxuacxaooProvidence Hospital03-21-2025 10:03-0400Body esphdk497.6 [facility] 09-02-2024 10:03-0400Diastolic blood wjoifcfo87 mm[Hg][facility]03-21-2025 10:03-0400Heart rate78 /[facility] 09-02-2024 10:03-0400Respiratory rate18 /[facility] 09-02-2024 10:03-5453ZoL3% (BldA) [Mass fraction]96 %[facility]03-21-2025 10:03-0400Systolic blood tpzobdbe318 mm[Hg][facility]01-16-2025 13:41-0500Body kfjbwi214.91 cmProv[facility]01-16-2025 13:41-0500Body mass index (BMI) [Ratio]41.5 kg/m2 [facility]01-16-2025 13:41-0500Body lbrihu003.41 kg [facility]01-16-2025 13:41-0500Diastolic blood trryfdld78 mm[Hg][facility]01-16-2025 13:41-0500Heart ztqg786 /min [facility]01-16-2025 13:41-0500Respiratory rate18 /min [facility]01-16-2025 13:41-6371WeL1% (BldA) [Mass fraction]100 %[facility]01-16-2025 13:41-0500Systolic blood dlygglxr537 mm[Hg][facility]05-09-2024 10:57-0400 Body mass index (BMI) [Ratio]40.09 kg/y7TfsjccVitaliy Goldberg MD Work Phone: [facility]2Checkout Jfcsnq06-51-7307 10:57-0400Body .12 Jacoby Goldberg MD Work Phone: [facility] Apprenda Xcibto81-33-8022 10:57-0400Diastolic blood lmicxvrn887 mm[Hg]Vitaliy Goldberg MD Work Phone: [facility]05-09-2024 10:57-0400Heart rate 101 /minVitaliy Goldberg MD Work Phone: [facility]05-09-2024 10:57-0400 Respiratory rate15 /minVitaliy Goldberg MD Work Phone: [facility]05-09-2024 10:57-0400Systolic blood mm[Hg]Vitaliy Goldberg MD Work Phone: [facility]11-17-2021 14:30-0500Body nhiepa343.96 kgCamchristo Samson Other [employer] Other Encounters Encounter DateEncounter TypeCare ProviderFacilityStart: 04-26-2025 End: 44-15-7799fzwkopmbxpRFDCZDMJefferson [facility] Start: 04-20-2025 End: 81-33-4110Strmcayjc encounterMadi Truong DO Work Phone: [facility] RehabilitationStart: 04-20-2025 End: 31-61-3774Xhiiiwbkl department patient visitDORAPHAEL Torres [facility] HospitalStart: 04-17-2025 End: 05-45-8538Bcnhdfe encounter procedureMadi Truong DO Work Phone: [facility] Physical Medicine and RehabilitationComment on above:Lumbar spondylosis (Primary Dx)Start: 04-17-2025 End: 96-26-4456mswxkdmpkjJIEAUHalina Robles [facility] HospitalStart: 03-20-2025 End: 30-54-6642eqfamqyttpXpwuxrq M Hoy MD Work Phone: [facility] Work Phone: Start: 03-20-2025 End: 20-61-0215Ligvwfs encounter procedureRadha Bradshaw [facility] Work Phone: Start: 03-09-2025 End: 58-68-1530Ysuedm outpatient visit 25 minutesMadi Truong DO Work Phone: [facility] Medicine and RehabilitationComment on above:Bilateral hip pain (Primary Dx); Lumbar spondylosis; Neck painStart: 03-09-2025 End: 24-21-0501xqyoidujgrOGHLK R DANKERTPMarcoica [facility] HospitalStart: 01-17-2025 End: 06-36-1363xvjcrsdammEqrreny M Hoy MD Work Phone: [facility] Work Phone: Start: 01-17-2025 End: 36-92-1610Nwtoqgg encounter procedureRadha Bradshaw [facility] Work Phone: Start: 12-12-2024 End: 69-09-8099Gannzqi encounter Danny Truong DO Work Phone: [facility] Medicine and RehabilitationComment on above:Sacroiliac pain (Primary Dx)Start: 12-12-2024 End: 08-78-3373cqvqoqrntjUTEZC R DANKERTProMedica [facility] HospitalStart: 11-24-2024 End: 18-91-2243qndlfcpuaeQPPKD R DANKERTProMedica Houston HospitalStart: 11-11-2024 End: 31-89-8974qrbggfufwmZnpprfudbSt. Anthony's Hospital Work Phone: Start: 11-11-2024 End: 37-10-6795Pvywaek encounter procedurePatriciajamestownlouie [facility] Work Phone: Start: 10-19-2024 End: 54-61-2125Kwqpah consultation new/estab patient 60 minMadi Truong DO Work Phone: [facility] Medicine and RehabilitationComment on above:Sacroiliac pain (Primary Dx); Lumbar radiculopathyStart: 10-19-2024 End: 49-47-1463gucwodxuttMNFAO R ДМИТРИЙTProMedKettering Health Dayton HospitalStart: 10-18-2024 End: 74-28-6355Feddat OnlyDebra A Businger CMAProMedica Physicians Physical Medicine and RehabilitationComment on above:Low back pain, unspecified back pain laterality, unspecified chronicity, unspecified whether sciatica present (Primary Dx)Start: 09-27-2024 End: 76-63-6679fawevfquspVkrxganflChillicothe VA Medical Center Work Phone: Start: 09-27-2024 End: 31-45-4826Gzrlfrw encounter procedureC[facility] Work Phone: Start: 09-02-2024 End: 52-00-9217yqelrmezyiGzcjxaxctChillicothe VA Medical Center Work Phone: Start: 09-02-2024 End: 92-89-8227Sjzjiuv encounter procedureC[facility] Work Phone: Start: 06-30-2024 End: 80-51-4941Oiuiwoe encounter procedureCape [facility] Work Phone: Start: 06-22-2024 End: 93-24-9557Cqtzluz encounter procedureC[facility] Work Phone: Start: 06-19-2024 End: 46-40-8436Wydjwrzyx department patient visitDOUGLAS M HOYPLongs Peak Hospital HospitalStart: 05-18-2024 End: 25-02-5923faynlueljkXLIHLSC SCALLYPLongs Peak Hospital HospitalStart: 05-09-2024 End: 49-48-0827Dsvrwi flowsheetNicole Kristin DO Work Phone: [facility] NEUROStart: 05-09-2024 End: 01-84-4188Vujsli flowsheetNicole Kristin DO Work Phone: [facility] NEUROStart: 05-09-2024 End: 92-83-5775Fbnzbgh encounter procedureNicole Kristin DO Work Phone: [facility] NE NEUROComment on above:Sacral radiculopathy (Primary Dx); Numbness and tinglingStart: 05-09-2024 End: 72-48-6683ggiecljjrlZDSDFR DANNERNot AvailableStart: 04-14-2024 End: 71-04-2702Ezdurw flowsheetChristopher Payton DO Work Phone: [facility] NEUROLOGYStart: 04-14-2024 End: 37-07-6965Hdmrvt flowsheetChristopher Payton DO Work Phone: [facility] NEUROLOGYStart: 04-14-2024 End: 80-46-3891Nqpfgqb encounter procedureChristopher Payton DO Work Phone: [facility] ST NEUROLOGYComment on above:Cervical radiculopathy (Primary Dx)Start: 04-14-2024 End: 40-43-6492gokxexpzkkKSQSJPATLZZ HASSETTNot AvailableStart: 04-11-2024 End: 95-63-8718Xkndpij encounter procedureMD Avi Weber Work Phone: [facility] [address] Work Phone: Start: 04-11-2024 End: 87-58-4434gydmskjvncIO Avi Weber Work Phone: [facility] Work Phone: Start: 10-22-2023 End: 02-80-5448Hirmwb outpatient visit 25 minutesVitaliy Goldberg MD Work Phone: [facility] RheumatologyComment on above: FibromyalgiaStart: 67-82-8216BgjvmfEfvbcn Mustafa MD Work Phone: [facility] RheumatologyComment on above: Vitamin D deficiencyStart: 05-16-2021 End: 63-21-4383vvzkdvmtcvMZ SHASHANK JAUREGUIKFacility:C5Pggpa: 05-07-2021 End: 06-39-8182dhswfiobiyFZ SHASHANK SETHFacility:R1Imyhb: 05-01-2021 End: 83-41-5461pkmijjlbjtZrchiek Ditty Other [employer] Other Start: 38-30-8065Neoiyom encounter procedureCamchristo FernandezsophyyFPG GastroenterologyStart: 10-19-2020 End: 91-15-8285uodnpehnzvNZ AVI HOYFacility:I5Juspx: 10-10-2020 End: 38-19-2041ijrgkoxbvlWK AVI HOYFacility:A1Ofhgz: 09-14-2020 End: 94-82-7934qucpsrwkboXM AVI HOYFacility:U2Ywomr: 09-07-2020 End: 98-14-2944prgyfcjitaBU AVI HOYFacility:Y0Qzgbb: 09-05-2020 End: 56-35-7516mkcomfbdsgJF AVI HOYFacility:H1 Procedures DateProcedureProcedure DetailPerforming ClinicianStart: 45-11-6115Lyfpat-up visitFollow-upMADI THOMASTStart: 05-09-2024 End: 48-33-2296Iqjhea emg ea extremty w/paraspinl area completeNicole Kristin DO Work Phone: Start: 04-14-2024 End: 99-20-5559Akpvms emg ea extremty w/paraspinl area completeChristopher Payton DO Work Phone: Start: 68-02-3848Lgkibhttaqy observation [Identifier] in Cervix by Cyto Terry Goldberg MD Work Phone: Plan of Treatment DateCare ActivityDetailAuthorStart: 15-88-3060HZyB,Tdap and Td Vaccines (2 - Td or Tdap)DTaP,Tdap and Td Vaccines (2 - Td or Tdap)[facility] Apprenda SystemStart: 82-80-3765Hdqcw BMI ScreeningAdult BMI ScreeningProMedica Health SystemStart: 11-96-2485Tobblsn ScreeningTobacco ScreeningWexner Medical Center SystemStart: 10-65-8784Gsras BMI ScreeningAdult BMI ScreeningWexner Medical Center SystemStart: 74-67-6283Moleb BMI ScreeningAdult BMI ScreeningProMercer County Community Hospitaltart: 10-04-2025 End: 58-11-9865Tpactxf encounter /22/2026 9:15 AM EDT Office Visit [facility] [address] [place] [address] Madi Truong DO [address] [place] [address] [facility] RehabilitationStart: 57-64-3144Yaeepfv ScreeningTobacco ScreeningWexner Medical Center SystemStart: 05-15-2025 End: 24-58-6196Azqyikp encounter procedureProMedica Physicians Physical Medicine and RehabilitationStart: 05-01-2025 End: 84-13-6692Axfgwhc encounter procedureProMedica Physicians Physical Medicine and RehabilitationStart: 03-09-2025 End: 44-74-7139DD Guidance for injection of Lumbar spineFluoroscopy AMB lumbar medial branch block Imaging Routine Lumbar spondylosis Expected: 03/09/2025, Expires: 03/09/2026[facility] Work Phone: Comment on above:Expected: 03/09/2025, Expires: 03/09/2026Start: 03-09-2025 End: 03-60-2319RM Less than 1 hourFluoroscopy AMB lumbar RFA Imaging Routine Lumbar spondylosis Expected: 03/09/2025, Expires: 03/09/2026ProGalion HospitalComment on above:Expected: 03/09/2025, Expires: 03/09/2026Start: 03-09-2025 End: 04-45-1688FU Cervical spine ViewsProGalion HospitalComment on above: Expected: 03/09/2025, Expires: 03/09/2026Start: 03-09-2025 End: 60-48-0955Xovrtbt encounter tbkegcbfv87/25/2025 10:45 AM EDT Office Visit [facility] [address] [facility] [address] [place] [address] Madi Truong, DO [address] [facility] [address] [place] [address] [facility] Medicine and RehabilitationStart: 72-89-9245Qzssgvnyi vaccinationInfluenza VaccineSelect Specialty Hospital - Winston-Salemtart: 19-47-5619Hudnl BMI ScreeningAdult BMI ScreeningSelect Specialty Hospital - Winston-Salemtart: 10-19-2024 End: 16-39-7635HZ Lumbar spine WO contrastMR lumbar spine without contrast Imaging Routine Lumbar radiculopathy Sacroiliac pain Expected: 10/19/2024, Expires: 10/19/2025N[facility] Children's HospitalComment on above:Expected: 10/19/2024, Expires: 10/19/2025Start: 10-19-2024 End: 73-60-0885EB Guidance for injection of Sacroiliac JointFluoroscopy AMB sacroiliac joint inj Imaging Routine Sacroiliac pain Expected: 10/19/2024, Expires:10/19/2025ProSt[facility] Work Phone: Comment on above:Expected: 10/19/2024, Expires: 10/19/2025Start: 10-19-2024 End: 24-35-7855Qaksaxq encounter tieqrnnjk52/07/2025 8:00 AM EDT Office Visit [facility] [address] [facility] [address] [place] [address] Madi Truong DO [address] [facility] [place] [address] [facility] RehabilitationStart: 10-18-2024 End: 44-99-3105CM Lumbar spine 2 or 3 ViewsX-ray spine lumbar 2 or 3 views Imaging Routine Low back pain, unspecified back pain laterality, unspecified chronicity, unspecified whether sciatica present Expected: 10/18/2024, Expires: 10/18/2025[facility] Work Phone: Comment on above:Expected: 10/18/2024, Expires: 10/18/2025Start: 05-09-2024 End: 78-52-6631Ztztmhn encounter vpfncuodd03/25/2024 11:00 AM EST Procedure Visit [facility] [address] [place] [address] Chanel Foster DO [address] [place] [address] ArrivedNONC CLAIRE NEUROComment on above:ArrivedStart: 04-28-2024 End: 32-36-3772Aiwtgsv encounter kwjtldocm80/14/2024 11:30 AM EST Office Visit [facility] [address] [facility] [address] [place] [id number] Vitaliy Goldberg MD [address] [facility] [address] [place] [address] [facility] RheumatologyStart: 19-97-3257Igbgm BMI ScreeningAdult BMI ScreeningProMiddletown Hospitalca Health SystemStart: 39-53-1283Xxpepux ScreeningTobacco ScreeningProMiddletown Hospitalca [facility] SystemStart: 04-14-2024 End: 25-25-2852Jqlmiat encounter qriiiopyh95/31/2024 12:00 PM EDT Procedure Visit [facility] [address] [facility] [address] [place] [address] [place], [address] [place] [address] ArrivedSAROJNC NEUROLOGYComment on above: ArrivedStart: 10-00-8070Hheuyorn to Scl-70 [facility]tart: 12-18-8604Qbxeulmxd complement CH50 [facility] Southtart: 04-71-4832MTN antibody measurementHolzer Hospitaltart: 45-51-2528NtnynvdgbHolzer Hospitaltart: 74-39-4800Ctpgukasq vaccinationInfluenza VaccineWexner Medical Center SystemStart: 10-22-2023 End: 82-30-4288Jmckjbb encounter xooplybub68/09/2024 10:45 AM EDT Office Visit [facility] [address] [place] [address] Vitaliy Goldberg MD [address] [address] [facility] RheumatologyStart: 79-96-5054Gfleebqeq vaccinationInfluenza VaccineWexner Medical Center SystemStart: 77-59-5091Ztmrkepdx for malignant neoplasm of cervixPap SmearProAdena Regional Medical Center SystemStart: 10-36-9782ICfJ,Tdap and Td Vaccines (1 - Tdap)DTaP,Tdap and Td Vaccines (1 - Tdap)[facility] Apprenda SystemStart: 69-74-6179Sunpn BMI Follow Up PlanAdult BMI Follow Up PlanWexner Medical Center SystemStart: 14-61-3920Ydtblikogm ScreeningDepression ScreeningNationwide Children's HospitalAldolase measurement Providence HospitalChromatin Ab [Units/volume] in Serum or Plasma Providence HospitalComplement C3 [Mass/volume] in Serum or Plasma [facility] HospitalComplement C4 [Mass/volume] in Serum or Plasma Providence HospitalComprehensive metabolic 2000 panel - Serum or PlasmaProvidence HospitalHomogenous nuclear Ab pattern [Titer] in SerumProvidence HospitalLupus anticoagulant [Interpretation] in Platelet poor plasmaProvidence HospitalNuclear Ab [Titer] in Serum Providence HospitalReagin Ab [Presence] in Serum by RPProtestant Deaconess HospitalThrombin timeProvidence Hospital Thyroglobulin Ab [Units/volume] in Serum or PlasmaProvidence HospitalThyroperoxidase Ab [Units/volume] in Serum or PlasmaFirHCA Florida Central Tampa Emergency Immunizations Immunization DateImmunizationNotesCare WxkxzaglXmfinsfa60-20-6551korkiut toxoid, reduced diphtheria toxoid, and acellular pertussis vaccine, adsorbedElen Bush CMAWexner Medical Center System Payers DatePayer CategoryPayerPolicy [id number] Care HMO (unspecified)[employer] H[employer] 1..[id number]flt 1..840.420959.1.13.424.2.7.3.387[id number] 2..1.240949.3.579.[id number] 2..1.227242.3.579.2.96794-08-5586Iobeybh2417122 2..1.398761.3.579.[id number] ..1.367952.3.579.[id number] 2..1.999361.3.57[id number] 2..1.244237.3.579.2.84894-52-5403Jvabxss2110801 2..1.709754.3.57[id number] 2..1.443265.3.579.2.[id number] 2..1.316912.3.57[id number] 2..1.630630.3.57[id number] 2..1.728821.3.57[id number] 2..1.374775.3.579.2.153413-47-6309Dgegmmh859077773 2..1.372080.3.579.[id number] 2..1.992752.3.57[id number] 2..1.502180.3.57[id number] 2..1.406835.3.579.2.649821-80-9869Yaywqhx74926029 2..1.118808.3.579.2.[id number] 2..1.525659.3.579.[id number] 2..1.203905.3.579.2.[id number] 2.0.1.000395.3.579.2.367694-66-1422Wvsyano792442127 2..1.843437.3.579.2.798461-13-2832Lqepoba793807858 2.0.1.518501.3.579.[id number] 2..840.1.004752.3.579.2.919909-09-4458Pwlf-[id number] MedicaidParamount [id number] 2.840.1.224271.3.579.2.531 Social History DateTypeDetailFacilityStart: 07-26-2020 End: 04-53-7109Obq Assigned At [facility] [employer] Other Start: 00-69-8148Uns Assigned At [facility] Memorial HospitalTobacco smoking status NHISTobacco smoking consumption unknownUTAH VALLEY HOSPITAL HealthcareStart: 19-51-8842Zgi assigned at birthNot on fileUTAH VALLEY HOSPITAL HealthcareStart: 08-09-2019 End: 61-25-2768Cnhsxkw smoking status NHISEx-smokerUniversity Hospitals Beachwood Medical Center Health System History of tobacco useCurrent smokerUniversity Hospitals Beachwood Medical Center Health SystemHistory of tobacco useCigarette SmokerWexner Medical Center SystemStart: 13-16-0283Wlfajkf use and exposureSmokeless tobacco non-userUniversity Hospitals Beachwood Medical Center Health SystemStart: 04-23-2023 End: 72-67-2051Zdhoony intakeCurrent drinker of alcohol (finding)[facility] Health SystemStart: 07-26-2020 End: 86-16-3822Csbkqey of Social functionUniversity Hospitals Beachwood Medical Center Health SystemHousing InstabilityUnknownProMedjohn a. [facility]rew memorial hospital Health SystemStart: 97-59-9518Ajckyfn Comment sociallyProSt. Vincent'S Chilton Health SystemStart: 79-63-9671Hmekgd identityIdentifies as female gender (finding)[facility] SystemStart: 98-50-9257Ovznez orientationHeterosexual (finding)[facility] SystemStart: 01-18-2015 End: 33-49-8944XcyYbelil (finding)[facility] Clinical Notes 10-16-2020 to 04-20-2025 Note Date & UoejWsvgMgugttjg54-78-8531 Miscellaneous Notes* Telephone Encounter - Maile Rios - 04/20/2025 11:34 AM EST Justyn Newman had first bilateral lumbar L3, L4, L5, and S1 medial branch block Hour 1:20 relief in pain symptoms Hour 2:20 relief in pain symptoms Hour 3:50% relief in pain symptoms Hour 4:80% relief in pain symptoms Hour 5:80% relief in pain symptoms Hour 6:80% relief in pain symptoms Hour 7:70% relief in pain symptoms Hour 8:40 relief in pain symptoms Did pain return back to normal after anesthesia wore off yes RFA is Scheduled. (CC Adali with results) documented in this encounterSt. Vincent HospitalAlvos Therapeutic [facility] MacombVqzsrq91-25-3290 Telephone encounter Note* Telephone Encounter - Maile Rios - 04/20/2025 11:34 AM EST Justyn Newman had first bilateral lumbar L3, L4, L5, and S1 medial branch block Hour 1:20 relief in pain symptoms Hour 2:20 relief in pain symptoms Hour 3:50% relief in pain symptoms Hour 4:80% relief in pain symptoms Hour 5:80% relief in pain symptoms Hour 6:80% relief in pain symptoms Hour 7:70% relief in pain symptoms Hour 8:40 relief in pain symptoms Did pain return back to normal after anesthesia wore off yes RFA is Scheduled. (CC Adali with results) [facility] HospitalCynven[facility]11-03-2025 History of Present illness Narrative* Madi Truong, - 04/17/2025 9:30 AM EST Reason for Visit/Chief Complaint: Low back pain PROCEDURE NOTE: Justyn Newman is a 45 y.o. female here today for a diagnostic medial branch block Justyn Newman is here today to rule out facet mediated pain in the lumbar spine. she has evidence of lumbar facet degeneration on imaging. All of the potential risks of the planned procedure was discussed with Justyn today. These include, but are not limited to, bleeding (including epidural hematoma, in the case of epidural injections); infection; spinal headache due to dural puncture; and allergic reaction. In the case of steroid use an increase in blood sugar or hyperglycemia may occur (especially in diabetic patients). Fluid retention, elevated blood pressure, facial flushing are also potential side effects with steroid use. Justyn reported understanding of these potential side effects and did consent to the procedure as planned. Justyn did sign the informed consent in my presence and is willing to proceed with the above-mentioned procedure today. The following portions of the Her history were reviewed and updated as appropriate: allergies, current medications, past family history, past medical history, past social history, past surgical history and problem list. Allergies Allergen Reactions Penicillins Current Outpatient Medications Medication Sig Dispense Refill amitriptyline (ELAVIL) 75 mg tablet One capsule at 8 PM each night 90 tablet 1 cholecalciferol (VITAMIN D3) 50,000 units capsule TAKE 1 CAPSULE BY MOUTH ONCE MONTHLY 3 capsule 3 cyanocobalamin 1000 MCG tablet Take 1 tablet (1,000 mcg total) by mouth in the morning. 90 tablet 1 dicyclomine (BENTYL) 20 mg tablet DULoxetine (CYMBALTA) 60 mg capsule Take 1 capsule (60 mg total) by mouth in the morning and 1 capsule (60 mg total) before bedtime. 180 capsule 1 ferrous sulfate 325 (65 FE) mg tablet Take 1 tablet (325 mg total) by mouth daily with breakfast. gabapentin (NEURONTIN) 300 mg capsule One capsule at 8 PM 90 capsule 1 tiZANidine (ZANAFLEX) 4 mg tablet One and half tab at 8:00 p.m.each night 135 tablet 1 No current facility-administered medications for this visit. PROCEDURE: MEDIAL BRANCH BLOCK #1 Pre-procdure Dx: 1. Lumbar spondylosis Post-procedure Dx: 1. Lumbar spondylosis Date of Procedure: April 17, 2025 Time of Procedure: 9:21 AM PROCEDURE: 1) Bilateral L3, L4, and L5 DR block; blocking Bilateral L4-L5 and L5-S1 facet joints 2) Fluoroscopic needle guidance REASON FOR PROCEDURE: Chronic Back pain PHYSICIAN: Madi Truong, DO MEDICATIONS INJECTED: 1ml of Marcaine 0.5% (PF) was injected at each site mentioned above SEDATION: None LOCAL ANESTHETIC INJECTED: 5 mL of 1% lidocaine per site TECHNIQUE: Time-out was taken to identify the correct patient, procedure and side prior to starting the procedure. Lying in a prone position, the patient was prepped and draped in the usual sterile fashion using ChloraPrep and a fenestrated drape. Each site was identified under fluoroscopy. Local anesthetic was given by raising a wheal and going down to the hub of a 25-gauge 1.5-inch needle. The 25- gauge 3.5-inch Quincke needle was advanced to the anatomic location of each medial branch at the junction ofthe superior articular process and transverse process utilizing intermittent fluoroscopy. Medication was then injected slowly. The procedure was completed without complications and was tolerated well. The patient was monitored after the procedure. The patient (or responsible republican) was given post-procedure and discharge instructions to follow at home. The patient was discharged in stable condition. A follow-up appointment was made. The patient has been instructed to call us in in the morning to inform us what percentage of pain relief was obtained after the facet nerve blocks from today. The patient was also instructed to do the activities that would normally worsen the pain. ESTIMATED BLOOD LOSS: None COMPLICATIONS: None She was instructed to continue with physical therapy as tolerated after 48hours ASSESSMENT: Diagnoses and all orders for this visit: Lumbar spondylosis PLAN: No orders of the defined types were placed in this encounter. No orders of the defined types were placed in this encounter. Justyn Newman underwent diagnostic medial branch blocks of the above- mentioned levels today. Fluoroscopy was used for image guidance and needle placement. Images were saved. There were no complications during the procedure. The patient tolerated it well. she was given written and verbal post injection instructions. there are no restrictions following today's diagnostic injection. she wasinstructed to go home and attempts to reproduce the pain with the activities of daily living that typically cause her pain. she will call in the morning with results of her diagnostic procedure. If she has significant reduction in her symptoms we will consider pursuing radiofrequency ablation of the above-mentioned levels for long-term treatment of her pain. No follow-ups on file. There are no Patient Instructions on file for this visit. DISCUSSION: All questions were answered during the encounter and the patient was in agreement with plan of care. The patient was instructed to call if worsening or not improving. The patient was counseled regarding impressions, instructions for management and importance of compliance with treatment. documented in this encounterNationwide Children's Hospital11-03-2025 Instructions* Discharge Instructions* Mayuri Ventura RN - 04/17/2025 9:23 AM EST .MEDIAL BRANCH BLOCK INJECTION DISCHARGE INSTRUCTIONS: You have received a Medial Branch Block Injection. The medication used provides temporary pain relief and has been given to you for diagnostic purposes. POST INJECTION INSTRUCTIONS A responsible adult must be present to drive you home after the procedure. It is unsafe for you to drive or operate heavy machinery after the procedure. Do not take a bath,swim,or submerge underwater for 48 hours, you may take a shower. If there is a bandage, you may remove the bandage before you go to bed the day of your procedure. Resume your NORMAL ACTIVITY. Remember, this is a test injection done for diagnostic purposes, themedication is meant to provide temporary relief that may last up to 8 hours. You will document the amount of relief you had each hour on the chart below. WHEN TO CONTACT THE DOCTOR'S OFFICE Any sign of infection, which may include: fever, chills, redness, swelling, or drainage at the injection site. Significant increase in pain / more pain than you had prior to the procedure. Excessive bruising or swelling at the injection site. Experience a persistent headache that cannot be relieved by usual pain medications and rest. If you have questions or concerns please contact our office at [phone] WHEN TO SEEK IMMEDIATE MEDICAL ATTENTION Excessive bleeding at the injection site, bleeding that won't stop. Any signs of an allergic reaction, which may include: itching, hives, severe vomiting, swelling of face, lips or tongue,difficulty breathing. Have persistent numbness, tingling, or difficulty moving your arms or legs. Any new loss of bowel or bladder control. IN ORDER TO DOCUMENT YOUR RESULTS, PLEASE [employer] [place] THE AMOUNT OF PAIN RELIEF YOU HAD EACH HOUR FOLLOWING THE INJECTION. For example: If you feel 80% better after your injection, your chart would look like this. Example Hour: 0% 20% 40% 50% 60% 70% 80% 100% Hour 1: 0% 20% 40% 50% 60% 70% 80% 90% 100% Hour 2: 0% 20% 40% 50% 60% 70% 80% 90% 100% Hour 3: 0% 20% 40% 50% 60% 70% 80% 90% 100% Hour 4: 0% 20% 40% 50% 60% 70% 80% 90% 100% Hour 5: 0% 20% 40% 50% 60% 70% 80% 90% 100% Hour 6: 0% 20% 40% 50% 60% 70% 80% 90% 100% Hour 7: 0% 20% 40% 50% 60% 70% 80% 90% 100% Hour 8: 0% 20% 40% 50% 60% 70% 80% 90% 100% Did your pain return to normal after the anesthesia wore off: Yes / No DAY AFTER INJECTION: Please call our office to relay your results. The number to call is [phone] between the hours of 8a.m. and 4p.m. documented in this encounterNationwide Children's Hospital09-25-2025 History of Present illness Narrative* Madi Truong DO - 03/09/2025 10:45 AM EDT Images from the original note were not included. [facility] [place] [address] [facility] [place] [address] Patient: Justyn NewmanO.B: 1980 PCP: AVI WEBER MD Physician: Madi Truong D.O. CHIEF COMPLAINT Chief Complaint Patient presents with Follow-up Patient is here for F/U SIJ 12/12. Patient states some improvement in pain. Pain has returned and isincreased on the right side. Patient states that she has pain radiating down the right leg Pain Previous Evaluation and Treatment Diagnostics: MRI Medications tried: NSAIDS and Muscle Relaxants Home Exercise Program: Guided by physician Physical Therapy: 1 year Manager Of Digital: no Pain Management: Injections Prior Surgery: None Pain Score: 7/10 ASSESSMENT AND PLAN Kristie was seen today for follow-up and pain. Diagnoses and all orders for this visit: Bilateral hip pain - X-ray hips bilateral with or without pelvis 2 views; Future Lumbar spondylosis - Fluoroscopy AMB lumbar medial branch block; Future - Fluoroscopy AMB lumbar medial branch block; Future - Fluoroscopy AMB lumbar RFA; Future Neck pain - X-ray spine cervical 3 views or less; Future Kristie reports only 2-3 weeks after SI joint injection. Will plan on bilateral L3, L4 , L5 MBB targeting the bilateral L4-5 and L5-S1 facet joints Discuss possible RFA in the future X-rays of the cervical spine ordered X-ray of the hips ordered Information given on low-dose naltrexone for her fibromyalgia and widespread musculoskeletal pain. The OARRS/MAPPS database was reviewed today and found to be appropriate. No indication of medication diversion, or non compliance. All questions were answered during the encounter and the patient was in agreement with plan of care. The patient was instructed to call if worsening or not improving. The patient was counseled regarding impressions, instructions for management and importance of compliance with treatment. SUBJECTIVE Justyn Newman is a 45 y.o. female who is an established patient and here today to discuss Her pain. She underwent diagnostic / therapeutic sacroiliac joint injection with only about 2-3 weeks of relief. She states the relief she had was minimal at best. She still reports pain across her lum bosacral spine. She also reports right hip pain in the inguinal region as well as cervical spine pain and shoulder pain. She also has been following with Rheumatology who is treating for fibromyalgia with amitriptyline, Cymbalta, Neurontin, Zanaflex. Despite these medications she continues to experience these symptoms. ALLERGIES Allergies Allergen Reactions Penicillins MEDICATIONS Current Outpatient Medications Medication Sig Dispense Refill amitriptyline (ELAVIL) 75 mg tablet One capsule at 8 PM each night 90 tablet 1 cholecalciferol (VITAMIN D3) 50,000 units capsule TAKE 1 CAPSULE BY MOUTH ONCE MONTHLY 3 capsule 3 cyanocobalamin 1000 MCG tablet Take 1 tablet (1,000 mcg total) by mouth in the morning. 90 tablet 1 dicyclomine (BENTYL) 20 mg tablet DULoxetine (CYMBALTA) 60 mg capsule Take 1 capsule (60 mg total) by mouth in the morning and 1 capsule (60 mg total) before bedtime. 180 capsule 1 ferrous sulfate 325 (65 FE) mg tablet Take 1 tablet (325 mg total) by mouth daily with breakfast. gabapentin (NEURONTIN) 300 mg capsule One capsule at 8 PM 90 capsule 1 tiZANidine (ZANAFLEX) 4 mg tablet One and half tab at 8:00 p.m.each night 135 tablet 1 No current facility-administered medications for this visit. CURRENT PAIN MEDS; Pain Medications amitriptyline (ELAVIL) 75 mg tablet One capsule at 8 PM each night gabapentin (NEURONTIN) 300 mg capsule One capsule at 8 PM tiZANidine (ZANAFLEX) 4 mg tablet One and half tab at 8:00 p.m.each night REVIEW OF SYSTEMS Pertinent positives: Back pain, shoulder pain, neck pain, hip pain MSK review of systems as stated above. All other 10 systems were reviewed and were negative other than what was stated in the history of present illness. PHYSICAL EXAM There were no vitals filed for this visit. Musculoskeletal: Normal alignment lumbar spine No scoliosis noted Normal muscle bulk and tone Normal gait and station Her head carriage Constitutional: Normal appearance; No acute distress Respiratory: Normal respiratory effort No respiratory distress Neurologic: Alert and oriented Normal gait Psychiatric: Normal mood and affect. Normal insight and judgment DIAGNOSTICS I have personally reviewed patient's imaging. PROCEDURE Counseling given: Not Answered Disclaimer: This note was completed using a voice teacher's assistant system. Every effort was made to ensure accuracy. However, inadvertent computerized teacher's assistant errors may be present. Please contactauthor for any clarification. documented in this encounterNationwide Children's Hospital08-05-2025 Evaluation note* Diagnosis Onset Date Resolution Status Admit Date B12 nutritional deficiency acuteAugus2024 9:42amBody mass index (BMI) of 40.1 to 44.9 in adultacute January 17, 2025 9:42amFibromyalgiaacuteAugust 2024 9:42amHypermobility syndromeacuteAugust 2024 9:42amObesityacuteAugust 2024 9:42am Postsurgical dumping syndromeacuteAugust 2024 9:42amVitamin D deficiency, unspecifiedacuteAugust 2024 9:32vbY30 nutritional deficiencyacuteOctober 2024 10:08amBody mass index (BMI) of 40.1 to 44.9 in adultacuteOctober 2024 10:08amFibromyalgiaacuteOctober 2024 10:08amHypermobility syndrome acuteOctober 2024 10:08amObesityacuteOctober 2024 10:08amPostsurgical dumping syndromeacuteOctober 2024 10:08amVitamin D deficiency, unspecified acuteOctober 2024 10:08am [facility] Work Phone: [phone]) 659-120906-30-2025 Instructions* Discharge Instructions* Martina Hammond RN - 12/12/2024 10:22 AM EDT PATIENT INSTRUCTIONS FOLLOWING SI JOINT INJECTION You have received a steroid injection. Steroid medication has been injected to your joint to reducethe pain and inflammation that you are experiencing. Contents of the injection: The injection consisted of two medications; A steroid medication, commonly known as a corticosteroid. Steroids are anti-inflammatory medications that can take up to 10-14 days to start reaching it's full benefit, most patients start to feel a benefit after 2 - 4 days. Lidocaine is a numbing agent that will last 2-3 hours. Once lidocaine wears off, you may experiencean increase in your pain. Steroid injections alone will not control your pain. The injections are meant to be used along withother treatments. Post injection instructions: It is unsafe for you to drive or operate heavy machinery after the procedure. A responsible adult must be present to drive you home after the procedure. It is recommended that you refrain from any high-level activities for approximately 24-48 hours. If a Band-Aid has been placed, you may remove the bandage before you go to bed the day of your procedure. Do not swim, bathe, or soak in water for 48 hours, showering is allowed. You may ice the injection site to prevent soreness, we encourage icing the affected area for 20 minutes at a time, several times throughout the day. POSSIBLE SIDE EFFECTS Skin discoloration: Individuals may experience some skin discoloration locally at the site of injection. Steroid flare-up : There is the possibility of an increase in discomfort within 48 hours following the injection. This is called steroid flare. To help avoid this, adhere to the activity restrictionmentioned above. Use ice as recommended above. Use mild pain reliever per directions and as appropriate. Steroid Flush: Flushing of the face or chest. Flushing will typically subside within 48 to 72 hours. You may take diphenhydramine (Benadryl), loratadine (Claritin), or fexofenadine (Heena) as needed to relieve facial flushing, unless allergic to or told not to take. Follow directions on the package labeling. Infection: There is less than a 1% chance of infection. If you notice any signs of infection (redness, warmth, drainage, chills, fever greater than 100.4 ) please call Physical Medicine and Rehabilitation office immediately at [phone]. Diabetic Patients: In the case of steroid use, an increase in blood sugar or hyperglycemia may occur. Please monitor your blood sugar closely for the next few days. If your blood sugar becomes significantly elevated please contact the physician that helps you manage your diabetes or seek immediate medical attention. WHEN TO CONTACT THE DOCTOR'S OFFICE Any signs of infection: fever greater than 100.4 accompanied by chills, redness, warmth or drainageat the injection site. Pain that significantly increases in area of treatment. Please contact our office if you have any questions regarding your treatment. Our office phone number is [phone]. documented in this encounterSt. [facility]2Checkout [phone] History of Present illness Narrative* Madi Truong DO - 12/12/2024 10:15 AM EDT Reason for Visit/Chief Complaint: Left low back pain PROCEDURE NOTE: Justyn Newman is a 44 y.o. female here today for a fluoroscopic guided sacroiliac joint All of the potential risks of the planned procedure was discussed with Justyn today. These include, but are not limited to, bleeding; infection; and allergic reaction. In the case of steroid use an increase in blood sugar or hyperglycemia may occur (especially in diabetic patients). Fluid retention, elevated blood pressure, facial flushing are also potential side effects with steroid use. Justyn reported understanding of these potential side effects and did consent to the procedure as planned. Justyn did sign the informed consent in my presence and is willing to proceed with the above-mentioned procedure today. The following portions of the Her history were reviewed and updated as appropriate: allergies, current medications, past family history, past medical history, past social history, past surgical history and problem list. Allergies Allergen Reactions Penicillins Current Outpatient Medications Medication Sig Dispense Refill amitriptyline (ELAVIL) 75 mg tablet One capsule at 8 PM each night 90 tablet 1 cholecalciferol (VITAMIN D3) 50,000 units capsule TAKE 1 CAPSULE BY MOUTH ONCE MONTHLY 3 capsule 3 cyanocobalamin 1000 MCG tablet Take 1 tablet (1,000 mcg total) by mouth in the morning. 90 tablet 1 dicyclomine (BENTYL) 20 mg tablet DULoxetine (CYMBALTA) 60 mg capsule Take 1 capsule (60 mg total) by mouth in the morning and 1 capsule (60 mg total) before bedtime. 180 capsule 1 ferrous sulfate 325 (65 FE) mg tablet Take 1 tablet (325 mg total) by mouth daily with breakfast. gabapentin (NEURONTIN) 300 mg capsule One capsule at 8 PM 90 capsule 1 tiZANidine (ZANAFLEX) 4 mg tablet One and half tab at 8:00 p.m.each night 135 tablet 1 No current facility-administered medications for this visit. PROCEDURE: FLUOROSCOPIC GUIDED SACROILIAC JOINT STEROID INJECTION Pre-procdure Dx: 1. Sacroiliac pain Post-procedure Dx: 1. Sacroiliac pain Date of Procedure: December 12, 2024 Time of Procedure: 10:31 AM PROCEDURE: 1) Left sacroiliac joint injection 2) Fluoroscopic needle guidance REASON FOR PROCEDURE: Back pain PHYSICIAN: Madi Truong, DO MEDICATIONS INJECTED: 2 mL of Kenalog 40mg/mL total 2 ml of lidocaine preservative free 0.6 ml Omnipaque SEDATION: None LOCAL ANESTHETIC INJECTED: 2.5 mL of 1% lidocaine per site TECHNIQUE: Time-out was taken to identify the correct patient, procedure and side prior to starting the procedure. Lying in a prone position, the patient was prepped and draped in the usual sterile fashion using Betadine x 3 and a fenestrated drape. The area to be injected was determined under fluoroscopic guidance. Local anesthetic was given by raising a skin wheal and going down to the hub of a 25- gauge 1.5-inch needle. The 3.5-inch 25-gauge Quincke needle was advanced into the above mentioned sacroiliac joint(s). The needle was advanced to the final position via a lateral fluoroscopic intermittent image. Omnipaque was injected to confirm no vascular runoff and to confirm intra-articular placement. After a negative aspiration, the medication was then injected. The procedure was completed without complications and was tolerated well. Justyn was monitored after the procedure. The patient (or responsible republican) was given post-procedure and discharge instructions to follow at home. Justyn was discharged in stable condition. ESTIMATED BLOOD LOSS: None COMPLICATIONS: None She was instructed to await the effects of the steroid over the next several days, patient was given post injection instructions, to continue with physical therapy as tolerated after 48hours A follow-up appointment was made. Justyn Newman underwent a fluoroscopic guided sacroiliac joint injection was performed today. Images were saved. she was given verbal and written post-injection instructions. Justyn was instructed to take it easy for the next 48-72 hours avoid any post-injection flare-ups. she was also instructed to ice the injection site over the next 2-3 days for injection site pain. she will follow up as scheduled for re-evaluation. No follow-ups on file. There are no Patient Instructions on file for this visit. DISCUSSION: All questions were answered during the encounter and the patient was in agreement with plan of care. The patient was instructed to call if worsening or not improving. The patient was counseled regarding impressions, instructions for management and importance of compliance with treatment. documented in this encounterNation[facility] Evaluation note* Diagnosis Onset Date Resolution Status Admit Date B12 nutritional deficiency acuteMay 2024 10:25amBody mass index (BMI) of 40.1 to 44.9 in adultacute May 2024 10:25amFibromyalgiaacuteMay 2024 10:25amHypermobility syndromeacuteMay 2024 10:25amObesityacuteMay 2024 10:25am Postsurgical dumping syndromeacuteMa2024 10:25amVitamin D deficiency, unspecifiedacutey 2024 10:72djV70 nutritional deficiencyacuteAugust 2024 9:42amBody mass index (BMI) of 40.1 to 44.9 in adultacuteAugust 2024 9:42amFibromyalgiaacuteAugust 2024 9:42amHypermobility syndromeacuteAugust 2024 9:42amObesityacuteAugust 2024 9:42amPostsurgical dumping syndrome acuteAu2024 9:42amVitamin D deficiency, unspecifiedacuteAugust 2024 9:42am [facility] Work Phone: 1(863) 948-726605-07-2025 History of Present illness Narrative* Madi Truong DO - 10/19/2024 8:00 AM EDT Images from the original note were not included. [facility] Physical Medicine and Rehabilitation [id number] [facility], [address] [place] [address] Patient: Justyn Newman D.O.B: 1980 PCP: AVI WEBER MD Physician: Madi Truong D.O.. CHIEF COMPLAINT Chief Complaint Patient presents with Back Pain Patient states that she is here for left side low back pain. Patient states that this is a chronic issue. Patient states that she only has had a temporary time of radiating pain to the knee. Patient states that she has some numbness in the toes on the left side. Pain Previous Evaluation and Treatment Diagnostics: X-ray Medications tried: NSAIDS and Muscle Relaxants Home Exercise Program: Guided by physician Physical Therapy: none Manager Of Digital: no Pain Management: Medications Prior Surgery: None Pain Score: 7/10 ASSESSMENT & PLAN Kristie was seen today for back pain and pain. Diagnoses and all orders for this visit: Sacroiliac pain - Fluoroscopy AMB sacroiliac joint inj; Future - MR lumbar spine without contrast; Future Lumbar radiculopathy - [facility] and Rehabilitation and Pain Management - Esther / Dionne Waldron, DIANA - MR lumbar spine without contrast; Future Kristie presents with 25-26 year history of left-sided lower back pain. Symptoms certainly seem to bemechanical in nature and differential diagnosis includes SI joint pain/dysfunction versus facetogenic pain. Kristie has had pain in their sacroiliac region for over 3 months and + Wang Finger Test. There were/are at least 3 provocative tests on her physical exam that reproduced her pain as documented. There are no obvious imaging findings in the lumbar spine to explain the patient's pain. she has also completed conservative treatment without resolution of her pain. ( >= 3 weeks of medications unlesscontraindicated, >= 4 weeks of activity modification/HEP and or PT aimed at restoring alignment and core stability.) A diagnostic left side sacroiliac injection is recommended. If no improvement may consider diagnostic medial branch blocks or intra- articular facet injections to rule in or rule out facetogenic pain Kristie has failed conservative treatments including activity modification, physical therapy in the past, NSAIDs and medically guided home exercises which she consistently poor performs daily. Kristie has findings on imaging which correlate with her above mentioned symptoms. I would like to order an MRI of the Lumbosacral spine to help identify the source of her pain. She was given the order for the MRI and will call to schedule this on her. she reported that she understood this No follow-ups on file. All questions were answered during the encounter and the patient was in agreement with plan of care. The patient was instructed to call if worsening or not improving. The patient was counseled regarding impressions, instructions for management and importance of compliance with treatment. SUBJECTIVE Justyn Kev Newman is a 44 y.o. female who was referred to as a new patient. She is here today to discuss her left-sided lower back pain. She states that this is been present for 25 or 26 years since she was with her 1st born. Her pain has never really gone away but does seem to get better when she loses weight. She localizes it to below the L5 region on the left side. This pain doesnot really radiate. Pain is made worse with any kind of activity especially with positional changesand is better with rest but never truly goes away. She has done physical therapy in the past which did not really provide her any meaningful relief and she does perform daily stretches which seem to give her some minimal disc relief Of note she had 1 episode where she experience numbness and tingling down her left leg for about a week. She underwent EMG testing which did indicate a mild S1/S2 radiculopathy but the symptoms did resolve She has been diagnosed with hypermobility and fibromyalgia recently. She uses multiple medications including amitriptyline, Neurontin, Zanaflex, Cymbalta but continues to experience the symptoms. MEDICAL/SURGICAL/FAMILY/SOCIAL HISTORY Past Medical History: Diagnosis Date Acute ulcerative colitis ([facility]) Anemia Rheumatoid arthritis ([facility]) Past Surgical History: Procedure Laterality Date BARIATRIC SURGERY SECTION x2 TUBAL LIGATION Family History Problem Relation Age of Onset Fibromyalgia Sister Social History Occupational History Not on file Tobacco Use Smoking status: Former Types: Cigarettes Smokeless tobacco: Never Substance and Sexual Activity Alcohol use: Yes Comment: socially Drug use: Not Currently Sexual activity: Yes Partners: Male control/protection: Surgical Comment: tubal ligation ALLERGIES Allergies Allergen Reactions Penicillins MEDICATIONS Current Outpatient Medications Medication Sig Dispense Refill amitriptyline (ELAVIL) 75 mg tablet One capsule at 8 PM each night 90 tablet 1 cholecalciferol (VITAMIN D3) 50,000 units capsule TAKE 1 CAPSULE BY MOUTH ONCE MONTHLY 3 capsule 3 cyanocobalamin 1000 MCG tablet Take 1 tablet (1,000 mcg total) by mouth in the morning. 90 tablet 1 dicyclomine (BENTYL) 20 mg tablet DULoxetine (CYMBALTA) 60 mg capsule Take 1 capsule (60 mg total) by mouth in the morning and 1 capsule (60 mg total) before bedtime. 180 capsule 1 ferrous sulfate 325 (65 FE) mg tablet Take 1 tablet (325 mg total) by mouth daily with breakfast. gabapentin (NEURONTIN) 300 mg capsule One capsule at 8 PM 90 capsule 1 tiZANidine (ZANAFLEX) 4 mg tablet One and half tab at 8:00 p.m.each night 135 tablet 1 No current facility-administered medications for this visit. Current Controlled Meds Pain Medications amitriptyline (ELAVIL) 75 mg tablet One capsule at 8 PM each night gabapentin (NEURONTIN) 300 mg capsule One capsule at 8 PM tiZANidine (ZANAFLEX) 4 mg tablet One and half tab at 8:00 p.m.each night REVIEW OF SYSTEMS Pertinent positives: Lumbosacral pain MSK review of systems as stated above. All other 10 systems were reviewed and were negative other than what was stated in the history of present illness. PHYSICAL EXAM There were no vitals filed for this visit. Musculoskeletal: Lumbar exam: Normal alignment No scoliosis noted Tenderness to palpation of the SI joint Positive Wang finger sign Pain with Stork test Pain with FADIR JAIMEE: POSITIVE Thigh Thrust: POSITIVE SI Compression: POSITIVE Constitutional: Normal appearance; No acute distress Respiratory: Normal respiratory effort No respiratory distress Neurologic: Alert and oriented normal gait Psychiatric: Normal mood and affect. Normal insight and judgment DIAGNOSTICS I have personally reviewed patient's imaging. X-rays today show no scoliosis. Mild degenerative changes in the lower facet joints. Disc space narrowing at L5-S1 PROCEDURE Counseling given: Not Answered Thank you very much for allowing me to participate in the care of your patient, Jsutyn Newman Thank you for the referral . If you have any questions, please do not hesitate to contact me Disclaimer: This note was completed using a voice teacher's assistant system. Every effort was made to ensure accuracy. However, inadvertent computerized teacher's assistant errors may be present. Please contactauthor for any clarification documented in this encounterNationwide [facility]03-21-2025 Evaluation note* Diagnosis Onset Date Resolution Status Admit Date B12 nutritional deficiency acuteSeptember 02, 2024 9:41amBody mass index (BMI) of 40.1 to 44.9 in adultacute September 02, 2024 9:41amFibromyalgiaacuteAugch 2024 9:41amHypermobility syndromeacuteMarch 2024 9:41amObesityacuteMarch 2024 9:41am Postsurgical dumping syndromeacuteMarch 2024 9:41amVitamin D deficiency, unspecifiedacuteMarch 2024 9:93jwC00 nutritional deficiencyacuteMay 2024 10:25amBody mass index (BMI) of 40.1 to 44.9 in adultacuteMay 2024 10:25amFibromyalgiaacuteMay 2024 10:25amHypermobility syndromeacuteMay 2024 10:25amObesityacuteMay 2024 10:25amPostsurgical dumping syndromeacuteMay 2024 10:25amVitamin D deficiency, unspecifiedacuteMay 2024 10:25am [facility] Work Phone: 1(630) 212-239401-16-2025 Evaluation note* Diagnosis Onset Date Resolution Status Admit Date B12 nutritional deficiency acuteJanuary 2024 1:38pmBody mass index (BMI) of 40.1 to 44.9 in adult acuteJanuary 2024 1:38pmFibromyalgiaacuteJanuary 2024 1:38pm Hypermobility syndromeacuteJanuary 2024 1:38pmObesityacuteJanuary 2024 1:38pmPostsurgical dumping syndromeacuteJanuary 2024 1:38pmVitamin D deficiency, unspecifiedacuteJanuary 2024 1:62pcG53 nutritional deficiency acuteMarch 2024 9:41amBody mass index (BMI) of 40.1 to 44.9 in adultacute March 2024 9:41amFibromyalgiaacuteMarch 2024 9:41amHypermobility syndromeacuteMarch 2024 9:41amObesityacuteMarch 2024 9:41am Postsurgical dumping syndromeacuteMarch 2024 9:41amVitamin D deficiency, unspecifiedacuteMarch 2024 9:41am [facility] Work Phone: 1(475) 191-409411-25-2024 History of Present illness Narrative* Mckenzie Card MA - 05/09/2024 11:00 AM EST Images from the original note were not included. Reason for Appointment: EMG Patient: Justyn Newman : 1980 EMG Computer: Mamina Shkola 3 Referring Physician: Dr. Goodrich EMG: BLE women's studies professor: Mckenzie Card [facility] Office Location: [place] Reason for EMG: c/o pain, numbness, tingling in the legs and feet. L<R. Going on sevreal years. Drop foot on the left, started 6 months to a year ago. She reports back pain. No Hx of DM, not taking blood thinners. Comments: Procedure explained to the patient who expressed understanding. documented in this [facility]10-31-2024 History of Present illness Narrative* GENEVA Singh - 04/14/2024 12:00 PM EDT Images from the original note were not included. Reason for Appointment: EMG Patient: Justyn Newman : 1980 EMG Computer: Mamina Shkola 5 Referring Physician: Dr. Julian Goodrich EMG: BUE women's studies professor: Aiden Schaeffer RT(R) Office Location: [place] Reason for EMG: c/o numbness/tingling & weakness in bilateral hands R>L, neck pain into bilateral shoulders. No hx of DM. Not on blood thinners. Comments: Procedure was explained to the patient who expressed understanding. Patient appeared to have tolerated the test well despite some discomfort due to the nature of the test. documented in this [facility]05-09-2024 History of Present illness Narrative* Vitaliy Goldberg MD - 10/22/2023 10:45 AM EDT Images from the original note were not included. [address] [facility] [id number] Date of Service: 10/22/2023 Subjective: Justyn Newman is a 43 y.o. female who presents today for evaluation Joints pain Patient isseen at the request of AVI WEBER MD. This is follow-up visit with this patient who is 43-year-old female patient presenting today as established patient for was seen 1st on 06/27/2021.Last time seen was 04/23/2023 History dates back to 1999 with history of pain, swelling, stiffness of the, hands, wrists, elbows,shoulders, knees, ankles. Patient has been taking used to take Celebrex which helped,stopped 11 year go after she had surgery. Patient has history of low back pain, neck pain, myalgia. Patient denied history of Raynaud's, she has oral ulcers,no alopecia, no no skin rash, butterfly rash,no history of uveitis or red eyes,no history of cytopenia, she had history of right lower limb DVT after fracture, history of serositis. Lab test June 27, 2021 ROULA 1:80 borderline, rheumatoid factor CCP negative, TSH normal, vitamin B12 174 ,vitamin-D10.0 , ESR and CRP normal, CBC normal, CK normal, CMP normal Current medications including gabapentin, Zanaflex, amitriptyline. Today patient said that she has been having increased pain and fatigue. The following portions of the patient's history were reviewed and updated as appropriate: allergies, current medications, past family history, past medical history, past social history, past surgicalhistory and problem list. Review of Systems: Review of Systems Constitutional: Positive for fatigue. Gastrointestinal: Negative for diarrhea. Musculoskeletal: Positive for arthralgias. Psychiatric/Behavioral: Negative for sleep disturbance. Current Outpatient Medications Medication Sig Dispense Refill cholecalciferol (VITAMIN D3) 50,000 units capsule TAKE 1 CAPSULE BY MOUTH ONCE MONTHLY 3 capsule 3 ferrous sulfate 325 (65 FE) mg tablet Take 1 tablet (325 mg total) by mouth daily with breakfast. amitriptyline (ELAVIL) 75 mg tablet One capsule at 8 PM each night 90 tablet 1 cyanocobalamin 1000 MCG tablet Take 1 tablet (1,000 mcg total) by mouth in the morning. (Patient not taking: Reported on 10/22/2023) 90 tablet 1 dicyclomine (BENTYL) 20 mg tablet (Patient not taking: Reported on 10/22/2023) DULoxetine (CYMBALTA) 60 mg capsule Take 1 capsule (60 mg total) by mouth in the morning and 1 capsule (60 mg total) before bedtime. 180 capsule 1 gabapentin (NEURONTIN) 300 mg capsule One capsule at 8 PM 90 capsule 1 tiZANidine (ZANAFLEX) 4 mg tablet One and half tab at 8:00 p.m.each night 135 tablet 1 No current facility-administered medications for this visit. Physical Exam: Physical Exam Vitals and nursing note reviewed. Constitutional: Appearance: She is well-developed. HENT: Head: Normocephalic and atraumatic. Right Ear: External ear normal. Left Ear: External ear normal. Nose: Nose normal. Eyes: Conjunctiva/sclera: Conjunctivae normal. Neck: Thyroid: No thyromegaly. Vascular: No JVD. Pulmonary: Effort: Pulmonary effort is normal. Musculoskeletal: General: No tenderness or deformity. Normal range of motion. Comments: Tender trigger point, no synovitis Skin: General: Skin is warm and dry. Coloration: Skin is not pale. Findings: No erythema or rash. Neurological: Mental Status: She is alert and oriented to person, place, and time. Coordination: Coordination normal. Psychiatric: Behavior: Behavior normal. Thought Content: Thought content normal. SAUER-28 (If Applicable) There is currently no information documented on the homunculus. Go to the Rheumatology activity andcomplete the homunculus joint exam. SAUER-28 (CRP): -- SAUER-28 (ESR): -- Tender (SAUER-28): -- Swollen (SAUER-28): -- BP (!) 122/108 Pulse 101 Resp 15 Wt 116.1 kg (256 lb) BMI 40.09 kg/m : reviewed Labs and Imaging: reviewed and discussed with the patient during the visit.I Lab Results Component Value Date WBC 5.2 06/27/2021 HGB 13.3 06/27/2021 HCT 39.7 06/27/2021 MCV 91 06/27/2021 CRP 0.4 06/27/2021 GFR >60 06/27/2021 GFR >60 06/27/2021 AST 18 06/27/2021 Imaging: Assessment and Plan: Justyn Newman is a 43 y.o. female patient with: 1. Fibromyalgia - tiZANidine (ZANAFLEX) 4 mg tablet; One and half tab at 8:00 p.m.each night Dispense: 135 tablet; Refill: 1 - gabapentin (NEURONTIN) 300 mg capsule; One capsule at 8 PM Dispense: 90 capsule; Refill: 1 - DULoxetine (CYMBALTA) 60 mg capsule; Take 1 capsule (60 mg total) by mouth in the morning and 1 capsule (60 mg total) before bedtime. Dispense: 180 capsule; Refill: 1 - amitriptyline (ELAVIL) 75 mg tablet; One capsule at 8 PM each night Dispense: 90 tablet; Refill: 1 - Ambulatory Referral to Rehabilitation Physical Therapy; Future At this point patient has been having increased symptoms with pain and fatigue. Will increase dose of Cymbalta 60 mg twice daily and amitriptyline sent 5 mg and keep other medications same dose. Referral to physical therapy. Return to clinic 6 months This note was created with the assistance of a speech recognition program. While intending to generate a timely document that accurately reflects the content of the visit, no guarantee can be provided that every grammatical or spelling mistake has been or will be identified or corrected. Thank you for your understanding. [facility] Rheumat[facility] Dr. Vitaliy Goldberg MD [address] [place] [address] [address] [place] [address] Office: [phone] documented in this encounterNation[facility]11-17-2021 Evaluation note* Encounter Date Diagnosis Assessment Notes Treatment Notes Treatment Clinical Notes Apr, History of ulcerative colitis (I CD-10 - Z87.19) PATIENT ADVISED THIS IS ALL HEALTHY FROM THE REPORT. Apr,bdominal discomfort (ICD-10 - R10.9) ENCOURAGED TO FOLLOW THE FODMAP DIET WILL START ABOVE MEDICATION. Apr,Irritable bowel syndrome with both constipation and diarrhea (ICD-10 - K58.2) PATIENT ADVISED THIS IS THE TRICKEST TO TREAT. PATIENT IS ENCOURAGED TO FOLLOW THE FODMAP DIET. [employer] Other 06-17-2021 NoteMicrobiology PROCEDURE: Fungus Culture [R1] SOURCE: Body Fl BODY SITE: Nose COLLECTED DATE/TIME: 11/01/2020 10:23 EDT RECEIVED DATE/TIME: 11/01/2020 13:59 EDT START DATE/TIME: 11/01/2020 13:59 EDT FREE TEXT SOURCE: Nolan MATHEW, Zamzam Francisco MD, Zamzam Jensen FINAL REPORTS Final Report [] Verified Date/Time: 11/29/2020 15:26 EDT Penicillium species Presumptive isolated. STAINS AMRIK Preparation Report [] Verified Date/Time: 11/01/2020 14:06 EDT No fungal elements seen. Performing Locations R1: This test was performed at: [facility], [address] [place] [address], [address] [place] [address], OgvvwwCleveland Clinic Union HospitalComment on above:Performed By: #### [id number] ####[facility] [address] [place], [place] [phone] NoteMicrobiology PROCEDURE: Fluid Culture [R1] SOURCE: Body Fl BODY SITE: Nose COLLECTED DATE/TIME: 11/01/2020 10:23 EDT RECEIVED DATE/TIME: 11/01/2020 14:00 EDT START DATE/TIME: 11/01/2020 14:00 EDT FREE TEXT SOURCE: Right maxillary sinus Nolan MATHEW, Zamzam Francisco MD, Zamzam Jensen FINAL REPORTS Final Report [] Verified Date/Time: 11/05/2020 15:24 EDT 1+ Streptococcus anginosus group Presumptive Scant growth of Staphylococcus epidermidis 1+ Bacteroides species Presumptive 1+ Fusobacterium species Presumptive STAINS Gram Stain Report [] Verified Date/Time: 11/02/2020 12:04 EDT 1+ White Blood Cells 1+ Gram Positive Cocci 1+ Gram Positive Rods SUSCEPTIBILITY RESULTS LEGEND: S=Susceptible, N/R=Not Reported, Blank=Data not available, or drug not advisable or tested, I=Intermediate, ESBL=Extended spectrum beta-lactamase, R=Resistant, TFG=Thymidine-dependent strain, JUAN ANTONIO=Beta-lactamase positive, NESTOR=mcg/m;(mg/L), S*=Predicted susceptible interp, R*=Predicted resistant interp [facility] Staepi Antibiotic NESTOR Dilutn NESTOR Interp NESTOR Dilutn NESTOR Interp Amoxicillin/ <=0.5/.25 <=4/2 R Clavulanate Ampicillin 0.12 S >8 R Ampicillin/ <=8/4 R Sulbactam Azithromycin <=0.25 S >4 R Cefazolin <=8 R Cefepime 0.5 S Cefotaxime <=0.25 S Ceftriaxone <=0.25 S Cefuroxime <=0.25 Ciprofloxacin >2 R Clindamycin 0.12 S >2 R Daptomycin <=1 S Erythromycin <=0.06 S >4 R Gentamicin <=4 S Levofloxacin 0.5 S >4 R Linezolid <=2 S Nitrofurantoin <=32 Oxacillin >2 R Penicillin 0.06 S >8 R Rifampin <=1 S Tetracycline 1 S <=4 S Trimethoprim/ <=.25/4.7 <=0.5/9.5 S Sulfa Microbiology SUSCEPTIBILITY RESULTS LEGEND: S=Susceptible, N/R=Not Reported, Blank=Data not available, or drug not advisable or tested, I=Intermediate, ESBL=Extended spectrum beta-lactamase, R=Resistant, TFG=Thymidine-dependent strain, JUAN ANTONIO=Beta-lactamase positive, NESTOR=mcg/m;(mg/L), S*=Predicted susceptible interp, R*=Predicted resistant interp Strangg Staepi Antibiotic NESTOR Dilutn NESTOR Interp NESTOR Dilutn NESTOR Interp Vancomycin 1 S 1 S Performing Locations R1: This test was performed at: [facility], [address] [place] [address], [id number] [phone] , RqdkwbCleveland Clinic Union HospitalComment on above:Performed By: #### [id number] ####[facility] [address] [place], [place] [phone] [id number]:127[facility] HospitalEvaluation noteNo assessment information availableSt. Charles Hospital Work Phone: Evaluation note* Diagnosis Cervical radiculopathy- Primary Brachial neuritis or radiculitis nos documented in this encounter [facility] HealthcareEvaluation note* Diagnosis Sacral radiculopathy- Primary Numbness and tingling Disturbance of skin sensation documented in this encounter [facility] HealthcareEvaluation note* Diagnosis Vitamin D deficiency [facility] Diagnosis Fibromyalgia Unspecified myalgia and myositis [facility]* Diagnosis Low back pain, unspecified back pain laterality, unspecified chronicity, unspecified whether sciatica present- Primary [facility]* Diagnosis Sacroiliac pain- Primary Disorders of sacrum Lumbar radiculopathy Thoracic or lumbosacral neuritis or radiculitis, unspecified [facility]* Diagnosis Sacroiliac pain- Primary Disorders of sacrum [facility]* Diagnosis Bilateral hip pain- Primary Pain in joint, pelvic region and thigh Lumbar spondylosis Lumbosacral spondylosis without myelopathy Neck pain Cervicalgia [facility]* Diagnosis Lumbar spondylosis- Primary Lumbosacral spondylosis without myelopathy documented [facility] SystemHistory general Narrative - Reported* Type Description Date Surgical History c- section Surgical Historytotal [id number] Historytubal ligation [facility] Goalbook Other InstructionsNot on filedocumented in this encounter [facility] SystemInstructionsNot on filedocumented in this encounter [facility] SystemInstructionsNot on filedocumented in this encounter [facility] SystemInstructionsNot on filedocumented in this encounter [facility] SystemInstructionsNot on filedocumented in this encounter [facility] SystemReason for referral (narrative)No reason for referral information availableMarietta Osteopathic Clinic Work Phone: Reason for visit Narrative* Other Medical (Routine) - ClosedSpecialtyDiagnoses / ProceduresReferred By ContactReferred To Contact Neurology Diagnoses BUE EMG CTS ref by Dr Goodrich Procedures EMG Julian Goodrich MD [address] [facility] Professional building [address] [place] [phone] Phone: tel: fax: [place] DO [address] [place] [address] Phone: tel: fax: Referral IDStatusReasonStart DateExpiration DateVisits RequestedVisits [id number] Perform Procedure / [facility] HealthcareReason for visit Narrative* Other Medical (Routine) - Closed SpecialtyDiagnoses / ProceduresReferred By ContactReferred To ContactNeurology Diagnoses Paresthesia of skin Procedures NC NEEDLE EMG EA EXTREMTY W/PARASPINL AREA COMPLETE NC NERVE CONDUCTION STUDIES 9-10 STUDIES Julian Goodrich MD [address] Professional [address] [place] [address] Phone: tel: fax: Rehana Riley MD [address] [place] [address] Phone: tel: fax: Referral IDStatusReasonStart DateExpiration DateVisits RequestedVisits [id number] Perform Procedure / [facility] Summary Purpose Family History No Family History Records Found Relationship Condition Age at Onset Recorded Date/T rito mother Osteoarthritis Unknown Fibrocystic breast disease (FCBD)Unknown Relationship Condition Age at Onset Recorded Date/T rito mother Osteoarthritis Unknown Fibrocystic breast disease (FCBD)UnknownsisterFibromyalgiaUnknown Advance Directives No Advanced Directives Records Found Advance Directive Response Recorded Date/ Time Advance Directives No February 10:06am Reason for Referral SpecialtyDiagnoses / ProceduresReferred By ContactReferred To Contact Rehabilitation Diagnoses Fibromyalgia Vitaliy Goldberg MD [address] [address] [facility] [address] [place] [address] Referral IDStatusReasonStart DateExpiration DateVisits RequestedVisits [id number] Review Specialty Services Required / Chief Complaint and Reason for Visit Chief Complaint Admit Date Initial June 22, 2024 9: 33am WMN f/u June 30, 2024 1 :38pm WMN f/u September 02, 2024 9:4 1am Reason for Visit Admit Date B12 nutritional deficiency June 30, 2024 1:38pm Body mass index (BMI) of 40.1 to 44.9 in adult June 30, 2024 1:38pm Fibromyalgia June 30, 2024 1 :38pm Hypermobility syndrome June 30 1:38pm Obesity June 30, 2024 1 :38pm Postsurgical dumping syndrome June 302024 1:38pm Vitamin D deficiency, unspecified Junuar y 2024 1:38pm B12 nutritional deficiency September 02 025 9:41am Body mass index (BMI) of 40.1 to 44.9 in adult September 02, 2024 9:41am Fibromyalgia September 02, 2024 9:4 1am Hypermobility syndrome September 02, 2024 9:41am Obesity September 02, 2024 9:4 1am Postsurgical dumping syndrome August 9:41am Vitamin D deficiency, unspecified September 02, 2024 9:41am Chief Complaint Admit Date WMN f/u June 30, 2024 1 :38pm WMN f/u September 02, 2024 9:4 1am one on one f/u September 27, 2024 1:0 8pm Chief Complaint Admit Date WMN f/u September 02, 2024 9:4 1am one on one f/u September 27, 2024 1:0 8pm 10 week-WMN f/u November 11, 2024 10:25 am Reason for Visit Admit Date B12 nutritional deficiency September 02, 2 025 9:41am Body mass index (BMI) of 40.1 to 44.9 in adult September 02, 2024 9:41am Fibromyalgia September 02, 2024 9:4 1am Hypermobility syndrome September 02, 2024 9:41am Obesity September 02, 2024 9:4 1am Postsurgical dumping syndrome August 9:41am Vitamin D deficiency, unspecified September 02, 2024 9:41am B12 nutritional deficiency November 11 10:25am Body mass index (BMI) of 40.1 to 44.9 in adult November 11, 2024 10:25am Fibromyalgia November 11, 2024 10:25 am Hypermobility syndrome November 11, 2024 10 :25am Obesity November 11, 2024 10:25 am Postsurgical dumping syndrome November 11, 2024 10:25am Vitamin D deficiency, unspecified November 112024 10:25am Chief Complaint Admit Date 10 week-WMN f/u November 11, 2024 10:25 am WMN f/u January 17, 2025 9:4 2am Reason for Visit Admit Date B12 nutritional deficiency November 11 10:25am Body mass index (BMI) of 40.1 to 44.9 in adult November 11, 2024 10:25am Fibromyalgia November 11, 2024 10:25 am Hypermobility syndrome November 11, 2024 10 :25am Obesity November 11, 2024 10:25 am Postsurgical dumping syndrome November 11, 2024 10:25am Vitamin D deficiency, unspecified November 112024 10:25am B12 nutritional deficiency January 17 9:42am Body mass index (BMI) of 40.1 to 44.9 in adult January 17, 2025 9:42am Fibromyalgia January 17, 2025 9:4 2am Hypermobility syndrome January 17, 2025 9:42am Obesity January 17, 2025 9:4 2am Postsurgical dumping syndrome January 9:42am Vitamin D deficiency, unspecified January 17, 2025 9:42am Chief Complaint Admit Date WMN f/u January 17, 2025 9:4 2am WMN f/u March 20, 2025 10 :08am Reason for Visit Admit Date B12 nutritional deficiency January 17 9:42am Body mass index (BMI) of 40.1 to 44.9 in adult January 17, 2025 9:42am Fibromyalgia January 17, 2025 9:4 2am Hypermobility syndrome January 17, 2025 9:42am Obesity January 17, 2025 9:4 2am Postsurgical dumping syndrome January 9:42am Vitamin D deficiency, unspecified January 17, 2025 9:42am B12 nutritional deficiency March 20, 2025 10:08am Body mass index (BMI) of 40.1 to 44.9 in adult March 20, 2025 10:08am Fibromyalgia March 20, 2025 10 :08am Hypermobility syndrome March 20, 2025 10:08am Obesity March 20, 2025 10 :08am Postsurgical dumping syndrome March 10:08am Vitamin D deficiency, unspecified Octobe r 2024 10:08am Additional Source Comments INFORMATION SOURCE (unrecogn ized section and content) DATE CREATED AUTHOR 11/30/2020 [facility] DATE CREATED AUTHOR AUTHOR'S ORGANIZ ATION 05/25/2021 [facility] DATE CREATED AUTHOR AUTHOR'S ORGANIZ ATION 04/21/2024 [facility] DATE CREATED AUTHOR AUTHOR'S ORGANIZ ATION 05/11/2024 [facility] DATE CREATED AUTHOR AUTHOR'S ORGANIZ ATION 04/17/2025 [facility] DATE CREATED AUTHOR AUTHOR'S ORGANIZ ATION 04/22/2025 [facility] DATE CREATED AUTHOR AUTHOR'S ORGANIZ ATION 04/27/2025 [facility] REASON FOR VISIT (unrecogniz ed section and content) ReasonCommentsMed RefillReasonCommentsBack PainPatient states that she is here for left side low back pain. Patient states that this is a chronic issue. Patient states that she only has had a temporary time of radiating pain to the knee. Patient states that she has some numbness in the toes on the left side. PainPrevious Evaluation and TreatmentDiagnostics: X-rayMedications tried: NSAIDS and Muscle RelaxantsHome Exercise Program: Guided by physicianPhysical Therapy: noneChiropractic Care: noPain Management: MedicationsPrior Surgery: NonePain Score: 7/10SpecialtyDiagnoses / ProceduresReferred By ContactReferred To Contact Physical Medicine & Rehabilitation / Physical Medicine and Rehabilitation Diagnoses Lumbar radiculopathy [facility] [address] [facility] [address] [place] [address] Phone: tel: fax: [facility] [address] [facility] [address] [place] [address] Phone: tel: fax: Referral IDStatusReasonStart DateExpiration DateVisits RequestedVisits [id number] Review Specialty Services Required [id number] is here for F/U SIJ 12/12. Patient states some improvement in pain. Pain has returned and isincreased on the right side. Patient states that she has pain radiating down the right leg PainPrevious Evaluation and TreatmentDiagnostics: MRIMedications tried: NSAIDS and Muscle RelaxantsHomeExercise Program: Guided by physicianPhysical Therapy: 1 yearChiropractic Care: noPain Management: InjectionsPrior Surgery: NonePain Score: 7/10 Care Teams (unrecognized sec tion and content) Team Status: Active Member Role Status Dates Avi Weber MD Primary Care Provider Active Team Status: Inactive Member Role Status Dates Avi Weber MD Primary Care Provider Active Start: April 11, 2024 End: April 11, 2024Mattronald Goodrich MDAttending ProviderActiveStart: April 11, 2024 End: April 11, 2024Team MemberRelationshipSpecialtyStart DateEnd Date Avi Weber MD [facility] [place] [address] PCP - GeneralFamily Intmvayp19/31/24 North Cain DO [address] [place] [phone] Referring DdmvzhlzwNrzxbqouh55/31/24Team MemberRelationshipSpecialtyStart Date End Date Avi Weber MD [facility] [place] [address] PCP - GeneralFamily Nawbnpib15/31/24 [place] Cain DO [address] [place] [address] Referring KlodvmaafLjeafjdyw84/31/24Team MemberRelationshipSpecialtyStart Date End Date Avi Weber MD [address] [place] [address] PCP - GeneralFamily Ivasoicn06/31/24 North Cain DO [address] [place] [address] Referring NrnihquvsMbotjbkge18/31/24Team MemberRelationshipSpecialtyStart Date End Date Avi Weber MD [address] [place] [address] PCP - Generalmi Mxdznnda37/21/19Team MemberRelationshipSpecialtyStart Date End Date Avi Weber MD [address] [place] [address] PCP - Generalmily Ufnyreoy98/21/19 Team Status: Inactive Member Role Status Dates Avi Weber MD Primary Care Provider Active Start: June 22, 2024 End: June [address] LDAttending ProviderActiveStart: June 22, 2024 End: June 22, 2024 Team Status: Inactive Member Role Status Dates Avi Weber MD Primary Care Provider Active Start: June 30, 2024 End: June 30, 2024Axel Finney ProviderActiveStart: June 30, 2024 End: June 30, 2024 Team Status: Inactive Member Role Status Dates Avi Weber MD Primary Care Provider Active Start: September 02, 2024 End: September 02, 2024Deborah C Scally , APRNAttending ProviderActiveStart: September 02, 2024 End: September 02, 2024 Team Status: Inactive Member Role Status Dates Avi Weber MD Primary Care Provider Active Start: September 27, 2024 End: September [address] LDAttending ProviderActiveStart: September 27, 2024 End: September 27, 2024Team MemberRelationshipSpecialtyStart DateEnd Date Aiv Weber MD [facility]04/04/19Team MemberRelationshipSpecialtyStart Date End Date Avi Weber MD [facility]04/04/19 Team Status: Inactive Member Role Status Dates Avi Weber MD Primary Care Provider Active Start: November 11, 2024 End: November 11, 2024Deronnell Bradshaw , APRNAttending ProviderActiveStart: November 11, 2024 End: November 11, 2024Team MemberRelationshipSpecialtyStart DateEnd Date Avi Weber MD [facility]04/04/19 Team Status: Inactive Member Role Status Dates Avi Weber MD Primary Care Provider Active Start: January 17, 2025 End: January 17, 2025Deronnell Bradshaw , APRNAttending ProviderActiveStart: January 17, 2025 End: January 17, 2025Team MemberRelationshipSpecialtyStart DateEnd Date Avi Weber MD [facility]04/04/19 Team Status: Inactive Member Role Status Dates Avi Weber MD Primary Care Provider Active Start: March 20, 2025 End: March 20, 2025Deronnell C Maranda , APRNAttending ProviderActiveStart: March 20, 2025 End: March 20, 2025Team MemberRelationshipSpecialtyStart DateEnd Date Avi Weber MD PCP - [facility]04/04/19Team MemberRelationshipSpecialtyStart Date End Date Avi Weber MD PCP - [facility]04/04/19 Goals (unrecognized section and content) Goals may be documented in a n alternate section FOR RECORDS PERTAINING TO PATIENTS WHO ARE OR HAVE BEEN ENROLLED IN A CHEMICAL DEPENDENCY/SUBSTANCEABUSE PROGRAM, SOME INFORMATION MAY BE OMITTED. This clinical summary was aggregated from multiple sources. Caution should be exercised in using it in the provision of clinical care. This summary normalizes information from multiple sources, and as a consequence, information in this document may materially change the coding, format and clinical context of patient data. In addition, data may be omitted in some cases. CLINICAL DECISIONS SHOULD BE BASED ON THE PRIMARY CLINICAL RECORDS. [facility], [facility]. provides no warranty or guarantee of the accuracy or completeness of information in this document.
--- NOTE | 2025-05-26 12:50 | MM_ITS ---
Patient Name: JUSTYN NEWMAN MR#: [id number] : 1980 Exam Date: 05/26/2025 Ordering Doctor: DR AVI WEBER . RADIOLOGY REPORT PROCEDURE: MM TOMOSYNTHESIS SCREENING BI COMPARISON: MM TOMOSYNTHESIS SCREENING BI, 05/24/2024. INDICATIONS: Screening Calculator Name NCI Breast Cancer Risk Assessment Tool 5 Year Breast Cancer Risk 0.60% Lifetime Breast Cancer Risk 7.80% Personal Breast Cancer No Personal Ovarian Cancer No Treatments None Family Cancers Grandmother-maternal with breast cancer at age 30; Aunt-maternal with lung cancer at age 45; Aunt-maternal with ovarian cancer at age ~70. LOCATION: [facility] BREAST COMPOSITION: The breasts are almost entirely fatty. FINDINGS: RIGHT BREAST: No significant suspicious finding. LEFT BREAST: No significant suspicious finding. There is a similar focal asymmetry. DIAGNOSTIC CATEGORY 2--BENIGN FINDING. NO CHANGE FROM COMPARISON. RECOMMENDATIONS: ROUTINE MAMMOGRAM AND CLINICAL EVALUATION IN 12 MONTHS. Dictated by: Boris Clay MD on 05/26/2025 at 15:22 Approved by: Boris Clay MD on 05/26/2025 at 15:27
== END 2025-05-26 12:00 | disposition home or self-care (01) ==
PROVIDERS: PCP Family Medicine; Visit Provider Family Medicine
DX: Z12.31 Encounter for screening mammogram for malignant neoplasm of breast (principal); Z80.3 Family history of malignant neoplasm of breast; Z80.1 Family history of malignant neoplasm of trachea, bronchus and lung; Z80.41 Family history of malignant neoplasm of ovary
CPT/HCPCS: 77063; 77067

== ENCOUNTER 2025-05-26 12:12 | Outpatient (OUT) | payer SELFPAY ==
--- OUTSIDE RECORDS SUMMARY | 2025-05-26 12:16 | XMS_ITS | CCD ---
Author Organization [facility] Care Team Providers Care Records Specialist Name Role Phone GUS, DR CÁRDENAS Admitting [...] Unavailable MD Avi Weber Primary Care Provider MD Julian Goodrich Attending Provider Avi Weber MD Primary Care Provider [place] DO Unavailable [phone] Julian Goodrich Attending Unavailable Julian Goodrich Admitting [...] Unavailable HOY, AVI M Primary Care Unavailable RADHA BRADSHAW Referring Unavailable HOY, AVI M Primary [...] Allergen(s)Allergy TypeDate of OnsetReaction(s) Facility (1 source)[facility] (1 source)Pneumococcal vaccineDrug AllergyW[facility]umedicine [facility] (7 sources)Penicillin GDrug Yxmiwdq84-51-8047DopvbhuBar[facility] (18 sources)Penicillins; Translations: [Penicillins]Allergy to substance 54-40-1800Tpyuycu Reaction, [facility] (1 source)PenicillinDrug Lbxsbel11-96-9647PxxgdfnciWestern [facility] Medications Current Medications MedicationDrug Class(es)DatesSig (Normalized)Sig (Original)amitriptyline hydrochloride 75 mg oral tablet (14 sources)Tricyclic AntidepressantStart: 13-43-6045faicbqvpebfxd (ELAVIL) 75 mg tablet Indications: Fibromyalgia One capsule at 8 PM each night 90 tablet 1 10/22/2023 ActiveStart: 04-23-2023 End: 73-15-1678vtrliosdxraep (ELAVIL) 50 mg tablet Indications: Fibromyalgia One capsule at 8 PM each night 90 tablet 1 04/23/2023 10/22/2023 Discontinued (Reorder)cholecalciferol 1.25 mg oral capsule (20 sources)Vitamin DStart: 05-04-2023 End: 74-80-8038blaw 1 capsule by mouth every monthcholecalciferol (VITAMIN D3) 50,000 units capsule Indications: Vitamin D deficiency TAKE 1 CAPSULE BY MOUTH ONCE MONTHLY 3 capsule 3 06/29/2023 ActiveStart: 03-22-2021 End: 53-22-5973Okzarhnbpnrgyvm (Vitamin D3) (Vitamin D3) 50 mcg (2,000 unit) Tablet Discontinued 50 MCG PO As Directed March 22, 2021 12:00am May 16, 2024 3:07pmdicyclomine hydrochloride 20 mg oral tablet (9 sources)AnticholinergicStart: 57-66-8238bgzbbnlrwbm (BENTYL) 20 mg tablet 05/01/2021 ActiveDULoxetine 60 mg delayed release oral capsule (14 sources)Serotonin and Norepinephrine Reuptake InhibitorStart: 16-61-1433icmm 1 capsule by mouth in the morning, then take 1 capsule by mouth at bedtime DULoxetine (CYMBALTA) 60 mg capsule Indications: Fibromyalgia Take 1 capsule (60 mg total) by mouthin the morning and 1 capsule (60 mg total) before bedtime. 180 capsule 1 10/22/2023 ActiveStart: 04-23-2023 End: 41-41-6900jywd 1 capsule by mouth once daily in the morning, then take 1 capsule by mouth once daily at bedtimeDULoxetine 40 mg capsule,delayed release(DR/EC) Indications: Fibromyalgia TAKE ONE CAPSULE BY MOUTHEVERY MORNING AND TAKE ONE CAPSULE BY MOUTH EVERY NIGHT AT BEDTIME 180 capsule 1 04/23/2023 10/22/2023 Discontinuedgabapentin 300 mg oral capsule (14 sources)Anti-epileptic AgentStart: 04-23-2023 End: 83-79-6417baypnqdvpb (NEURONTIN) 300 mg capsule Indications: Fibromyalgia One capsule at 8 PM 90 capsule 1 10/22/2023 ActiveSemaglutide/NAM/MeCbl 1.2 mg/0.33 mL (3 sources)Start: 04-64-1780Gqzzsdamung/NAM/MeCbl 1.2 mg/0.33 mL Active 0.33 ML SUBCUT every week 1.January 17, 2025 12:27pm01/17/2025 fax with 2 [facility] Pre-filled Syringes using Semaglutide Base 1.2 mg/Niacinamide 0.66 mg and Methylcobalamin 2.6 mcg Dispense 1.32 mL - (Four 0.33 mL pre-filled syringes) Complies with drug therapyStart: 11-11-2024 End: 83-76-2821Rvxvyyumetw/NAM/MeCbl 1.2 mg/0.33 mL Discontinued 0.33 ML SUBCUT every week 1.November 11, 2024 12:00am January 17, 2025 12:36pm paper req faxed 07/14/2024 [facility] Pre-filled Syringes using Semaglutide Base 1.2 mg/Niacinamide 0.66 mg and Methylcobalamin 2.6 mcg Dispense 1.32 mL - (Four 0.33 mL pre-filled syringes)Start: 95-78-3042Lihbyzajnen/NAM/MeCbl 1.2 mg/0.33 mL Active 0.33 ML SUBCUT every week 1.November 11, 2024 12:00am paper req faxed 07/14/2024 [facility] Pre-filled Syringes using Semaglutide Base 1.2 mg/Niacinamide 0.66 mg and Methylcobalamin 2.6 mcg Dispense 1.32 mL - (Four 0.33 mL pre-filled syringes)Complies with drug therapytiZANidine 4 mg oral tablet (19 sources)Central alpha-2 Adrenergic AgonistStart: 05-16-2024 End: 52-63-7868ihca 6 mg by mouth once daily at bedtimeTizanidine 4 mg tablet Discontinued 6 MG PO Daily at bedtime May 16, 2024 1:00am June 30, 2024 2:45pmStart: 04-23-2023 End: 33-25-9275jaCLMvsyaq (ZANAFLEX) 4 mg tablet Indications: Fibromyalgia One and half tab at 8:00 p.m.each tablet 1 10/22/2023 Activevitamin b12 1 mg oral tablet (8 sources)Vitamin C91Ptltj: 77-08-0133gqsv 1 tablet by mouth in the morning cyanocobalamin 1000 MCG tablet Indications: Vitamin B 12 deficiency Take 1 tablet (1,000 mcg total)by mouth in the morning. 90 tablet 1 04/21/2022 Active Completed/Discontinued Medications MedicationDrug Class(es)DatesSig (Normalized)Sig (Original)celecoxib 200 mg oral capsule (2 sources)Nonsteroidal Anti-inflammatory DrugStart: 04-23-2023 End: 54-59-4988sdejipygn (CeleBREX) 200 mg capsule Indications: Fibromyalgia One caps daily with food as needed 90capsule 1 04/23/2023 10/22/2023 Discontinued ferrous sulfate 325 mg oral tablet (14 sources)Start: 03-22-2021 End: 55-79-1167fkbt 1 tablet by mouth three times dailyFerrous [...] b12 0.5 mg oral tablet (6 sources)Vitamin E68Jjbrq: 03-22-2021 End: 78-95-3983ksua 1 tablet by mouth once dailyVitamin N45-Gbcqm Acid 0.5-1 mg Tablet Discontinued 1 TAB PO Daily March 22, 2021 12:00am May 16, 2024 3:07pmPrenatal No.144-Folic Acid () 400 mcg Tablet,Chewable (6 sources)Start: 03-22-2021 End: 95-52-5914Pnfqsdls No.144-Folic Acid () 400 mcg Tablet,Chewable Discontinued 1 TAB PO As Directed March 22, 2021 12:00am May 16, 2024 3:07pmStart: 79-94-6301Ywjdglpm No.144-Folic Acid () 400 mcg Tablet,Chewable Active 1 TAB PO As Directed March 22, 2021 12:00amSemaglutide Base 0.6 mg/0.5 mL (4 sources)Start: 09-02-2024 End: 11-93-2069wcqpkq 1 mL by subcutaneous injection every weekSemaglutide Base 0.6 mg/0.5 mL Discontinued 0.5 ML SUBCUT every week 2 September 02, 2024 12:00am 2024 1:00pm 09/02/2024 fax [facility] Pre-filled Syringes using Semaglutide Base.Dispense 2 mL = (Four 0.5 mL pre-filled syringes)Start: 32-25-8607kvktzi 1 mL by subcutaneous injection every weekSemaglutide Base 0.6 mg/0.5 mL Active 0.5 ML SUBCUT every week 2 September 02, 2024 12:00am 09/02/2024 fax [facility] Pre-filled Syringes using Semaglutide Base. 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]59-75-3531GckplcqdElcrm and electrolyte disorders (1 source)Other disorders of electrolyte and fluid balance, not elsewhere classified; Translations: [Other disorders of electrolyte and fluid balance, not elsewhere classified]Onset: 96-85-4873VtbbfmrlTfavcveyiplhf and screening for infectious disease (2 sources)Encounter for screening for human papillomavirus (HPV); Translations: [Raised antibody titer]Onset: 86-13-2112AjozcgsuDrtneycmfzk deficiencies (20 sources)Vitamin D deficiency; Translations: [Vitamin D deficiency, unspecified]Onset: 211597-99-4591GbvelevCwjse connective tissue disease (9 sources)Hypermobility syndrome; Translations: [Hypermobility syndrome] 78-68-2073OsrgvmgmKketb gastrointestinal disorders (1 source)Irritable bowel syndrome; Translations: [Mixed irritable bowel syndrome]ChronicOther gastrointestinal disorders (1 source)Mixed irritable bowel syndromeOnset: 05-01-2021 Resolved: 60-28-8001FznggvtGoqmx hereditary and degenerative nervous system conditions (1 source)Myoclonus; Translations: [Myoclonus]Onset: 39-30-9013XwgydqfQdwgm nervous system disorders (5 sources)Carpal tunnel syndrome; Translations: [Carpal tunnel syndrome, unspecified upper limb]17-74-0889KwriqahYvrrltu on above:per patient both hands Other nervous system disorders (1 source)Numbness and tingling sensation of skin; Translations: [Anesthesia of skin]91-75-9945BbxlwxlhAxygo nervous system disorders (2 sources)Anesthesia of skin; Translations: [Anesthesia of skin]Onset: 43-64-5789NaymnuabNescd nervous system disorders (1 source)Abnormal reflex; Translations: [Abnormal reflex]Onset: 04-26-2025 EpisodicOther non-traumatic joint disorders (1 source)Hip pain; Translations: [Pain in right hip]84-80-2526CarasifoLanyh non-traumatic joint disorders (2 sources)Pain in right hip; Translations: [Pain in right hip]Onset: 03-09-2025 EpisodicOther non-traumatic joint disorders (2 sources)Pain in left hip; Translations: [Pain in left hip]Onset: 03-09-2025 EpisodicOther nutritional; endocrine; and metabolic disorders (9 sources)Body mass index 40+ - severely obese; Translations: [Body mass index (BMI) 40.0-44.9, adult]58-78-3524RkxoxguDfevy nutritional; endocrine; and metabolic disorders (9 sources)Obesity; Translations: [Obesity, unspecified]07-53-7667RcfhuzbHaaps nutritional; endocrine; and metabolic disorders (7 sources)Body mass index (BMI) 40.0-44.9, adult; Translations: [Body Mass Index 40.0-44.9, adult]Onset: 888231-32-7749NowlqonIvpou nutritional; endocrine; and metabolic disorders (6 sources)Obesity, unspecified; Translations: [Obesity, unspecified]06-30-2024 ChronicOther screening for suspected conditions (not mental disorders or infectious disease) (4 sources)Encounter for screening for malignant neoplasm of cervix; Translations: [ENC SCREENING MALIG NEOPLASM CERV]Onset: 46-94-3644EcrgccbtJpsbf upper respiratory infections (5 sources)Chronic sinusitis, unspecified; Translations: [CHRONIC SINUSITIS UNSPECIFIED]Onset: 29-63-0393QxmsdvyAqcvwhhd enteritis and ulcerative colitis (1 source)Ulcerative colitis; Translations: [Ulcerative colitis, unspecified, without complications]ChronicSpondylosis; intervertebral disc disorders; other back problems (7 sources)Lumbar spondylosis; Translations: [Spondylosis without myelopathy or radiculopathy, lumbar region]Onset: 425502-75-6446XwibgibUtuasmquoij; intervertebral disc disorders; other back problems (18 sources)Cervical radiculopathy; Translations: [Radiculopathy, cervical region]Onset: 000692-41-2661IglxotdvHnknxjvebgtt (1 source)Facial NumbnessOnset: 33-62-1779Dctlczldbijc (1 source)OPEN WOUND TOP OF RT FOOTOnset: 06-44-4177Qxnrvvlkazfl (1 source)New PatientOnset: 72-36-1161Qfltcmvlusho (1 source)Low back pain, unspecified; Translations: [Low back pain, unspecified] Onset: 10-19-2024 Past or Other Problems Problem ClassificationProblemDateDocumented DateEpisodic/ChronicDeficiency and other anemia (4 sources)Iron deficiency anemia, unspecified; Translations: [IRON DEFICIENCY ANEMIA UNSPECIFIED]Onset: 74-63-8244JlutzgmlKfnethu and fatigue (4 sources)Other fatigue; Translations: [OTHER FATIGUE]Onset: 72-02-4542Bgdlwjoy Nutritional deficiencies (20 sources)Cobalamin deficiency; Translations: [Deficiency of other specified B group vitamins]Onset: 256412-26-0712TcwvokblIcwy wounds of extremities (1 source)Laceration without foreign body, right foot, initial encounter; Translations: [Laceration without foreign body, right foot, initial encounter] Onset: 07-69-5143HqkrtnyjPnhgz connective tissue disease (18 sources)Fibromyalgia; Translations: [Fibromyalgia]Onset: 04-21-2022 59-18-8766FqemsbpzYrgvl connective tissue disease (7 sources)Fibromyalgia; Translations: [Myalgia and myositis, unspecified]Onset: 565964-80-8698XuupnkkvSsaxe connective tissue disease (7 sources)Hypermobility syndrome; Translations: [Hypermobility syndrome]Onset: 535140-21-5629XduoxwoyLurtp gastrointestinal disorders (1 source)Personal history of other diseases of the digestive systemOnset: 05-01-2021 Resolved: 22-89-2576GwyaxoljRodjq injuries and conditions due to external causes (1 source)Laceration - injuryOnset: 23-19-7990MnmhfejfOhcvqkfh codes; unclassified (1 source)Other specified postprocedural states; Translations: [OTH SPECIFIED POSTPROCEDURAL STATES]Onset: 54-56-9481JlltcjidVsfcbgsf codes; unclassified (1 source)PainOnset: 62-77-9285Sforyytw Results Test NameValueInterpretationReference RangeFacilityAPTTon 20-19-2605rQBU Coag (Bld) [Time]34 zCgnagd04-02DfgSdyffhMemorial Hermann Memorial City Medical CenterComment on above:Performed By: #### PTT #### [facility] ([address] [address] VIRBEDSIDE GLUCOSEon 94-76-1218Rwbnfch [Mass/Vol]64 mg/dLLow 65-99ProMemorial Hermann Memorial City Medical CenterComment on above:Performed By: #### BEDG #### [facility] ([address] [address] VIRCBC WITH AUTO DIFFERENTIALon 75-10-4643MJXHLUTZD ABSOLUTE COUNT BY AUTOMATED COUNT0.1 X10^9/LNormal0.0-0.2POhioHealth O'[facility]leness [facility] Comment on above:Performed By: #### CBCA #### [facility] ([address] [address] VIRBASOPHILS RELATIVE PERCENT BY AUTOMATED COUNT1.1 %Normal [facility] HospitalComment on above:Performed By: #### CBCA #### [facility] ([address] [address] VIRCELLAVISION DIFFERENTIAL TYPEAUTOMATED DIFFERENTIALNormal [facility] HospitalComment on above:Performed By: #### CBCA #### [facility] ([address] [address] VIREosinophils (Bld) [#/Vol]0.1 10*3/uLNormal0.0-0.4ProMemorial Hermann Memorial City Medical CenterComment on above:Performed By: #### CBCA #### [facility] ([address] [address] VIREOSINOPHILS RELATIVE PERCENT BY AUTOMATED COUNT1.4 %Normal [facility] HospitalComment on above:Performed By: #### CBCA #### [facility] ([facility]) [address] [place] [address] [place] [address] VIRErythrocyte distribution width (RBC) [Ratio]13.4 %Normal 11.5-15[facility] HospitalComment on above:Performed By: #### CBCA #### [facility] ([address] [place] [address] VIRHematocrit (Bld) [Volume fraction]38.0 %Jmdppt72-68 [facility] HospitalComment on above:Performed By: #### CBCA #### [facility] ([address] [place] [address] VIRHemoglobin (Bld) [Mass/Vol]12.9 g/yAHnvyzb69.7-15.5 [facility] HospitalComment on above:Performed By: #### CBCA #### [facility] ([address] [place] [address] VIRLymphocytes (Bld) [#/Vol]1.3 10*3/uLNormal1.0-3.5POhioHealth O'Bleness HospitalComment on above:Performed By: #### CBCA #### [facility] ([facility]) [address] [place] [address] [place] [address] VIRLYMPHOCYTES RELATIVE PERCENT BY AUTOMATED COUNT26.9 %Normal [facility] HospitalComment on above:Performed By: #### CBCA #### [facility] ([facility]) [address] [place] [address] [place] [address] VIRMCH (RBC) [Entitic mass]30.5 zeChfohe48-60QhqBquyxwCleveland Clinic Euclid HospitalComment on above:Performed By: #### CBCA #### [facility] ([facility]) [address] [place] [address] [place] [address] VIRMCHC (RBC) [Mass/Vol]33.9 g/vFKtvcne82-65MgoOqjsslMemorial Hermann Memorial City Medical CenterComment on above:Performed By: #### CBCA #### [facility] ([address] [place] [address] VIRMCV (RBC) [Entitic vol]90 oVOfueyk71-973WqsYygviw [facility] HospitalComment on above:Performed By: #### CBCA #### [facility] ([address] [place] [address] VIRMonocytes (Bld) [#/Vol]0.4 10*3/uLNormal0.0-0.9ProMemorial Hermann Memorial City Medical CenterComment on above:Performed By: #### CBCA #### [facility] ([address] [place] [address] VIRMONOCYTES RELATIVE PERCENT BY AUTOMATED COUNT8.6 %Normal [facility] HospitalCommclaren caro region on above:Performed By: #### CBCA #### [facility] ([address] [place] [address] VIRNEUTROPHILS ABSOLUTE COUNT BY AUTOMATED COUNT3.0 X10^9/L Normal1.5-6.6C[facility] HospitalCommclaren caro region on above:Performed By: #### CBCA #### [facility] ([address] [place] [address] VIRNEUTROPHILS RELATIVE PERCENT BY AUTOMATED COUNT62.0 %Normal [facility] HospitalCommclaren caro region on above:Performed By: #### CBCA #### [facility] ([address] [place] [address] VIRPlatelet mean volume (Bld) [Entitic vol]8.2 fLNormal7-12 [facility] HospitalCommclaren caro region on above:Performed By: #### CBCA #### [facility] ([address] [place] [address] VIRPlatelets (Bld) [#/Vol]320 10*3/gTWkiuia155-331ChhWnpslt [facility] HospitalComment on above:Performed By: #### CBCA #### [facility] ([facility]) [address] [place] [address]. [place] [address] VIRRBC COUNT4.22 X10^12/LNormal3.8-5.2POhioHealth O'Bleness HospitalComment on above:Performed By: #### CBCA #### [facility] ([facility]) [address] [place] [address]. [place] [address] VIRWBC (Bld) [#/Vol]4.8 10*3/uLNormal4-11ProMemorial Hermann [facility] City Medical CenterComment on above:Performed By: #### CBCA #### [facility] ([facility]) [address] [place] [address]. [place] [address] VIRCOMPREHENSIVE METABOLIC PANELon 42-52-0037Vottgnj [Mass/Vol]4.0 g/dLNormal3.2-5.3POhioHealth O'Bleness HospitalComment on above: Performed By: #### 07320-8, 9, 46646-5 #### [facility] ([id number]) [address], [address] [place], [place] [address]IJI [Catalytic activity/Vol]77 U/ALbphhp33-671VviMwxcnzMemorial Hermann Memorial City Medical CenterComment on above:Performed By: #### 16683-2, 2132-02, 77196-7 #### [facility] ([id number]) [address], [address] [place], [place] [address]IGO [Catalytic activity/Vol]20 U/LNormal<=31POhioHealth O'Bleness HospitalComment on above:Performed By: #### 45100-6, 2132-02, 69911-2 #### [facility] ([id number]) [address], [address] [place], [place] [address]Bgzma gap [Moles/Vol]9 mmol/LNormal5-15ProMemorial Hermann [facility] City Medical CenterComment on above:Performed By: #### 80639-6, 2132-02, 84395-8 #### [facility] ([id number]) [address], [address] [place], [place] [address]WPC [Catalytic activity/Vol]22 U/LNormal<=41ProMemorial Hermann Memorial City Medical CenterComment on above:Performed By: #### 26743-8, 2132-02, 47245-1 #### [facility] ([id number]) [address], [address] [place], [place] [address]Nbgkqsrli [Mass/Vol]0.4 mg/dLNormal0.3-1.2POhioHealth O'Bleness HospitalComment on above:Performed By: #### 01980-9, 2132-02, 98136-1 #### [facility] ([id number]) [address], [address] [place], [place] [address]Gvejwuh [Mass/Vol]9.0 mg/dLNormal8.5-10.5POhioHealth O'Bleness HospitalComment on above:Performed By: #### 38336-8, 2132-02, 21017-8 #### [facility] ([id number]) [address], [address] [place], [place] [address]Qfooygir [Moles/Vol]104 mmol/KZnwehs89-818LsoLvalkxMemorial Hermann Memorial City Medical CenterComment on above:Performed By: #### 34382-6, 2132-02, 21409-0 #### [facility] ([id number]) [address], [address] [place], [place] [address]JC3 [Moles/Vol]27 mmol/BZeaqdx00-08PgjWgnasmMary Rutan Hospital on above:Performed By: #### 93077-6, 2132-02, 58229-0 #### [facility] ([id number]) [address], [address] [place], [place] [address]Uowawfqubo [Mass/Vol]1.05 mg/dLHigh0.40-1.00[facility] HospitalComment on above:Result Comment: METHOD TRACEABLE TO IDMS STANDARD Performed By: #### 55641-1, 2132-02, 55164-9 #### [facility] ([id number]) [address], [address] [place], [place] [address]IEN/1.73 sq M.predicted among non-blacks MDRD (S/P/Bld) [Vol rate/Area]68 mL/min/{1.73_m2}Normal>=60ProMemorial Hermann Memorial City Medical CenterComment on above:Result Comment: eGFR not reported due to non-numeric value for Creatinine. Reported eGFR is based on the CKD-EPI 2020 equation that does not use a race coefficient.Performed By: #### 90143-8, 2132-02, 98111-5 #### [facility] ([id number]) [address], [address] [place], [place] [address]Cuphxle [Mass/Vol]82 mg/pNFqkpzu57-39YtjQozmalCleveland Clinic Euclid Hospital Comment on above:Performed By: #### 00029-2, 2132-02, 69525-6 #### [facility] ([id number]) [address], [address] [place] [address]Natvhbhhu [Moles/Vol]4.2 mmol/LNormal3.5-5.0[facility] HospitalComment on above:Performed By: #### 96925-1, 2132-02, 28729-1 #### [facility] ([id number]) [address], [address] [place] [address]Hgxijfi [Mass/Vol]7.3 g/dLNormal6.0-8.0ProMemorial Hermann Memorial City Medical CenterComment on above:Performed By: #### 44832-4, 2132-02, 90848-8 #### [facility] ([id number]) [address], [address] [place] [address]Avzsrm [Moles/Vol]140 mmol/ISbgist796-779OojAonbpc [facility] HospitalComment on above:Performed By: #### 23162-2, 9, 39599-8 #### [facility] ([id number]) [address], [address] [place], [place] [address]Vtna nitrogen [Mass/Vol]12 mg/dLNormal5-23[facility] HospitalComment on above:Performed By: #### 97099-2, 9, 52631-4 #### [facility] ([id number]) [address], [address] [place], [place] [address]TT BRAIN WO CONTon 71-78-5614ML BRAIN WO CONTCT BRAIN WO CONT STUDY: [...] Jay Jay Castrejon MD on 04/20/2025 3:05 PMNormalCleveland Clinic Euclid HospitalCT CTA CAROTIDon 49-62-9732PC CTA CAROTIDCT CTA CAROTID History: Facial numbness. [...] by El Massey MD on 04/20/2025 3:05 [facility]07LD CTA HEADCT CTA HEAD CT CTA HEAD CLINICAL HISTORY: Facial numbness. COMPARISON: 04/20/2020. TECHNIQUE: Axial CT images were obtained through the head following the uneventful administration of intravenous contrast. Sagittal and coronal reformatted images were performed. MIP and volume rendered images were also post processed at a separate workstation to further define anatomy and potential pathology. 100 mL of Lvvswcvwq760 intravenous contrast without complication. Arterial blood flow [...] by Heriberto Espino MD on 04/20/2025 3:03 [facility] MAGNESIUMon 28-70-6907Ofxkhvuac [Mass/Vol]2.0 mg/dLNormal1.8-2.6ProMemorial Hermann [facility] City Medical CenterComment on above:Performed By: #### MG #### [facility] ([facility]) [address] [place] [address] [place] [address] VIRPHOSPHORUSon 73-17-2663Unmpyytwm [Mass/Vol]3.5 mg/dLNormal 2.4-4.9ProMemorial Hermann Memorial City Medical CenterComment on above:Performed By: #### PHOS #### [facility] ([facility]) [address] [place] [address]. [place] [address] VIRPROTIME AND INRon 68-79-8941BDE2.2Zmkcoe7.9-1.2POhioHealth O'Bleness HospitalComment on above:Performed By: #### PINR #### [facility] ([address] [place] [address] VIRPT Coag (PPP) [Time]12.4 sNormal9.8-13.2POhioHealth O'Bleness HospitalComment on above:Performed By: #### PINR #### [facility] ([address] [place] [address] VIRTHYROID PROFILE INCLUDES TSH FT4on [id number] T4 [Mass/Vol]0.73 ng/dLNormal0.61-1.60ProMemorial Hermann Memorial City Medical CenterComment on above: Performed By: #### 62711-6, 2132-02, 44786-6 #### [facility] ([id number]) [address], [address] [place], [place] [address]YTW6.60 uIU/mLNormal0.49-4.67ProMemorial Hermann Memorial City Medical CenterComment on above:Performed By: #### 47022-7, 2132-02, 51903-2 #### [facility] ([id number]) [address] [place], [place] [address]CENH I, HIGH SENSITIVITY 1 HOURon [id number] I, HIGH SENSITIVITY<^2Normal<16ProMemorial [facility] City Medical CenterComment on above:Performed By: #### 85064-9, 2132-02, 78836-1 #### [facility] ([id number]) [address], [address] [place] [address]IKMFKAUUCYuz 93-36-5183Bnrnlaqxp Ql (U)NegativeNormalNegative [facility] HospitalComment on above:Performed By: #### 48312-5, 2132-02, 38786-0 #### [facility] ([id number]) [address], [address] [place] [address]GQBPC/HGBNegativeNormalNegTriHealth Bethesda Butler HospitalComment on above:Performed By: #### 01841-9, 2132-02, 30382-7 #### [facility] ([id number]) [address], [address] [place], [place] [address]Kzayz (U)YellowNormalYellowCleveland Clinic Euclid HospitalComment on above:Performed By: #### 91688-2, 2132-02, 01295-5 #### [facility] ([id number]) [address], [address] [place], [place] [address]Wswwcuo Ql (U)NegativeNormalNegative, 250 mg/dLCleveland Clinic Euclid HospitalComment on above:Performed By: #### 62185-9, 2132-02, 50286-0 #### [facility] ([id number]) [address], [address] [place], [place] [address]Fsttsuv Ql (U)NegativeNormalNegativeCleveland Clinic Euclid Hospital Comment on above:Performed By: #### 35144-2, 2132-02, 19408-4 #### [facility] ([id number]) [address], [address] [place], [place] [address]Ifqdudtnl esterase Test strip Ql (U)NegativeNormalNegative [facility] HospitalComment on above:Performed By: #### 62698-7, 2132-02, 23072-5 #### [facility] ([id number]) [address], [address] [place] [address]Watiwej Ql (U)NegativeNormalNegativeC[facility] Clinic Euclid Hospital Comment on above:Performed By: #### 41027-5, 2132-02, 41366-4 #### [facility] ([id number]) [address], [address] [place] [address]UQ,URINE6.4Yagvzm7.0-8.5[facility] Desert HospitalComment on above:Performed By: #### 72054-3, 2132-02, 64496-0 #### [facility] ([id number]) [address], [address] [place], [place] [address]Zqsnwhe Ql (U)NegativeNormalNegTriHealth Bethesda Butler Hospital Comment on above:Performed By: #### 26137-9, 2132-02, 22612-1 #### [facility] ([id number]) [address], [address] [place] [address]Jkogifgo gravity (U) [Rel density]1.348Qtnqqo3.003-1.035 [facility] HospitalComment on above:Performed By: #### 78527-4, 2132-02, 96233-0 #### [facility] ([id number]) [address], [address] [place] [address]NFTDBFIFBGhhpsQvkkmuCtwioTuxTbulxi [facility]remont HospitalComment on above:Performed By: #### 90085-1, 2132-02, 81063-7 #### [facility] ([id number]) [address], [address] [place] [address]YIIWDGZTJNGL2.2 eu/dLNormal0.2 eu/dL, 1.0 eu/dLCleveland Clinic Euclid HospitalComment on above:Performed By: #### 18172-9, 9, 06841-3 #### [facility] ([id number]) [address], [address] [place], [place] [address]OBFNWLN B12on 18-35-8192Vdnbqczpk (Vitamin B12) [Mass/Vol]500 pg/uZIxioru761-651LgtVbrtrb [facility] High Desert HospitalComment on above:Performed By: #### 70200-2, 2132-02, 76805-8 #### [facility] ([id number]) [address], [address] [place], [place] [address]QH AMB LUMBAR MEDIAL BRANCH BLOCKon 39-03-7227QG AMB LUMBAR MEDIAL BRANCH BLOCKFL AMB LUMBAR [...] by Brant Acuña MD on 04/17/2025 10:28 [facility] PPGXR HIPS BILAT W OR WO PELVIS 5+ VWSon 76-36-7853DE HIPS BILAT W OR WO PELVIS 5+ [...] by Vane Malone MD on 03/13/2025 5:18 [facility] PPGXR SPINE CERVICAL 3 VWS OR LESSon 04-73-1519HI SPINE CERVICAL 3 VWS OR LESSXR SPINE [...] by Joel Gautam MD on 03/12/2025 4:46 [facility] Ambulatory PPGFL AMB SACROILIAC JOINT INJon 36-93-6620HE AMB SACROILIAC JOINT INJFL AMB SACROILIAC JOINT [...] by Bairon Morales MD on 12/19/2024 8:41 [facility]ulatory PPGMR LUMBAR SPINE WO CONTon 22-52-3898YK LUMBAR SPINE WO CONTMR LUMBAR SPINE WO [...] by Reza Rodriguez MD on 11/29/2024 6:08 [facility] XR SPINE LUMBAR 2 OR 3 VWSon 32-90-1008UA SPINE LUMBAR 2 OR 3 VWSXR SPINE [...] by Mauricio Dickinson MD on 10/20/2024 10:24 [facility] Ambulatory PPGLipid 1996 panelon 91-41-5541Dsintcvinud [Mass/Vol]208 mg/dLHigh 150-200C[facility]ucl[facility] HospitalComment on above:Performed By: #### 75511-8, 2139, 77382-4 #### [facility] ([id number]) [address] [place] [address], [address] [place], [place] [address]Biiocqgaony in HDL [Mass/Vol]59 mg/dLNormal>39C[facility] HospitalComment on above:Result Comment: HDL <40 mg/dL - High Risk HDL > or = 40mg/dL- Desirable HDL >60 mg/dL - Negative Risk Performed By: #### 04767-1, 21329, 76030-7 #### [facility] ([id number]) [address] [place] [address], [address] [place], [place] [address]Megherogcmq in LDL [Mass/Vol]130 mg/dLHigh<130ProMemorial Herm[facility] City Medical CenterComment on above:Result Comment: LDL <100 mg/dL - Desirable LDL >160 mg/dL - High Risk Performed By: #### 58741-4, 2132-02, 33291-8 #### [facility] ([id number]) [address], [address] [place], [place] [address]Scmsimbzfne in VLDL [Mass/Vol]19 mg/dLNormal0-30ProMemorial Herm[facility] City Medical CenterComment on above:Performed By: #### 69629-3, 2132-02, 44486-0 #### [facility] ([id number]) [address], [address] [place], [place] [address]UNGRFGRXLPX:HDL3.4Uoicnw4.0-5.0[facility] HospitalComment on above:Performed By: #### 69578-8, 2132-02, 40009-6 #### [facility] ([id number]) [address], [address] [place], [place] [address]Jlowkmmerbmm [Mass/Vol]95 mg/uFNwuago77-278TlqQjnzvo [facility]remont HospitalComment on above:Performed By: #### 81498-6, 2132-02, 98447-7 #### [facility] ([id number]) [address], [address] [place], [place] [address]OHCPVOY B12on 80-32-7866Okczpdchx (Vitamin B12) [Mass/Vol]178 pg/kOWpk426-228CgoIhgzqoOhioHealth O'Bleness HospitalComment on above:Performed By: #### 89304-7, 2132-02, 44147-7 #### [facility] ([id number]) [address], [address] [place], [place] [address]Obzkhtv D+Metabolites [Mass/Vol]on 94-39-5859EKVSNYI D 25 HYD TOT43.9 ng/jCLvyccs42-979RxwTeeetp [facility]ont HospitalComment on above:Result Comment: Vitamin D status 25 [place] Vitamin D Deficiency <20 ng/mL Insufficiency 20-29 ng/mL Sufficiency 30-100 ng/mL Toxicity >100 ng/mL NOTE: A pediatric reference range has not been established by the geodetic engineer of this kit. The [place] [employer] recommends a Vitamin D level of = or >20ng/mL in infants and children.Performed By: #### 86335-8, 2132-9, 97873-7 #### [facility] ([id number]) [address] [place], [place] [address]ERL 2 Extremitieson 18-76-8204VFT/NCS BLE Left S1/2 radic vs tibial neuropathyNORichland CenterN - Nerveson 42-18-8208YIR/NCS BLE Left S1/2 radic vs tibial neuropathyNovant Health Rehabilitation HospitalEMG 2 Extremitieson 60-41-2349Vctfizje radiculopathy at C8, bilaterally, mild Carpal tunnel syndrome bilaterally, very minimal bilaterallyNOSSM Health St. [facility] - Nerveson 06-40-4795Vlikrygn radiculopathy at C8, bilaterally, mild Carpal tunnel syndrome bilaterally, very minimal bilaterallyAgnesian HealthCare Antinuclear Antibodieson 68-18-6518Noajblwuedk Abs, IFAPositive Critically abnormal.The [facility] Physician GroupComment on above:Result Comment: Negative <1:80 Borderline 1:80 Positive >1:80Performed By: #### CH50, TPO, ROULA, ANTIR, [id number], C3, C4, THYGLOB AB, CHROMATIN #### [facility] ,Note 1CommentNormal.The [facility] Physician GroupComment on above:Result Comment: Pattern Potential Disease Association Homogeneous Systemic Lupus Erythematosus, Drug Induced Systemic Lupus Erythematosus, Chronic Autoimmune hepatitis, Juvenile Idiopathic Arthritis Speckled Sjogren Syndrome, Systemic Lupus Erythematosus, Subacute Cutaneous Lupus, Lupus, Congenital Heart Block, Mixed Connective Tissue Disease, Scleroderma-diffuse, Scleroderma-Autoimmune Myositis Overlap Syndrome, Systemic Lupus Xqeihzylminlv-Bcmtugdifjn-Zeswcqylht Myositis Overlap Syndrome, Systemic Autoimmune Rheumatic Disease, [...] Cytopenias, Linear Scleroderma, Antiphospholipid Syndrome Performed at: [address] [id number] Paper Grader: Cachorro Humphrey PhD, Phone: [phone] By: #### CH50, TPO, ROULA, ANTIR, [id number], C3, C4, THYGLOB AB, CHROMATIN #### [facility] ,Speckled Pattern1:160High.The [facility] Physician GroupComment on above:Result Comment: ICAP nomenclature: AC-2,4,5,29Performed By: #### CH50, TPO, ROULA, ANTIR, [id number], C3, C4, THYGLOB AB, CHROMATIN #### [facility] ,Activated partial thromboplastin time (aPTT) in platelet poor plasma by coagulation aOrdered By: Julian Godorich on 15-86-4469pMFO Coag (PPP) [Time]32.2 s25.1-36.5FSCCI Hospital LimaComment on above:A hematocrit value greater than 55% may lead to inaccurate results in coagulation testing. Patients having hematocrit values >55% require a special collection tube for coagulation studies. Please contact the laboratory at [phone] for redraw instructions. Alanine aminotransferase [Enzymatic activity/volume] in Serum or PlasmaOrdered By: Julian Goodrich on 71-10-0496UQF [Catalytic activity/Vol]12 U/LNormal7-52 [facility] HospitalComment on above:Performed By: #### CH50, TPO, ROULA, ANTIR, [id number], C3, C4, THYGLOB AB, CHROMATIN #### [facility] ,Albumin [Mass/volume] in Serum or Plasma by Bromocresol green (BCG) dye binding methoOrdered By: Julian Goodrich on 94-84-0162Ixtirtj BCG dye [Mass/Vol]4.1 g/dL 3.5-5.7FSCCI Hospital LimaAldolaseon 57-53-9572Lvjujawq5.9 U/LLow 3.3-10.3The [facility] Physician GroupComment on above:Result Comment: Performed at: [facility] [id number] Paper Grader: Cachorro Humphrey PhD, Phone: [phone] PERFORMED BY: [facility] [place] [address] PATHOLOGIST PLSQL DEVELOPER DIANA BOGGS M.D.Performed By: #### CH50, TPO, ROULA, ANTIR, [id number], C3, C4, THYGLOB AB, CHROMATIN #### [facility] ,Alkaline phosphatase [Enzymatic activity/volume] in Serum or PlasmaOrdered By: Julian Goodrich on 15-84-5004VQK [Catalytic activity/Vol]86 U/PThejvi07-640 [facility] HospitalComment on above:Performed By: #### CH50, TPO, ROULA, ANTIR, [id number], C3, C4, THYGLOB AB, CHROMATIN #### [facility] ,Anti-RNPon 02-40-3129Qbtg-COMFORT STATION SUPERVISOR<0.4Yzakqm7.0-0.9The [facility] Comment on above:Performed By: #### CH50, TPO, ROULA, ANTIR, XGC28ST, C3, C4, THYGLOB AB, CHROMATIN #### [facility] ,Antithyroglobulin Abon 79-05-0658Gzygavvrezuvctjww Ab<1.5Cahddm4.0-0.9The [facility] Physician GroupComment on above:Result Comment: Thyroglobulin Antibody measured by [employer] Methodology It should be noted that the presence of thyroglobulin antibodies may not be pathogenic nor diagnostic, especially at very low levels. The assay geodetic engineer has found that four percent of individuals without evidence of thyroid disease or autoimmunity will have positive TgAb levels up to 4 IU/mL. Performed at: [address] [id number] Paper Grader: Cachorro Humphrey PhD, Phone: [phone] By: #### CH50, TPO, ROULA, ANTIR, [id number], C3, C4, THYGLOB AB, CHROMATIN #### [facility] ,Aspartate aminotransferase [Enzymatic activity/volume] in Serum or Plasma Ordered By: Julian Goodrich on 06-68-2960YSZ [Catalytic activity/Vol]16 U/LNormal 13-39[facility] HospitalComment on above:Performed By: #### CH50, TPO, ROULA, ANTIR, [id number], C3, C4, THYGLOB AB, CHROMATIN #### [facility] ,Automated basophil %Ordered By: Julian Smithrow on 28-24-8118Qdizjwybp/100 WBC (Bld)0.6 %Normal.[facility] HospitalComment on above:Performed By: #### CH50, TPO, ROULA, ANTIR, [id number], C3, C4, THYGLOB AB, CHROMATIN #### [facility] ,Automated basophil countOrdered By: Julian Smithrow on 35-56-2449Gfqzlvgvu (Bld) [#/Vol]0.0 10*3/uLNormal0.0-0.2FSCCI Hospital LimaComment on above:Performed By: #### CH50, TPO, ROULA, ANTIR, [id number], C3, C4, THYGLOB AB, CHROMATIN #### [facility] ,Automated blood monocyte countOrdered By: Julian Smithrow on 89-55-9123Ltkicqyoa (Bld) [#/Vol]0.4 10*3/uLNormal0.0-0.8[facility] HospitalComment on above:Performed By: #### CH50, TPO, ROULA, ANTIR, [id number], C3, C4, THYGLOB AB, CHROMATIN #### [facility] ,Automated eosinophil %Ordered By: Julian Smithrow on 67-78-0965Mofclmgflza/100 WBC (Bld)1.5 %Normal.[facility] HospitalComment on above:Performed By: #### CH50, TPO, ROULA, ANTIR, [id number], C3, C4, THYGLOB AB, CHROMATIN #### [facility] ,Automated eosinophil countOrdered By: Julian Jacky on 26-83-9410Oayjzuxhboy (Bld) [#/Vol]0.1 10*3/uLNormal0.0-0.45[facility] HospitalComment on above:Performed By: #### CH50, TPO, ROULA, ANTIR, [id number], C3, C4, THYGLOB AB, CHROMATIN #### [facility] ,Automated monocyte %Ordered By: Julian Goodrich on 55-92-7759Eomtpcuoy/100 WBC (Bld)6.9 %Normal.[facility] HospitalComment on above:Performed By: #### CH50, TPO, ROULA, ANTIR, [id number], C3, C4, THYGLOB AB, CHROMATIN #### [facility] ,Automated neutrophil %Ordered By: Julian Goodrich on 16-77-2693Ibzqcsgkalu/100 WBC (Bld)67.3 %Normal.[facility] HospitalComment on above: Performed By: #### CH50, TPO, ROULA, ANTIR, [id number], C3, C4, THYGLOB AB, CHROMATIN #### [facility] ,Bacteria [Presence] in Urine by AutomatedOrdered By: Julian Goodrich on 98-37-7687Nrldcfpw Auto Ql (U)None seen [HPF]None SeenWestern Reserve HospitalBilirubin Test strip Ql (U)Ordered By: Julian Goodrich on 04-11-2024 Bilirubin Ql (U)NegativeNegativeWestern Reserve HospitalBilirubin.total [Mass/volume] in Serum or PlasmaOrdered By: Julian Goodrich on 04-11-2024 Bilirubin [Mass/Vol]0.5 mg/dLNormal0.3-1.0[facility] Comment on above:Performed By: #### CH50, TPO, ROULA, ANTIR, [id number], C3, C4, THYGLOB AB, CHROMATIN #### [facility] ,C reactive protein [Mass/volume] in Serum or PlasmaOrdered By: Julian Goodrich on 72-82-4772INE [Mass/Vol]1.1 mg/dLHigh0.0-0.5FSCCI Hospital [facility] C-Reactive Proteinon 73-96-9116T-Reactive Protein1.1 mg/dLHigh0.0-0.5The [facility] Physician GroupComment on above:Performed By: #### CH50, TPO, ROULA, ANTIR, XAO20SO, C3, C4, THYGLOB AB, CHROMATIN #### [facility] ,Calcium [Mass/volume] in Serum or PlasmaOrdered By: Julian Goodrich on 35-19-5812Shoaxju [Mass/Vol]9.4 mg/dLNormal8.6-10.3FSCCI Hospital LimaComment on above:Performed By: #### CH50, TPO, ROULA, ANTIR, [id number], C3, C4, THYGLOB AB, CHROMATIN #### [facility] ,Carbon dioxide, total [Moles/volume] in Serum or PlasmaOrdered By: Julian Goodrich on 10-73-7082XU0 [Moles/Vol]30.1 mmol/NLpanwb37.0-31.0[facility] HospitalComment on above:Performed By: #### CH50, TPO, ROULA, ANTIR, SVQ69MU, C3, C4, THYGLOB AB, CHROMATIN #### [facility] ,Chloride [Moles/volume] in Serum or PlasmaOrdered By: Julian Goodrich on 35-74-7211Blnrunpf [Moles/Vol]103 mmol/MVqtwrq97-113PibzlrluzWestern Reserve HospitalComment on above:Performed By: #### CH50, TPO, ROULA, ANTIR, [id number], C3, C4, THYGLOB AB, CHROMATIN #### [facility] ,Chromatin Antibodyon 91-33-5868Yevgxoobm Antibody<0.0Ucohev0.0-0.9The [facility] Physician [facility] State HospitalComment on above:Result Comment: PERFORMED BY: [facility] [address] [place] [address] PATHOLOGIST PLSQL DEVELOPER DIANA BOGGS M.D.Performed By: #### CH50, TPO, ROULA, ANTIR, [id number], C3, C4, THYGLOB AB, CHROMATIN #### [facility] ,Coagulation Profileon 65-91-0290aYAC Coag (Bld) [Time]32.2 nRllskt08.1-36.5The [facility] Physician [facility] HospitalComment on above:Result Comment: A hematocrit value greater than 55% may lead to inaccurate results in coagulation testing. Patients having hematocrit values >55% require a special collection tube for coagulation studies. Please contact the laboratory at [phone] for redraw instructions. PERFORMED BY: [facility] [address] [place] [address] PATHOLOGIST PLSQL DEVELOPER DIANA BOGGS M.D.Performed By: #### CH50, TPO, ROULA, ANTIR, [id number], C3, C4, THYGLOB AB, CHROMATIN #### [facility] ,Color of Urine by AutoOrdered By: Julian Goodrich on 80-40-8955Zyjpi (U)Yellow NormalYelSt. Elizabeth HospitalComment on above:Order Comment: Name Collection Type:: Clean-Voided MidstreamPerformed By: #### CH50, TPO, ROULA, ANTIR, [id number], C3, C4, THYGLOB AB, CHROMATIN #### [facility] ,Complement C3on 43-37-0452Bhdqmeokcd C3136 mg/eTBaqvvi50-168Nkw [facility] Physician [facility] HospitalComment on above:Result Comment: Performed at: [facility] [id number] Paper Grader: Cachorro Humphrey PhD, Phone: [phone] By: #### CH50, TPO, ROULA, ANTIR, [id number], C3, C4, THYGLOB AB, CHROMATIN #### [facility] ,Complement C4on 93-63-7717Cyjrqnnjxc C429 mg/bPDrthhi42-13Gbu [facility] Physician [facility] HospitalComment on above:Performed By: #### CH50, TPO, ROULA, ANTIR, [id number], C3, C4, THYGLOB AB, CHROMATIN #### [facility] ,Complement Total (CH50)on 84-12-4005Wxwblcazqs Total (CH50)>60Normal>41The [facility] Physician GroupComment on above:Result Comment: Age Male [...] out of range values. Performed at: - [facility] [id number] Paper Grader: Cachorro Humphrey PhD, Phone: [phone] PERFORMED BY: [facility] [address] [place] [address] PATHOLOGIST PLSQL DEVELOPER DIANA BOGGS M.D.Performed By: #### CH50, TPO, ROULA, ANTIR, [id number], C3, C4, THYGLOB AB, CHROMATIN #### [facility] ,Complete Blood Count Auto Diffon 62-45-0267Xuih Corpuscular HGB Conc34.0 g/dL Zobvkj30.0-35.0The [facility] Physician GroupComment on above:Performed By: #### CH50, TPO, ROULA, ANTIR, [id number], C3, C4, THYGLOB AB, CHROMATIN #### [facility] ,NRBC%0.1 /100{WBC}Normal0-0.5The [facility] Physician GroupComment on above: Performed By: #### CH50, TPO, ROULA, ANTIR, [id number], C3, C4, THYGLOB AB, CHROMATIN #### [facility] ,Comprehensive Metabolic Panelon 74-88-9644Vuccfci [Mass/Vol]4.1 g/dLNormal 3.5-5.7The [facility] Physician [facility] HospitalComment on above:Performed By: #### CH50, TPO, ROULA, ANTIR, [id number], C3, C4, THYGLOB AB, CHROMATIN #### [facility] ,GFR/1.73 sq M.predicted MDRD (S/P/Bld) [Vol rate/Area]mL/min/{1.73_m2}NormalThe [facility] Hospital Physician GroupComment on above:Performed By: #### CH50, TPO, ROULA, ANTIR, [id number], C3, C4, THYGLOB AB, CHROMATIN #### [facility] ,Creatine kinase [Enzymatic activity/volume] in Serum or PlasmaOrdered By: Julian Smithrow on 28-73-5798VU [Catalytic activity/Vol]39 U/NDipuoi89-361 [facility] HospitalComment on above:Result Comment: PERFORMED BY: [facility] [address] [address] PATHOLOGIST PLSQL DEVELOPER DIANA BOGGS M.D.Performed By: #### CH50, TPO, ROULA, ANTIR, [id number], C3, C4, THYGLOB AB, CHROMATIN #### [facility] ,Creatinine [Mass/volume] in Serum or PlasmaOrdered By: Julian Goodrich on 67-17-9499Gwjnlskdqh [Mass/Vol]0.77 mg/dLNormal0.60-1.20[facility] HospitalComment on above:Performed By: #### CH50, TPO, ROULA, ANTIR, [id number], C3, C4, THYGLOB AB, CHROMATIN #### [facility] ,Dipstick and Microscopicon 16-03-1171Xbgcwrue,UrineNone SeenNormalNone SeenUf Health The Villages® Hospital Physician GroupComment on above:Order Comment: Name Collection Type:: Clean-Voided MidstreamPerformed By: #### CH50, TPO, ROULA, ANTIR, [id number], C3, C4, THYGLOB AB, CHROMATIN #### [facility] ,Bilirubin,UrineNegativeNormalNegativeSimpson General HospitalComment on above:Order Comment: Name Collection Type:: Clean-Voided MidstreamPerformed By: #### CH50, TPO, ROULA, ANTIR, [id number], C3, C4, THYGLOB AB, CHROMATIN #### [facility] ,Glucose Ql (U)NormalNormalNormalThe [facility] Hospital Physician GroupComment on above: Order Comment: Name Collection Type:: Clean-Voided MidstreamPerformed By: #### CH50, TPO, ROULA, ANTIR, [id number], C3, C4, THYGLOB AB, CHROMATIN #### [facility] ,Hyaline Casts,UrineNoneNormal0-8The [facility] Physician GroupComment on above: Order Comment: Name Collection Type:: Clean-Voided MidstreamPerformed By: #### CH50, TPO, ROULA, ANTIR, [id number], C3, C4, THYGLOB AB, CHROMATIN #### [facility] ,Mucus,UrineRareNormalThe [facility] Hospital Physician GroupComment on above:Order Comment: Name Collection Type:: Clean-Voided MidstreamResult Comment: PERFORMED BY: [facility] [place] [address] PATHOLOGIST PLSQL DEVELOPER DIANA BOGGS M.D.Performed By: #### CH50, TPO, ROULA, ANTIR, [id number], C3, C4, THYGLOB AB, CHROMATIN #### [facility] ,Nitrite,UrineNegativeNormalNegativeUf Health The Villages® Hospital Physician GroupComment on above:Order Comment: Name Collection Type:: Clean-Voided MidstreamPerformed By: #### CH50, TPO, ROULA, ANTIR, [id number], C3, C4, THYGLOB AB, CHROMATIN #### [facility] ,Occult Blood,UrineNegativeNormalNegativeUf Health The Villages® Hospital Physician GroupComment on above:Order Comment: Name Collection Type:: Clean-Voided MidstreamPerformed By: #### CH50, TPO, ROULA, ANTIR, [id number], C3, C4, THYGLOB AB, CHROMATIN #### [facility] ,Protein,UrineNegativeNormalNegativeUf Health The Villages® Hospital Physician GroupComment on above:Order Comment: Name Collection Type:: Clean-Voided MidstreamPerformed By: #### CH50, TPO, ROULA, ANTIR, [id number], C3, C4, THYGLOB AB, CHROMATIN #### [facility] ,RBC,UrineNone SeenNormal0-4The [facility] Physician GroupComment on above:Order Comment: Name Collection Type:: Clean-Voided MidstreamPerformed By: #### CH50, TPO, ROULA, ANTIR, [id number], C3, C4, THYGLOB AB, CHROMATIN #### [facility] ,Specificy Eagle,Urine1.395Xzdggy2.001-1.030The [facility] Group Comment on above:Order Comment: Name Collection Type:: Clean-Voided Midstream Performed By: #### CH50, TPO, ROULA, ANTIR, [id number], C3, C4, THYGLOB AB, CHROMATIN #### [facility] ,Squamous Epithelial Cell,Rowgn9-2Trwgtx2-3Aqa [facility] Physician GroupComment on above:Order Comment: Name Collection Type:: Clean-Voided MidstreamPerformed By: #### CH50, TPO, ROULA, ANTIR, SBS70FX, C3, C4, THYGLOB AB, CHROMATIN #### [facility] ,Urobilinogen,UrineNormalNormalNormalThe [facility] Physician GroupComment on above:Order Comment: Name Collection Type:: Clean-Voided MidstreamPerformed By: #### CH50, TPO, ROULA, ANTIR, [id number], C3, C4, THYGLOB AB, CHROMATIN #### [facility] ,WBC,Mipry0-4Zwoeyl1-7Aev [facility] Physician GroupComment on above:Order Comment: Name Collection Type:: Clean-Voided MidstreamPerformed By: #### CH50, TPO, ROULA, ANTIR, YOD79GT, C3, C4, THYGLOB AB, CHROMATIN #### [facility] ,Epithelial cells.squamous [#/area] in Urine sediment by Automated countOrdered By: Julian Goodrich on 58-54-2548Fppxbdluur cells.squamous Auto (Urine sed) [#/Area]1-2 [HPF]0-2FSCCI Hospital LimaErythrocyte Sedimentation Rateon 65-06-1584TPW (Bld) [Velocity]36 mm/hHigh0-19[facility] Physician GroupComment on above:Result Comment: PERFORMED BY: [facility] [place] [address] PATHOLOGIST PLSQL DEVELOPER DIANA BOGGS M.D.Performed By: #### CH50, TPO, ROULA, ANTIR, [id number], C3, C4, THYGLOB AB, CHROMATIN #### [facility] ,Erythrocyte distribution width [Ratio] by Automated countOrdered By: Julian Goodrich on 55-29-5465Utmkrilntpr distribution width (RBC) [Ratio]13.6 %Normal 11.9-15.3FSCCI Hospital LimaComment on above:Performed By: #### CH50, TPO, ROULA, ANTIR, [id number], C3, C4, THYGLOB AB, CHROMATIN #### [facility] ,Erythrocyte sedimentation rate by Photometric methodOrdered By: Julian Goodrich on 91-76-5039EXV Photometric method (Bld) [Velocity]36 mm/hrHigh0-19[facility] HospitalErythrocytes [#/area] in Urine sediment by Automated countOrdered By: Julian Goodrich on 86-80-7176PAW Auto (Urine sed) [#/Area]None seen [HPF]0-4FSCCI Hospital LimaErythrocytes [#/volume] in Blood by Automated countOrdered By: Julian Goodrich on 45-03-4874XBH (Bld) [#/Vol]4.26 10*6/uLNormal3.60-5.00[facility] HospitalComment on above: Performed By: #### CH50, TPO, ROULA, ANTIR, [id number], C3, C4, THYGLOB AB, CHROMATIN #### [facility] ,Glucose [Mass/volume] in Serum or PlasmaOrdered By: Julian Goodrich on 40-86-6689Pscjkgv [Mass/Vol]84 mg/cJNtkdyb73-776FpgrsjlyxWestern Reserve HospitalComment on above:ADA recommended reference rangeRandom Glucose [...] rangePerformed By: #### CH50, TPO, ROULA, ANTIR, [id number], C3, C4, THYGLOB AB, CHROMATIN #### [facility] ,Glucose [Mass/volume] in Urine by Test stripOrdered By: Julian Goodrich on 42-39-1532Ezxdjev Test strip (U) [Mass/Vol]Normal mg/dLNormalWestern Reserve HospitalHematocrit [Volume Fraction] of Blood by Automated countOrdered By: Julian Goodrich on 56-81-7510Tbzvkqkzfx (Bld) [Volume fraction]39.4 %Normal 34.0-46.4FSCCI Hospital LimaComment on above:Performed By: #### CH50, TPO, ROULA, ANTIR, [id number], C3, C4, THYGLOB AB, CHROMATIN #### [facility] ,Hemoglobin Test strip Ql (U)Ordered By: Julian Goodrich on 12-98-2475Nfpebwmlpu Ql (U)NegativeNegativeWestern Reserve HospitalHemoglobin [Mass/volume] in BloodOrdered By: Julian Goodrich on 79-10-2951Wlaepnzatk (Bld) [Mass/Vol]13.4 g/mNHcrlyn11.8-15.4FSCCI Hospital LimaComment on above:Performed By: #### CH50, TPO, ROULA, ANTIR, [id number], C3, C4, THYGLOB AB, CHROMATIN #### [facility] ,Hyaline casts [#/area] in Urine sediment by Automated countOrdered By: Julian Goodrich on 79-23-0020Wxjqlwh casts Auto (Urine sed) [#/Area]None [LPF]0-8 Western Reserve HospitalINR in Platelet poor plasma by Coagulation assayOrdered By: Julian Goodrich on 78-80-1345HUV Coag (PPP) [Relative time]1.0 {INR}NormalWestern Reserve HospitalComment on above:INR Therapeutic Range A) Pre- [...] 4.5Performed By: #### CH50, TPO, ROULA, ANTIR, [id number], C3, C4, THYGLOB AB, CHROMATIN #### [facility] ,Ketones [Presence] in Urine by Test stripOrdered By: Julian Goodrich on 85-37-8081Gutimrn Ql (U)NegativeCleveland Clinic Hillcrest Hospital Comment on above:Order Comment: Name Collection Type:: Clean-Voided Midstream Performed By: #### CH50, TPO, ROULA, ANTIR, [id number], C3, C4, THYGLOB AB, CHROMATIN #### [facility] ,Leukocyte esterase [Presence] in Urine by Test stripOrdered By: Julian Goodrich on 38-81-5442Jdqlqvhla esterase Test strip Ql (U)[facility] Hospital - AndersonComment on above:Order Comment: Name Collection Type:: Clean-Voided MidstreamPerformed By: #### CH50, TPO, ROULA, ANTIR, [id number], C3, C4, THYGLOB AB, CHROMATIN #### [facility] ,Leukocytes [#/area] in Urine sediment by Automated countOrdered By: Julian Goodrich on 60-84-3271STT Auto (Urine sed) [#/Area]1-2 [HPF]0-4FSCCI Hospital LimaLeukocytes [#/volume] corrected for nucleated erythrocytes in Blood by Automated counOrdered By: Julian Goodrich on 99-17-3220GRV corrected for nucl RBC Auto (Bld) [#/Vol]5.5 10*3/uL3.8-11.6FSCCI Hospital [place]ima Leukocytes [#/volume] in Blood by Automated countOrdered By: Julian Goodrich on 11-19-4512VMB (Bld) [#/Vol]5.5 10*3/uLNormal3.8-11.6FSCCI Hospital LimaComment on above:Performed By: #### CH50, TPO, ROULA, ANTIR, [id number], C3, C4, THYGLOB AB, CHROMATIN #### [facility] ,Lupus Anticoagulant Compon 13-80-8287Ddjeyl Prothrombin Time (dPt)34.3Normal 0.0-47.6The [facility] Physician GroupComment on above:Performed By: #### LUPANTCOAG #### [facility] ,dPT Confirm Ratio1.79Ckumjt5.00-1.34The [facility] Physician GroupComment on above:Performed By: #### LUPANTCOAG #### [facility] ,DRVVT Lupus31.5Xkbcvv6.0-47.0The [facility] Physician GroupComment on above: Performed By: #### LUPANTCOAG #### [facility] ,InterpretationComment:Normal.The [facility] Physician GroupComment on above: Result Comment: No lupus anticoagulant was detected. Performed at: - [facility] [id number] Paper Grader: Connie Pierre MD, Phone: [phone] PERFORMED BY: [facility] [address] [place] [address] PATHOLOGIST PLSQL DEVELOPER DIANA BOGGS M.D.Performed By: #### LUPANTCOAG #### [facility] ,PTT-LA33.6Qyouvx0.0-43.5The [facility] Physician GroupComment on above:Performed By: #### LUPANTCOAG #### [facility] ,Thrombin Time17.4Wxzkxv7.0-23.0The [facility] Physician GroupComment on above: Performed By: #### LUPANTCOAG #### [facility] ,Lymphocytes [#/volume] in Blood by Automated countOrdered By: Julian Smithrow on 21-10-1182Nabccuzecsx (Bld) [#/Vol]1.3 10*3/uLNormal1.00-4.8Western Reserve HospitalComment on above:Performed By: #### CH50, TPO, ROULA, ANTIR, [id number], C3, C4, THYGLOB AB, CHROMATIN #### [facility] ,Lymphocytes/100 leukocytes in Blood by Automated countOrdered By: Julian Jacky on 50-04-7307Oqztsqnfdmk/100 WBC (Bld)23.7 %Normal.Western Reserve HospitalComment on above:Performed By: #### CH50, TPO, ROULA, ANTIR, [id number], C3, C4, THYGLOB AB, CHROMATIN #### [facility] ,MCH [Entitic mass] by Automated countOrdered By: Julian Smithrow on 04-11-2024 MCH (RBC) [Entitic mass]31.4 wtXjikti43.7-34.3FSCCI Hospital [place] Comment on above:Performed By: #### CH50, TPO, ROULA, ANTIR, OHO92PW, C3, C4, THYGLOB AB, CHROMATIN #### [facility] ,MCHC Auto (RBC) [Mass/Vol]Ordered By: Juliannathan Goodrich on 16-70-4648SCPT (RBC) [Mass/Vol]34.0 g/dL32.0-35.0Western Reserve HospitalMCV [Entitic volume] by Automated countOrdered By: Julian Jacky on 50-56-0109NJG (RBC) [Entitic vol]92.6 yHDbejzj61-440QuyjnbylgWestern Reserve HospitalComment on above:Performed By: #### CH50, TPO, ROULA, ANTIR, GUK91DL, C3, C4, THYGLOB AB, CHROMATIN #### [facility] ,Mucus [Presence] in Urine by AutomatedOrdered By: Julian Goodrich on 04-11-2024 Mucus Auto Ql (U)Rare [LPF]Western Reserve HospitalNeutrophils [#/volume] in Blood by Automated countOrdered By: Julian Goodrich on 04-11-2024 Neutrophils (Bld) [#/Vol]3.7 10*3/uLNormal1.8-7.7FSCCI Hospital LimaComment on above:Performed By: #### CH50, TPO, ROULA, ANTIR, XAE55LS, C3, C4, THYGLOB AB, CHROMATIN #### [facility] ,Nitrite Test strip Ql (U)Ordered By: Julian Goodrich on 54-18-6034Uhsswyv Ql (U) NegativeNegativeWestern Reserve HospitalNo Panel InformationOrdered By: Julian Goodrich on 77-15-7328Yywhpssxu GFR (CKD-EPI)> 60.0 mL/MinWestern Reserve HospitalPharmacy Creatinine Clearance (ChemN/AFSCCI Hospital LimaNucleated erythrocytes [Presence] in Blood by Automated count Ordered By: Julian Goodrich on 93-43-5067Aaqkiloqa RBC Auto Ql (Bld)0.1 /100{WBC} 0-0.5FSCCI Hospital LimaPlatelet mean volume [Entitic volume] in Blood by Automated countOrdered By: Julian Goodrich on 31-08-6965Gwpfwaub mean volume (Bld) [Entitic vol]8.1 fLNormal6.3-10.7FSCCI Hospital [place] Comment on above:Performed By: #### CH50, TPO, ROULA, ANTIR, KGM50XB, C3, C4, THYGLOB AB, CHROMATIN #### [facility] ,Platelets [#/volume] in Blood by Automated countOrdered By: Julian Goodrich on 00-15-1023Stmynckge (Bld) [#/Vol]287 10*3/nYUsbchb037-465PbkjjrbcsWestern Reserve HospitalComment on above:Performed By: #### CH50, TPO, ROULA, ANTIR, XDK35NT, C3, C4, THYGLOB AB, CHROMATIN #### [facility] ,Potassium [Moles/volume] in Serum or PlasmaOrdered By: Julian Goodrich on 04-40-4233Fmgchwvad [Moles/Vol]4.4 mmol/LNormal3.5-5.1FSCCI Hospital LimaComment on above:Performed By: #### CH50, TPO, ROULA, ANTIR, [id number], C3, C4, THYGLOB AB, CHROMATIN #### [facility] ,Protein Test strip (U) [Mass/Vol]Ordered By: Julian Goodrich on 04-11-2024 Protein (U) [Mass/Vol]NegativeNegativeWestern Reserve HospitalProtein [Mass/volume] in Serum or PlasmaOrdered By: Julian Goodrich on 49-75-5430Empgkoy [Mass/Vol]7.1 g/dLNormal6.4-8.9Western [facility] HospitalComment on above:Performed By: #### CH50, TPO, ROULA, ANTIR, UNA92OW, C3, C4, THYGLOB AB, CHROMATIN #### [facility] ,Prothrombin time (PT)Ordered By: Julian Goodrich on 15-68-2763VY Coag (PPP) [Time]11.6 sNormal9.0-12.9Western [facility] HospitalComment on above:A hematocrit value greater than 55% may lead to inaccurate results in coagulation testing. Patientshaving hematocrit values >55% require a special collection tube for coagulation studies. Please contact the laboratory at [phone] for redraw instructions.Result Comment: A hematocrit value greater than 55% may lead to inaccurate results in coagulation testing. Patients having hematocrit values >55% require a special collection tube for coagulation studies. Please contact the laboratory at [phone] for redraw instructions.Performed By: #### CH50, TPO, ROULA, ANTIR, [id number], C3, C4, THYGLOB AB, CHROMATIN #### [facility] ,RPR w/rfx to Quant TP Abson 15-32-9708QDK, Rfx Quant RPRNon-ReactiveNormalNon ReactiveThe [facility] Physician [facility] State HospitalComment on above:Result Comment: Performed at: [address] [id number] Paper Grader: Cachorro Humphrey PhD, Phone: [phone] PERFORMED BY: [facility] [place] [place] [address] PATHOLOGIST PLSQL DEVELOPER DIANA BOGGS M.D.Performed By: #### CH50, TPO, ROULA, ANTIR, [id number], C3, C4, THYGLOB AB, CHROMATIN #### [facility] ,Scleroderma 70 Antibodieson 60-36-0047Twscowhysxc 70 Antibodies<0.2Normal 0.0-0.9[facility] Physician [facility] HospitalComment on above:Result Comment: Performed at: [address] [id number] Paper Grader: Cachorro Humphrey PhD, Phone: [phone] By: #### CH50, TPO, ROULA, ANTIR, ODY91QW, C3, C4, THYGLOB AB, CHROMATIN #### [facility] ,Serum globulin measurement by calculation (mass/volume)Ordered By: Julian Goodrich on 51-73-5404Jxarhcbo (S) [Mass/Vol]3.0 g/dLNoMercy Health St. Rita's Medical CenterComment on above:Performed By: #### CH50, TPO, ROULA, ANTIR, YLG47NG, C3, C4, THYGLOB AB, CHROMATIN #### [facility] ,Serum or plasma albumin/globulin mass ratioOrdered By: Julian Goodrich on 91-77-2771Gszqnjc/Globulin [Mass ratio]1.4 {ratio}[facility]ron CampusComment on above:Performed By: #### CH50, TPO, RUOLA, ANTIR, [id number], C3, C4, THYGLOB AB, CHROMATIN #### [facility] ,Serum or plasma anion gap determinationOrdered By: Julian Goodrich on 04-11-2024 Anion gap [Moles/Vol]9.3 mmol/LNormal6.0-15.0[facility] Comment on above:Performed By: #### CH50, TPO, ROULA, ANTIR, SBP77SS, C3, C4, THYGLOB AB, CHROMATIN #### [facility] ,Sodium [Moles/volume] in Serum or PlasmaOrdered By: Julian Smithrow on 77-26-7182Inndkr [Moles/Vol]138 mmol/DUbfvcn898-799SucahlpvxWestern Reserve HospitalComment on above:Performed By: #### CH50, TPO, ROULA, ANTIR, YBQ16RV, C3, C4, THYGLOB AB, CHROMATIN #### [facility] ,Specific gravity Test strip (U) [Rel density]Ordered By: Julian Smithrow on 41-24-8612Mjfytbmv gravity (U) [Rel density]1.0221.001-1.030Western [facility] HospitalThyroid Peroxidase Antibodieson 41-17-6541Sfvmjuw Peroxidase Irbffyivja44Lzyqvo7-91Jjt [facility] Physician GroupComment on above:Result Comment: Performed at: [address] [id number] Paper Grader: Cachorro Humphrey PhD, Phone: [phone] By: #### CH50, TPO, ROULA, ANTIR, DDI55CN, C3, C4, THYGLOB AB, CHROMATIN #### [facility] ,Thyrotropin [Units/volume] in Serum or PlasmaOrdered By: Julian Jacky on 51-70-2178GEL Qn3.08 m[IU]/LNormal0.45-5.33[facility] Comment on above:Result Comment: PERFORMED BY: [address] [address] [place] [address] PATHOLOGIST PLSQL DEVELOPER DIANA BOGGS M.D.Performed By: #### CH50, TPO, ROULA, ANTIR, KKW21GE, C3, C4, THYGLOB AB, CHROMATIN #### [facility] ,Thyroxine (T4) free [Mass/volume] in Serum or PlasmaOrdered By: Julian Goodrich on 29-59-4320Mvnj T4 [Mass/Vol]0.74 ng/dLNormal0.61-1.12[facility] HospitalComment on above:Performed By: #### CH50, TPO, ROULA, ANTIR, YYQ30WD, C3, C4, THYGLOB AB, CHROMATIN #### [facility] ,Urea nitrogen [Mass/volume] in Serum or PlasmaOrdered By: Julian Goodrich on 27-49-9682Ntqt nitrogen [Mass/Vol]13 mg/dLNormal7-25[facility] HospitalComment on above:Performed By: #### CH50, TPO, ROULA, ANTIR, ISN51VB, C3, C4, THYGLOB AB, CHROMATIN #### [facility] ,Urine appearanceOrdered By: Julian Goodrich on 61-30-8015Fubskketyb (U)Clear NormalCleSCCI Hospital LimaComment on above:Order Comment: Name Collection Type:: Clean-Voided MidstreamPerformed By: #### CH50, TPO, ROULA, ANTIR, IOG50XG, C3, C4, THYGLOB AB, CHROMATIN #### [facility] ,Urobilinogen Test strip (U) [Mass/Vol]Ordered By: Julian Goodrich on 04-11-2024 Urobilinogen (U) [Mass/Vol]Normal mg/dLNormCleveland Clinic Medina HospitalpH of Urine by Test stripOrdered By: Julian Goodrich on 67-11-2333eJ (U)7.0 [pH] Normal5.0-9.0[facility] HospitalComment on above:Order Comment: Name Collection Type:: Clean-Voided MidstreamPerformed By: #### CH50, TPO, ROULA, ANTIR, [id number], C3, C4, THYGLOB AB, CHROMATIN #### [facility] ,US PELVIS AND TRANSVAGon 81-85-3627CF PELVIS AND TRANSVAGEXAMINATION: US PELVIS AND TRANSVAG [...] Electronically authenticated by: REHANA WALLACE Date: 2021-05-16 16:11[facility] ACOG PANEL 2: 30 to 65on 05-15-2021..NormalWvumedicine Barnesville HospitalComment on above:Result Comment: Performed at: WBPerformed By: #### MG, FT3, T4, CMP, TSH #### [facility] [address] [address] Morgan Chaparro Gdln ACOG Hqxdpsd14-63HmdmryKbiMercy Health Perrysburg HospitalComment on above:Performed By: #### MG, FT3, T4, CMP, TSH #### [facility] [address] [address] Morgan KarenDIAGNOSIS:CommentMary Rutan HospitalComment on above:Result Comment: NEGATIVE FOR INTRAEPITHELIAL LESION OR MALIGNANCY. Performed at: WBPerformed By: #### MG, FT3, T4, CMP, TSH #### [facility] [address] [address] Morgan KarenHPV AptimaQNSPAPNormalWvumedicine Barnesville HospitalComment on above:Result Comment: Test not performed. Liquid based PAP vial contained insufficient specimen for molecular testing; likely a consequence of insufficient cellularity in original collection. This nucleic acid amplification test detects fourteen high-risk HPV types (16,18,31,33,35,39,45,51,52,56,58,59,66,68) without differentiation. Performed at: =GPerformed By: #### MG, FT3, T4, CMP, TSH #### [facility] [address] [place] [address] Morgan KarenMethodology:CommentWooster Community Hospital on above: Result Comment: This liquid based ThinPrep(R) pap test was screened with the use of an image guided system. Performed at: WBPerformed By: #### MG, FT3, T4, CMP, TSH #### [facility] [address] [place] [address] KarenNote:CommentWooster Community Hospital on above:Result Comment: The Pap smear [...] #### MG, FT3, T4, CMP, TSH #### [facility] [address] [place] [address] KarenPerformed by:CommentWooster Community Hospital on above: Result Comment: Trang Schmidt, Information Technology Program Manager Performed at: WBPerformed By: #### MG, FT3, T4, CMP, TSH #### [facility] [address] [place] [address] KarenSpecimen adequacy:CommentWooster Community Hospital on above:Result Comment: Satisfactory for evaluation. No endocervical component is identified. Performed at: WBPerformed By: #### MG, FT3, T4, CMP, TSH #### [facility] [address] [place] [address] Morgan KarenCoding Summary.on 89-00-6773Aopjgq Summary. CD:[id number]:[id number]+PGhlYWQ+CC5YEDMsT40ktGBhjS2LU4rJDG9YLQAWWNVVRJ8PWX2zq WQ5HIwmG9KqvxHm [file] [facility] (more content not included)...[facility] CenterOperative Reporton 73-07-1713Aillewccz ReportDate of Surgery: 11/01/2020 SURGEON: Zamzam Francisco [...] Zamzam Francisco Jr., M.D. lkr Dictated: 11/08/2020 #[id number] Typed: 11/08/2020 #[id number] cc: Zamzam Francisco Jr., M.D.[facility]opedic CenterComment on above:Result Comment: Electronically Signed By: Zamzam Francisco MD\.br\Date and Time Signed: 11/08/20 13:06 EDTIntraOperative Documentson 11-07-2020 IntraOperative [id number]#1.00CD:127 [facility] CenterPostoperative Documentson 11-07-2020 Postoperative [id number]#1.00CD:127 [facility] CenterMain OR Intraoperative Recordon 29-32-3937Tjdw OR Intraoperative RecordIntraOp Document Type FT Summary Primary Physician: Zamzam Francisco MD Finalized Date/Time: 11/05/20 13:25:24 Pt. Name: JUSTYN NEWMAN/Sex: 1980 Female Med Rec #: [id number] Physician: Zamzam Francisco MD Financial #: [id number] Pt. Type: A Room/Bed: [facility]06/15 Admit/Disch: 11/01/20 09:32:55 - 11/01/20 14:30:00 Institution: [...] Yadiel PRICE, Chanel Francisco MD, Zamzam Duarte MACHINE HOOP MAKER/Kassidy MONIQUE Role Performed Anesthesiologist Surgeon - Primary Scrub - Primary Order Entry Clerk Time In 11/01/20 11:38:00 11/01/20 11:38:00 11/01/20 11:38:00 Time Out 11/01/20 12:48:00 11/01/20 12:48:00 11/01/20 12:48:00 Procedure ANTROSTOMY TURBINECTOMY ANTROSTOMY TURBINECTOMY ANTROSTOMY TURBINECTOMY ETHMOIDECTOMY IM(Right) ETHMOIDECTOMY IM(Right) ETHMOIDECTOMY IM(Right) Comments DR. SCHWARTZ SUPERVISING out for break 9870-8881 Last Modified By: Facundo CISNEROS, Danielle Loredo RN, Danielle Loredo RN, Danielle Jensen 11/01/20 13:01:26 11/01/20 13:01:26 11/01/20 13:01:26 Entry 4 Entry 5 Entry 6 Case Attendee Guy EPPERSON, Liliane Loredo RN, Hailee Mi Role Performed Scrub - Primary Bacteriologist Fishery - Primary Bacteriologist Fishery - Primary Time In 11/01/20 11:38:00 11/01/20 11:38:00 11/01/20 11:38:00 Time Out 11/01/20 12:48:00 11/01/20 12:48:00 11/01/20 12:48:00 Procedure ANTROSTOMY TURBINECTOMY ANTROSTOMY TURBINECTOMY ANTROSTOMY TURBINECTOMY ETHMOIDECTOMY IM(Right) ETHMOIDECTOMY IM(Right) ETHMOIDECTOMY IM(Right) Comments IN ORIENTATION IN ORIENTATION/ LUNCH OUT FOR LUNCH 2718-6895 AT 3468-2414 Last Modified By: Facundo CISNEROS, Mikailey H [...] Applicable) PreOp Antibiotic No Time Out Yadiel PRICE, Chanel M, Given Participants Nolan MATHEW, Zamzam [...] FT Pre-Care Text: Implement (more content not included)...[facility] Progress Note-Physicianon 11-98-2475Ebxlufbf Note-PhysicianPatient: JUSTYN NEWMAN Age: 40 years Sex: Female : 1980 Associated Diagnoses: None Author: Evelio Schwartz Jr, DO Postoperative Information Post Operative Note: Post Anesthesia Care Unit. Anesthetic utilized: General. Health Status Allergies: Allergic Reactions (Selected) Severity Not Documented Penicillins- Rash. 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 Low iron / SNOMED CT 865214977 / Confirmed Resolved: Colitis, ulcerative / SNOMED CT 936808293 Physical Examination Vital Signs 11/01/2020 14:07 EDT [...] EDT Heart Rate Monit (more content not included)...[facility] CenterComment on above:Result Comment: Electronically Signed By: Evelio [...] list: All Problems Pansinusitis / SNOMED CT 164656979 / Confirmed Rheumatoid arteritis / SNOMED CT 3326830808 / Confirmed Low iron / SNOMED CT 195703731 / Confirmed Resolved: Colitis, ulcerative / SNOMED CT 891190255 Histories Past Medical History: No active or resolved past medical history items have been selected or recorded. Family History: No family history items have been selected or recorded. Procedure history: H/O: hysterectomy (780809950) on 11/14/2019 at 39 Years. Gastric bypass operation (03417027) on 06/15/2008 at 28 Years. section x2 (55673769). History of tubal ligation (3665576354). Social History Social & Psychosocial Habits Alcohol [...] results Radiology results ECG interpretation Condition Plan [place] [employer] Anesthesi[employer] (ASA) physical status classification: Class II. Anesthetic Preoperative Plan Anesthesia: General. . Anesthetic plan, risks, benefits, and alternatives discussed with the patient and/or family. Risks discussed: nausea, vomiting, headache, sore throat, dental injury, serious complications. Patient verbalized understanding. Communication: face to face with (patient 5 minutes, Pt educated on the importance of smoking cessation.).[facility] CenterComment on above:Result Comment: Electronically Signed By: Efren Nichols DO, Evelio Nova.br\Date and Time Signed: 11/05/20 07:55 EDTConsent for Anesthesiaon 92-84-0064Cgpqbuw for Anesthesia [id number]#1.00CD:[address] [place], [place] [address]Discharge Instructionson 47-91-6080Johwqcmrg Instructions [id number]#1.00CD:[address] [place], [place] [address]IntraOperative Documentson 93-44-0187TvwynMnjvstrzb Documents [id number]#1.00CD:[address] [place], [place] [address]IntraOperative Documents [id number]#1.00CD:[address] [place], [place] [address]Preoperative Documentson 74-66-8858Zvlgvxuwiodh Documents [id number]#1.00CD:[address] [place], [place] [address]Prescriptions/Work Noteson 37-30-4113Vlitcolljoeql/Work Notes [id number]#1.00CD:[address] [place], [place] [address]Consent for Treatmenton 92-90-9688Fjmrvrv for Treatment [id number]#1.00CD:[address] [place], [place] [address]H&P Updateon 11-01-2020H&P Update [id number]#1.00CD:[address] [place], [place] [address]Inpatient Patient Summaryon 83-15-9309Oyciqjwoi Patient Summary [facility] [address], [place] [address] [facility] Clinical Discharge Instructions PERSON INFORMATION Name: JUSTYN NEWMAN PHYSICIANS Admitting Physician: Zamzam Francisco MD Attending Physician: Zamzam Francisco MD PCP: Avi Weber MD Discharge Diagnosis: Chronic pansinusitis Comment: PATIENT EDUCATION INFORMATION Instructions: Post Op Patient Instructions - FT (Custom) (CUSTOM) Medication Leaflets: Follow up: With: Address: When: Zamzam Francisco [address] [facility] [address], [address] [place] [address] Business (1) In 8 days [...] capsule) 1 Capsules By Mouth every day. Comment:[facility] CenterMain OR PACU I Recordon 97-42-1733Jeyb OR PACU I RecordPACU Phase I Document Type FT Summary Primary Physician: Zamzam Francisco MD Finalized Date/Time: 11/01/20 14:27:54 Pt. Name: JUSTYN NEWMAN Radha MercedesB./Sex: 1980 Female Med Rec #: [id number] Physician: Zamzam Francisco MD Financial #: [id number] Pt. Type: A Room/Bed: Admit/Disch: 11/01/20 09:32:55 [...] Lucina Saunders RN 11/01/20 14:27:53 Finalized By: Luicna Saunders RN Document Signatures Signed By: Lucina Saunders RN 11/01/20 14:27[facility] CenterMain OR PACU II Recordon 10-73-5518Quhq OR PACU II RecordPACU Phase II Document Type FT Summary Primary Physician: Zamzam Francisco MD Finalized Date/Time: 11/01/20 14:31:14 Pt. Name: JUSTYN NEWMAN Radha Fonseca./Sex: 1980 Female Med Rec #: [id number] Physician: Zamzam Francisco MD Financial #: [id number] Pt. Type: A Room/Bed: [address] [place] [address] Admit/Disch: 11/01/20 09:32:55 - Institution: Case Times [...] Signatures Signed By: Lynsey Schneider RN 11/01/20 14:31NoOhioHealth O'Bleness HospitalMain OR Preoperative Recordon 35-85-9744Tsfh OR Preoperative RecordPreOp Document Type FT Summary Primary Physician: Zamzam Francisco MD Finalized Date/Time: 11/01/20 12:34:57 Pt. Name: JUSTYN NEWMAN /Sex: 1980 Female Med Rec #: [id number] Physician: Zamzam Francisco MD Financial #: [id number] Pt. Type: A Room/Bed: [facility]06/15 Admit/Disch: 11/01/20 09:32:55 - Institution: Case Times [...] Signatures Signed By: Danielle Loredo RN 11/01/20 12:34NoOhioHealth O'Bleness HospitalMonitor Recordon 29-66-8816Ltoqmqh Record [id number]#1.00CD:127[facility] Orthopedic CenterOperative Reporton 69-42-9665Dctcapjnb ReportPatient: JUSTYN NEWMAN Age: 40 years Sex: Female : 1980 Associated Diagnoses: None Author: Zamzam Francisco MD Postoperative Information Procedure: RT Image-guided MMA, ant ethmoidectomy and frontal sinus exploration Preoperative Diagnosis: Chronic pansinusitis (DBM08-AQ J32.4, Working, Medical). Postoperative Diagnosis: Chronic pansinusitis (NWE27-SZ J32.4, Discharge, Medical). Performed by: Zamzam Francisco MD. Findings: Copious RT maxillary sinus purulent fluid. Severe max/ethmoid, brandon and frontal inflammation. Specimens Removed: RT max sinus fungal and aerobic cx, RT sinus sock, rt sinus contents. Estimated Blood Loss: 20 ml. Medications Complications: None.[facility]opedic CenterComment on above:Result Comment: Electronically Signed By: Zamzam Francisco MD\.br\Date and Time Signed: 11/01/20 12:59 EDTOutpatient Surgery Discharge Instructionon 11-01-2020 Outpatient Surgery Discharge Instruction Matthew [place] [id number] Patient Discharge Instructions PERSON INFORMATION Name: JUSTYN [...] Follow up: With: Address: When: Zamzam Francisco [address] [place] [address], [address] [place] [address] Business (1) In 8 days 11/09/2020 Comments: [...] to serve you. Thank you for choosing [facility] HERE ARE THE MEDICATION CHANGES THAT OCCURRED [...] Mouth every day. PATIENT EDUCATION INFORMATION Instructions: [facility] CenterPatient Education - Texton 01-02-0568Vezvrhx Education - Text [facility] CenterCoding Summary.on 33-19-6773Sehbga Summary. CD:[id number]:[id number] [file] YXBz (more content not included)...[facility]opedic CenterCT Maxillofacial w/o Contraston 53-22-0812MG Maxillofacial w/o ContrastExam Date/Time: 10/25/2020 10:26 EDT [...] Deandre Ferris MD Transcribed by: LISA Technologist: RomaUniversity Hospitals Conneaut Medical CenterAuto Diffon 36-11-9164Zlrhrjhhc/100 WBC (Bld)0.9 %Normal0.0-2.0[facility] Comment on above:Order Comment: Order Added by Discern Expert.Performed By: #### [id number], 03600950, 03574713, 3369426, [id number] ####[address] [place], [place] [address]Batvuixgt/Leukocytes Auto (Bld) [Pure # fraction]0.0 E9/LNormal0.0-0.2FFirelands Regional Medical CenterComment on above: Order Comment: Order Added by Discern Expert.Performed By: #### 3113388, 04275264, 38718735, 6466700, [id number] ####[facility] [address] [place], [place] [address]Ytnmzkymtbr/100 WBC (Bld)1.6 %Normal 0.0-8.0[facility] Conneaut Medical CenterComment on above:Order Comment: Order Added by Discern Expert.Performed By: #### [id number], 10624081, 21745126, 0005497, 96611636 ####[address] [address] Eosinophils/Leukocytes Auto (Bld) [Pure # fraction]0.1 E9/LNormal0.0-0.5FFirelands Regional Medical CenterComment on above:Order Comment: Order Added by Discern Expert.Performed By: #### 3725235, 77230639, 23060681, 0339388, 21086888 ####[address] [address] Lymphocytes/100 WBC (Bld)29.2 %Dkwtpb84.0-50.0[facility] Conneaut Medical CenterComment on above:Order Comment: Order Added by Discern Expert.Performed By: #### 8185496, 45576087, 42830313, 2702959, 55530067 ####[address] [place], [place] [address]Ngfddymjhnn/Leukocytes Auto (Bld) [Pure # fraction]1.3 E9/LNormal1.0-4.0[facility] Conneaut Medical CenterComment on above:Order Comment: Order Added by Discern Expert.Performed By: #### 0986961, 19521064, 13109664, 7026212, 69127149 ####[address] [address]Xsgkoeshg/100 WBC (Bld)12.3 %Normal 4.0-14.0[facility] Conneaut Medical CenterComment on above:Order Comment: Order Added by Discern Expert.Performed By: #### 0127384, 62250673, 94409142, 1029500, 59735616 ####[address] [address]Irkahbgzz/Leukocytes Auto (Bld) [Pure # fraction]0.5 E9/LNormal0.2-1.0 [facility] Medical CenterComment on above:Order Comment: Order Added by Discern Expert.Performed By: #### 5831504, 07904802, 06395927, 8288708, 97324995 ####[address] [address] Neutrophils/100 WBC (Bld)56.0 %Dcgunu32.0-75.0[facility] Medical CenterComment on above:Order Comment: Order Added by Discern Expert.Performed By: #### 6645624, 94968421, 63711562, 1708135, 37613432 ####[address] [address]Ooeqbcbgstx/Leukocytes Auto (Bld) [Pure # fraction]2.5 E9/LNormal2.0-7.5FFirelands Regional Medical CenterComment on above:Order Comment: Order Added by Discern Expert.Performed By: #### 5603284, 09288095, 92445467, 5086145, 81691255 ####[address] [address]BAFkg 40-72-9475Iysb nitrogen [Mass/Vol]13 mg/dLNormal5-21[facility] Medical CenterComment on above: Performed By: #### 38900076, 9572405, 6541994, 1676195 ####[address], [place] [address]ZTI w/ Auto Diffon 10-25-2020 Erythrocyte distribution width (RBC) [Ratio]22.6 %High10.9-14.2FFirelands Regional Medical CenterComment on above:Performed By: #### 8136013, 95579212, 13543652, 1229151, 59088746 ####[address] [address]Cybinjllxd (Bld) [Volume fraction]33.4 %Low34.0-46.0[facility] Conneaut Medical CenterComment on above:Performed By: #### 8695404, 56459802, 31069086, 9733389, 35821340 ####[address] [address]Yomdhovksu (Bld) [Mass/Vol]10.6 g/dLLow12.0-16.0 [facility] Medical CenterComment on above:Performed By: #### 9105615, 17953682, 68179934, 2663938, 40803725 ####[address] [address]DFF (RBC) [Entitic mass]23.7 pgLow 27.0-34.0[facility] Conne[facility] Medical CenterComment on above:Performed By: #### 5478440, 66649940, 87600751, 6336463, 58932705 ####[address] [address]NLAV (RBC) [Mass/Vol]31.8 g/dLNormal 31.4-36.0[facility] Medical CenterComment on above:Performed By: #### 7419721, 89027926, 89497964, 9333340, 76251774 ####[address] [address]SSI (RBC) [Entitic vol]74.7 fLLow 80.0-100.0[facility] Medical CenterComment on above:Performed By: #### 4446220, 28092947, 79313686, 2339417, 06510182 ####[address] [place], [place] [address]Gfkupkwc mean volume (Bld) [Entitic vol]8.2 fLNormal6.4-10.8[facility] Medical CenterComment on above:Performed By: #### 0898247, 79519122, 34788983, 3186870, 91000400 ####[address] [address]Jdvxjuaxv (Bld) [#/Vol]303.0 E9/IHpczcl690.0-500.0[facility] Medical CenterComment on above:Performed By: #### 0711283, 34662240, 52497100, 1591833, 62505139 ####[address] [address]TAB (Bld) [#/Vol]4.5 E12/L Normal4.3-5.9[facility] Medical CenterComment on above:Performed By: #### 2009723, 12184768, 53050365, 3017397, 05047415 ####[address] [address]MXJ corrected for nucl RBC Auto (Bld) [#/Vol]4.4 E9/LNormal4.0-11.0[facility] Conne[facility] Medical CenterComment on above: Performed By: #### 8234825, 80628520, 60668791, 9226951, 88480401 ####[address] [address]HGDHM-89 ([facility]) on 59-59-1023QNVT-CoV-2 (COVID-19) RNA ONEIDA+probe Ql (Unsp spec)Not detected NormalNot DetectedUniversity Hospitals Conneaut Medical CenterComment on above:Result Comment: This test result should be correlated with clinical presentations and medical history by a healthcare provider to determine its clinical significance. This assay was performed by a reverse transcriptase real-time polymerase chain reaction (rt PCR) method on the [employer] system. This test has been authorized only [...] is terminated or revoked sooner.Performed By: #### [id number] ####[address] [id number]-DiX-1 (COVID-19) RNA ONEIDA+probe Ql (Unsp spec)PassNormalPassUniversity Hospitals Conneaut Medical CenterComment on above:Performed By: #### [id number] ####[address]Specimen source Nom (Unsp spec)NasalNormOhio Valley Surgical HospitalComment on above:Performed By: #### [id number] ####[address] [place]Qknlusr for Treatmenton 80-88-6733Ywdbehu for Treatment [id number]#1.00CD:127NormOhio Valley Surgical HospitalCreatinineon 68-06-4070Ptwsqsiwag [Mass/Vol]0.7 mg/dLNormal0.5-1.3FFirelands Regional Medical CenterComment on above:Performed By: #### 99841271, 5420641, 8254254, 0389264 ####[address] [address]Dwddtmw 17-55-0943Yistb gap [Moles/Vol]12 mmol/LNormal6-16 [facility] Medical CenterComment on above:Performed By: #### 11180238, 1645958, 6751184, 3260805 ####[address] [address]Gwmppwiv [Moles/Vol]104 mmol/CJtglyn995-729DbamnhUniversity Hospitals Conneaut Medical CenterComment on above:Performed By: #### 15616520, 0802196, 4604707, 0278485 ####[address] [address]DQ4 [Moles/Vol]25 mmol/NTogtuh76-04LpeknuUniversity Hospitals Conneaut Medical CenterComment on above:Performed By: #### 95529347, 2912567, 8227276, 4900268 ####[address] [address]Ncvuwtncc [Moles/Vol] 4.5 mmol/LNormal3.5-5.3FFirelands Regional Medical CenterComment on above:Performed By: #### 54427565, 6272576, 2536231, 9234389 ####[address] [address]Kvykcl [Moles/Vol]136 mmol/LNormal 135-145[facility] Conneaut Medical CenterComment on above:Performed By: #### 90057377, 4617087, 1770764, 1264784 ####[address] [address]Mljetss 13-60-4099Byidilbbbcbk Ql (Bld)PresentNoOhioHealth O'Bleness HospitalComment on above:Performed By: #### 0189796, 26053910, 24906691, 2990827, 93611094 ####[address] [address]Wrfevctfqme Auto Ql (Bld)[facility] HospitalNoOhioHealth O'Bleness HospitalComment on above:Performed By: #### 1166467, 23328522, 35636903, 0794884, 94811615 ####[address] [address]Lzrrueiqhs Ql (Bld)PresentCrystal Clinic Orthopedic Center Comment on above:Performed By: #### 8622390, 15669234, 43312247, 0174275, 32065303 ####[facility] [address] [place], [place] [address]Qnagtpewbp Babak (Bld) [Interp]See MorphologyCrystal Clinic Orthopedic CenterComment on above:Performed By: #### 0981793, 83604365, 96920097, 7019301, 68100613 ####[facility] [address] [place], [place] [address]ZD & PTTon 27-27-0301sDBP Coag (PPP) [Time]33.9 second(s)Sflscv95.1-36.5 [facility] CenterComment on above:Result Comment: Heparin therapeutic range (represented by Anti-Factor Xa activity of 0.2 - 0.4 U/mL) corresponds to PTT of 56.6 - 109.0 sec.Performed By: #### 6677544, 23827211, 58505519, 0853616, 77865016 ####[facility] [address] [place], [place] [address]JHT Coag (PPP) [Relative time]1.1 {INR} Invalid Interpretation [facility] HospitalComment on above:Result Comment: INR results are specifically intended to assess patients stabilized on long-term Anticoagulation therapy suggested INR?s ?Less Intensive Anticoagulation? 2.0 ? 3.0 Conventional Range 3.0 ? 4.5Performed By: #### 9815874, 09743200, 19628203, 5175188, 11808771 ####[facility] [address] [place], [place] [address]WD Coag (PPP) [Time]12.6 second(s)Rmwzlz58.2-12.9[facility] Medical CenterComment on above:Performed By: #### 2093354, 02285208, 95538095, 6696323, 32492545 ####[facility] [address] [place], [place] [address]AQQ Morphologyon 46-53-1412Wgbpngyrdc Babak (Bld) [Interp]See MorphologyNormOhio Valley Surgical HospitalComment on above: Performed By: #### 1963203, 30913680, 33301996, 8374628, 75411651 ####[facility] [address] [place], [place] [address]tBJQsy 72-09-1842ZFI/1.73 sq M.predicted among blacks MDRD (S/P/Bld) [Vol rate/Area] mL/min/{1.73_m2}Normal>=59[facility] Medical CenterComment on above:Order Comment: Order added by Discern Expert.Result Comment: eGFR is race adjusted. AA=.Performed By: #### 98750430, 4931970, 3599109, 7951304 ####[address] [place] [address] GFR/1.73 sq M.predicted among non-blacks MDRD (S/P/Bld) [Vol rate/Area] mL/min/{1.73_m2}Normal>=59[facility] Medical CenterComment on above:Order Comment: Order added by Discern Expert.Result Comment: Chronic kidney disease could be indicated at eGFR's of less than 60 mL/min/1.73m2. Kidney failure is indicated at less than 15 mL/min/1.73m2.Performed By: #### 47418679, 1849899, 5861424, 0530978 ####[address] [place], [place] [address]BKWYA-43 ([facility])on 54-61-0885Avvgrfsf in HealthcareUnknown [facility] CenterComment on above:Performed By: #### [id number] ####[address]First TestUnknowSelect Medical Cleveland Clinic Rehabilitation Hospital, AvonComment on above:Performed By: #### [id number] ####[address] [address]Ewugttarqnxk?UnknownCrystal Clinic Orthopedic CenterComment on above: Performed By: #### [id number] ####[facility] [address] [facility], [place]SVTPywaodmNvveewRptsiyBrown Memorial HospitalComment on above:Performed By: #### [id number] ####[facility] [address] [place], [place] [address]steve, JF[address]Runpkvkb?UnknownCrystal Clinic Orthopedic CenterComment on above:Performed By: #### [id number] ####[facility] Nrweggrczr506 Benedict AveNwaterbury hospitalsteve, [place]Dmboppc in a [facility] Care SettingWyandot Memorial HospitalComment on above:Performed By: #### [id number] ####Dino [address]steve, [place]Yovvnvuvtjn as defined by [facility] Crille HospitalComment on above:Performed By: #### [id number] ####Dino [address], [place]Timehdx for Procedure/Surgeryon 66-01-0641Elfaguj for Procedure/Surgery [id number]#1.00CD:[address] [place], [place] [address]Physician Orderon 78-78-1873Aqepkkbxg Order [id number]#1.00CD:[address] [place], [place] [address]Physician Orderon 75-27-8178Nrliizwrm Order [id number]#1.00CD:[address] [place], [place] [address]INSULINon 86-73-5723Yjdbjvl71.1 uIU/mLCritically high2.6-24.9[facility] Barnesville HospitalComment on above:Performed By: #### CBC #### [facility] [address] [place], [place] [address] Morgan KarenCBC AUTO DIFFon 78-35-7822RQOO #0.0 103/ulNormal0.0-0.1The White HospitalComment on above:Performed By: #### CBC #### [facility] [address] [place] [address] Morgan KarenBasophils/100 WBC (Bld)1.0 %Normal0.2-2.0[facility] Comment on above:Performed By: #### CBC #### [facility] [address] [place] [address] Morgan KarenEO #0.1 103/ulNormal0.0-0.7The White HospitalComment on above: Performed By: #### CBC #### [facility] [address] [place] [address] Morgan KarenEosinophils/100 WBC (Bld)2.1 %Normal0.9-7.0[facility] Comment on above:Performed By: #### CBC #### [facility] [address] [place] [address] Morgan KarenErythrocyte distribution width (RBC) [Ratio]19.7 %Critically high 11.0-15.0[facility] Barnesville HospitalComment on above:Performed By: #### CBC #### [facility] [address] [place] [address] Morgan KarenHematocrit (Bld) [Volume fraction]34.2 %Critically low36.0-48.0The White HospitalComment on above:Performed By: #### CBC #### [facility] [address] [place] [address] Morgan KarenHemoglobin (Bld) [Mass/Vol]10.1 g/dLCritically low12.0-16.0The White HospitalComment on above:Performed By: #### CBC #### [facility] [address] [place] [address] Morgan KarenIG #0.00 10e3/ulNormal0.00-0.03The White HospitalComment on above:Performed By: #### CBC #### [facility] [address] [address] Morgan MaenIG %0.0 %Normal0.0-0.5The [facility] HospitalComment on above: Performed By: #### CBC #### [facility] [address] [place] [address] Morgan LuongLYMPH #1.4 103/ulNormal1.2-3.8The [facility] HospitalComment on above: Performed By: #### CBC #### [facility] [address] [place] [address] Morgan MaenLymphocytes/100 WBC (Bld)33.6 %Itmvbj80.5-60.0[facility] Comment on above:Performed By: #### CBC #### [facility] [address] [place] [address] [place] KarenMANUAL DIFF REQNONormalThe White HospitalComment on above: Performed By: #### CBC #### [facility] [address] [place] [address] Morgan KarenMCH (RBC) [Entitic mass]23.0 pgCritically low26.7-34.0The Parkview Healthment on above:Performed By: #### CBC #### [facility] [address] [place] [address] Morgan KarenMCHC (RBC) [Mass/Vol]29.5 g/dLCritically low29.9-35.2The Parkview Healthment on above:Performed By: #### CBC #### [facility] [address] [place] [address] Morgan KarenMCV (RBC) [Entitic vol]77.7 fLCritically low81.0-99.0The [facility] HospitalComment on above:Performed By: #### CBC #### [facility] [address] [place] [address] Morgan MaenMONO #0.4 103/ulNormal0.3-0.8The [facility] HospitalComment on above: Performed By: #### CBC #### [facility] [address] [place] [address] Morgan KarenMonocytes/100 WBC (Bld)9.8 %Normal1.7-12.0[facility] Comment on above:Performed By: #### CBC #### [facility] [address] [place] [address] Morgan MaenNEUT #2.3 103/ulNormal1.4-6.5The [facility] HospitalComment on above: Performed By: #### CBC #### [facility] [address] [place] [address] Morgan KarenNeutrophils/100 WBC (Bld)53.5 %Jatjvm85.0-75.0[facility] Comment on above:Performed By: #### CBC #### [facility] [address] [place] [address] Morgan KarenPlatelet mean volume (Bld) [Entitic vol]10.3 fLNormal9.5-13.5The [facility] HospitalComment on above:Performed By: #### CBC #### [facility] [address] [place] [address] Morgan DsqbjZIB879 103/kfNirrrn172-721Njy White HospitalComment on above: Performed By: #### CBC #### [facility] [address] [place] [address] Morgan KarenRBC4.40 106/ulNormal4.20-5.40The [facility] HospitalComment on above: Performed By: #### CBC #### [facility] [address] [place] [address] Morgan KarenWBC4.2 103/ulNormal4.0-11.0The [facility] HospitalComment on above: Performed By: #### CBC #### [facility] [address] [place] [address] Morgan MaenFERRITINon 83-21-5519Wxbjpiph [Mass/Vol]9.0 ng/mLNormal6.2-137.0The [facility] HospitalComment on above:Performed By: #### MG, FT3, T4, CMP, TSH #### [facility] [address] [place] [address] Morgan KarenFREE T3on 21-54-3939EOVH T32.86 pg/mlLNormal2.77-5.27The [facility] HospitalComment on above:Performed By: #### MG, FT3, T4, CMP, TSH #### [facility] [address] [place] [address] Morgan KarenGLYCOHEMOGLOBIN A1Con 24-09-0668PEQ RECOMMENDATIONADA THERAPEUTIC TARGET 6.0 - 7.0 ACTION SUGGESTED > 7.0NormalThGrant HospitalComment on above:Performed By: #### CBC #### [facility] [address] [place] [address] Morgan KarenGlucose [Mass/Vol]88 mg/dLNormalThGrant HospitalComment on above:Performed By: #### CBC #### [facility] [address] [place] [address] Morgan RkpmkPjX0r (Bld) [Mass fraction]4.7 %Normal<=6.0[facility] Comment on above:Performed By: #### CBC #### [facility] [address] [place] [address] [place] KarenIRONon 49-93-5411Uqfe [Mass/Vol]34.0 ug/dLCritically low37.0-170.0 The [facility] HospitalComment on above:Performed By: #### MG, FT3, T4, CMP, TSH #### [facility] [address] [place] [address] [place] KarenMAGNESIUMon 67-99-0387Fukadvccg [Mass/Vol]2.0 mg/dLNormal1.6-2.3The [facility] HospitalComment on above:Performed By: #### MG, FT3, T4, CMP, TSH #### [facility] [address] [place] [address] [place] KarenPROF 14(COMP METB)on 94-08-0488Wbohxow [Mass/Vol]3.3 g/dLCritically low3.5-5.0The [facility] HospitalComment on above:Performed By: #### MG, FT3, T4, CMP, TSH #### [facility] [address] [place] [address] Morgan KarenAlbumin/Globulin [Mass ratio]0.8 {ratio}NormalWvumedicine Barnesville Hospital Comment on above:Performed By: #### MG, FT3, T4, CMP, TSH #### [facility] [address] [place] [address] Morgan KarenALP [Catalytic activity/Vol]78 U/ZSdsajh96-782CyhWvumedicine Barnesville Hospital Comment on above:Performed By: #### MG, FT3, T4, CMP, TSH #### [facility] [address] [place] [address] Morgan KarenALT [Catalytic activity/Vol]18 U/LNormal9-52[facility] Comment on above:Performed By: #### MG, FT3, T4, CMP, TSH #### [facility] [address] [place] [address] Morgan KarenAnion gap [Moles/Vol]12.3 mmol/LNormalWvumedicine Barnesville HospitalComment on above:Performed By: #### MG, FT3, T4, CMP, TSH #### [facility] [address] [place] [address] Morgan KarenAST [Catalytic activity/Vol]16 U/NCsvtvu13-30SbjWvumedicine Barnesville Hospital Comment on above:Performed By: #### MG, FT3, T4, CMP, TSH #### [facility] [address] [place] [address] Morgan KarenBilirubin [Mass/Vol]0.4 mg/dLNormal0.2-1.3TKindred Healthcare Comment on above:Performed By: #### MG, FT3, T4, CMP, TSH #### [facility] [address] [place] [address] Morgan KarenCalcium [Mass/Vol]8.7 mg/dLNormal8.4-10.2[facility] Comment on above:Performed By: #### MG, FT3, T4, CMP, TSH #### [facility] [address] [place] [address] Morgan KarenChloride [Moles/Vol]104 mmol/YNwcknj48-197Abg [facility] Comment on above:Performed By: #### MG, FT3, T4, CMP, TSH #### [facility] [address] [place] [address] Morgan KarenCO2 [Moles/Vol]28.8 mmol/UQzmmqc02.0-30.0[facility] Comment on above:Performed By: #### MG, FT3, T4, CMP, TSH #### [facility] [address] [place] [address] Morgan KarenCreatinine [Mass/Vol]0.95 mg/dLNormal0.52-1.04[facility] Comment on above:Performed By: #### MG, FT3, T4, CMP, TSH #### [facility] [address] [place] [address] Morgan KarenEGFR-AF PITCAIRN ISLANDER>60Normal>=60The [facility] HospitalComment on above: Performed By: #### MG, FT3, T4, CMP, TSH #### [facility] [address] [place] [address] Morgan KarenEGFR-NON AF [place] ISLANDER>60Normal>=60The [facility] HospitalComment on above:Performed By: #### MG, FT3, T4, CMP, TSH #### [facility] [address] [place] [address] Morgan KarenGlobulin (S) [Mass/Vol]4.1 g/dLNormalThe White HospitalComment on above:Performed By: #### MG, FT3, T4, CMP, TSH #### [facility] [address] [place] [address] Morgan KarenGlucose [Mass/Vol]94 mg/yKGrrbbn78-888PpqWvumedicine Barnesville HospitalComment on above:Performed By: #### MG, FT3, T4, CMP, TSH #### [facility] [address] [place] [address] Morgan KarenPotassium [Moles/Vol]4.1 mmol/LNormal3.4-5.0[facility] Comment on above:Performed By: #### MG, FT3, T4, CMP, TSH #### [facility] [address] [place] [address] Morgan KarenProtein [Mass/Vol]7.4 g/dLNormal6.1-8.2The [facility] HospitalComment on above:Performed By: #### MG, FT3, T4, CMP, TSH #### [facility] [address] [place] [address] Morgan KarenSodium [Moles/Vol]141 mmol/BTytlqx411-320Ahb [facility] Comment on above:Performed By: #### MG, FT3, T4, CMP, TSH #### [facility] [address] [place] [address] Morgan KarenUrea nitrogen [Mass/Vol]15.0 mg/dLNormal7.0-17.0The [facility] HospitalComment on above:Performed By: #### MG, FT3, T4, CMP, TSH #### [facility] [address] [place] [address] Morgan KarenUrea nitrogen/Creatinine [Mass ratio]15.8 mg/mgNormalThe White HospitalComment on above:Performed By: #### MG, FT3, T4, CMP, TSH #### [facility] [address] [place] [address] Morgan CglqkF2zi 90-91-1413R1 [Mass/Vol]7.30 ug/dLNormal5.53-11.00The [facility] HospitalComment on above:Performed By: #### MG, FT3, T4, CMP, TSH #### [facility] [address] [place] [address] Morgan KarenTSHon 51-18-7683YIX8.503 uIU/mLNormal0.470-4.680The [facility] HospitalComment on above:Performed By: #### MG, FT3, T4, CMP, TSH #### [facility] [address] [place] [address] Morgan Del Rosario RANGESEE [facility] HospitalComment on above:Result Comment: <0.34 UIU/ml HYPERTHYROID 0.34-5.60 UIU/ml EUTHYROID >5.60 UIU/ml HYPOTHYROIDPerformed By: #### MG, FT3, T4, CMP, TSH #### [facility] [address] [place] [address] Morgan KarenVIT B12 AND FOLATEon 35-98-7245Qtwrweztr (Vitamin B12) [Mass/Vol] 263.0 pg/yOUouzer428.0-931.0The [facility] HospitalComment on above:Performed By: #### MG, FT3, T4, CMP, TSH #### [facility] [address] [place] [address] Morgan MaUhukrUIKJTM63.40 ng/mLNormal>=2.76The White HospitalCommclaren caro region on above: Performed By: #### MG, FT3, T4, CMP, TSH #### [facility] [address] [place] [address] Morgan MaenVITAMIN D 25 OHon 65-76-2434PYC D 25-OH11.9 ng/mLNormalThe [facility] on above:Performed By: #### MG, FT3, T4, CMP, TSH #### [facility] [address] [place] [address] Morgan MaenVIT D RANGESSEE BELOWMary Rutan HospitalComment on above: Result Comment: <20 ng/mL Vit D deficient 20 - <30 ng/mL Vit D insufficient 30 - 100 ng/mL Vit D sufficient >100 ng/mL Potential ToxicityPerformed By: #### MG, FT3, T4, CMP, TSH #### [facility] [address] [place] [address] Morgan KarenCT SINUSES WO CONon [id number] SINUSES WO CONEXAMINATION: CT SINUSES WO CON [...] Electronically authenticated by: REHANA WALLACE Date: 2020-09-14 09:[address] [place], [place] [address]IMMUNOGLOBULINS IGA/IGM/IGG/IGE QUANTITAon 09-08-2020 Immunoglobulin A, Qn, Xgegj838 mg/dLCritically fzrd17-549BqaWvumedicine [facility] Comment on above:Result Comment: Performed at: CBPerformed By: #### CBC #### [facility] [address] [address] Morgan KarenImmunoglobulin E, Total9 IU/mLNormal6-495[facility] Comment on above:Result Comment: Performed at: BNPerformed By: #### CBC #### [facility] [address] [address] Morgan KarenImmunoglobulin G, Qn, Eqgdn0740 mg/fEObwraj163-3668MqaWvumedicine Barnesville HospitalComment on above:Result Comment: Performed at: CBPerformed By: #### CBC #### [facility] [address] [address] Morgan KarenImmunoglobulin M, Qn, Mdunb882 mg/nUDdquki79-896YtlWvumedicine Barnesville HospitalComment on above:Result Comment: Performed at: CBPerformed By: #### CBC #### [facility] [address] [place] [address] Morgan KarenINSULINon 34-17-5516Uawugme7.8 uIU/mLNormal2.6-24.9The White HospitalComment on above:Performed By: #### CBC #### [facility] [address] [place] [address] Morgan MaenCBC AUTO DIFFon [id number] #0.0 103/ulNormal0.0-0.1The White HospitalComment on above:Performed By: #### MG, FT3, T4, CMP, TSH #### [facility] [address] [place] [address] Morgan KarenBasophils/100 WBC (Bld)0.5 %Normal0.2-2.0[facility] Comment on above:Performed By: #### MG, FT3, T4, CMP, TSH #### [facility] [address] [place] [address] Morgan KarenEO #0.2 103/ulNormal0.0-0.7The [facility] HospitalComment on above: Performed By: #### MG, FT3, T4, CMP, TSH #### [facility] [address] [place] [address] Morgan KarenEosinophils/100 WBC (Bld)3.4 %Normal0.9-7.0[facility] Comment on above:Performed By: #### MG, FT3, T4, CMP, TSH #### [facility] [address] [place] [address] Morgan KarenErythrocyte distribution width (RBC) [Ratio]17.1 %Critically high 11.0-15.0The [facility] HospitalComment on above:Performed By: #### MG, FT3, T4, CMP, TSH #### [facility] [address] [place] [address] Morgan KarenHematocrit (Bld) [Volume fraction]32.7 %Critically low36.0-48.0The [facility] HospitalComment on above:Performed By: #### MG, FT3, T4, CMP, TSH #### [facility] [address] [place] [address] Morgan KarenHemoglobin (Bld) [Mass/Vol]9.6 g/dLCritically low12.0-16.0The [facility] HospitalComment on above:Performed By: #### MG, FT3, T4, CMP, TSH #### [facility] [address] [place] [address] Morgan KarenIG #0.01 10e3/ulNormal0.00-0.03The [facility] HospitalComment on above:Performed By: #### MG, FT3, T4, CMP, TSH #### [facility] [address] [place] [address] Morgan KarenIG %0.2 %Normal0.0-0.5The [facility] HospitalComment on above: Performed By: #### MG, FT3, T4, CMP, TSH #### [facility] [address] [place] [address] Morgan KarenLYMPH #1.6 103/ulNormal1.2-3.8The [facility] HospitalComment on above: Performed By: #### MG, FT3, T4, CMP, TSH #### [facility] [address] [place] [address] Morgan MaenLymphocytes/100 WBC (Bld)26.6 %Jcxxmt28.5-60.0[facility] Comment on above:Performed By: #### MG, FT3, T4, CMP, TSH #### [facility] [address] [place] [address] Morgan KarenMANUAL DIFF REQNONormalThe White HospitalComment on above: Performed By: #### MG, FT3, T4, CMP, TSH #### [facility] [address] [place] [address] Morgan KarenMCH (RBC) [Entitic mass]21.8 pgCritically low26.7-34.0The [facility] HospitalComment on above:Performed By: #### MG, FT3, T4, CMP, TSH #### [facility] [address] [place] [address] Morgan LuongHC (RBC) [Mass/Vol]29.4 g/dLCritically low29.9-35.2The [facility] HospitalComment on above:Performed By: #### MG, FT3, T4, CMP, TSH #### [facility] [address] [place] [address] Morgan LuongMCV (RBC) [Entitic vol]74.3 fLCritically low81.0-99.0The [facility] HospitalComment on above:Performed By: #### MG, FT3, T4, CMP, TSH #### [facility] [address] [place] [address] Morgan LuongMONO #0.6 103/ulNormal0.3-0.8The [facility] HospitalComment on above: Performed By: #### MG, FT3, T4, CMP, TSH #### [facility] [address] [place] [address] Morgan KarenMonocytes/100 WBC (Bld)10.3 %Normal1.7-12.0[facility] Comment on above:Performed By: #### MG, FT3, T4, CMP, TSH #### [facility] [address] [place] [address] Morgan MaenNEUT #3.6 103/ulNormal1.4-6.5The [facility] HospitalComment on above: Performed By: #### MG, FT3, T4, CMP, TSH #### [facility] [address] [place] [address] Morgan KarenNeutrophils/100 WBC (Bld)59.0 %Qarwht34.0-75.0[facility] Comment on above:Performed By: #### MG, FT3, T4, CMP, TSH #### [facility] [address] [place] [address] Morgan KarenPlatelet mean volume (Bld) [Entitic vol]9.1 fLCritically low9.5-13.5 The [facility] HospitalComment on above:Performed By: #### MG, FT3, T4, CMP, TSH #### [facility] [address] [place] [address] Morgan FfsdwLFV734 103/beXezgnh808-816Nxw [facility] on above: Performed By: #### MG, FT3, T4, CMP, TSH #### [facility] [address] [place] [address] Morgan KarenRBC4.40 106/ulNormal4.20-5.40The [facility] HospitalCommclaren caro region on above: Performed By: #### MG, FT3, T4, CMP, TSH #### [facility] [address] [place] [address] Morgan KarenWBC6.1 103/ulNormal4.0-11.0The [facility] HospitalCommclaren caro region on above: Performed By: #### MG, FT3, T4, CMP, TSH #### [facility] [address] [place] [address] Morgan KarenFERRITINon 14-07-5939Xjcxbikj [Mass/Vol]6.0 ng/mLCritically low 6.2-137.0The [facility] on above:Performed By: #### FERR, IRON, VITAD, VITB12 #### [facility] [address] [place] [address] Morgan KarenFREE T3on 27-81-2038DHBQ T33.19 pg/mlLNormal2.77-5.27The [facility] on above:Performed By: #### MG, FT3, T4, CMP, TSH #### [facility] [address] [place] [address] Morgan KarenGLYCOHEMOGLOBIN A1Con 11-07-2930FUI RECOMMENDATIONADA THERAPEUTIC TARGET 6.0 - 7.0 ACTION SUGGESTED > 7.0NormRegional Medical CenterComment on above:Performed By: #### CBC #### [facility] [address] [place] [address] Morgan KarenGlucose [Mass/Vol]111 mg/dLNormRegional Medical CenterComment on above:Performed By: #### CBC #### [facility] [address] [place] [address] Morgan NkspeZmK3a (Bld) [Mass fraction]5.5 %Normal<=6.0[facility] Comment on above:Performed By: #### CBC #### [facility] [address] [place] [address] Morgan KarenIRONon 21-97-4468Sujv [Mass/Vol]23.0 ug/dLCritically low37.0-170.0 The White HospitalComment on above:Performed By: #### CBC #### [facility] [address] [place] [address] Morgan KarenMAGNESIUMon 59-49-7715Rbczjfvel [Mass/Vol]2.1 mg/dLNormal1.6-2.3The [facility] HospitalComment on above:Performed By: #### MG, FT3, T4, CMP, TSH #### [facility] [address] [place] [address] Morgna KarenPROF 14(COMP METB)on 42-22-0823Ypbamvr [Mass/Vol]3.4 g/dLCritically low3.5-5.0[facility] HospitalComment on above:Performed By: #### CBC #### [facility] [address] [place] [address] Morgan KarenAlbumin/Globulin [Mass ratio]0.8 {ratio}NormalWvumedicine Barnesville Hospital Comment on above:Performed By: #### CBC #### [facility] [address] [place] [address] Morgan KarenALP [Catalytic activity/Vol]73 U/EOdynxr44-822WifWvumedicine [facility]ville Hospital Comment on above:Performed By: #### CBC #### [facility] [address] [place] [address] Morgan KarenALT [Catalytic activity/Vol]22 U/LNormal9-52[facility] Comment on above:Performed By: #### CBC #### [facility] [address] [place] [address] Morgan KarenAnion gap [Moles/Vol]11.3 mmol/LNormalThe White HospitalComment on above:Performed By: #### CBC #### [facility] [address] [address] Morgan KarenAST [Catalytic activity/Vol]13 U/LCritically njv88-67Mih White HospitalComment on above:Performed By: #### CBC #### [facility] [address] [address] Morgan KarenBilirubin [Mass/Vol]0.4 mg/dLNormal0.2-1.3TKindred Healthcare Comment on above:Performed By: #### CBC #### [facility] [address] [address] Morgan KarenCalcium [Mass/Vol]8.9 mg/dLNormal8.4-10.2[facility] Comment on above:Performed By: #### CBC #### [facility] [address] [address] Morgan KarenChloride [Moles/Vol]105 mmol/DKgdpjo19-736Agr [facility] Comment on above:Performed By: #### CBC #### [facility] [address] [address] Morgan KarenCO2 [Moles/Vol]29.5 mmol/SGvnauv69.0-30.0[facility] Comment on above:Performed By: #### CBC #### [facility] [address] [address] Morgan KarenCreatinine [Mass/Vol]0.78 mg/dLNormal0.52-1.04[facility] Comment on above:Performed By: #### CBC #### [facility] [address] [address] Morgan KarenEGFR-AF PITCAIRN ISLANDER>60Normal>=60The [facility] HospitalComment on above: Performed By: #### CBC #### [facility] [address] [address] Morgan KarenEGFR-NON AF PITCAIRN ISLANDER>60Normal>=60The [facility] HospitalComment on above:Performed By: #### CBC #### [facility] [address] [address] Morgan KarenGlobulin (S) [Mass/Vol]4.1 g/dLNormRegional Medical CenterComment on above:Performed By: #### CBC #### [facility] [address] [address] Morgan KarenGlucose [Mass/Vol]91 mg/tFWyghaz76-982Nzt White HospitalComment on above:Performed By: #### CBC #### [facility] [address] [address] Morgan KarenPotassium [Moles/Vol]4.8 mmol/LNormal3.4-5.0[facility] Comment on above:Performed By: #### CBC #### [facility] [address] [place] [address] Morgan KarenProtein [Mass/Vol]7.5 g/dLNormal6.1-8.2The [facility] HospitalComment on above:Performed By: #### CBC #### [facility] [address] [place] [address] Morgan KarenSodium [Moles/Vol]141 mmol/YGgycpl721-175Cbz [facility] Comment on above:Performed By: #### CBC #### [facility] [address] [place] [address] Morgan KarenUrea nitrogen [Mass/Vol]11.0 mg/dLNormal7.0-17.0The [facility] HospitalComment on above:Performed By: #### CBC #### [facility] [address] [place] [address] Morgan KarenUrea nitrogen/Creatinine [Mass ratio]14.1 mg/mgNormRegional Medical CenterCommclaren caro region on above:Performed By: #### CBC #### [facility] [address] [place] [address] Morgan DbhzfO0fz 09-69-3071J2 [Mass/Vol]8.40 ug/dLNormal5.53-11.00The [facility] HospitalComment on above:Performed By: #### CBC #### [facility] [address] [place] [address] Morgan RobbHon 76-86-0796XRR0.005 uIU/mLNormal0.470-4.680The [facility] on above:Performed By: #### MG, FT3, T4, CMP, TSH #### [facility] [address] [place] [address] Morgan MaenTSH RANGESEE [facility] HospitalCommclaren caro region on above:Result Comment: <0.34 UIU/ml HYPERTHYROID 0.34-5.60 UIU/ml EUTHYROID >5.60 UIU/ml HYPOTHYROIDPerformed By: #### MG, FT3, T4, CMP, TSH #### [facility] [address] [place] [address] Morgan LuongVITAMIN B12on 29-66-1304Yueqnrzln (Vitamin B12) [Mass/Vol]234.0 pg/mLCritically ijz552.0-931.0The [facility] on above:Performed By: #### FERR, IRON, VITAD, VITB12 #### [facility] [address] [place] [address] Morgan MaenVITAMIN D 25 OHon [id number] D 25-OH5.2 ng/mLNormalOhioHealth Dublin Methodist Hospital on above:Performed By: #### CBC #### [facility] [address] [place] [address] Morgan MaenVIT D RANGESSEE [facility] HospitalCommclaren caro region on above: Result Comment: <20 ng/mL Vit D deficient 20 - <30 ng/mL Vit D insufficient 30 - 100 ng/mL Vit D sufficient >100 ng/mL Potential ToxicityPerformed By: #### CBC #### [facility] [address] [place] [address] Morgan MaenEBV EARLY ANTIGEN (IgG)on 77-69-4757ZJD Early Antigen Ab, IgG56.8 U/mLCritically high0.0-8.9[facility] on above:Result Comment: Hepatitis A, Hepatitis C and HIV antibodies may cross-react with this assay. Negative < 9.0 Equivocal 9.0 - 10.9 Positive >10.9Performed By: #### EBVEARL #### [facility] [address] [place] [address] Morgan MaenEPSTEIN-TRINIDAD VIRUS (EBV) AB PROFILEon 56-74-9384PNR Ab VCA, TyC052.0 U/mLCritically high0.0-17.9The [facility] on above:Result Comment: Negative <18.0 Equivocal 18.0 - 21.9 Positive >21.9Performed By: #### CBC #### [facility] [address] [place] [address] Morgan KarenEBV Ab VCA, IgM<36.5Hvgoiu8.0-35.9The [facility] on above:Result Comment: Negative <36.0 Equivocal 36.0 - 43.9 Positive >43.9Performed By: #### CBC #### [facility] [address] [place] [address] Morgan MaenEBV Nuclear Antigen Ab, IgG97.1 U/mLCritically high0.0-17.9The [facility] on above:Result Comment: Negative <18.0 Equivocal 18.0 - 21.9 Positive >21.9Performed By: #### CBC #### [facility] [address] [place] [address] Morgan KarenInterpretation:CommentNormalThe [facility] on above: Result Comment: EBV Interpretation Chart [...] antibodies to EBNA.Performed By: #### CBC #### [facility] [address] [place] [address] Morgan KarenCBC AUTO DIFFon [id number] #0.0 103/ulNormal0.0-0.1The [facility] HospitalComment on above:Performed By: #### CBC #### [facility] [address] [place] [address] Morgan KarenBasophils/100 WBC (Bld)0.4 %Normal0.2-2.0[facility] Comment on above:Performed By: #### CBC #### [facility] [address] [place] [address] Morgan KarenEO #0.1 103/ulNormal0.0-0.7The [facility] HospitalComment on above: Performed By: #### CBC #### [facility] [address] [place] [address] Morgan KarenEosinophils/100 WBC (Bld)0.9 %Normal0.9-7.0[facility] Comment on above:Performed By: #### CBC #### [facility] [address] [place] [address] Morgan KarenErythrocyte distribution width (RBC) [Ratio]17.3 %Critically high 11.0-15.0[facility] HospitalComment on above:Performed By: #### CBC #### [facility] [address] [place] [address] Morgan KarenHematocrit (Bld) [Volume fraction]31.2 %Critically low36.0-48.0The [facility] HospitalComment on above:Performed By: #### CBC #### [facility] [address] [place] [address] Morgan KarenHemoglobin (Bld) [Mass/Vol]8.9 g/dLCritically low12.0-16.0[facility] HospitalComment on above:Performed By: #### CBC #### [facility] [address] [place] [address] Morgan KarenIG #0.02 10e3/ulNormal0.00-0.03The [facility] HospitalComment on above:Performed By: #### CBC #### [facility] [address] [place] [address] Morgan KarenIG %0.2 %Normal0.0-0.5The [facility] HospitalComment on above: Performed By: #### CBC #### [facility] [address] [place] [address] Morgan LuongLYMPH #3.9 103/ulCritically high1.2-3.8The [facility] HospitalComment on above:Performed By: #### CBC #### [facility] [address] [place] [address] Morgan LuongLymphocytes/100 WBC (Bld)42.5 %Uqeiju63.5-60.0[facility] Comment on above:Performed By: #### CBC #### [facility] [address] [place] [address] Morgan LuongMANUAL DIFF REQNONormalThe White HospitalComment on above: Performed By: #### CBC #### [facility] [address] [place] [address] Morgan MaenMCH (RBC) [Entitic mass]21.3 pgCritically low26.7-34.0The [facility] HospitalComment on above:Performed By: #### CBC #### [facility] [address] [place] [address] Morgan MaenMCHC (RBC) [Mass/Vol]28.5 g/dLCritically low29.9-35.2The [facility] HospitalComment on above:Performed By: #### CBC #### [facility] [address] [place] [address] Morgan LuongMCV (RBC) [Entitic vol]74.8 fLCritically low81.0-99.0The [facility] HospitalComment on above:Performed By: #### CBC #### [facility] [address] [place] [address] Morgan LuongMONO #0.8 103/ulNormal0.3-0.8The [facility] HospitalComment on above: Performed By: #### CBC #### [facility] [address] [place] [address] Morgan KarenMonocytes/100 WBC (Bld)8.4 %Normal1.7-12.0[facility] Comment on above:Performed By: #### CBC #### [facility] [address] [place] [address] Mogran TrippUT #4.4 103/ulNormal1.4-6.5The [facility] HospitalComment on above: Performed By: #### CBC #### [facility] [address] [place] [address] Morgan Tripputrophils/100 WBC (Bld)47.6 %Xioejw80.0-75.0[facility] Comment on above:Performed By: #### CBC #### [facility] [address] [place] [address] Morgan LuongPlatelet mean volume (Bld) [Entitic vol]10.2 fLNormal9.5-13.5The [facility] HospitalComment on above:Performed By: #### CBC #### [facility] [address] [place] [address] Morgan MaZxcbtKAJ969 103/ulCritically hyzx562-135Ekp White HospitalComment on above:Performed By: #### CBC #### [facility] [address] [place] [address] Morgan MaenRBC4.17 106/ulCritically low4.20-5.40The [facility] HospitalComment on above:Performed By: #### CBC #### [facility] [address] [place] [address] Morgan MaenWBC9.2 103/ulNormal4.0-11.0The [facility] HospitalComment on above: Performed By: #### CBC #### [facility] [address] [place] [address] Morgan Luong Vital Signs Date TimeVital SignValuePerforming QgkkpmjptAvntchqp98-29-0172 09:39-0500 Diastolic blood mm[Hg]Madi Truong DO Work Phone: [facility] Cvolvl95-27-7765 09:39-0500Heart rate 83 /minKevin Dankert DO Work Phone: [facility]11-03-2025 09:39-0500 Respiratory rate18 /minMadi Charleskert DO Work Phone: [facility]11-03-2025 09:39-0500Systolic blood oekwxllf047 mm[Hg]Madi Truong DO Work Phone: [facility]10-06-2025 10:22-0400Body .61 cmAvi Weber MD Work Phone: [phone]10-06-2025 10:22-0400 Body mass index (BMI) [Ratio]38.2 kg/e7SkxkowgAvi Weber MD Work Phone: [phone])[address] [place], [place] 5061210-06-2025 10:22-0400 Body yajxdn868.4 kgAvi Weber MD Work Phone: [phone])[address] [place], [place] 5061210-06-2025 10:22-0400 Diastolic blood kbvnxgoh42 mm[Hg]Avi Weber MD Work Phone: [phone] [place], [place] 5061210-06-2025 10:22-0400 Heart rate80 /Niurka Weber MD Work Phone: [phone])[address] [place], [place] 5061210-06-2025 10:22-0400 Respiratory rate18 /Niurka Weber MD Work Phone: [phone] [place], [place] 506[address]10-06-2025 10:22-0400 SaO2% (BldA) [Mass fraction]98 %Avi Weber MD Work Phone: [phone] [place], [place] 5061210-06-2025 10:22-0400 Systolic blood kmlvwuns339 mm[Hg]Avi Weber MD Work Phone: [phone] [place], [place] 5061209-25-2025 10:44-0400 Body .2 cmJonivin Dankert DO Work Phone: [facility]09-25-2025 10:44-0400Body mass index (BMI) [Ratio]40.09 kg/r4Hjjye Dankert DO Work Phone: [facility]09-25-2025 10:44-0400Body mststy790.12 kgKevin Dankert DO Work Phone: [facility]08-05-2025 09:47-0400Body .9 cmAvi Weber MD Work Phone: [phone] [place], [place] [address]46[address]08-05-2025 09:47-0400 Body mass index (BMI) [Ratio]38.9 kg/v7LphotduAvi Weber MD Work Phone: [phone]08-05-2025 09:47-0400 Body .35 kgAvi Weber MD Work Phone: [phone])[address] [place], [place] 5061208-05-2025 09:47-0400 Diastolic blood fadumlmj10 mm[Hg]Avi Weber MD Work Phone: 1(697)729-[address] [place], [place] [address]46[address]08-05-2025 09:47-0400 Heart rate75 /Niurka Weber MD Work Phone: [phone])[address]08-05-2025 09:47-0400 Respiratory rate18 /Niurka Weber MD Work Phone: [phone])[address] [place], [place] 506[address]08-05-2025 09:47-0400 SaO2% (BldA) [Mass fraction]99 %Avi Weber MD Work Phone: [phone] [place], [place] [address]46[address]08-05-2025 09:47-0400 Systolic blood vyyolzbh974 mm[Hg]Avi Weber MD Work Phone: [phone])[address]06-30-2025 10:37-0400 Diastolic blood imrsvtbk98 mm[Hg]Madi Charleskert DO Work Phone: [facility]06-30-2025 10:37-0400Heart rate 82 /minMadi Dankert DO Work Phone: [facility]06-30-2025 10:37-0400 Respiratory rate16 /Leonid Thomast DO Work Phone: [facility]06-30-2025 10:37-0400Systolic blood ncbektpw785 mm[Hg]Madi Truong DO Work Phone: [facility]05-30-2025 10:43-0400Body vzsuqe707.9 [facility]05[facility]20[facility] 10:43-0400Body mass index (BMI) [Ratio]39.6 kg/c3JacwotvjhWestern Reserve Hospital05-30-2025 10:43-0400Body .4 kgWestern [facility]05-30-2025 10:43-0400Diastolic blood fyvsolmn75 mm[Hg][facility] 11-11-2024 10:43-0400Heart rate88 /[place] 11-11-2024 10:43-0400Respiratory rate18 /[place] 11-11-2024 10:43-4496YwH7% (BldA) [Mass fraction]97 %[facility]05-30-2025 10:43-0400Systolic blood licnhmfc130 mm[Hg][facility]05-07-2025 07:59-0400Body .2 cmMadi Charleskert DO Work Phone: [facility]05-07-2025 07:59-0400Body mass index (BMI) [Ratio]40.09 kg/c8Gwmsh Dankert DO Work Phone: [facility]05-07-2025 07:59-0400Body dqjeah797.12 kgMadi Dankert DO Work Phone: [facility]04-15-2025 14:11-0400Body aqsmmp328.91 cm[facility]04-15-2025 14:11-0400Body mass index (BMI) [Ratio]40.4 kg/e2EmyljljhjWestern Reserve Hospital04-15-2025 14:11-0400Body usrutb712.52 [facility]03-21-2025 10:03-0400Body cfbpuw653.91 cmWestern [facility]03-21-2025 10:03-0400Body mass index (BMI) [Ratio]40.8 kg/h1DyjwlpnmvWestern Reserve Hospital03-21-2025 10:03-0400Body .6 [facility] 09-02-2024 10:03-0400Diastolic blood xzamingd08 mm[Hg][facility]03-21-2025 10:03-0400Heart rate78 /[place] 09-02-2024 10:03-0400Respiratory rate18 /[place] 09-02-2024 10:03-9332CdR2% (BldA) [Mass fraction]96 %[facility]03-21-2025 10:03-0400Systolic blood mm[Hg][facility]01-16-2025 13:41-0500Body wuihes224.91 cmWestern [facility] Hospital01-16-2025 13:41-0500Body mass index (BMI) [Ratio]41.5 kg/m2 [facility]01-16-2025 13:41-0500Body jatpgz443.41 kg [facility]01-16-2025 13:41-0500Diastolic blood qmerpsew39 mm[Hg][facility]01-16-2025 13:41-0500Heart ujjy760 /min [facility]01-16-2025 13:41-0500Respiratory rate18 /min [facility]01-16-2025 13:41-8503GdE6% (BldA) [Mass fraction]100 %[facility]01-16-2025 13:41-0500Systolic blood mm[Hg][facility]05-09-2024 10:57-0400 Body mass index (BMI) [Ratio]40.09 kg/g3VnrwinVitaliy Godlberg MD Work Phone: [facility] SystemHuoli Scwjmt05-35-2669 10:57-0400Body jvdeqd755.12 Jacoby Goldberg MD Work Phone: [facility] Linux Voice Edflhw80-64-5521 10:57-0400Diastolic blood mm[Hg]Vitaliy Goldberg MD Work Phone: [facility]05-09-2024 10:57-0400Heart rate 101 /minVitaliy Goldberg MD Work Phone: [facility]05-09-2024 10:57-0400 Respiratory rate15 /minVitaliy Goldberg MD Work Phone: [facility]05-09-2024 10:57-0400Systolic blood crnmkboe452 mm[Hg]Vitaliy Goldberg MD Work Phone: [facility]11-17-2021 14:30-0500Body apilvt365.96 kgCamchristo Samson Other Bearden Broota Other Encounters Encounter DateEncounter TypeCare ProviderFacilityStart: 04-26-2025 End: 19-51-3550cstwvqdokeTRGUXKOJFK [facility] Start: 04-20-2025 End: 00-71-3382Efckseotk encounterMadi Truong DO Work Phone: [facility] Physical Medicine and RehabilitationStart: 04-20-2025 End: 17-00-6832Jdfbzyphk department patient visitDORAPHAEL Torres [facility] HospitalStart: 04-17-2025 End: 42-57-0815Nzqjlao encounter procedureMadi Truong DO Work Phone: [facility] Physical Medicine and RehabilitationComment on above:Lumbar spondylosis (Primary Dx)Start: 04-17-2025 End: 55-14-3485acrdsxyivnUUVWNHalina Robles [facility] HospitalStart: 03-20-2025 End: 84-10-4349couofdbbulCulgwer M Hoy MD Work Phone: [facility] Work Phone: Start: 03-20-2025 End: 44-52-6344Ktdkptz encounter procedureRadha Bradshaw [facility] Work Phone: Start: 03-09-2025 End: 19-70-4567Dlrxrb outpatient visit 25 minutesMadi Truong DO Work Phone: [facility] Physical Medicine and RehabilitationComment on above:Bilateral hip pain (Primary Dx); Lumbar spondylosis; Neck painStart: 03-09-2025 End: 21-15-8565kzruwoumgpMZKBB R DANKERTPMarcoica Omaha HospitalStart: 01-17-2025 End: 61-67-5359mwgcrjrentRpnmkmm M Hoy MD Work Phone: [facility] Work Phone: Start: 01-17-2025 End: 86-15-3644Xlicxnx encounter procedureRadha Bradshaw [facility] Work Phone: Start: 12-12-2024 End: 16-99-1954Twcjmku encounter Danny Truong DO Work Phone: [facility] Phys[facility] Physical Medicine and RehabilitationComment on above:Sacroiliac pain (Primary Dx)Start: 12-12-2024 End: 81-92-7584gbrzkxhzobNNPTA R DANKERTProMedica Omaha HospitalStart: 11-24-2024 End: 55-82-0551reyfqfexslVOACS R DANKERTProMedica Glenpool HospitalStart: 11-11-2024 End: 28-50-1739nddpvpmvblDddqdpalqSamaritan Hospital Work Phone: Start: 11-11-2024 End: 77-77-9859Mccbczn encounter procedurePatriciawaukeshalouie [facility] Work Phone: Start: 10-19-2024 End: 81-26-4618Snlxlg consultation new/estab patient 60 minMadi Truong DO Work Phone: [facility] Physical Medicine and RehabilitationComment on above:Sacroiliac pain (Primary Dx); Lumbar radiculopathyStart: 10-19-2024 End: 82-80-1334ixepeojrlwQFRYQ R ДМИТРИЙTProMedTriHealth Bet[facility] Hospital HospitalStart: 10-18-2024 End: 05-30-2896Bjqhkc OnlyDebra A Businger CMAProMedica Physicians Physical Medicine and RehabilitationComment on above:Low back pain, unspecified back pain laterality, unspecified chronicity, unspecified whether sciatica present (Primary Dx)Start: 09-27-2024 End: 68-18-0892fijthfcmoxWekncwermParkview Health Work Phone: Start: 09-27-2024 End: 86-90-2449Ltuvmwt [facility] Work Phone: Start: 09-02-2024 End: 96-59-2796dxlenvsjgpPovmagnwoParkview Health Work Phone: Start: 09-02-2024 End: 17-14-2262Vxigiqv encounter procedureAs[facility] Physician [facility] Work Phone: Start: 06-30-2024 End: 60-36-7466Owehktk encounter procedureAs[facility] Physician [facility] Work Phone: Start: 06-22-2024 End: 89-28-6992Xzubyqw encounter procedureAs[facility] Physician [facility] Work Phone: Start: 06-19-2024 End: 04-23-3742Jgjsonnvb department patient visitDOUGLAS M HOYPAdventHealth Parker HospitalStart: 05-18-2024 End: 24-44-5370umifmuxfzfYENBHNF SCALLYPAdventHealth Parker HospitalStart: 05-09-2024 End: 20-15-0828Veunpa flowsheetNicole Kristin DO Work Phone: [facility] NEUROStart: 05-09-2024 End: 10-99-8315Inzytw flowsheetNicole Kristin DO Work Phone: [facility] NEUROStart: 05-09-2024 End: 43-26-7732Smagenb encounter procedureNicole Kristin DO Work Phone: [facility] NE NEUROComment on above:Sacral radiculopathy (Primary Dx); Numbness and tinglingStart: 05-09-2024 End: 34-63-7657zvchjezevkTQZFJX DANNERNot AvailableStart: 04-14-2024 End: 33-81-0109Ifrenq flowsheetChristopher Payton DO Work Phone: [facility] NEUROLOGYStart: 04-14-2024 End: 34-85-1766Xqioks flowsheetChristopher Payton DO Work Phone: [facility] NEUROLOGYStart: 04-14-2024 End: 11-00-7975Fafhmvp encounter procedureChristopher Payton DO Work Phone: [facility] ST NEUROLOGYComment on above:Cervical radiculopathy (Primary Dx)Start: 04-14-2024 End: 83-95-9438oxfittflglETHVXJHRNPD HASSETTNot AvailableStart: 04-11-2024 End: 08-94-1331Bpndfvr encounter procedureMD Avi Weber Work Phone: [facility] [address] Work Phone: Start: 04-11-2024 End: 05-16-6377nsfmlcqpgdKR Avi Weber Work Phone: [facility] Work Phone: Start: 10-22-2023 End: 33-96-7996Kpilct outpatient visit 25 minutesVitaliy Goldberg MD Work Phone: [facility] RheumatologyComment on above: FibromyalgiaStart: 78-31-0816HiolziScihlc Mustafa MD Work Phone: [facility] RheumatologyComment on above: Vitamin D deficiencyStart: 05-16-2021 End: 71-75-8485lmngkkbnsbDH SHASHANK JAUREGUIKFacility:B9Rwnga: 05-07-2021 End: 40-10-8741zzpemlojgxDD SHASHANK SETHFacility:H0Halup: 05-01-2021 End: 32-26-1232mzjlbihlqeFfrxxvn Ditty Other Bearden Broota Other Start: 73-42-1565Xowloxt encounter procedureCamchristo FernandezsophyyFPG GastroenterologyStart: 10-19-2020 End: 61-65-8988agksjdmghkBE AVI HOYFacility:G8Mzzph: 10-10-2020 End: 97-30-0696tbnqvpsoegEF AVI HOYFacility:P8Lwjts: 09-14-2020 End: 10-92-0769aveepviikjXB AVI HOYFacility:V3Fxajp: 09-07-2020 End: 12-61-8326kzutyamubpMI AVI HOYFacility:G1Svzvx: 09-05-2020 End: 81-43-6670ofyvcivlizWE AVI HOYFacility:H1 Procedures DateProcedureProcedure DetailPerforming ClinicianStart: 72-05-9896Kjhyjl-up visitFollow-upMADI THOMASTStart: 05-09-2024 End: 38-20-8547Kcxvzs emg ea extremty w/paraspinl area completeNicole Kristin DO Work Phone: Start: 04-14-2024 End: 84-46-5892Pophsa emg ea extremty w/paraspinl area completeChristopher Payton DO Work Phone: Start: 74-26-3691Tjmgywipsaa observation [Identifier] in Cervix by Cyto Terry Goldberg MD Work Phone: Plan of Treatment DateCare ActivityDetailAuthorStart: 01-42-3482EKxJ,Tdap and Td Vaccines (2 - Td or Tdap)DTaP,Tdap and Td Vaccines (2 - Td or Tdap)[facility] Linux Voice SystemStart: 34-09-0908Ekjie BMI ScreeningAdult BMI ScreeningProMedica Health SystemStart: 21-84-4578Unuhsup ScreeningTobacco ScreeningCorey Hospital SystemStart: 36-65-5617Xjwkp BMI ScreeningAdult BMI ScreeningCorey Hospital SystemStart: 53-34-9713Ehjlo BMI ScreeningAdult BMI ScreeningProCherrington Hospitaltart: 10-04-2025 End: 23-96-9114Spcfkgc encounter xykbqpkbf32/22/2026 9:15 AM EDT Office Visit [facility] [address] [place] [address] Madi Truong DO [address] [place] [address] [facility] Medicine and RehabilitationStart: 82-34-5035Quwtfxm ScreeningTobacco ScreeningCorey Hospital SystemStart: 05-15-2025 End: 92-43-0830Yynxtzi encounter procedureProMedica Physicians Physical Medicine and RehabilitationStart: 05-01-2025 End: 45-84-3296Xutnnou encounter procedureProMedica Physicians Physical Medicine and RehabilitationStart: 03-09-2025 End: 91-84-9380CF Guidance for injection of Lumbar spineFluoroscopy AMB lumbar medial branch block Imaging Routine Lumbar spondylosis Expected: 03/09/2025, Expires: 03/09/2026[facility] Work Phone: Comment on above:Expected: 03/09/2025, Expires: 03/09/2026Start: 03-09-2025 End: 86-06-4845AC Less than 1 hourFluoroscopy AMB lumbar RFA Imaging Routine Lumbar spondylosis Expected: 03/09/2025, Expires: 03/09/2026ProCommunity Regional Medical CenterComment on above:Expected: 03/09/2025, Expires: 03/09/2026Start: 03-09-2025 End: 25-12-4595JR Cervical spine ViewsProCommunity Regional Medical CenterComment on above: Expected: 03/09/2025, Expires: 03/09/2026Start: 03-09-2025 End: 81-23-8601Qywnxos encounter bpezfgfmq87/25/2025 10:45 AM EDT Office Visit [facility] [address] [facility] [address] [place] [address] Madi Truong, DO [address] [facility] [address] [place] [address] [facility] Medicine [facility] RehabilitationStart: 53-36-3027Qjluqnwcs vaccinationInfluenza VaccineAtrium Health Lincolntart: 39-33-3899Qesio BMI ScreeningAdult BMI ScreeningAtrium Health Lincolntart: 10-19-2024 End: 54-95-3995OJ Lumbar spine WO contrastMR lumbar spine without contrast Imaging Routine Lumbar radiculopathy Sacroiliac pain Expected: 10/19/2024, Expires: 10/19/2025[facility] HospitalComment on above:Expected: 10/19/2024, Expires: 10/19/2025Start: 10-19-2024 End: 08-65-3552HK Guidance for injection of Sacroiliac JointFluoroscopy AMB sacroiliac joint inj Imaging Routine Sacroiliac pain Expected: 10/19/2024, Expires:10/19/2025[facility] Work Phone: Comment on above:Expected: 10/19/2024, Expires: 10/19/2025Start: 10-19-2024 End: 92-94-3485Sbvmecu encounter gvbuihbnf55/07/2025 8:00 AM EDT Office Visit [facility] [address] [facility] [address] [place] [address] Madi Truong DO [address] [facility] [place] [address] [facility] RehabilitationStart: 10-18-2024 End: 43-37-8475LA Lumbar spine 2 or 3 ViewsX-ray spine lumbar 2 or 3 views Imaging Routine Low back pain, unspecified back pain laterality, unspecified chronicity, unspecified whether sciatica present Expected: 10/18/2024, Expires: 10/18/2025[facility] Work Phone: Comment on above:Expected: 10/18/2024, Expires: 10/18/2025Start: 05-09-2024 End: 90-82-0584Ygxpuqh encounter wfwvrttky49/25/2024 11:00 AM EST Procedure Visit [facility] [address] [place] [address] Chanel Foster DO [address] [place] [address] ArrivedNOAL CLAIRE NEUROComment on above:ArrivedStart: 04-28-2024 End: 28-00-7222Fwwwdud encounter ltxaiapbw39/14/2024 11:30 AM EST Office Visit [facility] [address] [facility] [address] [place] [address] Vitaliy Goldberg MD [address] [facility] [address] [place] [address] [facility] RheumatologyStart: 93-41-3058Quilh BMI ScreeningAdult BMI ScreeningProKettering Health – Soin Medical Centerca Health SystemStart: 50-15-2473Zndmzcx ScreeningTobacco ScreeningProKettering Health – Soin Medical Centerca [facility] SystemStart: 04-14-2024 End: 79-64-8199Recairt encounter wsjwukakx53/31/2024 12:00 PM EDT Procedure Visit [facility] [address] [facility] [address] [place] [address] [place], [address] [place] [address] ArrivedSAROJAL NEUROLOGYComment on above: ArrivedStart: 60-69-7008Fzisopyu to Scl-70 [facility] Hospitaltart: 25-06-2816Hpdzsvkgq complement CH50 [facility] Hospitaltart: 25-63-4991QIL antibody measurementCherrington Hospitaltart: 65-91-9644ZrysqcovfCherrington Hospitaltart: 39-10-3992Bxicglrbx vaccinationInfluenza VaccineCorey Hospital SystemStart: 10-22-2023 End: 41-99-4538Ltisjgh encounter hjvjhopun66/09/2024 10:45 AM EDT Office Visit [facility] [address] [place] [address] Vitaliy Goldberg MD [address] [address] [facility] RheumatologyStart: 17-10-9443Tvoekdpwh vaccinationInfluenza VaccineCorey Hospital SystemStart: 02-39-9779Gkzhzqkag for malignant neoplasm of cervixPap SmearProOhio State University [facility] Medical Center SystemStart: 48-38-0607ZWkE,Tdap and Td Vaccines (1 - Tdap)DTaP,Tdap and Td Vaccines (1 - Tdap)[facility] Linux Voice SystemStart: 50-23-9072Zgycu BMI Follow Up PlanAdult BMI Follow Up PlanCorey Hospital SystemStart: 52-90-0696Lttoirixed ScreeningDepression ScreeningGalion Community HospitalAldolase measurement Western Reserve HospitalChromatin Ab [Units/volume] in Serum or Plasma [facility] HospitalComplement C3 [Mass/volume] in Serum or Plasma [facility] HospitalComplement C4 [Mass/volume] in Serum or Plasma [facility] HospitalComprehensive metabolic 2000 panel - Serum or PlasmaWestern Reserve HospitalHomogenous nuclear Ab pattern [Titer] in SerumWestern Reserve HospitalLupus anticoagulant [Interpretation] in Platelet poor plasmaWestern Reserve HospitalNuclear Ab [Titer] in Serum [facility] HospitalReagin Ab [Presence] in Serum by RPCrystal Clinic Orthopedic CenterThrombin timeWestern Reserve Hospital Thyroglobulin Ab [Units/volume] in Serum or PlasmaWestern Reserve HospitalThyroperoxidase Ab [Units/volume] in Serum or PlasmaFirUF Health Shands Children's Hospital Immunizations Immunization DateImmunizationNotesCare BfhvswcePogdedji20-12-7495qwmyodf toxoid, reduced diphtheria toxoid, and acellular pertussis vaccine, adsorbedElen Bush CMACorey Hospital System Payers DatePayer CategoryPayerPolicy [id number] Care HMO (unspecified)[facility] Address: [address] [address] 1..840.214245.1.13.693.2.7.9.274892.425063.17465-08-8816Bpbbgtf 1..840.227912.1.13.424.2.7.3.330412.85567-71-3312Jygxjgi3082443 2..1.038472.3.579.2.17303-38-9908Xdnhazn0305062 2..1.364050.3.579.2.72436-62-2350Cxagqgr0043982 2..1.356147.3.579.2.76436-94-5589Rmipnfg3272121 ..1.337774.3.579.2.68595-72-3932Ybgmyaa9696285 2..1.551686.3.579.2.67149-30-9736Ejqzkli3013495 2..1.682962.3.579.2.27944-68-8614Oceqwly7952333 2..1.034490.3.579.2.01285-51-1095Nrskolb9369319 2..1.361851.3.579.2.612506-04-4432Qzxijch7810295 2..1.815877.3.579.2.238772-46-5745Vwbsvnr938312056 2..1.078557.3.579.2.197794-35-6852Lawmqow512425678 2..1.059548.3.579.2.132585-41-7396Cahjfbt340926773 2..1.816027.3.579.2.451324-41-7161Bmlejuk163102956 2..1.794692.3.579.2.120798-19-2180Dvvxoim603901544 2..1.520372.3.579.2.844944-23-2603Tcrhxwe833618049 2..1.655897.3.579.2.870598-97-3592Vuslgic675651308 2..1.454540.3.579.2.450778-71-3212Jnsxmeg28957581 2..1.179836.3.579.2.275575-91-3313Avqupvh633699215 2..1.822197.3.579.2.893288-44-7521Hvcrspr859933703 2..1.778981.3.579.2.443802-82-7919Proohaa040694843 2.0.1.260493.3.579.2.725906-52-5553Chnkbib712827160 2..1.684477.3.579.2.860777-79-6910Egwozkz240326473 2.0.1.758290.3.579.2.358051-17-4242Kkfaaae698583816 2..840.1.920930.3.579.2.092173-18-1441Owfi-[id number] MedicaidParamount [id number] 2.840.1.934510.3.579.2.531 Social History DateTypeDetailFacilityStart: 07-26-2020 End: 10-07-6214Mbh Assigned At [facility] Broota Other Start: 62-67-1805Phi Assigned At [facility] Cleveland WestTobacco smoking status NHISTobacco smoking consumption unknownBRIGHAM CITY COMMUNITY [facility]PITAL HealthcareStart: 92-67-9846Igx assigned at birthNot on fileBRIGHAM CITY COMMUNITY HOSPITAL HealthcareStart: 08-09-2019 End: 14-62-0840Wptboct smoking status NHISEx-smokerAdena Regional Medical Center Health System History of tobacco useCurrent smokerAdena Regional Medical Center Health SystemHistory of tobacco useCigarette SmokerCorey Hospital SystemStart: 90-02-0633Zbcdqwn use and exposureSmokeless tobacco non-userAdena Regional Medical Center Health SystemStart: 04-23-2023 End: 48-97-8620Mmwajtw intakeCurrent drinker of alcohol (finding)[facility] Health SystemStart: 07-26-2020 End: 19-44-7095Dehsqpl of Social functionAdena Regional Medical Center Health SystemHousing InstabilityUnknownProMedmadison hospital Health SystemStart: 63-48-5756Olicptu Comment sociallyProCullman Regional Medical Center Health SystemStart: 13-65-2995Qtkvck identityIdentifies as female gender (finding)[facility] SystemStart: 69-93-1648Asvbqz orientationHeterosexual (finding)[facility] SystemStart: 01-18-2015 End: 52-60-5234WctEgvevt (finding)[facility] Clinical Notes 10-16-2020 to 04-20-2025 Note Date & GkarKzyhAppboxrc96-46-2101 Miscellaneous Notes* Telephone Encounter - Maile Rios [...] (CC Adali with results) documented in this encounterTrinity Health SystemDemoHire Beaumont HospitalTxnzwn69-78-2994 Telephone encounter Note* Telephone Encounter - Maile [...] RFA is Scheduled. (CC Adali with results) [facility] History of Present illness Narrative* Madi Truong, [...] after the procedure. The patient (or responsible constitution party) was given post-procedure and discharge instructions to [...] of compliance with treatment. documented in this encounterGalion Community Hospital11-03-2025 Instructions* Discharge Instructions* Mayuri Ventura RN [...] or concerns please contact our office at [phone] WHEN TO SEEK IMMEDIATE MEDICAL ATTENTION Excessive bleeding at the injection site, bleeding that won't stop. Any signs of an allergic reaction, which may include: itching, hives, severe vomiting, swelling of face, lips or tongue,difficulty breathing. Have persistent numbness, tingling, or difficulty moving your arms or legs. Any new loss of bowel or bladder control. IN ORDER TO DOCUMENT YOUR RESULTS, PLEASE KARLUK THE AMOUNT OF PAIN RELIEF YOU HAD [...] your results. The number to call is [phone] between the hours of 8a.m. and 4p.m. documented in this encounterGalion Community Hospital09-25-2025 History of Present illness Narrative* Madi Truong DO - 03/09/2025 10:45 AM EDT Images from the original note were not included. [facility] [place] [address] [facility], [address] [place] [address] Patient: Justyn NewmanO.B: 1980 PCP: AVI WEBER [...] Guided by physician Physical Therapy: 1 year Generator Man: no Pain Management: Injections Prior Surgery: None Pain Score: 7/10 ASSESSMENT AND PLAN Kristei was seen today for follow-up and pain. [...] This note was completed using a voice gas system operator system. Every effort was made to ensure accuracy. However, inadvertent computerized gas system operator errors may be present. Please contactauthor for any clarification. documented in this encounterGalion Community Hospital08-05-2025 Evaluation note* Diagnosis Onset Date Resolution Status Admit Date B12 nutritional deficiency acuteAugus2024 9:42amBody mass index (BMI) of 40.1 to 44.9 in adultacute January 17, 2025 9:42amFibromyalgiaacuteAugust 2024 9:42amHypermobility syndromeacuteAugust 2024 9:42amObesityacuteAugust 2024 9:42am Postsurgical dumping syndromeacuteAugust 2024 9:42amVitamin D deficiency, unspecifiedacuteAugust 2024 9:86gaL32 nutritional deficiencyacuteOctober 2024 10:08amBody mass index (BMI) of 40.1 to 44.9 in adultacuteOctober 2024 10:08amFibromyalgiaacuteOctober 2024 10:08amHypermobility syndrome acuteOctober 2024 10:08amObesityacuteOctober 2024 10:08amPostsurgical dumping syndromeacuteOctober 2024 10:08amVitamin D deficiency, unspecified acuteOctober 2024 10:08am [facility] Work Phone: 1(697) 679-677206-30-2025 Instructions* Discharge Instructions* Martina Hammond RN - [...] Physical Medicine and Rehabilitation office immediately at [phone]. Diabetic Patients: In the case of steroid [...] your treatment. Our office phone number is [phone]. documented in this encounterTrinity Health SystemHuoli Kzigwi78-45-9954 History of Present illness Narrative* Madi Truong [...] after the procedure. The patient (or responsible constitution party) was given post-procedure and discharge instructions to [...] of compliance with treatment. documented in this encounterGalion Community Hospital05-30-2025 Evaluation note* Diagnosis Onset Date Resolution Status Admit Date B12 nutritional deficiency acuteMay 2024 10:25amBody mass index (BMI) of 40.1 to 44.9 in adultacute May 2024 10:25amFibromyalgiaacuteMay 2024 10:25amHypermobility syndromeacuteMay 2024 10:25amObesityacuteMay 2024 10:25am Postsurgical dumping syndromeacuteMa2024 10:25amVitamin D deficiency, unspecifiedacutey 2024 10:44jwW47 nutritional deficiencyacuteAugust 2024 9:42amBody mass index (BMI) of 40.1 to 44.9 in adultacuteAugust 2024 9:42amFibromyalgiaacuteAugust 2024 9:42amHypermobility syndromeacuteAugust 2024 9:42amObesityacuteAugust 2024 9:42amPostsurgical dumping syndrome acuteAu2024 9:42amVitamin D deficiency, unspecifiedacuteAugust 2024 9:42am [facility] Work Phone: 1(796) 172-873805-07-2025 History of Present illness Narrative* Madi Truong DO - 10/19/2024 8:00 AM EDT Images from the original note were not included. [facility] [place] [id number] [facility], [address] [place] [address] Patient: Justyn Newman D.O.B: 1980 PCP: AVI [...] Program: Guided by physician Physical Therapy: none Generator Man: no Pain Management: Medications Prior Surgery: None [...] Medical History: Diagnosis Date [place] ulcerative [place] Anemia Rheumatoid arthritis [place] Past Surgical History: Procedure Laterality Date BARIATRIC [...] participate in the care of your patient, Justyn Newman Thank you for the referral . If you have any questions, please do not hesitate to contact me Disclaimer: This note was completed using a voice gas system operator system. Every effort was made to ensure accuracy. However, inadvertent computerized gas system operator errors may be present. Please contactauthor for any clarification documented in this encounterGalion Community Hospital03-21-2025 Evaluation note* Diagnosis Onset Date Resolution Status Admit Date B12 nutritional deficiency acuteSeptember 02, 2024 9:41amBody mass index (BMI) of 40.1 to 44.9 in adultacute September 02, 2024 9:41amFibromyalgiaacuteAugch 2024 9:41amHypermobility syndromeacuteMarch 2024 9:41amObesityacuteMarch 2024 9:41am Postsurgical dumping syndromeacuteMarch 2024 9:41amVitamin D deficiency, unspecifiedacuteMarch 2024 9:04jcW44 nutritional deficiencyacuteMay 2024 10:25amBody mass index (BMI) of 40.1 to 44.9 in adultacuteMay 2024 10:25amFibromyalgiaacuteMay 2024 10:25amHypermobility syndromeacuteMay 2024 10:25amObesityacuteMay 2024 10:25amPostsurgical dumping syndromeacuteMay 2024 10:25amVitamin D deficiency, unspecifiedacuteMay 2024 10:25am [facility] Work Phone: 1(544) 662-734901-16-2025 Evaluation note* Diagnosis Onset Date Resolution Status Admit Date B12 nutritional deficiency acuteJanuary 2024 1:38pmBody mass index (BMI) of 40.1 to 44.9 in adult acuteJanuary 2024 1:38pmFibromyalgiaacuteJanuary 2024 1:38pm Hypermobility syndromeacuteJanuary 2024 1:38pmObesityacuteJanuary 2024 1:38pmPostsurgical dumping syndromeacuteJanuary 2024 1:38pmVitamin D deficiency, unspecifiedacuteJanuary 2024 1:38fuI03 nutritional deficiency acuteMarch 2024 9:41amBody mass index (BMI) of 40.1 to 44.9 in adultacute March 2024 9:41amFibromyalgiaacuteMarch 2024 9:41amHypermobility syndromeacuteMarch 2024 9:41amObesityacuteMarch 2024 9:41am Postsurgical dumping syndromeacuteMarch 2024 9:41amVitamin D deficiency, unspecifiedacuteMarch 2024 9:41am [facility] Work Phone: 1(484) 363-219511-25-2024 History of Present illness Narrative* Mckenzie Card MA - 05/09/2024 11:00 AM EST Images from the original note were not included. Reason for Appointment: EMG Patient: Justyn Newman : 1980 EMG Computer: [employer] 3 Referring Physician: Dr. Goodrich EMG: BLE seed technician: Mckenzie Card [facility] Office Location: [place] Reason for EMG: c/o pain, numbness, tingling in the legs and feet. L<R. Going on sevreal years. Drop foot on the left, started 6 months to a year ago. She reports back pain. No Hx of DM, not taking blood thinners. Comments: Procedure explained to the patient who expressed understanding. documented in this [facility]10-31-2024 History of Present illness Narrative* GENEVA Singh - 04/14/2024 12:00 PM EDT Images from the original note were not included. Reason for Appointment: EMG Patient: Justyn Newman : 1980 EMG Computer: [employer] 5 Referring Physician: Dr. Julian Goodrich EMG: BUE seed technician: Aiden Schaeffer RT(R) Office Location: [place] Reason for EMG: c/o numbness/tingling & weakness in bilateral hands R>L, neck pain into bilateral shoulders. No hx of DM. Not on blood thinners. Comments: Procedure was explained to the patient who expressed understanding. Patient appeared to have tolerated the test well despite some discomfort due to the nature of the test. documented in this [facility]05-09-2024 History of Present illness Narrative* Vitaliy Goldberg MD - 10/22/2023 10:45 AM EDT Images from the original note were not included. [address] [facility] [address] Date of Service: 10/22/2023 Subjective: Justyn Newman [...] [facility] Dr. Vitaliy Goldberg MD [address] [place] [address] [address] [place] [address] Office: [phone] [facility]* Encounter Date Diagnosis Assessment [...] IS ENCOURAGED TO FOLLOW THE FODMAP DIET. [email or web address] Other 06-17-2021 NoteMicrobiology PROCEDURE: Fungus Culture [R1] [...] Locations R1: This test was performed at: [facility], [address] [place] [address], [address] [place] [address], XqbtykUniversity Hospitals Conneaut Medical CenterComment on above:Performed By: #### [id number] ####[facility] [address] [place], [place] [id number] NoteMicrobiology PROCEDURE: Fluid Culture [R1] SOURCE: Body [...] NESTOR=mcg/m;(mg/L), S*=Predicted susceptible interp, R*=Predicted resistant interp [facility] Staepi Antibiotic NESTOR Dilutn NESTOR Interp NESTOR [...] Locations R1: This test was performed at: [facility], [address] [place] [address], [address] , , SisugbUniversity Hospitals Conneaut Medical CenterComment on above:Performed By: #### [id number] ####[facility] [address] [place], [place] [id number] [id number]:127[facility] CenterEvaluation noteNo assessment information availableDunlap Memorial Hospital Work Phone: Evaluation note* Diagnosis Cervical radiculopathy- Primary Brachial neuritis or radiculitis nos documented in this encounter [facility] HealthcareEvaluation note* Diagnosis Sacral radiculopathy- Primary Numbness and tingling Disturbance of skin sensation documented in this encounter [facility] HealthcareEvaluation note* Diagnosis Vitamin D deficiency [facility] Diagnosis Fibromyalgia Unspecified myalgia and myositis [facility]* Diagnosis Low back pain, unspecified back pain laterality, unspecified chronicity, unspecified whether sciatica present- Primary [facility]* Diagnosis Sacroiliac pain- Primary Disorders of sacrum Lumbar radiculopathy Thoracic or lumbosacral neuritis or radiculitis, unspecified [facility]* Diagnosis Sacroiliac pain- Primary Disorders of sacrum [facility]* Diagnosis Bilateral hip pain- Primary Pain in joint, pelvic region and thigh Lumbar spondylosis Lumbosacral spondylosis without myelopathy Neck pain Cervicalgia documented in this encounter [facility]* Diagnosis Lumbar spondylosis- Primary Lumbosacral spondylosis without myelopathy documented in this encounter [facility] SystemHistory general Narrative - Reported* Type Description Date Surgical History c- section Surgical Historytotal [id number] Historytubal ligation [facility] [employer] Other InstructionsNot on filedocumented in this encounter [facility] SystemInstructionsNot on filedocumented in this encounter [facility] SystemInstructionsNot on filedocumented in this encounter [facility] SystemInstructionsNot on filedocumented in this encounter [facility] SystemInstructionsNot on filedocumented in this encounter [facility] SystemReason for referral (narrative)No reason for referral information availableFirelands Regional Medical Center South Campus Work Phone: Reason for visit Narrative* Other Medical (Routine) - ClosedSpecialtyDiagnoses / ProceduresReferred By ContactReferred To Contact Neurology Diagnoses BUE EMG CTS ref by Dr Goodrich Procedures EMG Julian Goodrich MD [address] [facility] Professional building [address] [place] [address] Phone: tel: fax: [place] Cain DO [address] [place] [address] Phone: tel: fax: Referral IDStatusReasonStart DateExpiration DateVisits RequestedVisits [id number] Perform Procedure / [facility] HealthcareReason for visit Narrative* Other Medical (Routine) - Closed SpecialtyDiagnoses / ProceduresReferred By ContactReferred To ContactNeurology Diagnoses Paresthesia of skin Procedures AR NEEDLE EMG EA EXTREMTY W/PARASPINL AREA COMPLETE AR NERVE CONDUCTION STUDIES 9-10 STUDIES Julian Goodrich MD [address] [place] [address] Phone: tel: fax: Rehana Riley MD [address] [place] [address] Phone: tel: fax: Referral IDStatusReasonStart DateExpiration DateVisits RequestedVisits [id number] Perform Procedure / [facility] Summary Purpose Family History No Family [...] Contact Rehabilitation Diagnoses Fibromyalgia Vitaliy Goldberg MD [address] [address] [facility] [address] [place] [address] Referral IDStatusReasonStart DateExpiration DateVisits RequestedVisits [id number] Review Specialty Services Required / Chief Complaint [...] section and content) DATE CREATED AUTHOR 11/30/2020 [facility] DATE CREATED AUTHOR AUTHOR'S ORGANIZ ATION 05/25/2021 [facility] DATE CREATED AUTHOR AUTHOR'S ORGANIZ ATION 04/21/2024 [facility] DATE CREATED AUTHOR AUTHOR'S ORGANIZ ATION 05/11/2024 [facility] DATE CREATED AUTHOR AUTHOR'S ORGANIZ ATION 04/17/2025 [facility] DATE CREATED AUTHOR AUTHOR'S ORGANIZ ATION 04/22/2025 [facility] DATE CREATED AUTHOR AUTHOR'S ORGANIZ ATION 04/27/2025 [facility] REASON FOR VISIT (unrecogniz [...] Medicine and Rehabilitation [address] [facility] [facility] [address] [place] [address] Phone: tel: fax: [facility] [address] [facility] [address] [place] [address] Phone: tel: fax: Referral IDStatusReasonStart DateExpiration DateVisits RequestedVisits [id number] Review Specialty Services Required [id number]-oyFtlyggz is here for F/U SIJ 12/12. Patient [...] 2024Team MemberRelationshipSpecialtyStart DateEnd Date Avi Weber MD [facility] [place] [address] PCP - GeneralFamily Iwimbkgv75/31/24 North Cain DO [address] [place] [phone] Referring LeteemiddKfpdfzcxu35/31/24Team MemberRelationshipSpecialtyStart Date End Date Avi Weber MD [facility] [place] [address] PCP - GeneralFamily Fiiudyme69/31/24 North Cain DO [address] [place] [address] Referring KnkjllopaWpipjnoun59/31/24Team MemberRelationshipSpecialtyStart Date End Date Avi Weber MD [address] [facility] [place] [address] PCP - GeneralFamily Caajrnpg01/31/24 North Cain DO [address] [place] [address] Referring CevkrhygfQrdxhghdx63/31/24Team MemberRelationshipSpecialtyStart Date End Date Avi Weber MD [address] [place] [address] PCP - Generalmi Bocojrla40/21/19Team MemberRelationshipSpecialtyStart Date End Date Avi Weber MD [address] [place] [address] PCP - Generalmily Gjsfnxhj20/21/19 Team Status: Inactive Member Role Status Dates [...] End: September 27, 2024Team MemberRelationshipSpecialtyStart DateEnd Date Avi Weber MD [facility] - [facility]04/04/19Team MemberRelationshipSpecialtyStart Date End Date Avi Weber MD [facility]04/04/19 Team Status: Inactive Member Role Status Dates Avi Weber MD Primary Care Provider Active Start: November 11, 2024 End: November 11, 2024Deronnell Bradshaw , APRNAttending ProviderActiveStart: November 11, 2024 End: November 11, 2024Team MemberRelationshipSpecialtyStart DateEnd Date Avi Weber MD [facility]04/04/19 Team Status: Inactive Member Role Status Dates Avi Weber MD Primary Care Provider Active Start: January 17, 2025 End: January 17, 2025Deronnell Bradshaw , APRNAttending ProviderActiveStart: January 17, 2025 End: January 17, 2025Team MemberRelationshipSpecialtyStart DateEnd Date Avi Weber MD [facility]04/04/19 Team Status: Inactive Member Role Status Dates Avi Weber MD Primary Care Provider Active Start: March 20, 2025 End: March 20, 2025Deronnell C Maranda , APRNAttending ProviderActiveStart: March 20, 2025 End: March 20, 2025Team MemberRelationshipSpecialtyStart DateEnd Date Avi Weber MD PCP - [facility]04/04/19Team MemberRelationshipSpecialtyStart Date End Date Avi Weber MD PCP - [facility]04/04/19 Goals (unrecognized section and content) Goals may [...] BE BASED ON THE PRIMARY CLINICAL RECORDS. [facility] [employer], [facility]. provides no warranty or guarantee of the accuracy or completeness of information in this document.
[2025-05-26 12:54] LABS: Hematocrit 38.6 % (36.0-48.0); Hemoglobin 12.8 g/dL (12.0-16.0); Mean Corpuscular HGB Conc 33.2 g/dL (29.9-35.2); Mean Corpuscular Hemoglobin 30.8 pg (26.7-34.0); Mean Corpuscular Volume 93.0 fL (81.0-99.0); Platelet Count 287 10^3/uL (150-450); Red Blood Count 4.15 10^6/uL (4.20-5.40); White Blood Count 5.7 10^3/uL (4.0-11.0)
[2025-05-26 13:26] LABS: Alanine Aminotransferase 20 U/L (14-59); Albumin Globulin Ratio 0.9; Albumin Level 3.5 g/dL (3.4-5.0); Alkaline Phosphatase 92 U/L (46-116); Anion Gap 11.2; Aspartate Amino Transferase 25 U/L (15-37); Blood Urea Nitrogen 11.0 mg/dL (7.0-18.0); Calcium 8.9 mg/dL (8.5-10.1); Carbon Dioxide 30.8 mmol/L (21.0-32.0); Chloride 103 mmol/L (98-107); Cholesterol 192 mg/dL (<=200); Estimated GFR (African America >60 (>=60 mL/min/1.73m^2); Estimated GFR (Non-African Ame >60 (>=60 mL/min/1.73m^2); Globulin 3.8 g/dL; Glucose 79 mg/dL (74-106); HDL Cholesterol 79 mg/dL (40-60); Potassium 4.0 mmol/L (3.5-5.1); Sodium 141 mmol/L (136-145); Total Protein 7.3 g/dL (6.4-8.2); Triglycerides 49 mg/dL (<=150); VLDL CHOLESTEROL 9.8 mg/dL
[2025-05-27 03:07] LABS: Vitamin B12 527 pg/mL (232-1245)
== END 2025-05-26 12:13 | disposition home or self-care (01) ==
PROVIDERS: PCP Family Medicine; Visit Provider Nurse Practitioner Family
DX: E53.8 Deficiency of other specified B group vitamins (principal)
CPT/HCPCS: 36415; 80053; 80061; 82306; 82607; 85027